=== PATIENT | female | born 1940 | race Caucasian/White ===

== ENCOUNTER 2021-03-27 | Emergency (ER) | payer MEDICARE | END 2021-03-27 23:00 | disposition home or self-care (01) ==

== ENCOUNTER 2022-04-09 07:54 | Inpatient (IN) | payer MEDICARE ==
[2022-04-09] MEDS ORDERED: SODIUM CHLORIDE 0.9% 1,000 ML IV ONE (08:01)
[2022-04-09] MEDS ORDERED: SODIUM CHLORIDE 0.9% 1,000 ML IV STA ×3 (08:01→17:45)
--- NOTE | 2022-04-09 08:07 | ED ---
Altered Mental Status HPI - General Stated Complaint: AMS Time Seen by Provider: 04/09/22 07:54 Source: EMS, RN notes reviewed Mode of arrival: EMS - History of Present Illness Initial Comments: This is a 81-year-old female with a history of COPD and diabetes who last known well time was 2:30 PM yesterday afternoon she started developing nausea and vomiting and this. He went on throughout the night EMS was called today because the patient had altered mental status with confusion. She apparently was not following commands. She did not demonstrate any evidence of focal deficits. No fevers chills or sweats no known dysuria no diarrhea. No trauma reported. No other complaints or modifying factors at this time MD Complaint: altered mental status, confusion, decreased responsiveness - Related Data Previous Rx's Medication Instructions Recorded Cephalexin [Keflex] 500 mg PO Q6HR 7 Days #28 cap 03/27/21 Allergies Allergy/AdvReac Type Severity Reaction Status Date / Time Penicillins Allergy Rash/Hives Verified 04/09/22 08:04 Sulfa (Sulfonamide Allergy Rash/Hives Verified 04/09/22 08:04 Antibiotics) Review of Systems ROS Statement: Those systems with pertinent positive or pertinent negative responses have been documented in the HPI. ROS Other: All systems not noted in ROS Statement are negative. Limitations: ROS unobtainable due to patients medical condition Past Medical History Past Medical History: COPD, Diabetes Mellitus, Hyperlipidemia, Hypertension Additional Past Medical History / Comment(s): abdominal aortic aneurysm History of Any Multi-Drug Resistant Organisms: None Reported Past Psychological History: No Psychological Hx Reported Smoking Status: Former smoker Past Alcohol Use History: None Reported Past Drug Use History: None Reported General Exam - General Exam Comments Initial Comments: This is a well-developed awake alert though somewhat confused female she does answer questions briefly. General appearance: alert, anxious Head exam: Present: atraumatic, normocephalic, normal inspection Eye exam: Present: normal appearance, PERRL, EOMI. Absent: scleral icterus, conjunctival injection, periorbital swelling ENT exam: Present: mucous membranes dry Neck exam: Present: normal inspection, full ROM, other (No surgery or bruits). Absent: tenderness, meningismus, lymphadenopathy Respiratory exam: Present: decreased breath sounds. Absent: respiratory distress, wheezes, rales, rhonchi, stridor Cardiovascular Exam: Present: normal rhythm, tachycardia, normal heart sounds. Absent: systolic murmur, diastolic murmur, rubs, gallop, clicks GI/Abdominal exam: Present: soft, normal bowel sounds, other (Well-healed surgical scars from a laparoscopic cholecystectomy. The patient confirms this). Absent: distended, tenderness, guarding, rebound, rigid Rectal exam: Present: normal inspection External exam: Present: normal external exam Extremities exam: Present: normal inspection, full ROM, normal capillary refill. Absent: tenderness, pedal edema, joint swelling, calf tenderness Back exam: Present: normal inspection, full ROM. Absent: tenderness Neurological exam: Present: alert, altered, CN II-XII intact. Absent: motor sensory deficit Psychiatric exam: Present: anxious Skin exam: Present: warm, dry, intact, normal color. Absent: rash Course Vital Signs 04/09/22 04/09/22 04/09/22 08:05 08:27 10:15 Temperature 101 F H 99.4 F Pulse Rate 91 80 93 Respiratory 18 18 18 Rate Blood Pressure 193/76 170/83 160/61 O2 Sat by Pulse 97 97 98 Oximetry - Reevaluation(s) Reevaluation #1: 04/09/22 12:38 Reevaluation of the patient multiple occasions findings no change she still is responsive as she was earlier. Family members or present Medical Decision Making - Medical Decision Making I did discuss findings with the patient's family also with Dr. Patel. Patient demonstrates dehydration fever of unknown origin at this point and altered mental status patient be admitted she does have elevation of her troponin indicative of an NSTEMI. Patient be admitted IV antibiotics cardiology consultation close monitoring - Lab Data Result diagrams: 04/09/22 08:22 04/09/22 08:22 Lab Results 04/09/22 04/09/22 04/09/22 Range/Units 08:22 08:22 08:22 WBC 9.4 (3.8-10.6) k/uL RBC 4.99 (3.80-5.40) m/uL Hgb 15.6 (11.4-16.0) gm/dL Hct 46.0 (34.0-46.0) % MCV 92.1 (80.0-100.0) fL MCH 31.3 (25.0-35.0) pg MCHC 33.9 (31.0-37.0) g/dL RDW 13.3 (11.5-15.5) % Plt Count 123 L (150-450) k/uL MPV 10.0 Neutrophils % 79 % Lymphocytes % 9 % Monocytes % 8 % Eosinophils % 0 % Basophils % 2 % Neutrophils # 7.4 (1.3-7.7) k/uL Lymphocytes # 0.9 L (1.0-4.8) k/uL Monocytes # 0.8 (0-1.0) k/uL Eosinophils # 0.0 (0-0.7) k/uL Basophils # 0.2 (0-0.2) k/uL PT 11.7 (9.0-12.0) sec INR 1.1 (<1.2) APTT 22.1 (22.0-30.0) sec Sodium (137-145) mmol/L Potassium (3.5-5.1) mmol/L Chloride (98-107) mmol/L Carbon Dioxide (22-30) mmol/L Anion Gap mmol/L BUN (7-17) mg/dL Creatinine (0.52-1.04) mg/dL Est GFR (CKD-EPI)AfAm (>60 ml/min/1.73 sqM) Est GFR (CKD-EPI)NonAf (>60 ml/min/1.73 sqM) Glucose (74-99) mg/dL Lactic Ac Sepsis Rflx Plasma Lactic Acid Bishop (0.7-2.0) mmol/L Calcium (8.4-10.2) mg/dL Total Bilirubin (0.2-1.3) mg/dL AST (14-36) U/L ALT (4-34) U/L Alkaline Phosphatase (38-126) U/L Ammonia (<30) umol/L Troponin I (0.000-0.034) ng/mL Total Protein (6.3-8.2) g/dL Albumin (3.5-5.0) g/dL Lipase (23-300) U/L Urine Color Yellow Urine Appearance Clear (Clear) Urine pH 7.0 (5.0-8.0) Ur Specific [place] 1.021 (1.001-1.035) Urine Protein 4+ H (Negative) Urine Glucose (UA) 2+ H (Negative) Urine Ketones 2+ H (Negative) Urine Blood Large H (Negative) Urine Nitrite Negative (Negative) Urine Bilirubin Negative (Negative) Urine Urobilinogen <2.0 (<2.0) mg/dL Ur Leukocyte Esterase Negative (Negative) Urine RBC 1 (0-5) /hpf Urine WBC 3 (0-5) /hpf Ur Squamous Epith Cells <1 (0-4) /hpf Hyaline Casts 1 (0-2) /lpf Urine Mucus Rare H (None) /hpf Urine Opiates Screen Not Detected (NotDetected) Ur Oxycodone Screen Not Detected (NotDetected) Urine Methadone Screen Not Detected (NotDetected) Ur Propoxyphene Screen Not Detected (NotDetected) Ur Barbiturates Screen Not Detected (NotDetected) U Tricyclic Antidepress Not Detected (NotDetected) Ur Phencyclidine Scrn Not Detected (NotDetected) Ur Amphetamines Screen Not Detected (NotDetected) U Methamphetamines Scrn Not Detected (NotDetected) U Benzodiazepines Scrn Not Detected (NotDetected) Urine Cocaine Screen Not Detected (NotDetected) U Marijuana (THC) Screen Not Detected (NotDetected) Coronavirus (PCR) (Not Detectd) Influenza Type A RNA (Not Detectd) Influenza Type B (PCR) (Not Detectd) 04/09/22 04/09/22 04/09/22 Range/Units 08:22 08:22 08:22 WBC (3.8-10.6) k/uL RBC (3.80-5.40) m/uL Hgb (11.4-16.0) gm/dL Hct (34.0-46.0) % MCV (80.0-100.0) fL MCH (25.0-35.0) pg MCHC (31.0-37.0) g/dL RDW (11.5-15.5) % Plt Count (150-450) k/uL MPV Neutrophils % % Lymphocytes % % Monocytes % % Eosinophils % % Basophils % % Neutrophils # (1.3-7.7) k/uL Lymphocytes # (1.0-4.8) k/uL Monocytes # (0-1.0) k/uL Eosinophils # (0-0.7) k/uL Basophils # (0-0.2) k/uL PT (9.0-12.0) sec INR (<1.2) APTT (22.0-30.0) sec Sodium 135 L (137-145) mmol/L Potassium 4.1 (3.5-5.1) mmol/L Chloride 99 (98-107) mmol/L Carbon Dioxide 21 L (22-30) mmol/L Anion Gap 15 mmol/L BUN 19 H (7-17) mg/dL Creatinine 0.94 (0.52-1.04) mg/dL Est GFR (CKD-EPI)AfAm 66 (>60 ml/min/1.73 sqM) Est GFR (CKD-EPI)NonAf 57 (>60 ml/min/1.73 sqM) Glucose 248 H (74-99) mg/dL Lactic Ac Sepsis Rflx Plasma Lactic Acid Bishop 2.6 H* (0.7-2.0) mmol/L Calcium 9.0 (8.4-10.2) mg/dL Total Bilirubin 1.3 (0.2-1.3) mg/dL AST 35 (14-36) U/L ALT 18 (4-34) U/L Alkaline Phosphatase 117 (38-126) U/L Ammonia <9 (<30) umol/L Troponin I 0.121 H* (0.000-0.034) ng/mL Total Protein 8.3 H (6.3-8.2) g/dL Albumin 4.7 (3.5-5.0) g/dL Lipase 131 (23-300) U/L Urine Color Urine Appearance (Clear) Urine pH (5.0-8.0) Ur Specific [place] (1.001-1.035) Urine Protein (Negative) Urine Glucose (UA) (Negative) Urine Ketones (Negative) Urine Blood (Negative) Urine Nitrite (Negative) Urine Bilirubin (Negative) Urine Urobilinogen (<2.0) mg/dL Ur Leukocyte Esterase (Negative) Urine RBC (0-5) /hpf Urine WBC (0-5) /hpf Ur Squamous Epith Cells (0-4) /hpf Hyaline Casts (0-2) /lpf Urine Mucus (None) /hpf Urine Opiates Screen (NotDetected) Ur Oxycodone Screen (NotDetected) Urine Methadone Screen (NotDetected) Ur Propoxyphene Screen (NotDetected) Ur Barbiturates Screen (NotDetected) U Tricyclic Antidepress (NotDetected) Ur Phencyclidine Scrn (NotDetected) Ur Amphetamines Screen (NotDetected) U Methamphetamines Scrn (NotDetected) U Benzodiazepines Scrn (NotDetected) Urine Cocaine Screen (NotDetected) U Marijuana (THC) Screen (NotDetected) Coronavirus (PCR) (Not Detectd) Influenza Type A RNA (Not Detectd) Influenza Type B (PCR) (Not Detectd) 04/09/22 04/09/22 04/09/22 Range/Units 08:22 08:22 09:03 WBC (3.8-10.6) k/uL RBC (3.80-5.40) m/uL Hgb (11.4-16.0) gm/dL Hct (34.0-46.0) % MCV (80.0-100.0) fL MCH (25.0-35.0) pg MCHC (31.0-37.0) g/dL RDW (11.5-15.5) % Plt Count (150-450) k/uL MPV Neutrophils % % Lymphocytes % % Monocytes % % Eosinophils % % Basophils % % Neutrophils # (1.3-7.7) k/uL Lymphocytes # (1.0-4.8) k/uL Monocytes # (0-1.0) k/uL Eosinophils # (0-0.7) k/uL Basophils # (0-0.2) k/uL PT (9.0-12.0) sec INR (<1.2) APTT (22.0-30.0) sec Sodium (137-145) mmol/L Potassium (3.5-5.1) mmol/L Chloride (98-107) mmol/L Carbon Dioxide (22-30) mmol/L Anion Gap mmol/L BUN (7-17) mg/dL Creatinine (0.52-1.04) mg/dL Est GFR (CKD-EPI)AfAm (>60 ml/min/1.73 sqM) Est GFR (CKD-EPI)NonAf (>60 ml/min/1.73 sqM) Glucose (74-99) mg/dL Lactic Ac Sepsis Rflx Y Plasma Lactic Acid Bishop (0.7-2.0) mmol/L Calcium (8.4-10.2) mg/dL Total Bilirubin (0.2-1.3) mg/dL AST (14-36) U/L ALT (4-34) U/L Alkaline Phosphatase (38-126) U/L Ammonia (<30) umol/L Troponin I (0.000-0.034) ng/mL Total Protein (6.3-8.2) g/dL Albumin (3.5-5.0) g/dL Lipase (23-300) U/L Urine Color Urine Appearance (Clear) Urine pH (5.0-8.0) Ur Specific [place] (1.001-1.035) Urine Protein (Negative) Urine Glucose (UA) (Negative) Urine Ketones (Negative) Urine Blood (Negative) Urine Nitrite (Negative) Urine Bilirubin (Negative) Urine Urobilinogen (<2.0) mg/dL Ur Leukocyte Esterase (Negative) Urine RBC (0-5) /hpf Urine WBC (0-5) /hpf Ur Squamous Epith Cells (0-4) /hpf Hyaline Casts (0-2) /lpf Urine Mucus (None) /hpf Urine Opiates Screen (NotDetected) Ur Oxycodone Screen (NotDetected) Urine Methadone Screen (NotDetected) Ur Propoxyphene Screen (NotDetected) Ur Barbiturates Screen (NotDetected) U Tricyclic Antidepress (NotDetected) Ur Phencyclidine Scrn (NotDetected) Ur Amphetamines Screen (NotDetected) U Methamphetamines Scrn (NotDetected) U Benzodiazepines Scrn (NotDetected) Urine Cocaine Screen (NotDetected) U Marijuana (THC) Screen (NotDetected) Coronavirus (PCR) Not Detected (Not Detectd) Influenza Type A RNA Not Detected (Not Detectd) Influenza Type B (PCR) Not Detected (Not Detectd) 04/09/22 Range/Units 11:06 WBC (3.8-10.6) k/uL RBC (3.80-5.40) m/uL Hgb (11.4-16.0) gm/dL Hct (34.0-46.0) % MCV (80.0-100.0) fL MCH (25.0-35.0) pg MCHC (31.0-37.0) g/dL RDW (11.5-15.5) % Plt Count (150-450) k/uL MPV Neutrophils % % Lymphocytes % % Monocytes % % Eosinophils % % Basophils % % Neutrophils # (1.3-7.7) k/uL Lymphocytes # (1.0-4.8) k/uL Monocytes # (0-1.0) k/uL Eosinophils # (0-0.7) k/uL Basophils # (0-0.2) k/uL PT (9.0-12.0) sec INR (<1.2) APTT (22.0-30.0) sec Sodium (137-145) mmol/L Potassium (3.5-5.1) mmol/L Chloride (98-107) mmol/L Carbon Dioxide (22-30) mmol/L Anion Gap mmol/L BUN (7-17) mg/dL Creatinine (0.52-1.04) mg/dL Est GFR (CKD-EPI)AfAm (>60 ml/min/1.73 sqM) Est GFR (CKD-EPI)NonAf (>60 ml/min/1.73 sqM) Glucose (74-99) mg/dL Lactic Ac Sepsis Rflx Plasma Lactic Acid Bishop 2.4 H* (0.7-2.0) mmol/L Calcium (8.4-10.2) mg/dL Total Bilirubin (0.2-1.3) mg/dL AST (14-36) U/L ALT (4-34) U/L Alkaline Phosphatase (38-126) U/L Ammonia (<30) umol/L Troponin I (0.000-0.034) ng/mL Total Protein (6.3-8.2) g/dL Albumin (3.5-5.0) g/dL Lipase (23-300) U/L Urine Color Urine Appearance (Clear) Urine pH (5.0-8.0) Ur Specific [place] (1.001-1.035) Urine Protein (Negative) Urine Glucose (UA) (Negative) Urine Ketones (Negative) Urine Blood (Negative) Urine Nitrite (Negative) Urine Bilirubin (Negative) Urine Urobilinogen (<2.0) mg/dL Ur Leukocyte Esterase (Negative) Urine RBC (0-5) /hpf Urine WBC (0-5) /hpf Ur Squamous Epith Cells (0-4) /hpf Hyaline Casts (0-2) /lpf Urine Mucus (None) /hpf Urine Opiates Screen (NotDetected) Ur Oxycodone Screen (NotDetected) Urine Methadone Screen (NotDetected) Ur Propoxyphene Screen (NotDetected) Ur Barbiturates Screen (NotDetected) U Tricyclic Antidepress (NotDetected) Ur Phencyclidine Scrn (NotDetected) Ur Amphetamines Screen (NotDetected) U Methamphetamines Scrn (NotDetected) U Benzodiazepines Scrn (NotDetected) Urine Cocaine Screen (NotDetected) U Marijuana (THC) Screen (NotDetected) Coronavirus (PCR) (Not Detectd) Influenza Type A RNA (Not Detectd) Influenza Type B (PCR) (Not Detectd) - EKG Data -: EKG Interpreted by Mt EKG shows normal: sinus rhythm EKG Comments: Sinus rhythm a 93. Interval 153 QRS duration 135 QT since QTC 389/440 possible left atrial enlargement right bundle-branch block pattern this EKG compared with one dated 03/27/21 showing no acute changes. - Radiology Data Radiology results: report reviewed (Imaging reviewed evidence of white matter changes brain no acute processes. X-ray to this point is unremarkable.), image reviewed Critical Care Time Critical Care Time: Yes Total Critical Care Time: 40 Critical Care Time: Critical care time including initial presentation with history physical labs x- rays multiple reevaluation the patient discussed with paramedics upon arrival revealed charting available discussed with family members discuss with the admitting physician admission orders and documentation the above Disposition Clinical Impression: Altered mental status, Delirium due to general medical condition, Non-STEMI (non-ST elevated myocardial infarction), Dehydration, Lactic acidosis Disposition: ADMITTED IP TO THIS HOSP Condition: Fair Referrals: Rosio Almanzar MD [Primary Care Provider] - 1-2 days Decision Date: 04/09/22 Decision Time: 12:00
[2022-04-09 08:44] LABS: Basophils # (A) 0.2 k/uL (0-0.2); Basophils % (A) 2 %; Eosinophils % (A) 0 %; HGB 15.6 gm/dL (11.4-16.0); Lymphocytes # (A) 0.9 k/uL (1.0-4.8); Lymphocytes % (A) 9 %; MCH 31.3 pg (25.0-35.0); MCHC 33.9 g/dL (31.0-37.0); MCV 92.1 fL (80.0-100.0); Monocytes # (A) 0.8 k/uL (0-1.0); Monocytes % (A) 8 %; Neutrophils # (A) 7.4 k/uL (1.3-7.7); Neutrophils % (A) 79 %; Platelet Count 123 k/uL (150-450); RBC 4.99 m/uL (3.80-5.40); RDW 13.3 % (11.5-15.5); WBC 9.4 k/uL (3.8-10.6)
--- NOTE | 2022-04-09 08:55 | XR ---
EXAMINATION TYPE: XR chest 1V DATE OF EXAM: 04/09/2022 8:37 AM COMPARISON: Chest radiographs from 04/04/2013, CTA chest 03/27/2021. TECHNIQUE: XR chest 1V Frontal view of the chest. CLINICAL INDICATION:Female, 81 years old with history of altered mental status; FINDINGS: Limited examination due to poor penetration. Lungs/Pleura: There is no evidence of pleural effusion, focal consolidation, or pneumothorax. Left ba silar atelectasis Pulmonary vascularity: Unremarkable. Heart/mediastinum: Cardiomediastinal silhouette is unremarkable. Atherosclerotic calcifications are seen in the aorta. Musculoskeletal: No acute osseous pathology. Degenerative changes of both shoulders. IMPRESSION: No acute cardiopulmonary disease/process.
[2022-04-09 09:01] LABS: Albumin 4.7 g/dL (3.5-5.0); INR 1.1 (<1.2); Partial Thromboplastin Time 22.1 sec (22.0-30.0); Potassium 4.1 mmol/L (3.5-5.1); Prothrombin Time 11.7 sec (9.0-12.0); Total Bilirubin 1.3 mg/dL (0.2-1.3); Total Protein 8.3 g/dL (6.3-8.2)
[2022-04-09 09:03] LABS: Lactic Acid, Venous 2.6 mmol/L (0.7-2.0)
[2022-04-09] MEDS ORDERED: LORazepam 2 MG/ML INJ IV STA (09:17)
--- NOTE | 2022-04-09 09:39 | CT ---
EXAMINATION TYPE: CT brain wo con CT DLP: 1099.4 mGycm, Automated exposure control for dose reduction was used. DATE OF EXAM: 04/09/2022 9:34 AM COMPARISON: Prior CT Brain from 03/14/2013 . CLINICAL INDICATION:Female, 81 years old with history of Altered mental status, TECHNIQUE: Brain: Multiple axial CT images of the brain were obtained without IV contrast. Coronal and sagittal reformats reviewed. FINDINGS: Motion degraded examination. Brain: Extra-axial spaces: No abnormal extra-axial fluid collections. Ventricular system: Within normal limits Cerebral parenchyma: No acute intraparenchymal hemorrhage or mass effect. The dietrich-white junction is well differentiated. Scattered hypoattenuating areas are seen within the white matter. Cerebral vol ume loss with prominence of the sulci. Cerebellum: Unremarkable. Mass effect: No evidence of midline shift. Intracranial vasculature: Atherosclerotic calcifications of the intracranial vessels. Soft tissues: Normal. Calvarium/osseous structures: No gross evidence of depressed skull fracture. Paranasal sinuses and mastoid air cells: Clear Visualized orbits: Bilateral aphakia IMPRESSION: Motion limited examination without gross evidence of an acute process. Nonspecific white matter changes likely related to chronic small vessel ischemia.
[2022-04-09 10:18] LABS: Appearance,Urine Clear (Clear); Bilirubin,Urine Negative (Negative); Blood,Urine Large (Negative); Color,Urine Yellow; Glucose,Urine (UA) 2+ (Negative); Hyaline Casts,Urine 1 /lpf (0-2); Leukocyte Esterase,Urine Negative (Negative); Mucus,Urine Rare /hpf; Nitrite,Urine Negative (Negative); Protein,Urine 4+ (Negative); RBC,Urine 1 /hpf (0-5); Specific Gravity,Urine 1.021 (1.001-1.035); Squamous Epithelial Cell,Urine <1 /hpf (0-4); Urobilinogen,Urine <2.0 mg/dL (<2.0); WBC,Urine 3 /hpf (0-5)
[2022-04-09 10:41] LABS: Amphetamine Screen,Urine Not Detected (NotDetected); Barbiturate Screen,Urine Not Detected (NotDetected); Benzodiazepines Screen,Urine Not Detected (NotDetected); Cocaine Screen,Urine Not Detected (NotDetected); Methadone Screen, Urine Not Detected (NotDetected); Opiate Screen,Urine Not Detected (NotDetected); Oxycodone Screen, Urine Not Detected (NotDetected); Phencyclidine Screen,Urine Not Detected (NotDetected); Tricyclic Antidepressant,Urine Not Detected (NotDetected); Urn Cannabinoid Scrn Not Detected (NotDetected)
[2022-04-09 11:04] LABS: Ketones,Urine 2+ (Negative)
[2022-04-09] MEDS ORDERED: cefTRIAXone IN SWFI 1,000 MG/10 ML SYRINGE IVP STA (12:40)
[2022-04-09] MEDS ORDERED: NITROGLYCERIN SL TABS 0.4 MG TAB SUBLINGUAL PRN (12:41)
[2022-04-09] MEDS ORDERED: ASPIRIN 81 MG PO STA (12:41)
[2022-04-09] MEDS ORDERED: HEPARIN SODIUM 1,000 UN/ML (10ML VL) IV ONE (12:41)
[2022-04-09] MEDS ORDERED: HEPARIN SOD,PORK IN 0.45% NACL 25,000 UNIT in 0.45% NACL 1 250ML.BAG IV SCH (12:45)
[2022-04-09] MEDS ORDERED: ASPIRIN 300 MG SUPP RECTAL STA (12:52)
[2022-04-09] MEDS ORDERED: ACETAMINOPHEN SUPPOSITORY 650 MG SUPP RECTAL PRN (13:02)
[2022-04-09 16:25] LABS: Glucose,Whole Blood 188 mg/dL (70-110)
[2022-04-09] MEDS ORDERED: IPRATROPIUM-ALBUTEROL 3 ML NEB INHALATION PRN (17:32)
[2022-04-09] MEDS ORDERED: ALBUTEROL NEBULIZED 2.5 MG/3 ML INHALATION PRN (17:32)
[2022-04-09] MEDS ORDERED: IOPAMIDOL CONTRAST (ORAL USE) VIAL PO PRN (17:43)
--- NOTE | 2022-04-09 19:23 | CT ---
EXAMINATION TYPE: CT abdomen pelvis w con CT DLP: 1900.3 mGycm, Automated exposure control for dose reduction was used. DATE OF EXAM: 04/09/2022 6:58 PM COMPARISON: CTA abdomen pelvis most recent from 03/27/2021. CLINICAL INDICATION:Female, 81 years old with history of sepsis. TECHNIQUE: Standard CT of the abdomen and pelvis following the administration of 100 cc of Isovue 3 00 IV contrast material. Coronal and sagittal reformats were performed. FINDINGS: Motion degraded examination. LOWER CHEST: Hypoventilatory changes. Aortic valvular and mitral calcifications. Coronary artery calc ifications. ABDOMEN LIVER: Unremarkable GALLBLADDER AND BILE DUCTS: The gallbladder is surgically absent. No biliary ductal dilatation. PANCREAS: Unremarkable. SPLEEN: Unremarkable. ADRENAL GLANDS: Unremarkable. KIDNEYS AND URETERS: No evidence of hydronephrosis. Vascular calcifications versus nonobstructing gil al calculi identified. PELVIS BLADDER: Unremarkable REPRODUCTIVE: Unremarkable. ABDOMEN & PELVIS STOMACH AND BOWEL: Stomach and duodenum are unremarkable. No focal wall thickening or surrounding inf lammatory changes. 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 No evidence of bowel obstruction. PERITONEUM: No evidence of pneumoperitoneum or free fluid. VASCULATURE: Moderate to severe atherosclerotic calcifications aorta and its branches. Postsurgical c hanges with aortobiiliac stent graft involving the infrarenal abdominal aortic aneurysm which measure s 4.3 x 4.1 cm which is stable. This mural thrombus demonstrated throughout the aorta. Evaluation of the vasculature is suboptimal due to motion artifact. MUSCULOSKELETAL: No acute osseous abnormalities. Mild disc degeneration changes are present throughou t the thoracolumbar spine. LYMPH NODES: No gross evidence for lymphadenopathy. SOFT TISSUE/ABDOMINAL WALL: Unremarkable IMPRESSION: 1. Motion limited examination without gross evidence of acute abdominal/pelvic process. 2. 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 Stable abdominal aortic aneurysm with stent graft in good position. 4. Moderate to severe atherosclerotic calcification of the aorta and its branches.
[2022-04-09 20:05] LABS: Glucose,Whole Blood 175 mg/dL (70-110)
[2022-04-10] MEDS: hydrALAZINE HCL 20 MG/ML 1 ML VIAL IVP PRN ×2 (02:07→17:26)
[2022-04-10 06:08] LABS: Glucose,Whole Blood 186 mg/dL (70-110)
[2022-04-10 07:42] LABS: Basophils # (A) 0.1 k/uL (0-0.2); Basophils % (A) 1 %; Eosinophils % (A) 0 %; HCT 41.1 % (34.0-46.0); HGB 13.2 gm/dL (11.4-16.0); Lymphocytes # (A) 1.2 k/uL (1.0-4.8); Lymphocytes % (A) 14 %; MCH 29.6 pg (25.0-35.0); MCHC 32.1 g/dL (31.0-37.0); MCV 92.3 fL (80.0-100.0); Monocytes # (A) 0.9 k/uL (0-1.0); Monocytes % (A) 11 %; Neutrophils # (A) 5.8 k/uL (1.3-7.7); Neutrophils % (A) 71 %; Platelet Count 106 k/uL (150-450); RBC 4.45 m/uL (3.80-5.40); RDW 13.1 % (11.5-15.5); WBC 8.1 k/uL (3.8-10.6)
[2022-04-10 08:53] LABS: ALT 15 U/L (4-34); AST 29 U/L (14-36); African American GFR (CKD) 72 (>60 ml/min/1.73 sqM); Albumin 3.8 g/dL (3.5-5.0); Alkaline Phosphatase 90 U/L (38-126); Anion Gap 8 mmol/L; Blood Urea Nitrogen 18 mg/dL (7-17); Calcium 7.9 mg/dL (8.4-10.2); Carbon Dioxide 23 mmol/L (22-30); Chloride 105 mmol/L (98-107); Glucose 176 mg/dL (74-99); Non-African American GFR(CKD) 62 (>60 ml/min/1.73 sqM); Potassium 3.3 mmol/L (3.5-5.1); Sodium 136 mmol/L (137-145); Total Bilirubin 0.8 mg/dL (0.2-1.3); Total Protein 6.8 g/dL (6.3-8.2)
[2022-04-10] MEDS ORDERED: ASPIRIN 325 MG TAB PO SCH (09:00)
[2022-04-10] MEDS ORDERED: Potassium Replacement Protocol 1 EACH MISC MISCELLANE PRN (09:06)
[2022-04-10] MEDS ORDERED: SODIUM CHLORIDE 0.9% 1,000 ML IV STA (09:40)
--- NOTE | 2022-04-10 09:59 | P.CNNES ---
History of Present Illness Consult date: 04/10/22 Requesting physician: Benjamin Damon Reason for Consult: Altered mental status History of Present Illness: Patient is a 81-year-old female with history of hypertension, diabetes, X tobacco use, otherwise healthy, came to the hospital by ambulance yesterday at 7:54 AM. EMS flow sheet not available in the chart. Patient not able to provide any history. Patient laying in the bed, appears to have some headache. On asking about the headache, patient states "terrible headache". She rates it as "10/10", but states is having headache for "a long time". Patient has very slow mentation, prolonged latency to answer any question. She would not answer most of the questions asked. She has limited speech, but was clear as above. She would frequently hold her head and moan, ask for help. I spoke to patient's daughter on the phone, who provided additional piece of history. She states that patient has been perfectly fine, until Sunday, 2 days ago at 3:30 to 40 p.m, when she started vomiting. She was still conversant on Sunday, discussed with her daughter about the politics and was able to move around a little. At baseline she uses walker or a cane. Her speech is otherwise fully intact. She went to sleep. Yesterday on Sunday morning, when patient's daughter went to wake her up, she was combative, not much responsive, would speak only 3 words at a time only "yes, no, help". She was not able to move, not able to do anything not able to sit up, could not rollover. There was no facial droop noticed. Her limited speech was clear with no slurring. No drooling. Patient's daughter noticed that she was grabbing side of the head. Therefore she called the ambulance and was brought to the hospital. This is a drastic change in her condition going on since Sunday but worse on Sunday. Vital signs on arrival blood pressure 193/76, which came down to 170/83, pulse rate 91 temperature 101 F rectally. Axillary was 99.4. Blood test shows normal CBC, platelets 123, PT/PTT normal, sodium 135, potassium 4.1, BUN 19, creatinine 0.94. Lactic acid was elevated 2.6. Hepatic panel normal, troponin mildly elevated 0.121 and then 0.206. UA shows 2+ ketones, UDS negative, portillo Virus negative, influenza negative. Ammonia is <9. CT head revealed motion limited examination without gross evidence of an acute process. Nonspecific white matter changes, likely related to chronic small vessel ischemia. On my review, there is evidence of significant generalized cerebral atrophy, particularly inv olving the frontal parietal region. No acute process. Chest x-ray revealed no acute process. EKG was sinus rhythm with occasional supraventricular premature complexes. Possible left atrial enlargement. Right bundle-branch block. CT of abdomen and pelvis showed no acute process. Stable abdominal aortic aneurysm with stent graft in good position. Moderate to severe atherosclerotic calcification of the aorta and its branches. Patient's daughter states that she smoked 1-3 packs per day for about 40-50 years, quit 5 years ago. She has type 2 diabetes for last 20 years. Also has hypertension. She lives with her daughter. Patient's home medications include lisinopril 20 mg, aspirin 81 mg, Coreg 6.25 mg twice a day, Lipitor 80 mg and albuterol. Review of Systems Only able to tell about headache. ROS unobtainable: due to mental status Past Medical History Past Medical History: COPD, CVA/TIA, Diabetes Mellitus, Hyperlipidemia, Hypertension, Myocardial Infarction ([place]) Additional Past Medical History / Comment(s): abdominal aortic aneurysm with stent, 2 heart attacks, 2 strokes - residual slight left eye droop per daughter Last Myocardial Infarction Date:: 2015 History of Any Multi-Drug Resistant Organisms: None Reported Past Surgical History: Appendectomy, Hysterectomy Additional Past Surgical History / Comment(s): stent to aorta at [facility], cardiac stent at [facility] for [place], R leg tendon surgery from fall, laminectomy. Past Anesthesia/Blood Transfusion Reactions: Previous Problems w/ Anesthesia Additional Past Anesthesia/Blood Transfusion Reaction / Comment(s): combative, previously restrained after sedation. Past Psychological History: No Psychological Hx Reported Smoking Status: Former smoker Past Alcohol Use History: None Reported Past Drug Use History: None Reported Medications and Allergies Home Medications Medication Instructions Recorded Confirmed Type Albuterol Inhaler [Ventolin Hfa 2 puff INHALATION RT-QID PRN 04/09/22 04/09/22 History Inhaler] Aspirin EC [Ecotrin Low Dose] 81 mg PO DAILY 04/09/22 04/09/22 History Atorvastatin [Lipitor] 80 mg PO HS 04/09/22 04/09/22 History Ipratropium-Albuterol Nebulize 3 ml INHALATION RT-QID PRN 04/09/22 04/09/22 History [Duoneb 0.5 mg-3 mg/3 ml Soln] Nitroglycerin Sl Tabs [Nitrostat] 0.4 mg SL Q5M PRN 04/09/22 04/09/22 History carvediloL [Coreg] 6.25 mg PO BID 04/09/22 04/09/22 History lisinopriL [Prinivil] 20 mg PO DAILY 04/09/22 04/09/22 History Allergies Allergy/AdvReac Type Severity Reaction Status Date / Time Penicillins Allergy Anaphylaxis Verified 04/09/22 13:16 & hives Sulfa (Sulfonamide Allergy Anaphylaxis Verified 04/09/22 13:16 Antibiotics) & hives diazepam [From Valium] AdvReac Combative Verified 04/09/22 13:16 Physical Examination - Vital Signs Vital Signs: Vital Signs Temp Pulse Pulse Resp BP BP Pulse Ox 04/10/22 04:00 99.0 F 97 20 169/72 97 04/10/22 02:00 94 18 04/10/22 00:00 98.0 F 94 18 197/79 96 04/09/22 20:00 98.1 F 88 20 193/119 04/09/22 16:00 159/65 04/09/22 14:44 98.4 F 87 18 159/72 98 04/09/22 14:00 78 20 04/09/22 13:26 98.7 F 20 200/81 93 L 04/09/22 12:00 92 18 173/80 97 04/09/22 10:15 99.4 F 93 18 160/61 98 04/09/22 08:27 80 18 170/83 97 Intake and Output 04/09/22 04/10/22 04/10/22 22:59 06:59 14:59 Other: Voiding Method Diaper Diaper # Voids 1 1 # Bowel Movements 1 1 Patient is an elderly female, laying in the bed, appears to be holding her head with her right hand due to headache. She appears encephalopathic. She continues to moan "oh my God" Patient is alert awake, limited speech, but was clear. There were no paraphasic errors with her limited speech. Patient did tell me that it is March, but did not tell me the year. Speech and language functions are normal. Attention, concentration and fund of knowledge is significantly limited. On cranial nerve examination, pupils are equal, round and reacting to light, vi sual mercedes could not be assessed although she does blink to visual threat on either side. Her extraocular muscles are intact with no nystagmus. Face is symmetric, she did not protrude her tongue. Lower cranial nerves cannot be tested. Hearing appears decreased. On muscle strength testing, patient did not cooperate with muscle strength testing. She states seems to move her arms and legs equally. No obvious weakness on either side. She frequently grabs her head with her right hand, appears to be in pain. She moves both legs equally. Deep tendon reflexes are difficult to assess because patient keeps on holding her legs stiff. Plantars are upgoing bilaterally. Sensory to touch could not be assessed, but she does move her extremities to painful stimuli bilaterally. Cerebellar function not able to be assessed. Tone appears increased and bulk of muscles normal. Gait not able to be checked. On general examination, she appears slightly dehydrated, mouth is dry, lips are chapped. there is no carotid bruit or murmur, S1-S2 audible. Abdomen is soft nontender. Chest is clear. Peripheral pulses are present. No edema. Skin is dry. Results - Laboratory Findings CBC and BMP: 04/10/22 06:57 04/10/22 06:57 Abnormal Lab Findings: Abnormal Labs 04/09/22 04/09/22 04/09/22 08:22 08:22 08:22 Plt Count 123 L Lymphocytes # 0.9 L APTT Sodium 135 L Carbon Dioxide 21 L BUN 19 H Glucose 248 H POC Glucose (mg/dL) Plasma Lactic Acid Bishop Troponin I Total Protein 8.3 H Urine Protein 4+ H Urine Glucose (UA) 2+ H Urine Ketones 2+ H Urine Blood Large H Urine Mucus Rare H 04/09/22 04/09/22 04/09/22 08:22 08:22 11:06 Plt Count Lymphocytes # APTT Sodium Carbon Dioxide BUN Glucose POC Glucose (mg/dL) Plasma Lactic Acid Bishop 2.6 H* 2.4 H* Troponin I 0.121 H* Total Protein Urine Protein Urine Glucose (UA) Urine Ketones Urine Blood Urine Mucus 04/09/22 04/09/22 04/09/22 14:46 16:23 19:09 Plt Count Lymphocytes # APTT Sodium Carbon Dioxide BUN Glucose POC Glucose (mg/dL) 188 H Plasma Lactic Acid Bishop Troponin I 0.206 H* 0.176 H* Total Protein Urine Protein Urine Glucose (UA) Urine Ketones Urine Blood Urine Mucus 04/09/22 04/09/22 04/10/22 19:09 20:03 06:07 Plt Count Lymphocytes # APTT 63.6 H Sodium Carbon Dioxide BUN Glucose POC Glucose (mg/dL) 175 H 186 H Plasma Lactic Acid Bishop Troponin I Total Protein Urine Protein Urine Glucose (UA) Urine Ketones Urine Blood Urine Mucus 04/10/22 06:57 Plt Count 106 L Lymphocytes # APTT Sodium Carbon Dioxide BUN Glucose POC Glucose (mg/dL) Plasma Lactic Acid Bishop Troponin I Total Protein Urine Protein Urine Glucose (UA) Urine Ketones Urine Blood Urine Mucus Assessment and Plan Assessment: * 81-year-old female, started having vomiting 2 days ago, but with acute altered mental status since yesterday morning on waking up. Her limited examination is nonfocal. Her limited speech appears clear. Patient has a fever, complaining of a severe headache, therefore need to rule out encephal itis/meningitis. * Cephalalgia, fever, altered mental status, rule out encephalitis meningitis. * Elevated cardiac enzymes * Diabetes * Hypertension * X tobacco use Plan: * Repeat CT head, rule out any evolving stroke. I would prefer MRI of the brain with and without contrast, but patient would not be able to lay still for MRI at this time. Therefore we will just repeat CT head. * Carotid Doppler * EEG * Lumbar puncture to rule out encephalitis meningitis. * Patient empirically started on acyclovir. Increase ceftriaxone to 2 g every 12 hours pending spinal fluid examination. ID has been consulted. No obvious source of fever noticed with CT of the abdomen pelvis, chest x-ray or urine. * DVT prophylaxis. * Patient was on heparin IV for elevated cardiac enzymes, which has been on hold for lumbar puncture. Cardiology on board. * Discussed with patient's daughter in detail. * Neurology will follow. Discussed with primary physician. Thank you for the consult. Time with Patient: Greater than 30
--- NOTE | 2022-04-10 11:05 | US ---
EXAMINATION TYPE: US carotid duplex BILAT DATE OF EXAM: 04/10/2022 COMPARISON: NONE CLINICAL HISTORY: Speech difficulty. AMS, speech difficulty EXAM MEASUREMENTS: RIGHT: Peak Systolic Velocity (PSV) cm/sec ----- Right CCA: 71.3 ----- Right ICA: 137.1 ----- Right ECA: 525.0 ICA/CCA ratio: 1.9 RIGHT: End Diastole cm/sec ----- Right CCA: 23.0 ----- Right ICA: 32.1 ----- Right ECA: 55.0 LEFT: Peak Systolic Velocity (PSV) cm/sec ----- Left CCA: 68.0 ----- Left ICA: 80.1 ----- Left ECA: 112.9 ICA/CCA ratio: 1.2 LEFT: End Diastole cm/sec ----- Left CCA: 13.1 ----- Left ICA: 24.1 ----- Left ECA: 7.9 VERTEBRALS (direction of flow): Right Vertebral: unable to visualize Left Vertebral: unable to visualize Grayscale, color Doppler, spectral Doppler imaging performed of the carotid arteries. Peak systolic v elocity within the proximal internal carotid artery is elevated, end-diastolic velocity is elevated a long the internal carotid artery on the right. Some spectral broadening in loss of the systolic windo w noted on waveform analysis. .*technical limitations, patient uncooperative and unable to rotate neck into adequate position. Imag es started with left due to patient position. Mild to moderate plaque left bifurcation. Moderate to s evere plaque noted right bifurcation. increased velocities right ICA and right ECA. unable to visuali ze bilateral vertebral arteries IMPRESSION: Exam is limited. 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 1. Normal (no stenosis)=ICA PSV < 125 cm/s: ratio < 2.0: ICA EDV<40 cm/s. 2. Less than 50% stenosis=ICA PSV < 125 cm/s: ratio < 2.0: ICA EDV<40 cm/s. 3. 50 to 69% stenosis=ICA PSV of 125 to 230 cm/s: ration 2.0 ? 4.0: ICA EDV 40-100 cm/s. 4. Greater than 70% stenosis to near occlusion= ICA PSV > 230 cm/s: ratio > 4.0: ICA EDV > 100 cm/s. 5. Near occlusion= ICA PSV velocities may be low or undetectable: variable ratio and ICA EDV. 6. Total occlusion=unable to detect flow.
--- NOTE | 2022-04-10 11:16 | P.CRDCN ---
History of Present Illness History of present illness: Patient has a known history of coronary artery disease status post angioplasty to the RCA in 2012 hypertension hyperlipidemia abdominal aortic aneurysm status post stent [facility], peripheral vascular disease and diabetes COPD CVA with residual slight left eye droop, former heavy smoker. Who follows with Dr. Calderón, however has not been seen since 2014. Patient presented to the ER with altered mental status. Per patient's daughter patient has been complaining of a headache started developing nausea and vomiting and confusion. Patient's baseline is A&O 3 and able to walk with a walker cane. We have been consult that for elevated troponins 0.121, 0.206, 0.176. Patient was started on heparin drip for elevated trop. EKG showed sinus rhythm with right bundle branch block,occasional PVCs and possible left atrial enlargement Chest x-ray was negative for acute cardiopulmonary process CT of the head showed motion limited exam without gross evidence of acute process, nonspecific white matter changes likely related to chronic small vessel ischemia CT of the abdomen and pelvis showed no acute process. Stable abdominal aortic aneurysm status post patent stent Moderate to severe atherosclerotic calcifications of the aorta. Vital signs show blood pressure 157/78 pulse 90, she has hydralazine when necessary Review of labs WBC 8.1 hemoglobin 13.2 sodium 136 potassium 3.3 BUN 18 creatinine 0.88 magnesium 1.5 AST 29 ALT 15 Will discontinue heparin drip for patient to undergo lumbar puncture. Will obtain an echocardiogram to assess LV function and wall motion Repeat CT of the head carotid Doppler, and EGG pending Review of Systems REVIEW OF SYSTEMS At the time of my exam patient is A&O 1 and unable to follow commands CONSTITUTIONAL: Denies fever or chills. Complains of headache EYES: Negative for vision changes ENT: Negative for hearing loss CARDIOVASCULAR: Denies chest pain, shortness of breath, diaphoresis, orthopnea, PND or palpitations. VASCULAR: Denies edema RESPIRATORY: Denies cough. GASTROINTESTINAL: Denies abdominal pain, diarrhea, constipation, nausea or vomiting. MUSCULOSKELETAL: Denies myalgias. NEUROLOGIC: Denies numbness, tingling, headache or weakness. ENDOCRINE: Denies fatigue, weight change, polydipsia or polyurina. GENITOURINARY: Denies burning, hematuria or urgency with micturation. HEMATOLOGIC: Denies history of anemia or bleeding. DERMATOLOGY: Denies rash or skin sores PSYCH: Negative for depression or hallucinations. Past Medical History Past Medical History: COPD, CVA/TIA, Diabetes Mellitus, Hyperlipidemia, Hypertension, Myocardial Infarction ([place]) Additional Past Medical History / Comment(s): abdominal aortic aneurysm with stent, 2 heart attacks, 2 strokes - residual slight left eye droop per daughter Last Myocardial Infarction Date:: 2015 History of Any Multi-Drug Resistant Organisms: None Reported Past Surgical History: Appendectomy, Hysterectomy Additional Past Surgical History / Comment(s): [facility] stent at [facility] for [place], R leg tendon surgery from fall, laminectomy. Past Anesthesia/Blood Transfusion Reactions: Previous Problems w/ Anesthesia Additional Past Anesthesia/Blood Transfusion Reaction / Comment(s): combative, previously restrained after sedation. Past Psychological History: No Psychological Hx Reported Smoking Status: Former smoker Past Alcohol Use History: None Reported Past Drug Use History: None Reported Medications and Allergies Home Medications Medication Instructions Recorded Confirmed Type Albuterol Inhaler [Ventolin Hfa 2 puff INHALATION RT-QID PRN 04/09/22 04/09/22 History Inhaler] Aspirin EC [Ecotrin Low Dose] 81 mg PO DAILY 04/09/22 04/09/22 History Atorvastatin [Lipitor] 80 mg PO HS 04/09/22 04/09/22 History Ipratropium-Albuterol Nebulize 3 ml INHALATION RT-QID PRN 04/09/22 04/09/22 History [Duoneb 0.5 mg-3 mg/3 ml Soln] Nitroglycerin Sl Tabs [Nitrostat] 0.4 mg SL Q5M PRN 04/09/22 04/09/22 History carvediloL [Coreg] 6.25 mg PO BID 04/09/22 04/09/22 History lisinopriL [Prinivil] 20 mg PO DAILY 04/09/22 04/09/22 History Allergies Allergy/AdvReac Type Severity Reaction Status Date / Time Penicillins Allergy Anaphylaxis Verified 04/09/22 13:16 & hives Sulfa (Sulfonamide Allergy Anaphylaxis Verified 04/09/22 13:16 Antibiotics) & hives diazepam [From Valium] AdvReac Combative Verified 04/09/22 13:16 Physical Exam Vitals: Vital Signs Temp Pulse Pulse Resp BP BP Pulse Ox 04/10/22 08:00 97.6 F 90 20 157/78 96 04/10/22 04:00 99.0 F 97 20 169/72 97 04/10/22 02:00 94 18 04/10/22 00:00 98.0 F 94 18 197/79 96 04/09/22 20:00 98.1 F 88 20 193/119 04/09/22 16:00 159/65 04/09/22 14:44 98.4 F 87 18 159/72 98 04/09/22 14:00 78 20 04/09/22 13:26 98.7 F 20 200/81 93 L 04/09/22 12:00 92 18 173/80 97 Intake and Output 04/09/22 04/10/22 04/10/22 22:59 06:59 14:59 Intake Total 198.667 Balance 198.667 Intake: Intake, IV Titration 198.667 Amount Heparin Sod,Pork in 0.45% 198.667 NaCl 25,000 unit In 0.45 % NaCl 1 250ml.bag @ 11. 853 UNITS/KG/HR 10 mls/hr IV .Q24H [facility] Rx#: [id number] Other: Voiding Method Diaper Diaper # Voids 1 1 # Bowel Movements 1 1 PHYSICAL EXAMINATION General: The patient is awake and alert, in no distress, and does not appear acutely ill. Skin: Skin is warm and dry and no rashes or lesions are noted. Eye: Pupils are equal, round and reactive to light, extra-ocular movements are intact; there is normal conjunctiva bilaterally. Ears, nose, mouth and throat: There are moist mucous membranes and no oral lesions. Neck: The neck is supple, there is no tenderness or JVD. Cardiovascular: There is regular rate and rhythm. No murmur, rub or gallop is appreciated. Respiratory: Lungs are clear to auscultation, respirations are non-labored, breath sounds are equal. Gastrointestinal: Soft, non-distended, non-tender abdomen without masses or organomegaly noted. There is no rebound or guarding present. Bowel sounds are unremarkable. Back: There is no tenderness to palpation in the midline. There is no obvious deformity. Musculoskeletal: Normal ROM, no tenderness, There is no pedal edema. There is no calf tenderness or swelling. Extremities: Mild bilateral pitting edema Vascular: Femoral pulse is normal. Posterior tibial pulses are normal .Dorsalis pedis is palpable. Neurological: CN II-XII intact. There are no obvious motor or sensory deficits. Speech is normal. Psychiatric: Cooperative, appropriate mood & affect, normal judgment Results 04/10/22 06:57 04/10/22 06:57 Cardiac Enzymes 04/09/22 04/09/22 04/10/22 Range/Units 14:46 19:09 06:57 AST 29 (14-36) U/L Troponin I 0.206 H* 0.176 H* (0.000-0.034) ng/mL Coagulation 04/09/22 04/10/22 Range/Units 19:09 06:57 APTT 63.6 H 104.2 H* (22.0-30.0) sec CBC 04/10/22 Range/Units 06:57 WBC 8.1 (3.8-10.6) k/uL RBC 4.45 (3.80-5.40) m/uL Hgb 13.2 (11.4-16.0) gm/dL Hct 41.1 (34.0-46.0) % Plt Count 106 L (150-450) k/uL Comprehensive Metabolic Panel 04/10/22 Range/Units 06:57 Sodium 136 L (137-145) mmol/L Potassium 3.3 L (3.5-5.1) mmol/L Chloride 105 (98-107) mmol/L Carbon Dioxide 23 (22-30) mmol/L BUN 18 H (7-17) mg/dL Creatinine 0.88 (0.52-1.04) mg/dL Glucose 176 H (74-99) mg/dL Calcium 7.9 L (8.4-10.2) mg/dL AST 29 (14-36) U/L ALT 15 (4-34) U/L Alkaline Phosphatase 90 (38-126) U/L Total Protein 6.8 (6.3-8.2) g/dL Albumin 3.8 (3.5-5.0) g/dL Current Medications Generic Name Dose Route Start Last Admin Trade Name Freq PRN Reason Stop Dose Admin Acetaminophen 650 mg 04/09/22 13:02 04/09/22 13:05 Acetaminophen Suppository 650 Mg Supp RECTAL 650 mg Q6HR PRN Administration Fever and/ or Pain Albuterol Sulfate 2.5 mg 04/09/22 17:32 Albuterol Nebulized 2.5 Mg/3 Ml INHALATION RT-QID PRN Shortness Of Breath Albuterol/Ipratropium 3 ml 04/09/22 17:32 Ipratropium-Albuterol 3 Ml Neb INHALATION RT-QID PRN Shortness Of Breath Hydralazine HCl 10 mg 04/09/22 17:36 04/10/22 02:07 Hydralazine Hcl 20 Mg/Ml 1 Ml Vial IVP 10 mg Q4HR PRN Administration Blood Pressure - High Potassium Chloride 10 meq/ IV 100 mls @ 100 mls/hr 04/10/22 10:00 Solution IVPB 04/10/22 13:59 Q1HR [facility] Protocol Acyclovir Sodium 650 mg/ 113 mls @ 113 mls/hr 04/10/22 10:00 Sodium Chloride IVPB Q8H [facility] Protocol Ceftriaxone Sodium 1 gm/ 50 mls @ 100 mls/hr 04/10/22 09:45 Sodium Chloride IVPB Q24HR [facility] Protocol Sodium Chloride 1,000 mls @ 75 mls/hr 04/10/22 09:40 Saline 0.9% IV 04/10/22 22:59 .[id number] STA Iopamidol 30 ml 04/09/22 17:43 Iopamidol Contrast (Oral Use) Vial PO 04/10/22 17:[address] Scan Miscellaneous Information 1 each 04/10/22 09:06 Potassium Replacement Protocol 1 Each Misc MISCELLANE DAILY PRN Per Protocol Protocol Nitroglycerin 0.4 mg 04/09/22 12:41 Nitroglycerin Sl Tabs 0.4 Mg Tab SUBLINGUAL Q5M PRN Chest Pain Intake and Output 04/09/22 04/10/22 04/10/22 22:59 06:59 14:59 Intake Total 198.667 Balance 198.667 Intake: Intake, IV Titration 198.667 Amount Heparin Sod,Pork in 0.45% 198.667 NaCl 25,000 unit In 0.45 % NaCl 1 250ml.bag @ 11. 853 UNITS/KG/HR 10 mls/hr IV .Q24H [facility] Rx#: [id number] Other: Voiding Method Diaper Diaper # Voids 1 1 # Bowel Movements 1 1 04/10/22 06:57 04/10/22 06:57 Assessment and Plan Assessment: Elevated troponins Hypertension Coronary artery disease status post angioplasty to the RCA Abdominal aortic aneurysm status post stent Peripheral vascular disease Hypertension Dyslipidemia Plan: Will obtain an echocardiogram Discontinue heparin drip for lumbar puncture Continue with hydralazine when necessary Continue with telemetry monitoring Carotid Doppler pending Further recommendations based on clinical course The above impression and plan of care have been discussed and directed by the signing physician. Teri Del Castillo, nurse practitioner, acting as scribe for signing physician.
[2022-04-10 11:32] LABS: Glucose,Whole Blood 149 mg/dL (70-110)
[2022-04-10] MEDS: ACYCLOVIR SODIUM 650 MG in SODIUM CHLORIDE 0.9% 100 ML IVPB SCH ×2 (12:25→17:26)
[2022-04-10] MEDS: POTASSIUM CHLORIDE 10 MEQ in WATER FOR INJECTION 1 100ML.BAG IVPB SCH ×4 (12:26→15:30)
--- NOTE | 2022-04-10 13:34 | CT ---
EXAMINATION TYPE: CT brain wo con DATE OF EXAM: 04/10/2022 COMPARISON: 04/09/2022 HISTORY: 81-year-old female confusion, altered mental status, rule out CVA TECHNIQUE: Examination was done in axial plane without intravenous contrast. Coronal and sagittal r econstructions performed. CT DLP: 1173.4 mGycm Automated exposure control for dose reduction was used. FINDINGS: There is no evidence of acute intracranial hemorrhage, acute ischemic changes, mass, mass-effect, or extra-axial fluid collection. There is no effacement of cerebral sulci or basal subarachnoid cister ns. There is mild ventricular prominence with evidence ratio calculated at 0.31. Confluent white urszula er hypodensities in both cerebral hemispheres. Suggestion of some cortical encephalomalacia posterior left occipital lobe. Benign basal ganglionic calcifications. Atherosclerotic calcifications within t he carotid siphons. Partially empty sella. Moderate cerebral cortical volume loss. There is no midlin e shift. Wu-white matter distinction is preserved. Mild mucosal thickening right maxillary sinus. Mastoid air cells well pneumatized. Previous resection changes extending into the right mastoid process. Orbits and globes are intact. IMPRESSION: Moderate generalized atrophy and confluent burden of chronic small vessel ischemic disease. Suspect a small area of old cortical infarct posterior left occipital lobe. No acute intracranial abnormality seen. If symptoms persist, consider MRI.
--- NOTE | 2022-04-10 15:38 | P.PAINPG ---
Objective - Vital Signs Vital signs: Vital Signs Temp 97.8 F 04/10/22 12:00 Pulse 91 04/10/22 12:00 Resp 20 04/10/22 12:00 BP 169/79 04/10/22 12:00 Pulse Ox 95 04/10/22 12:00 FiO2 Intake & Output 04/09/22 04/10/22 04/10/22 18:59 06:59 18:59 Intake Total 228.667 Balance 228.667 Weight 84.368 kg Intake: IV 30 Invasive Line 2 20 Invasive Line 3 10 Intake, IV Titration 198.667 Amount Heparin Sod,Pork in 0.45% 198.667 NaCl 25,000 unit In 0.45 % NaCl 1 250ml.bag @ 11. 853 UNITS/KG/HR 10 mls/hr IV .Q24H [facility] Rx#: [id number] Other: Voiding Method Diaper Diaper Diaper # Voids 1 1 1 # Bowel Movements 1 1 - Labs CBC & Chem 7: 04/10/22 06:57 04/10/22 06:57 Labs: Abnormal Lab Results - Last 24 Hours (Table) 04/09/22 04/09/22 04/09/22 Range/Units 14:46 16:23 19:09 Plt Count (150-450) k/uL APTT (22.0-30.0) sec Sodium (137-145) mmol/L Potassium (3.5-5.1) mmol/L BUN (7-17) mg/dL Glucose (74-99) mg/dL POC Glucose (mg/dL) 188 H (70-110) mg/dL Hemoglobin A1c (0.0-6.0) % Calcium (8.4-10.2) mg/dL Magnesium (1.6-2.3) mg/dL Troponin I 0.206 H* 0.176 H* (0.000-0.034) ng/mL 04/09/22 04/09/22 04/09/22 Range/Units 19:09 19:09 20:03 Plt Count (150-450) k/uL APTT 63.6 H (22.0-30.0) sec Sodium (137-145) mmol/L Potassium (3.5-5.1) mmol/L BUN (7-17) mg/dL Glucose (74-99) mg/dL POC Glucose (mg/dL) 175 H (70-110) mg/dL Hemoglobin A1c 8.2 H (0.0-6.0) % Calcium (8.4-10.2) mg/dL Magnesium (1.6-2.3) mg/dL Troponin I (0.000-0.034) ng/mL 04/10/22 04/10/22 04/10/22 Range/Units 06:07 06:57 06:57 Plt Count 106 L (150-450) k/uL APTT (22.0-30.0) sec Sodium 136 L (137-145) mmol/L Potassium 3.3 L (3.5-5.1) mmol/L BUN 18 H (7-17) mg/dL Glucose 176 H (74-99) mg/dL POC Glucose (mg/dL) 186 H (70-110) mg/dL Hemoglobin A1c (0.0-6.0) % Calcium 7.9 L (8.4-10.2) mg/dL Magnesium (1.6-2.3) mg/dL Troponin I (0.000-0.034) ng/mL 04/10/22 04/10/22 04/10/22 Range/Units 06:57 06:57 11:30 Plt Count (150-450) k/uL APTT 104.2 H* (22.0-30.0) sec Sodium (137-145) mmol/L Potassium (3.5-5.1) mmol/L BUN (7-17) mg/dL Glucose (74-99) mg/dL POC Glucose (mg/dL) 149 H (70-110) mg/dL Hemoglobin A1c (0.0-6.0) % Calcium (8.4-10.2) mg/dL Magnesium 1.5 L (1.6-2.3) mg/dL Troponin I (0.000-0.034) ng/mL Microbiology - Last 24 Hours (Table) 04/09/22 08:22 Blood Culture - Preliminary Blood No Growth after 24 hours 04/09/22 08:22 Blood Culture - Preliminary Blood No Growth after 24 hours PQRS Measure Charge Sheet Comment: HISTORY OF PRESENT ILLNESS: 81 yr old inpatient female as a referral from Dr Kathleen with a history of HTN, Hyperlipidemia, CAD, COPD, IN and NIDDM presents today with acute mental status changes for evaluation. Pt asleep when encountered in exam room. Pt awakens but drowsy. Admits to headache, and severe headache, but groans between responding to Yes/No questions. Does not maintain eye contact. Pt is quick to fall back asleep. Could not stay alert to answer ROS questions. PMH: Past Medical History: COPD, CVA/TIA x 2, NIDDM, Hyperlipidemia, HTN, IN x 2 (last in 2016) PSH: AAA, Appendectomy, Hysterectomy, Cardiac Stents, RLE Tendon Surgery, Lumbar Laminectomy SH: Former tobacco user, No ETOH abuse, No illicit drug use FH: Non contributory All: See list Meds: See list REVIEW OF ORGAN SYSTEMS: CONSTITUTIONAL: No fevers or chills. No recent weight loss. NEUROLOGICAL: + headaches. MUSCULOSKELETAL: + pain Physical Examinations : Constitutional : Cooperative , not in acute distress . +Overweight Neurologic : No focal neurological deficits. Psychiatric : alert & oriented x 1 (Aware of name, Unaware of date or place). Pleasant flat mood & appropriate affect. Musculoskeletal : Cervical Spine Motor strength in the deltoid and biceps: Normal right side. Normal Left side Motor strength biceps and the wrist extensors: Normal right side . Normal left side Motor strength in the triceps muscle: Normal right side. Normal left side Deep tendon reflexes: Normal at the biceps. Normal at Brachioradialis. Normal at triceps Vertebral body tenderness to deep palpation over Cervical facet loading test: positive bilaterally Spurling test: positive bilaterally Neck distraction test: positive bilaterally Scar sign: positive bilaterally Lumbar spine Motor strength lower extremities ,thigh and legs 5/5 Right side , 5/5 Left side Deep tendon reflexes : Normal Knee Jerk. Normal Ankle Jerk Vertebral body tenderness over Lumbar facet Loading Test: positive Right / positive Left Range of motion of the lumbar spine Flexion 30 degrees, extension 10 degrees Straight Leg Raise test: Left/ Right positive at degree Miriam test: positive right / positive left. Severe tenderness over the Sacroiliac joint on the Right / Left sides Gaenslen test: positive bilaterally Seated flexion test: positive bilaterally. Sacral spine : Severe tenderness over the Sacroiliac joint: right side / left side Range of motion: Flexion of the lumbar spine <60 degrees Range of motion: Extension of the lumbar spine <20 degrees Gaenslen's Test positive Moreno's Test positive Miriam test: positive right side / left side Thigh Thrust Test Sacral Thrust Test Assessment/ Plan : Mental Status changes, Rule out Encephalitis Meningitis Recommendation of LP, as soon as Sunday but likely also. To obtain consent. Discontinue Heparin & ASA prior to procedure which is documented and taking place. All questions answered. I have spent greater than 30 minutes on patient care today. Dr Mora was available by phone for the evaluation of this patient. The time was used to review the medical records including relevant urine studies and Prescription history (MAPs), review of the available imaging, evaluation and examination of the patient, coordination of care with the medical staff and if applicable referring physicians, as well as creation of the medical record Pain Comment: patient crying out after transfering to other bed, unable to answer questions, 5 minutes later after letting patient rest she is snoring. PQRS Narrative: Blood Pressure [Right Arm] 169/79 Blood Pressure 159/72 Pain Intensity [Generalized] 0 Pain Intensity 4 Scale Used Non Verbal Pain Indicator Home Medications: Ambulatory Orders Albuterol Inhaler [Ventolin Hfa Inhaler] 2 puff INHALATION RT-QID PRN 04/09/22 Aspirin EC [Ecotrin Low Dose] 81 mg PO DAILY 04/09/22 Atorvastatin [Lipitor] 80 mg PO HS 04/09/22 Ipratropium-Albuterol Nebulize [Duoneb 0.5 mg-3 mg/3 ml Soln] 3 ml INHALATION RT-QID PRN 04/09/22 Nitroglycerin Sl Tabs [Nitrostat] 0.4 mg SL Q5M PRN 04/09/22 carvediloL [Coreg] 6.25 mg PO BID 04/09/22 lisinopriL [Prinivil] 20 mg PO DAILY 04/09/22 Controlled Substance Measures - Controlled Substance Measures Is patient prescribed a controlled substance at discharge?: No
[2022-04-10 15:57] LABS: LDL Cholesterol,Calculated 85.3 mg/dL (0.0-131.0)
[2022-04-10 16:29] LABS: Glucose,Whole Blood 134 mg/dL (70-110)
--- NOTE | 2022-04-10 19:15 | P.HPIM ---
History of Present Illness H&P Date: 04/09/22 Glenis Nunn, is an 81-year-old female who presented to [facility] with a chief complaint of fever and mental status changes She was evaluated in the emergency room vital examination on presentation revealed a temperature of 101 pulse 91 respiration 18 blood pressure 193/76 pul se ox 97% on room air Laboratory data revealed a white blood count of 9.4 hemoglobin 15.6 platelet c ount 123 sodium 135 potassium 4.1 chloride 99 CO2 21 BUN 19 creatinine 0.94 glucose on presentation was 248 troponin on presentation was elevated at 0.121 urine analysis on presentation was positive for protein, glucose, ketone, and blood but was negative for nitrate and leukocyte esterase. Toxicology screen was negative COVID-19 and influenza A and B serology were negative. Testing in the emergency room revealed chest x-ray was done in the emergency room and revealed no acute cardiopulmonary disease, EKG done in the emergency room revealed sinus rhythm with right bundle branch block, computed tomography scan of the brain revealed no gross evidence of an acute process. Due to elevated troponin patient was started on IV heparin in the emergency room, she was also started on IV Rocephin due to fever. Patient was admitted to medical floor for further evaluation and treatment Past Medical History Past Medical History: COPD, CVA/TIA, Diabetes Mellitus, Hyperlipidemia, Hypertension, Myocardial Infarction (IN) Additional Past Medical History / Comment(s): abdominal aortic aneurysm with stent, 2 heart attacks, 2 strokes - residual slight left eye droop per daughter Last Myocardial Infarction Date:: 2015 History of Any Multi-Drug Resistant Organisms: None Reported Past Surgical History: Appendectomy, Hysterectomy Additional Past Surgical History / Comment(s): [facility] , cardiac stent at [facility] for IN, R leg tendon surgery from fall, laminectomy. Past Anesthesia/Blood Transfusion Reactions: Previous Problems w/ Anesthesia Additional Past Anesthesia/Blood Transfusion Reaction / Comment(s): combative, previously restrained after sedation. Past Psychological History: No Psychological Hx Reported Smoking Status: Former smoker Past Alcohol Use History: None Reported Past Drug Use History: None Reported Medications and Allergies Home Medications Medication Instructions Recorded Confirmed Type Albuterol Inhaler [Ventolin Hfa 2 puff INHALATION RT-QID PRN 04/09/22 04/09/22 History Inhaler] Aspirin EC [Ecotrin Low Dose] 81 mg PO DAILY 04/09/22 04/09/22 History Atorvastatin [Lipitor] 80 mg PO HS 04/09/22 04/09/22 History Ipratropium-Albuterol Nebulize 3 ml INHALATION RT-QID PRN 04/09/22 04/09/22 History [Duoneb 0.5 mg-3 mg/3 ml Soln] Nitroglycerin Sl Tabs [Nitrostat] 0.4 mg SL Q5M PRN 04/09/22 04/09/22 History carvediloL [Coreg] 6.25 mg PO BID 04/09/22 04/09/22 History lisinopriL [Prinivil] 20 mg PO DAILY 04/09/22 04/09/22 History Allergies Allergy/AdvReac Type Severity Reaction Status Date / Time Penicillins Allergy Anaphylaxis Verified 04/09/22 13:16 & hives Sulfa (Sulfonamide Allergy Anaphylaxis Verified 04/09/22 13:16 Antibiotics) & hives diazepam [From Valium] AdvReac Combative Verified 04/09/22 13:16 Physical Exam Vitals: Vital Signs Temp Pulse Resp BP BP Pulse Ox 04/09/22 14:44 98.4 F 87 18 159/72 98 04/09/22 13:26 98.7 F 20 200/81 93 L 04/09/22 12:00 92 18 173/80 97 04/09/22 10:15 99.4 F 93 18 160/61 98 04/09/22 08:27 80 18 170/83 97 04/09/22 08:05 101 F H 91 18 193/76 97 Intake and Output 04/09/22 04/09/22 04/09/22 06:59 14:59 22:59 Other: Weight 84.368 kg Patient is drowsy arousable with stimuli slightly agitated when she is awake HEENT head normocephalic and atraumatic Neck is supple no JVD no goiter no lymphadenopathy Chest exam reveals a few scattered rhonchi no wheezing Cardiac exam reveals regular heart sounds S1 and S2 no gallops no murmurs Abdomen is soft nontender no organomegaly was normal bowel sounds Extremity exam reveals no edema no cyanosis or clubbing Neurological examination patient is drowsy arousable moving all 4 extremities spontaneously no focal weakness, pupils are equal and reactive to light, exam limited due to patient noncooperation Results CBC & Chem 7: 04/10/22 06:57 04/10/22 06:57 Labs: Abnormal Lab Results - Last 24 Hours (Table) 04/09/22 04/09/22 04/09/22 Range/Units 08:22 08:22 08:22 Plt Count 123 L (150-450) k/uL Lymphocytes # 0.9 L (1.0-4.8) k/uL Sodium 135 L (137-145) mmol/L Carbon Dioxide 21 L (22-30) mmol/L BUN 19 H (7-17) mg/dL Glucose 248 H (74-99) mg/dL POC Glucose (mg/dL) (70-110) mg/dL Plasma Lactic Acid Bishop (0.7-2.0) mmol/L Troponin I (0.000-0.034) ng/mL Total Protein 8.3 H (6.3-8.2) g/dL Urine Protein 4+ H (Negative) Urine Glucose (UA) 2+ H (Negative) Urine Ketones 2+ H (Negative) Urine Blood Large H (Negative) Urine Mucus Rare H (None) /hpf 04/09/22 04/09/22 04/09/22 Range/Units 08:22 08:22 11:06 Plt Count (150-450) k/uL Lymphocytes # (1.0-4.8) k/uL Sodium (137-145) mmol/L Carbon Dioxide (22-30) mmol/L BUN (7-17) mg/dL Glucose (74-99) mg/dL POC Glucose (mg/dL) (70-110) mg/dL Plasma Lactic Acid Bishop 2.6 H* 2.4 H* (0.7-2.0) mmol/L Troponin I 0.121 H* (0.000-0.034) ng/mL Total Protein (6.3-8.2) g/dL Urine Protein (Negative) Urine Glucose (UA) (Negative) Urine Ketones (Negative) Urine Blood (Negative) Urine Mucus (None) /hpf 04/09/22 04/09/22 Range/Units 14:46 16:23 Plt Count (150-450) k/uL Lymphocytes # (1.0-4.8) k/uL Sodium (137-145) mmol/L Carbon Dioxide (22-30) mmol/L BUN (7-17) mg/dL Glucose (74-99) mg/dL POC Glucose (mg/dL) 188 H (70-110) mg/dL Plasma Lactic Acid Bishop (0.7-2.0) mmol/L Troponin I 0.206 H* (0.000-0.034) ng/mL Total Protein (6.3-8.2) g/dL Urine Protein (Negative) Urine Glucose (UA) (Negative) Urine Ketones (Negative) Urine Blood (Negative) Urine Mucus (None) /hpf Thrombosis Risk Factor Assmnt - Choose All That Apply Any of the Below Risk Factors Present?: Yes Each Factor Represents 1 point: Medical pt on bed rest, Obesity (BMI >25), Seps is (< 1month) Other Risk Factors: Yes Each Risk Factor Represents 3 Points: Age 75 years or older Other congenital or acquired thrombophilia - If yes, enter type in comment: No Thrombosis Risk Factor Assessment Total Risk Factor Score: 6 Thrombosis Risk Factor Assessment Level: High Risk Assessment and Plan Plan: Febrile illness no clear source of infection, no abnormality seen on chest x-ray and on urine analysis, will obtain computed tomography scan of the abdomen and pelvis, patient started on IV Rocephin empirically Acute mental status changes computed tomography scan of the brain was done in the emergency room no significant abnormality neurology consultation requested. Elevated troponin on presentation patient was started on IV heparin in the emergency room cardiology consultation requested Underlying history of hypertension, patient is not able to take oral medications, will cover with hydralazine IV when necessary Underlying history of diabetes mellitus Underlying history of hyperlipidemia At this time patient is admitted to telemetry floor Cardiology and neurology consultation requested Infectious disease consult added Continue with IV heparin until cleared by cardiology Continue with IV Rocephin Prognosis is guarded will follow closely
--- NOTE | 2022-04-10 19:21 | P.PN ---
Subjective Progress Note Date: 04/10/22 Glenis Nunn, is an 81-year-old female who presented to [facility] with a chief complaint of fever and mental status changes She was evaluated in the emergency room vital examination on presentation revealed a temperature of 101 pulse 91 respiration 18 blood pressure 193/76 pulse ox 97% on room air Laboratory data revealed a white blood count of 9.4 hemoglobin 15.6 platelet count 123 sodium 135 potassium 4.1 chloride 99 CO2 21 BUN 19 creatinine 0.94 glucose on presentation was 248 troponin on presentation was elevated at 0.121 urine analysis on presentation was positive for protein, glucose, ketone, and blood but was negative for nitrate and leukocyte esterase. Toxicology screen was negative COVID-19 and influenza A and B serology were negative. Testing in the emergency room revealed chest x-ray was done in the emergency room and revealed no acute cardiopulmonary disease, EKG done in the emergency room revealed sinus rhythm with right bundle branch block, computed tomography scan of the brain revealed no gross evidence of an acute process. Due to elevated troponin patient was started on IV heparin in the emergency room, she was also started on IV Rocephin due to fever. Patient was admitted to medical floor for further evaluation and treatment On 04/10/2022 patient was seen and examined on the telemetry floor she is slightly more alert today she is complaining of headache, otherwise she is mostly drowsy she was evaluated by neurology, possibility of encepha litis/meningitis was entertained anesthesia consult requested for possible lumbar puncture. At this time plan is to discontinue IV heparin and oral aspirin and continue to monitor closely in anticipation of lumbar puncture in the next 1-2 days. In the meantime patient will be continued on IV ceftriaxone, also acyclovir IV was added by neurology, will continue to follow closely Objective - Vital Signs Vital signs: Vital Signs Temp 97.2 F L 04/10/22 16:00 Pulse 84 04/10/22 16:00 Resp 20 04/10/22 16:00 BP 187/77 04/10/22 16:00 Pulse Ox 95 04/10/22 16:00 FiO2 Intake & Output 04/10/22 04/10/22 04/11/22 06:59 18:59 06:59 Intake Total 228.667 Balance 228.667 Intake: IV 30 Invasive Line 2 20 Invasive Line 3 10 Intake, IV Titration 198.667 Amount Heparin Sod,Pork in 0.45% 198.667 NaCl 25,000 unit In 0.45 % NaCl 1 250ml.bag @ 11. 853 UNITS/KG/HR 10 mls/hr IV [facility]H [facility] Rx#: [id number] Other: Voiding Method Diaper Diaper # Voids 1 1 # Bowel Movements 1 - Labs CBC & Chem 7: 04/10/22 06:57 04/10/22 06:57 Labs: Abnormal Lab Results - Last 24 Hours (Table) 04/09/22 04/09/22 04/09/22 Range/Units 19:09 19:09 19:09 Plt Count (150-450) k/uL APTT 63.6 H (22.0-30.0) sec Sodium (137-145) mmol/L Potassium (3.5-5.1) mmol/L BUN (7-17) mg/dL Glucose (74-99) mg/dL POC Glucose (mg/dL) (70-110) mg/dL Hemoglobin A1c 8.2 H (0.0-6.0) % Calcium (8.4-10.2) mg/dL Magnesium (1.6-2.3) mg/dL Troponin I 0.176 H* (0.000-0.034) ng/mL 04/09/22 04/10/22 04/10/22 Range/Units 20:03 06:07 06:57 Plt Count (150-450) k/uL APTT (22.0-30.0) sec Sodium 136 L (137-145) mmol/L Potassium 3.3 L (3.5-5.1) mmol/L BUN 18 H (7-17) mg/dL Glucose 176 H (74-99) mg/dL POC Glucose (mg/dL) 175 H 186 H (70-110) mg/dL Hemoglobin A1c (0.0-6.0) % Calcium 7.9 L (8.4-10.2) mg/dL Magnesium (1.6-2.3) mg/dL Troponin I (0.000-0.034) ng/mL 04/10/22 04/10/22 04/10/22 Range/Units 06:57 06:57 06:57 Plt Count 106 L (150-450) k/uL APTT 104.2 H* (22.0-30.0) sec Sodium (137-145) mmol/L Potassium (3.5-5.1) mmol/L BUN (7-17) mg/dL Glucose (74-99) mg/dL POC Glucose (mg/dL) (70-110) mg/dL Hemoglobin A1c (0.0-6.0) % Calcium (8.4-10.2) mg/dL Magnesium 1.5 L (1.6-2.3) mg/dL Troponin I (0.000-0.034) ng/mL 04/10/22 04/10/22 Range/Units 11:30 16:26 Plt Count (150-450) k/uL APTT (22.0-30.0) sec Sodium (137-145) mmol/L Potassium (3.5-5.1) mmol/L BUN (7-17) mg/dL Glucose (74-99) mg/dL POC Glucose (mg/dL) 149 H 134 H (70-110) mg/dL Hemoglobin A1c (0.0-6.0) % Calcium (8.4-10.2) mg/dL Magnesium (1.6-2.3) mg/dL Troponin I (0.000-0.034) ng/mL Microbiology - Last 24 Hours (Table) 04/09/22 08:22 Blood Culture - Preliminary Blood No Growth after 24 hours 04/09/22 08:22 Blood Culture - Preliminary Blood No Growth after 24 hours
[2022-04-10 19:57] LABS: Glucose,Whole Blood 160 mg/dL (70-110)
--- NOTE | 2022-04-10 22:19 | P.CONS ---
History of Present Illness - Reason for Consult Consult date: 04/10/22 Fever Requesting physician: Alexandra Patel - Chief Complaint Mental status changes confusion x one day - History of Present Illness Patient is 81-year-old female with a past medical he significant for COPD diabetes mellitus was brought into the hospital yesterday morning for evaluation of mental status changes and confusion patient symptoms started the day before presentation to the hospital patient was not following any commands on presentation to the hospital and no clear history of any fever chills nausea or vomiting on presentation to the hospital the patient did have a fever of 101 F patient fever has resolved since then the patient was not hypoxic or need for supplemental oxygen blood pressure was on the high side patient did have a normal white count kidney function has been normal liver enzymes are normal urine was negative urine drug screen was negative influenza and COVID testing was negative patient did have a chest x-ray no acute cardiopulmonary process CT of the brain was negative for any bleed the patient also have a CT of abdominal pelvis rectal fecaloma without gross evidence of acute abdominal pelvic process patient has been started on Rocephin and acyclovir concern for possible encephalitis anesthesia has been consulted for LP which is currently pending infectious disease was consulted this morning concerning for fever most i nformation has been obtained from review the chart and talking to nursing staff as the patient was not able to provide any history Review of Systems Positive points has been mentioned in HPI complete review could not be obtained because of his underlying mental status Past Medical History Past Medical History: COPD, CVA/TIA, Diabetes Mellitus, Hyperlipidemia, Hypertension, Myocardial Infarction (NM) Additional Past Medical History / Comment(s): abdominal aortic aneurysm with stent, 2 heart attacks, 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 Past Anesthesia/Blood Transfusion Reactions: Previous Problems w/ Anesthesia Additional Past Anesthesia/Blood Transfusion Reaction / Comm: combative, previously restrained after sedation. Past Psychological History: No Psychological Hx Reported Smoking Status: Former smoker Past Alcohol Use History: None Reported Past Drug Use History: None Reported Medications and Allergies Home Medications Medication Instructions Recorded Confirmed Type Albuterol Inhaler [Ventolin Hfa 2 puff INHALATION RT-QID PRN 04/09/22 04/09/22 History Inhaler] Aspirin EC [Ecotrin Low Dose] 81 mg PO DAILY 04/09/22 04/09/22 History Atorvastatin [Lipitor] 80 mg PO HS 04/09/22 04/09/22 History Ipratropium-Albuterol Nebulize 3 ml INHALATION RT-QID PRN 04/09/22 04/09/22 History [Duoneb 0.5 mg-3 mg/3 ml Soln] Nitroglycerin Sl Tabs [Nitrostat] 0.4 mg SL Q5M PRN 04/09/22 04/09/22 History carvediloL [Coreg] 6.25 mg PO BID 04/09/22 04/09/22 History lisinopriL [Prinivil] 20 mg PO DAILY 04/09/22 04/09/22 History Allergies Allergy/AdvReac Type Severity Reaction Status Date / Time Penicillins Allergy Anaphylaxis Verified 04/09/22 13:16 & hives Sulfa (Sulfonamide Allergy Anaphylaxis Verified 04/09/22 13:16 Antibiotics) & hives diazepam [From Valium] AdvReac Combative Verified 04/09/22 13:16 Physical Exam Vitals: Vital Signs Temp Pulse Pulse Resp BP BP Pulse Ox 04/10/22 08:00 97.6 F 90 20 157/78 96 04/10/22 04:00 99.0 F 97 20 169/72 97 04/10/22 02:00 94 18 04/10/22 00:00 98.0 F 94 18 197/79 96 04/09/22 20:00 98.1 F 88 20 193/119 04/09/22 16:00 159/65 04/09/22 14:44 98.4 F 87 18 159/72 98 04/09/22 14:00 78 20 04/09/22 13:26 98.7 F 20 200/81 93 L 04/09/22 12:00 92 18 173/80 97 Intake and Output 04/09/22 04/10/22 04/10/22 22:59 06:59 14:59 Intake Total 198.667 Balance 198.667 Intake: Intake, IV Titration 198.667 Amount Heparin Sod,Pork in 0.45% 198.667 NaCl 25,000 unit In 0.45 % NaCl 1 250ml.bag @ 11. 853 UNITS/KG/HR 10 mls/hr IV .Q24H [facility] Rx#: [id number] Other: Voiding Method Diaper Diaper # Voids 1 1 # Bowel Movements 1 1 GENERAL DESCRIPTION: Elderly female lying in bed, no distress. No tachypnea or accessory muscle of respiration use. HEENT: Shows Pallor , no scleral icterus. Oral mucous membrane is dry. No pharyngeal erythema or thrush NECK: Trachea central, no thyromegaly. LUNGS: Unlabored breathing. Clear to auscultation anteriorly. No wheeze or crackle. HEART: S1, S2, regular rate and rhythm. No loud murmur ABDOMEN: Soft, no tenderness , guarding or rigidity, no organomegaly EXTREMITIES: No edema of feet. SKIN: No rash, no masses palpable. NEUROLOGICAL: The patient is lethargic and orientation could not be determined no neck rigidity Results CBC & Chem 7: 04/14/22 04:31 04/14/22 04:31 Labs: Abnormal Lab Results - Last 24 Hours (Table) 04/09/22 04/09/22 04/09/22 Range/Units 11:06 14:46 16:23 Plt Count (150-450) k/uL APTT (22.0-30.0) sec Sodium (137-145) mmol/L Potassium (3.5-5.1) mmol/L BUN (7-17) mg/dL Glucose (74-99) mg/dL POC Glucose (mg/dL) 188 H (70-110) mg/dL Hemoglobin A1c (0.0-6.0) % Plasma Lactic Acid Bishop 2.4 H* (0.7-2.0) mmol/L Calcium (8.4-10.2) mg/dL Magnesium (1.6-2.3) mg/dL Troponin I 0.206 H* (0.000-0.034) ng/mL 04/09/22 04/09/22 04/09/22 Range/Units 19:09 19:09 19:09 Plt Count (150-450) k/uL APTT 63.6 H (22.0-30.0) sec Sodium (137-145) mmol/L Potassium (3.5-5.1) mmol/L BUN (7-17) mg/dL Glucose (74-99) mg/dL POC Glucose (mg/dL) (70-110) mg/dL Hemoglobin A1c 8.2 H (0.0-6.0) % Plasma Lactic Acid Bishop (0.7-2.0) mmol/L Calcium (8.4-10.2) mg/dL Magnesium (1.6-2.3) mg/dL Troponin I 0.176 H* (0.000-0.034) ng/mL 04/09/22 04/10/22 04/10/22 Range/Units 20:03 06:07 06:57 Plt Count (150-450) k/uL APTT (22.0-30.0) sec Sodium 136 L (137-145) mmol/L Potassium 3.3 L (3.5-5.1) mmol/L BUN 18 H (7-17) mg/dL Glucose 176 H (74-99) mg/dL POC Glucose (mg/dL) 175 H 186 H (70-110) mg/dL Hemoglobin A1c (0.0-6.0) % Plasma Lactic Acid Bishop (0.7-2.0) mmol/L Calcium 7.9 L (8.4-10.2) mg/dL Magnesium (1.6-2.3) mg/dL Troponin I (0.000-0.034) ng/mL 04/10/22 04/10/22 04/10/22 Range/Units 06:57 06:57 06:57 Plt Count 106 L (150-450) k/uL APTT 104.2 H* (22.0-30.0) sec Sodium (137-145) mmol/L Potassium (3.5-5.1) mmol/L BUN (7-17) mg/dL Glucose (74-99) mg/dL POC Glucose (mg/dL) (70-110) mg/dL Hemoglobin A1c (0.0-6.0) % Plasma Lactic Acid Bishop (0.7-2.0) mmol/L Calcium (8.4-10.2) mg/dL Magnesium 1.5 L (1.6-2.3) mg/dL Troponin I (0.000-0.034) ng/mL Microbiology - Last 24 Hours (Table) 04/09/22 08:22 Blood Culture - Preliminary Blood No Growth after 24 hours 04/09/22 08:22 Blood Culture - Preliminary Blood No Growth after 24 hours Assessment and Plan (1) Fever Current Visit: Yes Status: Acute Code(s): R50.9 - FEVER, UNSPECIFIED SNOMED Code(s): 341054403 Plan: 1patient presented to hospital mental status changes in this patient did have a fever patient did have a normal white count chest x-ray has been negative CT abdominal pelvis did show rectal fecaloma but no colitis chest x-ray was reported negative with concern for possible FRONT [employer] infection and high clinic suspicious of possible encephalitis or viral etiology. 2we will wait for LP to be completed and the fluid should be sent for cell count differential glucose protein and HSV DNA by PCR. 3continue with the empiric acyclovir and Rocephin at this point. We will follow on clinical condition and cultures to further adjust medication if needed Thank you for this consultation will follow this patient along with you Time with Patient: Greater than 30
[2022-04-11] MEDS: ACYCLOVIR SODIUM 650 MG in SODIUM CHLORIDE 0.9% 100 ML IVPB SCH ×3 (04:42→20:38)
[2022-04-11 06:06] LABS: Glucose,Whole Blood 124 mg/dL (70-110)
--- NOTE | 2022-04-11 08:05 | CA ---
Transthoracic Echo Report Name: Glenis Nunn Age: 81 Gender: F : 1940 Exam Date: 04/10/2022 08:18 Exam Location: [place] [facility] Ht (in): 62 Wt (lb): 186 Ordering Physician: Alexandra Patel MD Attending/Referring Phys: Hemodialysis Patient Care Specialist Maryam Bangura RDCS Procedure CPT: Indications: elevated troponin Cardiac Hx: Technical Quality: Fair Contrast 1: Total Dose (mL): Contrast 2: Total Dose (mL): MEASUREMENTS (Male / Female) Normal Values 2D ECHO LV Diastolic Diameter PLAX 3.8 cm 4.2 - 5.9 / 3.9 - 5.3 cm LV Systolic Diameter PLAX 3.0 cm IVS Diastolic Thickness 1.3 cm 0.6 - 1.0 / 0.6 - 0.9 cm LVPW Diastolic Thickness 1.2 cm 0.6 - 1.0 / 0.6 - 0.9 cm LV Relative Wall Thickness 0.7 LA Volume 57.2 cm??? 18 - 58 / 22 - 52 cm??? M-MODE Aortic Root Diameter MM 3.2 cm LA Systolic Diameter MM 4.1 cm LA Ao Ratio MM 1.3 DOPPLER AV Peak Velocity 272.1 cm/s AV Peak Gradient 29.6 mmHg AV Mean Velocity 197.0 cm/s AV Mean Gradient 17.3 mmHg AV Velocity Time Integral 52.2 cm LVOT Peak Velocity 173.8 cm/s LVOT Peak Gradient 12.1 mmHg MV Peak Velocity 184.0 cm/s MV Peak Gradient 13.5 mmHg MV Mean Velocity 108.5 cm/s MV Mean Gradient 5.2 mmHg MV Velocity Time Integral 44.6 cm MV Area PHT 2.2 cm??? Mitral E Point Velocity 105.0 cm/s Mitral A Point Velocity 165.0 cm/s Mitral E to A Ratio 0.6 MV Deceleration Time 348.4 ms MV E' Velocity 3.8 cm/s Mitral E to MV E' Ratio 27.9 FINDINGS Left Ventricle Moderately increased left ventricular wall thickness. Normal left ventricular systolic function with no obvious regional wall motion abnormalities. Left ventricular ejection fraction is estimated at 55-60 %. Right Ventricle Normal right ventricular size and function. Right ventricular systolic pressure within normal limits. Right Atrium Normal right atrial size. Left Atrium Mildly increased left atrial volume. Mildly increased left atrial area. Mitral Valve Mild mitral annular calcification. Mild mitral regurgitation. Aortic Valve No aortic valve stenosis or regurgitation. Tricuspid Valve Mild tricuspid regurgitation. Pulmonic Valve Trace pulmonic regurgitation. Pericardium No pericardial effusion. Aorta Normal size aortic root and proximal ascending aorta. CONCLUSIONS Technically suboptimal study Elsie normal systolic function normal left ventricular size mild to moderate concentric LVH mildly increased left atrial size, mild mitral insufficiency, no pericardial effusion no other significant Doppler abnormality Previewed by: Dr. Salvador Collins MD (Electronically Signed) Final Date: 11 April 2022 08:03
[2022-04-11] MEDS: ONDANSETRON 4 MG/2 ML VIAL IVP PRN ×2 (08:56→17:58)
[2022-04-11] MEDS: hydrALAZINE HCL 20 MG/ML 1 ML VIAL IVP PRN (08:57)
[2022-04-11 11:49] LABS: Glucose,Whole Blood 129 mg/dL (70-110)
--- NOTE | 2022-04-11 11:57 | P.PN ---
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 Who follows with Dr. Calderón, however has not been seen since 2014. Patient presented to the ER with altered mental status. Per patient's daughter patient has been complaining of a headache started developing nausea and vomiting and confusion. Patient's basel ine is A&O 3 and able to walk with a walker cane. We have been consult that for elevated troponins 0.121, 0.206, 0.176. 04/11/2022 Patient seen and examined at bedside, no acute distress. She is more alert this morning. Oriented to person and place. Denies any pain. Denies any chest pain or shortness of breath. Possible plan for LP puncture today vs . Tel emetry reviewed patient sinus rhythm with occasional PVCs Echocardiogram revealed EF 5560%, mild to moderate concentric LVH, mild mitral regurgitation. Meds: Currently not taking PO meds. On PRN IV hydralazine for BP. Blood pressure 173/76, heart rate 76, afebrile, saturations 95% room air GENERAL: In no acute distress. NECK: Supple without JVD or thyromegaly. LUNGS: Breath sounds diminished to auscultation bilaterally. Respiration equal and unlabored. No wheezes, rales or rhonchi. HEART: Regular rate and rhythm without murmurs, rubs or gallops. S1 and S2 heard. EXTREMITIES: Normal range of motion, no edema. No clubbing or cyanosis. Peripheral pulses intact. ASSESSMENT Elevated troponins with unclear significance at this time, no evidence of acute coronary syndrome Hypertension Coronary artery disease status post angioplasty to the RCA in 2011 Abdominal aortic aneurysm status post stent Peripheral vascular disease Hypertension Dyslipidemia PLAN Patient unable to take PO, start clonidine patch Start home cardiac medications if patient can take PO and passes swallow evaluation Continue with hydralazine when necessary Continue with telemetry monitoring Further recommendations based on clinical course Nurse Practitioner note has been reviewed, I agree with a documented findings and plan of care. Patient was seen and examined. Objective - Vital Signs Vital signs: Vital Signs Temp 97.6 F 04/10/22 08:00 Pulse 90 04/10/22 08:00 Resp 20 04/10/22 08:00 BP 157/78 04/10/22 08:00 Pulse Ox 96 04/10/22 08:00 FiO2 Intake & Output 04/09/22 04/10/22 04/10/22 18:59 06:59 18:59 Intake Total 198.667 Balance 198.667 Weight 84.368 kg Intake: Intake, IV Titration 198.667 Amount Heparin Sod,Pork in 0.45% 198.667 NaCl 25,000 unit In 0.45 % NaCl 1 250ml.bag @ 11. 853 UNITS/KG/HR 10 mls/hr IV .Q24H [facility] Rx#: [id number] Other: Voiding Method Diaper Diaper # Voids 1 1 # Bowel Movements 1 1 - Labs CBC & Chem 7: 04/10/22 06:57 04/10/22 06:57 Labs: Abnormal Lab Results - Last 24 Hours (Table) 04/09/22 04/09/22 04/09/22 Range/Units 14:46 16:23 19:09 Plt Count (150-450) k/uL APTT (22.0-30.0) sec Sodium (137-145) mmol/L Potassium (3.5-5.1) mmol/L BUN (7-17) mg/dL Glucose (74-99) mg/dL POC Glucose (mg/dL) 188 H (70-110) mg/dL Hemoglobin A1c (0.0-6.0) % Calcium (8.4-10.2) mg/dL Magnesium (1.6-2.3) mg/dL Troponin I 0.206 H* 0.176 H* (0.000-0.034) ng/mL 04/09/22 04/09/22 04/09/22 Range/Units 19:09 19:09 20:03 Plt Count (150-450) k/uL APTT 63.6 H (22.0-30.0) sec Sodium (137-145) mmol/L Potassium (3.5-5.1) mmol/L BUN (7-17) mg/dL Glucose (74-99) mg/dL POC Glucose (mg/dL) 175 H (70-110) mg/dL Hemoglobin A1c 8.2 H (0.0-6.0) % Calcium (8.4-10.2) mg/dL Magnesium (1.6-2.3) mg/dL Troponin I (0.000-0.034) ng/mL 04/10/22 04/10/22 04/10/22 Range/Units 06:07 06:57 06:57 Plt Count 106 L (150-450) k/uL APTT (22.0-30.0) sec Sodium 136 L (137-145) mmol/L Potassium 3.3 L (3.5-5.1) mmol/L BUN 18 H (7-17) mg/dL Glucose 176 H (74-99) mg/dL POC Glucose (mg/dL) 186 H (70-110) mg/dL Hemoglobin A1c (0.0-6.0) % Calcium 7.9 L (8.4-10.2) mg/dL Magnesium (1.6-2.3) mg/dL Troponin I (0.000-0.034) ng/mL 04/10/22 04/10/22 04/10/22 Range/Units 06:57 06:57 11:30 Plt Count (150-450) k/uL APTT 104.2 H* (22.0-30.0) sec Sodium (137-145) mmol/L Potassium (3.5-5.1) mmol/L BUN (7-17) mg/dL Glucose (74-99) mg/dL POC Glucose (mg/dL) 149 H (70-110) mg/dL Hemoglobin A1c (0.0-6.0) % Calcium (8.4-10.2) mg/dL Magnesium 1.5 L (1.6-2.3) mg/dL Troponin I (0.000-0.034) ng/mL Microbiology - Last 24 Hours (Table) 04/09/22 08:22 Blood Culture - Preliminary Blood No Growth after 24 hours 04/09/22 08:22 Blood Culture - Preliminary Blood No Growth after 24 hours
[2022-04-11] MEDS ORDERED: cloNIDine 0.1 MG/24HR PATCH TRANSDERM SCH (12:00)
[2022-04-11 12:18] LABS: Appearance,Urine Clear (Clear); Bilirubin,Urine Negative (Negative); Blood,Urine Negative (Negative); Color,Urine Yellow; Glucose,Urine (UA) Negative (Negative); Hyaline Casts,Urine 1 /lpf (0-2); Ketones,Urine 1+ (Negative); Leukocyte Esterase,Urine Negative (Negative); Mucus,Urine Occasional /hpf; Nitrite,Urine Negative (Negative); Protein,Urine 1+ (Negative); RBC,Urine <1 /hpf (0-5); Specific Gravity,Urine 1.019 (1.001-1.035); Squamous Epithelial Cell,Urine 1 /hpf (0-4); Urobilinogen,Urine <2.0 mg/dL (<2.0); WBC,Urine 2 /hpf (0-5)
[2022-04-11] MEDS ORDERED: LORazepam 2 MG/ML INJ IV ONE (13:48)
--- NOTE | 2022-04-11 13:52 | EEG ---
ELECTROENCEPHALOGRAM REPORT DATE OF SERVICE: 04/10/2022 PREAMBLE: This is an 81-year-old female with altered mental status. This study is performed to evaluate for any epileptiform activity. EEG FINDINGS: This is a 21 channel digital EEG recorded with video component, utilizing 10/20 international system with referential and bipolar montages. The recording starts with presence of significant myogenic artifact involving almost the entire bihemispheric region. The artifact improved somewhat in the middle and further during later part of the study. The background consists of not very well developed and regulated, mixed frequencies of low amplitude theta, mixed with some delta activity seen in bihemispheric region. Background does not seem to be reactive to eye opening or closing. Photic stimulation was not performed. Different stages of sleep were not clearly seen. No definitive focal or generalized epileptiform activity was seen. IMPRESSION: This is an abnormal EEG due to background slowing of at least moderate degree. This is suggestive of generalized cerebral dysfunction as can be seen with toxic metabolic encephalopathy or related to diffuse structural brain abnormality. Clinical correlation is recommended. No epileptiform activity was seen. EEG was technically significantly limited. Suggest repeat study, if clinically indicated. MMODL / IJN: [id number] /
[2022-04-11] MEDS ORDERED: IV FLUID CONTINUATION 1,000 ML IV ONE (14:37)
[2022-04-11 14:46] LABS: Calcium 7.8 mg/dL (8.4-10.2); Magnesium 1.6 mg/dL (1.6-2.3); Potassium 3.2 mmol/L (3.5-5.1)
[2022-04-11] MEDS ORDERED: fentaNYL (PF) 50 MCG/ML 2 ML AMP ONE (14:46)
--- NOTE | 2022-04-11 15:01 | P.PCN ---
Date of Procedure: 04/11/22 Procedure(s) Performed: Preoperative diagnosis: altered mental status. Post operative diagnoses:altered mental status Procedure= lumbar puncture Anesthesia=moderate sedation with fentanyl 100 g, local infiltration with lidocaine 1% 2 mL. Condition: stable Complication: none. Description of the procedure procedure risk and benefits discussed with the patient and family, consent signed. Patient and the procedure area placed in sitting position , back prepped with chlorhexidine 3 times been local infiltra tion of the skin and subcutaneous tissue with lidocaine 1% 2 mL for skin and subcu interstitial frustrations at L4 5 levels then 22-gauge Quincke-type needle advanced slowly at L4- 5 interlaminar space there was positive cerebrospinal fluid which was clear, no heme, no paresthesia ,total of 8 ML of clear cerebrospinal fluid collected in 4 different tubes 2 mL in each, then the needle removed and a Band-Aid applied and patient tolerated the procedure well without any complications.
[2022-04-11 16:36] LABS: Glucose,Whole Blood 143 mg/dL (70-110)
[2022-04-11] MEDS: POTASSIUM BICARBONATE/CIT AC 20 MEQ TABLET.EFF NG-TUBE SCH (16:50)
--- NOTE | 2022-04-11 17:20 | P.PN ---
Subjective Progress Note Date: 04/11/22 Glenis Nunn, is an 81-year-old female who presented to [facility] with a chief complaint of fever and mental status changes She was evaluated in the emergency room vital examination on presentation revealed a temperature of 101 pulse 91 respiration 18 blood pressure 193/76 pulse ox 97% on room air Laboratory data revealed a white blood count of 9.4 hemoglobin 15.6 platelet count 123 sodium 135 potassium 4.1 chloride 99 CO2 21 BUN 19 creatinine 0.94 glucose on presentation was 248 troponin on presentation was elevated at 0.121 urine analysis on presentation was positive for protein, glucose, ketone, and blood but was negative for nitrate and leukocyte esterase. Toxicology screen was negative COVID-19 and influenza A and B serology were negative. Testing in the emergency room revealed chest x-ray was done in the emergency room and revealed no acute cardiopulmonary disease, EKG done in the emergency room revealed sinus rhythm with right bundle branch block, computed tomography scan of the brain revealed no gross evidence of an acute process. Due to elevated troponin patient was started on IV heparin in the emergency room, she was also started on IV Rocephin due to fever. Patient was admitted to medical floor for further evaluation and treatment On 04/10/2022 patient was seen and examined on the telemetry floor she is slightly more alert today she is complaining of headache, otherwise she is mostly drowsy she was evaluated by neurology, possibility of encepha litis/meningitis was entertained anesthesia consult requested for possible lumbar puncture. At this time plan is to discontinue IV heparin and oral aspirin and continue to monitor closely in anticipation of lumbar puncture in the next 1-2 days. In the meantime patient will be continued on IV ceftriaxone, also acyclovir IV was added by neurology, will continue to follow closely. On 04/11/2022 patient was seen and examined of the telemetry floor she is alert and oriented 3 today she is able to answer questions appropriately she is sitting up and eating her meal she is complaining of pain all over her body but does not specifically complain of headache today there is no fever or chills no headache or dizziness no chest pain no shortness of breath no cough no nausea or vomiting no abdominal pain no diarrhea and no urinary symptoms. At this time patient remains on Rocephin 2 g IV every 12 hours. And IV acyclovir. Plan is to proceed was lumbar puncture. Awaiting testing results Objective - Vital Signs Vital signs: Vital Signs Temp 98.2 F 04/11/22 11:24 Pulse 95 04/11/22 11:24 Resp 18 04/11/22 11:24 BP 133/61 04/11/22 11:24 Pulse Ox 97 04/11/22 11:24 FiO2 Intake & Output 04/10/22 04/11/22 04/11/22 18:59 06:59 18:59 Intake Total 228.667 10 Output Total 700 1025 Balance 228.667 -700 -1015 Intake: IV 30 10 Invasive Line 2 20 Invasive Line 3 10 Invasive Line 4 10 Intake, IV Titration 198.667 Amount Heparin Sod,Pork in 0.45% 198.667 NaCl 25,000 unit In 0.45 % NaCl 1 250ml.bag @ 11. 853 UNITS/KG/HR 10 mls/hr IV .Q24H [facility] Rx#: [id number] Output: Urine 700 1025 Straight 700 1025 Other: Voiding Method Diaper Diaper Diaper # Voids 1 - Labs CBC & Chem 7: 04/10/22 06:57 04/11/22 14:18 Labs: Abnormal Lab Results - Last 24 Hours (Table) 04/10/22 04/10/22 04/11/22 Range/Units 16:26 19:55 06:05 POC Glucose (mg/dL) 134 H 160 H 124 H (70-110) mg/dL 04/11/22 Range/Units 11:48 POC Glucose (mg/dL) 129 H (70-110) mg/dL Microbiology - Last 24 Hours (Table) 04/09/22 08:22 Blood Culture - Preliminary Blood No Growth after 48 hours 04/09/22 08:22 Blood Culture - Preliminary Blood No Growth after 48 hours Assessment and Plan Plan: Febrile illness no clear source of infection, no abnormality seen on chest x-ray and on urine analysis, will obtain computed tomography scan of the abdomen and pelvis, patient started on IV Rocephin empirically Acute mental status changes computed tomography scan of the brain was done in the emergency room no significant abnormality neurology consultation requested. Elevated troponin on presentation patient was started on IV heparin in the emergency room cardiology consultation requested Underlying history of hypertension, patient is not able to take oral medications, will cover with hydralazine IV when necessary Underlying history of diabetes mellitus Underlying history of hyperlipidemia At this time patient is admitted to telemetry floor Cardiology and neurology consultation requested Infectious disease consult added Continue with IV heparin until cleared by cardiology Continue with IV Rocephin Prognosis is guarded will follow closely
[2022-04-11 17:28] LABS: Glucose,CSF 75 mg/dL (40-70); Total Protein,CSF 47 mg/dL (12-60)
[2022-04-11 18:02] LABS: Appearance,CSF Clear; CSF Tube Number 4; Nucleated Cells, CSF 0 u/L (0-5); Red Blood Cell,CSF 0 u/L (0-10)
[2022-04-11] MEDS: POTASSIUM CHLORIDE 10 MEQ in WATER FOR INJECTION 1 100ML.BAG IVPB SCH ×2 (18:21→21:20)
[2022-04-11 20:19] LABS: Glucose,Whole Blood 168 mg/dL (70-110)
--- NOTE | 2022-04-11 22:54 | P.PN ---
Subjective Progress Note Date: 04/11/22 Principal diagnosis: Fever and possible encephalitis Patient is 81 year female with a past medical history significant for COPD diabetes mellitus brought into the hospital for evaluation of mental status changes confusion and fever patient was totally obtunded concern for encephalitis. On today's evaluation that is 04/11/2022, the patient is afebrile the patient is more awake and alert she IS she is at [facility] denies any headaches no chest pain shortness of breath or cough no abdominal pain no diarrhea Objective - Vital Signs Vital signs: Vital Signs Temp 98.2 F 04/11/22 11:24 Pulse 95 04/11/22 11:24 Resp 18 04/11/22 11:24 BP 133/61 04/11/22 11:24 Pulse Ox 97 04/11/22 11:24 FiO2 Intake & Output 04/10/22 04/11/22 04/11/22 18:59 06:59 18:59 Intake Total 228.667 10 Output Total 700 1025 Balance 228.667 -700 -1015 Intake: IV 30 10 Invasive Line 2 20 Invasive Line 3 10 Invasive Line 4 10 Intake, IV Titration 198.667 Amount Heparin Sod,Pork in 0.45% 198.667 NaCl 25,000 unit In 0.45 % NaCl 1 250ml.bag @ 11. 853 UNITS/KG/HR 10 mls/hr IV .Q24H [facility] Rx#: [id number] Output: Urine 700 1025 Straight 700 1025 Other: Voiding Method Diaper Diaper # Voids 1 - Exam GENERAL DESCRIPTION: An elderly female lying in bed in no distress RESPIRATORY SYSTEM: Unlabored breathing , decreased breath sounds at bases HEART: S1 S2 regular rate and rhythm , ABDOMEN: Soft , no tenderness EXTREMITIES: No edema feet - Labs CBC & Chem 7: 04/10/22 06:57 04/11/22 14:18 Labs: Abnormal Lab Results - Last 24 Hours (Table) 04/10/22 04/10/22 04/11/22 Range/Units 16:26 19:55 06:05 POC Glucose (mg/dL) 134 H 160 H 124 H (70-110) mg/dL Urine Protein (Negative) Urine Ketones (Negative) Urine Mucus (None) /hpf 04/11/22 04/11/22 Range/Units 11:15 11:48 POC Glucose (mg/dL) 129 H (70-110) mg/dL Urine Protein 1+ H (Negative) Urine Ketones 1+ H (Negative) Urine Mucus Occasional H (None) /hpf Microbiology - Last 24 Hours (Table) 04/09/22 08:22 Blood Culture - Preliminary Blood No Growth after 48 hours 04/09/22 08:22 Blood Culture - Preliminary Blood No Growth after 48 hours Assessment and Plan (1) Fever Current Visit: Yes Status: Acute Code(s): R50.9 - FEVER, UNSPECIFIED SNOMED Code(s): 892110574 (2) Altered mental status Current Visit: Yes Status: Acute Code(s): R41.82 - ALTERED MENTAL STATUS, UNSPECIFIED SNOMED Code(s): 213547723 Plan: 1patient presented to hospital mental status changes in this patient did have a fever patient did have a normal white count chest x-ray has been negative CT abdominal 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 2we will wait for LP to be completed and the fluid should be sent for cell count differential glucose protein and HSV DNA by PCR. 3patient seemed to have a clinical improvement and will continue with the empiric acyclovir and Rocephin while awaiting further workup to be completed Time with Patient: Less than 30
[2022-04-12] MEDS: POTASSIUM CHLORIDE 10 MEQ in WATER FOR INJECTION 1 100ML.BAG IVPB SCH ×2 (00:04→01:00)
[2022-04-12] MEDS: hydrALAZINE HCL 20 MG/ML 1 ML VIAL IVP PRN ×3 (03:48→20:42)
[2022-04-12 06:02] LABS: Glucose,Whole Blood 136 mg/dL (70-110)
[2022-04-12 08:10] LABS: Basophils % (A) 0 %; Eosinophils % (A) 0 %; HCT 33.9 % (34.0-46.0); HGB 11.5 gm/dL (11.4-16.0); Lymphocytes # (A) 1.7 k/uL (1.0-4.8); Lymphocytes % (A) 26 %; MCHC 33.8 g/dL (31.0-37.0); MCV 91.6 fL (80.0-100.0); Mean Platelet Volume 9.6; Monocytes # (A) 0.8 k/uL (0-1.0); Monocytes % (A) 12 %; Neutrophils # (A) 3.7 k/uL (1.3-7.7); Neutrophils % (A) 58 %; RDW 13.2 % (11.5-15.5); WBC 6.4 k/uL (3.8-10.6)
[2022-04-12 08:18] LABS: Calcium 7.6 mg/dL (8.4-10.2); Magnesium 1.6 mg/dL (1.6-2.3); Potassium 3.8 mmol/L (3.5-5.1)
--- NOTE | 2022-04-12 08:36 | P.PN ---
Subjective Progress Note Date: 04/11/22 Patient was seen for follow-up. Patient's daughter Jenniffer was also present today. She states that patient has improved, but she still sometimes hallucinates, as she was asking her daughter, as to how she got up to the cabinets, pointing to the ceiling. She is talking much better. She is speaking full sentences. Patient admits to having headache, and rates 5/10. Patient states that everything hurts. I spoke to patient's nurse Dasha, who states that patient is obsessed about counting her fingers. Patient was taken to IR at 11:45 AM today for lumbar puncture. Patient strongly refused procedure. She stated "I am an adult and I don't want to have the procedure done, I am too old for all this".etc.. No lumbar puncture was done therefore. Patient's daughter was also upset for patient's refusal of the procedure. Patient is definitely better. At this time be do not know what we are treating. Telemetry monitoring showing sinus rhythm, with sinus tachycardia, with some ectopic beats, bigeminy and couplets. Objective - Vital Signs Vital signs: Vital Signs Temp 98.2 F 04/11/22 11:24 Pulse 95 04/11/22 11:24 Resp 18 04/11/22 11:24 BP 133/61 04/11/22 11:24 Pulse Ox 97 04/11/22 11:24 FiO2 Intake & Output 04/10/22 04/11/22 04/11/22 18:59 06:59 18:59 Intake Total 228.667 10 Output Total 700 1025 Balance 228.667 -700 -1015 Intake: IV 30 10 Invasive Line 2 20 Invasive Line 3 10 Invasive Line 4 10 Intake, IV Titration 198.667 Amount Heparin Sod,Pork in 0.45% 198.667 NaCl 25,000 unit In 0.45 % NaCl 1 250ml.bag @ 11. 853 UNITS/KG/HR 10 mls/hr IV .Q24H [facility] Rx#: [id number] Output: Urine 700 1025 Straight 700 1025 Other: Voiding Method Diaper Diaper # Voids 1 - Exam Patient is alert and awake in no distress. Patient's speech and language functions are normal. No aphasia or dysarthria. Patient can name and repeat very well. Cranial nerves II through XII are intact. Patient's visual mercedes are full with no neglect. Face is symmetric and tongue protrudes to the midline. On muscle strength testing, patient has mild left sided drift. The strength is normal in the arms and legs except left deltoid which is weak and painful, probably due to some arthritis. Sensations are equal. No ataxia for [id number] testing. Chest is clear, abdomen soft nontender, no organomegaly, bowel sounds present. - Labs CBC & Chem 7: 04/12/22 07:28 04/12/22 07:28 Labs: Abnormal Lab Results - Last 24 Hours (Table) 04/10/22 04/10/22 04/11/22 Range/Units 16:26 19:55 06:05 POC Glucose (mg/dL) 134 H 160 H 124 H (70-110) mg/dL Urine Protein (Negative) Urine Ketones (Negative) Urine Mucus (None) /hpf 04/11/22 04/11/22 Range/Units 11:15 11:48 POC Glucose (mg/dL) 129 H (70-110) mg/dL Urine Protein 1+ H (Negative) Urine Ketones 1+ H (Negative) Urine Mucus Occasional H (None) /hpf Microbiology - Last 24 Hours (Table) 04/09/22 08:22 Blood Culture - Preliminary Blood No Growth after 48 hours 04/09/22 08:22 Blood Culture - Preliminary Blood No Growth after 48 hours Assessment and Plan Assessment: * 81-year-old female, presented with acute onset of altered mental status, some difficulty expressing, fever, headache. Rule out meningitis/encephalitis. Patient currently on acyclovir, and ceftriaxone, and mentation has much improved. Headache has also improved. Patient declined lumbar puncture. * Cephalalgia, fever, altered mental status, rule out encephalitis meningitis. Improved. * Elevated cardiac enzymes, with history of CAD * Peripheral vascular disease * Diabetes * Hypertension * X tobacco use Plan: * Repeat CT head revealed moderate generalized atrophy and confluent burden of chronic small vessel ischemic disease. Suspect a small area of old cortical infarct posterior left occipital lobe. No acute intracranial abnormality seen. I personally reviewed computed tomography scan, agree with the findings. * Carotid Doppler revealed limited examination. 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 * EEG was abnormal due to background slowing of at least moderate degree. This is suggestive of generalized cerebral dysfunction as can be seen with toxic metabolic encephalopathy or related to diffuse structural brain abnormality. Clinical correlation is recommended. No epileptiform activity was seen. EEG was technically limited because of significant myogenic and movement artifacts. * Lumbar puncture: Patient declined. At present being empirically treated for possible encephalitis/meningitis. I discussed with patient's daughter, and both of us reinforced about importance of lumbar puncture. Patient consented to have it done tomorrow. * Patient currently on acyclovir and ceftriaxone 2 g every 12 hours pending spinal fluid examination. ID input appreciated. No obvious source of fever noticed with CT of the abdomen pelvis, chest x-ray or urine. * DVT prophylaxis. We will start heparin 5000 units subcu every 12 hours. * Discussed with patient's daughter in detail.
[2022-04-12] MEDS ORDERED: lisinopriL 20 MG TAB PO SCH (09:00)
[2022-04-12] MEDS: ACYCLOVIR SODIUM 650 MG in SODIUM CHLORIDE 0.9% 100 ML IVPB SCH ×2 (09:05→20:25)
[2022-04-12] MEDS: HEPARIN SODIUM,PORCINE/PF 5,000 UNIT/0.5 ML SYRINGE SQ SCH ×2 (09:05→20:26)
[2022-04-12] MEDS: ASPIRIN 81 MG PO SCH (09:05)
[2022-04-12 11:49] LABS: Glucose,Whole Blood 178 mg/dL (70-110)
[2022-04-12 11:58] LABS: Platelet Count 90 k/uL (150-450)
--- NOTE | 2022-04-12 12:23 | P.PN ---
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 Who follows with Dr. Calderón, however has not been seen since 2014. Patient presented to the ER with altered mental status. Per patient's daughter patient has been complaining of a headache started developing nausea and vomiting and confusion. Patient's basel ine is A&O 3 and able to walk with a walker cane. We have been consult that for elevated troponins 0.121, 0.206, 0.176. 04/12/2022 Patient seen and examined at bedside, no acute distress. She is more alert this morning. Oriented to person and place. She is not aware of her medical history or situation. Denies any pain. Denies any chest pain or shortness of breath. She is status post lumbar puncture yesterday. Telemetry reviewed patient sinus rhythm with occasional PVCs Echocardiogram revealed EF 5560%, mild to moderate concentric LVH, mild mitral regurgitation. Meds: Clonidine 0.1 mg patch. On PRN IV hydralazine for BP. Blood pressure 173/76, heart rate 76, afebrile, saturations 95% room air GENERAL: In no acute distress. NECK: Supple without JVD or thyromegaly. LUNGS: Breath sounds diminished to auscultation bilaterally. Respiration equal and unlabored. No wheezes, rales or rhonchi. HEART: Regular rate and rhythm without murmurs, rubs or gallops. S1 and S2 heard. EXTREMITIES: Normal range of motion, no edema. No clubbing or cyanosis. Periphe ral pulses intact. ASSESSMENT Elevated troponins with unclear significance at this time, no evidence of acute coronary syndrome Hypertension Coronary artery disease status post angioplasty to the RCA in 2011 Abdominal aortic aneurysm status post stent Peripheral vascular disease Hypertension Dyslipidemia Status post lumbar puncture on 04/11/2022 PLAN Clonidine patch started secondary to patient not able to take PO. Patient able to start taking PO this morning, restart PO cardiac medications as able. Continue with telemetry monitoring Further recommendations based on clinical course Nurse Practitioner note has been reviewed, I agree with a documented findings and plan of care. Patient was seen and examined. Objective - Vital Signs Vital signs: Vital Signs Temp 98.2 F 04/12/22 04:00 Pulse 84 07/27/22 04:00 Resp 18 04/12/22 04:00 BP 171/72 04/12/22 04:00 Pulse Ox 93 L 04/12/22 04:00 FiO2 Intake & Output 04/11/22 04/12/22 04/12/22 18:59 06:59 18:59 Intake Total 970 20 Output Total 1025 1300 Balance -55 -1280 Intake: IV 370 20 Acyclovir Sodium 650 mg 200 In Sodium Chloride 0.9% 100 ml @ 113 mls/hr IVPB Q8H [facility] Rx#:[id number] Invasive Line 4 10 Invasive Line 5 10 20 cefTRIAXone 2 gm In 50 Sodium Chloride 0.9% 50 ml @ 100 mls/hr IVPB Q12HR [facility] Rx#:[id number] Oral 600 Output: Urine 1025 1300 Straight 1025 Other: Voiding Method Indwelling Catheter Indwelling Catheter - Labs CBC & Chem 7: 04/12/22 07:28 04/12/22 07:28 Labs: Abnormal Lab Results - Last 24 Hours (Table) 04/11/22 04/11/22 04/11/22 Range/Units 11:15 11:48 14:18 Potassium 3.2 L (3.5-5.1) mmol/L Chloride 109 H (98-107) mmol/L BUN 19 H (7-17) mg/dL Glucose 150 H (74-99) mg/dL POC Glucose (mg/dL) 129 H (70-110) mg/dL Calcium 7.8 L (8.4-10.2) mg/dL Urine Protein 1+ H (Negative) Urine Ketones 1+ H (Negative) Urine Mucus Occasional H (None) /hpf CSF Glucose (40-70) mg/dL 04/11/22 04/11/22 04/11/22 Range/Units 14:30 16:25 20:17 Potassium (3.5-5.1) mmol/L Chloride (98-107) mmol/L BUN (7-17) mg/dL Glucose (74-99) mg/dL POC Glucose (mg/dL) 143 H 168 H (70-110) mg/dL Calcium (8.4-10.2) mg/dL Urine Protein (Negative) Urine Ketones (Negative) Urine Mucus (None) /hpf CSF Glucose 75 H (40-70) mg/dL 04/12/22 Range/Units 06:00 Potassium (3.5-5.1) mmol/L Chloride (98-107) mmol/L BUN (7-17) mg/dL Glucose (74-99) mg/dL POC Glucose (mg/dL) 136 H (70-110) mg/dL Calcium (8.4-10.2) mg/dL Urine Protein (Negative) Urine Ketones (Negative) Urine Mucus (None) /hpf CSF Glucose (40-70) mg/dL Microbiology - Last 24 Hours (Table) 04/11/22 14:30 CSF Gram Stain - Preliminary Cerebral Spinal Fluid CSF Culture - Preliminary 04/09/22 08:22 Blood Culture - Preliminary Blood No Growth after 48 hours 04/09/22 08:22 Blood Culture - Preliminary Blood No Growth after 48 hours
[2022-04-12 14:53] LABS: HSV II IgG Interp NEGATIVE (NEGATIVE)
[2022-04-12 16:41] LABS: Glucose,Whole Blood 164 mg/dL (70-110)
[2022-04-12 20:08] LABS: Glucose,Whole Blood 180 mg/dL (70-110)
--- NOTE | 2022-04-12 20:22 | P.PN ---
Subjective Progress Note Date: 04/12/22 Glenis Nunn, is an 81-year-old female who presented to [facility] with a chief complaint of fever and mental status changes She was evaluated in the emergency room vital examination on presentation revealed a temperature of 101 pulse 91 respiration 18 blood pressure 193/76 pulse ox 97% on room air Laboratory data revealed a white blood count of 9.4 hemoglobin 15.6 platelet count 123 sodium 135 potassium 4.1 chloride 99 CO2 21 BUN 19 creatinine 0.94 glucose on presentation was 248 troponin on presentation was elevated at 0.121 urine analysis on presentation was positive for protein, glucose, ketone, and blood but was negative for nitrate and leukocyte esterase. Toxicology screen was negative COVID-19 and influenza A and B serology were negative. Testing in the emergency room revealed chest x-ray was done in the emergency room and revealed no acute cardiopulmonary disease, EKG done in the emergency room revealed sinus rhythm with right bundle branch block, computed tomography scan of the brain revealed no gross evidence of an acute process. Due to elevated troponin patient was started on IV heparin in the emergency room, she was also started on IV Rocephin due to fever. Patient was admitted to medical floor for further evaluation and treatment On 04/10/2022 patient was seen and examined on the telemetry floor she is slightly more alert today she is complaining of headache, otherwise she is mostly drowsy she was evaluated by neurology, possibility of encepha litis/meningitis was entertained anesthesia consult requested for possible lumbar puncture. At this time plan is to discontinue IV heparin and oral aspirin and continue to monitor closely in anticipation of lumbar puncture in the next 1-2 days. In the meantime patient will be continued on IV ceftriaxone, also acyclovir IV was added by neurology, will continue to follow closely. On 04/11/2022 patient was seen and examined of the telemetry floor she is alert and oriented 3 today she is able to answer questions appropriately she is sitting up and eating her meal she is complaining of pain all over her body but does not specifically complain of headache today there is no fever or chills no headache or dizziness no chest pain no shortness of breath no cough no nausea or vomiting no abdominal pain no diarrhea and no urinary symptoms. At this time patient remains on Rocephin 2 g IV every 12 hours. And IV acyclovir. Plan is to proceed was lumbar puncture. Awaiting testing results On 04/12/2022 patient was seen and examined of the telemetry floor she is alert and oriented, today, she is sitting, she is complaining of pain all over her body but does not specifically complain of headache today there is no fever or chills no headache or dizziness no chest pain no shortness of breath no cough no nausea or vomiting no abdominal pain no diarrhea and no urinary symptoms. At this time patient remains on Rocephin 2 g IV every 12 hours. And IV acyclovir. Plan is to proceed was lumbar puncture. Awaiting testing results Objective - Vital Signs Vital signs: Vital Signs Temp 98.2 F 04/12/22 04:00 Pulse 84 04/12/22 04:00 Resp 18 04/12/22 04:00 BP 171/72 04/12/22 04:00 Pulse Ox 93 L 04/12/22 04:00 FiO2 Intake & Output 04/11/22 04/12/22 04/12/22 18:59 06:59 18:59 Intake Total 970 20 Output Total 1025 1300 Balance -55 -1280 Intake: IV 370 20 Acyclovir Sodium 650 mg 200 In Sodium Chloride 0.9% 100 ml @ 113 mls/hr IVPB Q8H [facility] Rx#:[id number] Invasive Line 4 10 Invasive Line 5 10 20 cefTRIAXone 2 gm In 50 Sodium Chloride 0.9% 50 ml @ 100 mls/hr IVPB Q12HR [facility] Rx#:[id number] Oral 600 Output: Urine 1025 1300 Straight 1025 Other: Voiding Method Indwelling Catheter Indwelling Catheter - Exam Patient is alert and oriented in no distress HEENT head normocephalic and atraumatic Neck is supple no JVD no goiter no lymphadenopathy Chest exam reveals a few scattered rhonchi no wheezing Cardiac exam reveals regular heart sounds S1 and S2 no gallops no murmurs Abdomen is soft nontender no organomegaly was normal bowel sounds Extremity exam reveals no edema no cyanosis or clubbing Neurological examination patient is drowsy arousable moving all 4 extremities spontaneously no focal weakness, pupils are equal and reactive to light, exam limited due to patient noncooperation - Labs CBC & Chem 7: 04/12/22 07:28 04/12/22 07:28 Labs: Abnormal Lab Results - Last 24 Hours (Table) 04/11/22 04/11/22 04/11/22 Range/Units 11:15 11:48 14:18 Potassium 3.2 L (3.5-5.1) mmol/L Chloride 109 H (98-107) mmol/L BUN 19 H (7-17) mg/dL Glucose 150 H (74-99) mg/dL POC Glucose (mg/dL) 129 H (70-110) mg/dL Calcium 7.8 L (8.4-10.2) mg/dL Urine Protein 1+ H (Negative) Urine Ketones 1+ H (Negative) Urine Mucus Occasional H (None) /hpf CSF Glucose (40-70) mg/dL 04/11/22 04/11/22 04/11/22 Range/Units 14:30 16:25 20:17 Potassium (3.5-5.1) mmol/L Chloride (98-107) mmol/L BUN (7-17) mg/dL Glucose (74-99) mg/dL POC Glucose (mg/dL) 143 H 168 H (70-110) mg/dL Calcium (8.4-10.2) mg/dL Urine Protein (Negative) Urine Ketones (Negative) Urine Mucus (None) /hpf CSF Glucose 75 H (40-70) mg/dL 04/12/22 Range/Units 06:00 Potassium (3.5-5.1) mmol/L Chloride (98-107) mmol/L BUN (7-17) mg/dL Glucose (74-99) mg/dL POC Glucose (mg/dL) 136 H (70-110) mg/dL Calcium (8.4-10.2) mg/dL Urine Protein (Negative) Urine Ketones (Negative) Urine Mucus (None) /hpf CSF Glucose (40-70) mg/dL Microbiology - Last 24 Hours (Table) 04/11/22 14:30 CSF Gram Stain - Preliminary Cerebral Spinal Fluid CSF Culture - Preliminary 04/09/22 08:22 Blood Culture - Preliminary Blood No Growth after 48 hours 04/09/22 08:22 Blood Culture - Preliminary Blood No Growth after 48 hours Assessment and Plan Plan: Febrile illness no clear source of infection, no abnormality seen on chest x-ray and on urine analysis, will obtain computed tomography scan of the abdomen and pelvis, patient started on IV Rocephin empirically Acute mental status changes computed tomography scan of the brain was done in the emergency room no significant abnormality neurology consultation requested. Elevated troponin on presentation patient was started on IV heparin in the emergency room cardiology consultation requested Underlying history of hypertension, patient is not able to take oral m edications, will cover with hydralazine IV when necessary Underlying history of diabetes mellitus Underlying history of hyperlipidemia At this time patient is admitted to telemetry floor Cardiology and neurology consultation requested Infectious disease consult added Continue with IV heparin until cleared by cardiology Continue with IV Rocephin Prognosis is guarded will follow closely
[2022-04-12] MEDS: ATORVASTATIN 80 MG TAB PO SCH (20:26)
--- NOTE | 2022-04-12 22:09 | P.PN ---
Subjective Progress Note Date: 04/12/22 Principal diagnosis: Fever and possible encephalitis Patient is 81 year old female with a past medical history significant for COPD diabetes mellitus brought into the hospital for evaluation of mental status changes confusion and fever patient was totally obtunded concern for encephalitis. On today's evaluation that is 04/12/2022, the patient remains to be afebrile the patient is awake and alert , the patient is breathing comfortably, denies any chest pain shortness of breath or cough no nausea no vomiting no abdominal pain or any diarrhea Objective - Vital Signs Vital signs: Vital Signs Temp 97.8 F 04/12/22 12:28 Pulse 78 04/12/22 12:28 Resp 16 04/12/22 12:28 BP 167/69 04/12/22 12:28 Pulse Ox 96 04/12/22 12:28 FiO2 Intake & Output 04/11/22 04/12/22 04/12/22 18:59 06:59 18:59 Intake Total 970 20 120 Output Total 1025 1300 250 Balance -55 -1280 -130 Intake: IV 370 20 Acyclovir Sodium 650 mg 200 In Sodium Chloride 0.9% 100 ml @ 113 mls/hr IVPB Q8H [facility] Rx#:[id number] Invasive Line 4 10 Invasive Line 5 10 20 cefTRIAXone 2 gm In 50 Sodium Chloride 0.9% 50 ml @ 100 mls/hr IVPB Q12HR [facility] Rx#:[id number] Oral 600 120 Output: Urine 1025 1300 250 Straight 1025 Other: Voiding Method Indwelling Catheter Indwelling Catheter Indwelling Catheter # Bowel Movements 1 - Exam GENERAL DESCRIPTION: An elderly female lying in bed in no distress RESPIRATORY SYSTEM: Unlabored breathing , decreased breath sounds at bases HEART: S1 S2 regular rate and rhythm , ABDOMEN: Soft , no tenderness EXTREMITIES: No edema feet - Labs CBC & Chem 7: 04/12/22 07:28 04/12/22 07:28 Labs: Abnormal Lab Results - Last 24 Hours (Table) 04/11/22 04/11/22 04/11/22 Range/Units 14:18 14:30 16:25 RBC (3.80-5.40) m/uL Hct (34.0-46.0) % Plt Count (150-450) k/uL Potassium 3.2 L (3.5-5.1) mmol/L Chloride 109 H (98-107) mmol/L BUN 19 H (7-17) mg/dL Glucose 150 H (74-99) mg/dL POC Glucose (mg/dL) 143 H (70-110) mg/dL Calcium 7.8 L (8.4-10.2) mg/dL CSF Glucose 75 H (40-70) mg/dL 04/11/22 04/12/22 04/12/22 Range/Units 20:17 06:00 07:28 RBC (3.80-5.40) m/uL Hct (34.0-46.0) % Plt Count (150-450) k/uL Potassium (3.5-5.1) mmol/L Chloride 113 H (98-107) mmol/L BUN (7-17) mg/dL Glucose 122 H (74-99) mg/dL POC Glucose (mg/dL) 168 H 136 H (70-110) mg/dL Calcium 7.6 L (8.4-10.2) mg/dL CSF Glucose (40-70) mg/dL 04/12/22 04/12/22 Range/Units 07:28 11:44 RBC 3.70 L (3.80-5.40) m/uL Hct 33.9 L (34.0-46.0) % Plt Count 90 L (150-450) k/uL Potassium (3.5-5.1) mmol/L Chloride (98-107) mmol/L BUN (7-17) mg/dL Glucose (74-99) mg/dL POC Glucose (mg/dL) 178 H (70-110) mg/dL Calcium (8.4-10.2) mg/dL CSF Glucose (40-70) mg/dL Microbiology - Last 24 Hours (Table) 04/09/22 08:22 Blood Culture - Preliminary Blood No Growth after 72 hours 04/09/22 08:22 Blood Culture - Preliminary Blood No Growth after 72 hours 04/11/22 14:30 CSF Gram Stain - Preliminary Cerebral Spinal Fluid CSF Culture - Preliminary Assessment and Plan (1) Fever Current Visit: Yes Status: Acute Code(s): R50.9 - FEVER, UNSPECIFIED SNOMED Code(s): 598129984 (2) Altered mental status Current Visit: Yes Status: Acute Code(s): R41.82 - ALTERED MENTAL STATUS, UNSPECIFIED SNOMED Code(s): 615917826 Plan: 1patient presented to hospital mental status changes in this patient did have a fever patient did have a normal white count chest x-ray has been negative CT abdominal pelvis 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 2the patient did have LP completed 04/11/2022 did have a negative WBC glucose normal proteinuria mildly elevated 3source of the fever could be abdominal as there was evidence of fecaloma and possible colitis as no other obvious focus of infection we will continue the patient on Rocephin and Flagyl acyclovir can be discontinued Time with Patient: Less than 30
[2022-04-13] MEDS: ONDANSETRON 4 MG/2 ML VIAL IVP PRN (04:08)
[2022-04-13 05:53] LABS: Glucose,Whole Blood 153 mg/dL (70-110)
--- NOTE | 2022-04-13 08:03 | P.PN ---
Subjective Progress Note Date: 04/12/22 Patient was seen for a follow-up. Patient's family members were not present today. Patient states her headache has resolved. Rates it 0/10. Patient still complaining of "pain everywhere". However not involving the head. She is fully oriented as examination below. Denies any numbness tingling focal weakness. Objective - Vital Signs Vital signs: Vital Signs Temp 98.0 F 04/13/22 07:24 Pulse 82 04/13/22 07:25 Resp 18 04/13/22 07:25 BP 182/75 04/13/22 07:24 Pulse Ox 96 04/13/22 07:24 FiO2 Intake & Output 04/12/22 04/13/22 04/13/22 18:59 06:59 18:59 Intake Total 360 Output Total 550 1550 Balance -190 -1550 Intake: Oral 360 Output: Urine 550 1550 Other: Voiding Method Indwelling Catheter Indwelling Catheter Indwelling Catheter # Bowel Movements 2 - Exam Patient is alert and awake in no distress. Patient is fairly well oriented. She knows it is March 2022 and that she is in [facility] in [place]. She however could not tell name of the current president. She thinks the last one was Obama. Patient's speech and language functions are normal. No aphasia or dysarthria. Patient can name and repeat very well. No paraphasic errors. Cranial nerves II through XII are intact. Patient's visual mercedes are full with no neglect. Face is symmetric and tongue protrudes to the midline. On muscle strength testing, patient has mild left sided drift. The strength is normal in the arms and legs except left deltoid which is weak and painful, probably due to some arthritis. Sensations are equal. No ataxia for [id number] testing. Chest is clear, abdomen soft nontender, no organomegaly, bowel sounds present. - Labs CBC & Chem 7: 04/12/22 07:04/12/22 07: Labs: Abnormal Lab Results - Last 24 Hours (Table) 04/12/22 04/12/22 04/12/22 Range/Units : 07: 07: RBC 3.70 L (3.80-5.40) m/uL Hct 33.9 L (34.0-46.0) % Plt Count 90 L (150-450) k/uL Chloride 113 H (98-107) mmol/L Glucose 122 H (74-99) mg/dL POC Glucose (mg/dL) (70-110) mg/dL Calcium 7.6 L (8.4-10.2) mg/dL VZV IgG Interpret POSITIVE A (NEGATIVE) 04/12/22 04/12/22 04/12/22 Range/Units 11:44 16:39 20:07 RBC (3.80-5.40) m/uL Hct (34.0-46.0) % Plt Count (150-450) k/uL Chloride (98-107) mmol/L Glucose (74-99) mg/dL POC Glucose (mg/dL) 178 H 164 H 180 H (70-110) mg/dL Calcium (8.4-10.2) mg/dL VZV IgG Interpret (NEGATIVE) 04/13/22 Range/Units 05:51 RBC (3.80-5.40) m/uL Hct (34.0-46.0) % Plt Count (150-450) k/uL Chloride (98-107) mmol/L Glucose (74-99) mg/dL POC Glucose (mg/dL) 153 H (70-110) mg/dL Calcium (8.4-10.2) mg/dL VZV IgG Interpret (NEGATIVE) Microbiology - Last 24 Hours (Table) 04/11/22 14:30 CSF Gram Stain - Preliminary Cerebral Spinal Fluid CSF Culture - Preliminary 04/09/22 08:22 Blood Culture - Preliminary Blood No Growth after 72 hours 04/09/22 08:22 Blood Culture - Preliminary Blood No Growth after 72 hours Assessment and Plan Assessment: * 81-year-old female, presented with acute onset of altered mental status, some difficulty expressing, fever, headache. No evidence of meningitis/encephalitis based upon CSF results. Patient currently on acyclovir, and ceftriaxone, and mentation is back to normal. Headache has resolved. * Cephalalgia, fever, altered mental status, probably encephalopathy due to cryptogenic infection. Now resolved. * Elevated cardiac enzymes, with history of CAD * Peripheral vascular disease * Diabetes * Hypertension * X tobacco use Plan: * Cerebrospinal fluid revealed 0 WBC, 0 RBC, total protein normal 47 (12-60), glucose 75/70. Viral cultures negative. Will discontinue acyclovir. Patient's infectious source likely from abdomen, as patient had fecaloma with possible colitis. Patient on ceftriaxone and Flagyl. * Repeat CT head revealed moderate generalized atrophy and confluent burden of chronic small vessel ischemic disease. Suspect a small area of old cortical infarct posterior left occipital lobe. No acute intracranial abnormality seen. I personally reviewed computed tomography scan, agree with the findings. * Carotid Doppler revealed limited examination. 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 * Continue aspirin 81 mg daily, Lipitor 80 mg daily. Cardiology also on board for elevated cardiac enzymes. * EEG was abnormal due to background slowing of at least moderate degree. This is suggestive of generalized cerebral dysfunction as can be seen with toxic metabolic encephalopathy or related to diffuse structural brain abnormality. Clinical correlation is recommended. No epileptiform activity was seen. EEG was technically limited because of significant myogenic and movement artifacts. * Patient currently on acyclovir and ceftriaxone 2 g daily and Flagyl 500 mg 3 times a day. ID input appreciated. * DVT prophylaxis. We will start heparin 5000 units subcu every 12 hours. * Neurologically clear.
[2022-04-13] MEDS: HEPARIN SODIUM,PORCINE/PF 5,000 UNIT/0.5 ML SYRINGE SQ SCH ×2 (08:45→20:11)
[2022-04-13] MEDS: lisinopriL 10 MG TAB PO SCH (08:45)
[2022-04-13] MEDS: metroNIDAZOLE 500 MG TAB PO SCH ×3 (08:45→20:14)
[2022-04-13] MEDS: ASPIRIN 81 MG PO SCH (08:45)
[2022-04-13] MEDS: ACYCLOVIR SODIUM 650 MG in SODIUM CHLORIDE 0.9% 100 ML IVPB SCH (08:46)
[2022-04-13] MEDS: carvediloL 6.25 MG TAB PO SCH ×2 (08:48→16:29)
--- NOTE | 2022-04-13 10:46 | P.PN ---
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 Who follows with Dr. Calderón, however has not been seen since 2014. Patient presented to the ER with altered mental status. Per patient's daughter patient has been complaining of a headache started developing nausea and vomiting and confusion. Patient's basel ine is A&O 3 and able to walk with a walker cane. We have been consult that for elevated troponins 0.121, 0.206, 0.176. 04/13/2022 Patient seen and examined at bedside, no acute distress. She is more alert this morning. Oriented to person and place. She is not aware of her medical history or situation. Denies any pain. Denies any chest pain or shortness of breath. Telemetry reviewed patient sinus rhythm with occasional PVCs Echocardiogram revealed EF 5560%, mild to moderate concentric LVH, mild mitral regurgitation. Meds: Clonidine 0.1 mg patch. Lisinopril 20mg daily, On PRN IV hydralazine for BP. Blood pressure 182/75 HR 82, afebrile SpO2 96% on room air GENERAL: In no acute distress. NECK: Supple without JVD or thyromegaly. LUNGS: Breath sounds diminished to auscultation bilaterally. Respiration equal and unlabored. No wheezes, rales or rhonchi. HEART: Regular rate and rhythm without murmurs, rubs or gallops. S1 and S2 heard. EXTREMITIES: Normal range of motion, no edema. No clubbing or cyanosis. Peripheral pulses intact. ASSESSMENT Elevated troponins with unclear significance at this time, no evidence of acute coronary syndrome Hypertension Coronary artery disease status post angioplasty to the RCA in 2011 Abdominal aortic aneurysm status post stent Peripheral vascular disease Hypertension Dyslipidemia Status post lumbar puncture on 04/11/2022 PLAN Start Clonidine 0.3mg TID, stop Clonidine patch Lisinopril 30mg daily Continue home cardiac medications carvedilol 6.25mg BID, aspirin, statin Further recommendations based on clinical course Nurse Practitioner note has been reviewed, I agree with a documented findings and plan of care. Patient was seen and examined. Objective - Vital Signs Vital signs: Vital Signs Temp 98.0 F 04/13/22 07:24 Pulse 82 04/13/22 07:25 Resp 18 04/13/22 07:25 BP 182/75 04/13/22 07:24 Pulse Ox 96 04/13/22 07:24 FiO2 Intake & Output 04/12/22 04/13/22 04/13/22 18:59 06:59 18:59 Intake Total 360 Output Total 550 1550 Balance -190 -1550 Intake: Oral 360 Output: Urine 550 1550 Other: Voiding Method Indwelling Catheter Indwelling Catheter Indwelling Catheter # Bowel Movements 2 - Labs CBC & Chem 7: 04/12/22 07:28 04/12/22 07:28 Labs: Abnormal Lab Results - Last 24 Hours (Table) 04/12/22 04/12/22 04/12/22 Range/Units 07: 07: 11:44 Plt Count 90 L (150-450) k/uL POC Glucose (mg/dL) 178 H (70-110) mg/dL VZV IgG Interpret POSITIVE A (NEGATIVE) 04/12/22 04/12/22 04/13/22 Range/Units 16:39 20:07 05:51 Plt Count (150-450) k/uL POC Glucose (mg/dL) 164 H 180 H 153 H (70-110) mg/dL VZV IgG Interpret (NEGATIVE) Microbiology - Last 24 Hours (Table) 04/09/22 08:22 Blood Culture - Preliminary Blood No Growth after 96 hours 04/09/22 08:22 Blood Culture - Preliminary Blood No Growth after 96 hours 04/11/22 14:30 CSF Gram Stain - Preliminary Cerebral Spinal Fluid CSF Culture - Preliminary
[2022-04-13 11:46] LABS: Glucose,Whole Blood 164 mg/dL (70-110)
--- NOTE | 2022-04-13 13:51 | P.PN ---
Subjective Progress Note Date: 04/13/22 Patient was seen for a follow-up. Patient's family members were not present today. Patient states her headache has resolved. Rates it 0/10. Patient states she does have some abdominal pain, but is better. Denies any numbness tingling focal weakness. Telemetry monitoring showing sinus rhythm. No other arrhythmia. Objective - Vital Signs Vital signs: Vital Signs Temp 98.0 F 04/13/22 07:24 Pulse 82 04/13/22 07:25 Resp 18 04/13/22 07:25 BP 182/75 04/13/22 07:24 Pulse Ox 96 04/13/22 07:24 FiO2 Intake & Output 04/12/22 04/13/22 04/13/22 18:59 06:59 18:59 Intake Total 360 Output Total 550 1550 Balance -190 -1550 Intake: Oral 360 Output: Urine 550 1550 Other: Voiding Method Indwelling Catheter Indwelling Catheter Indwelling Catheter # Bowel Movements 2 - Exam Patient is alert and awake in no distress. Patient is fairly well oriented. She knows it is March 2022 and that she is in [facility] in [place]. Patient's speech and language functions are normal. No aphasia or dysarthria. Patient can name and repeat very well. No paraphasic errors. Cranial nerves II through XII are intact. Patient's visual mercedes are full with no neglect. Face is symmetric and tongue protrudes to the midline. On muscle strength testing, patient has mild left sided drift. The strength is normal in the arms and legs except left deltoid which is weak and painful, probably due to some arthritis. Sensations are equal. No ataxia for [id number] testing. Chest is clear, abdomen soft nontender, no organomegaly, bowel sounds present. - Labs CBC & Chem 7: 04/12/22 07:04/12/22 07:28 Labs: Abnormal Lab Results - Last 24 Hours (Table) 04/12/22 04/12/22 04/12/22 Range/Units 07: 07:28 11:44 Plt Count 90 L (150-450) k/uL POC Glucose (mg/dL) 178 H (70-110) mg/dL VZV IgG Interpret POSITIVE A (NEGATIVE) 04/12/22 04/12/22 04/13/22 Range/Units 16:39 20:07 05:51 Plt Count (150-450) k/uL POC Glucose (mg/dL) 164 H 180 H 153 H (70-110) mg/dL VZV IgG Interpret (NEGATIVE) Microbiology - Last 24 Hours (Table) 04/09/22 08:22 Blood Culture - Preliminary Blood No Growth after 96 hours 04/09/22 08:22 Blood Culture - Preliminary Blood No Growth after 96 hours 04/11/22 14:30 CSF Gram Stain - Preliminary Cerebral Spinal Fluid CSF Culture - Preliminary Assessment and Plan Assessment: * 81-year-old female, presented with acute onset of altered mental status, some difficulty expressing, fever, headache. No evidence of meningitis/encephalitis based upon CSF results. Patient currently on acyclovir, and ceftriaxone, and mentation is back to normal. Headache has resolved. * Cephalalgia, fever, altered mental status, probably encephalopathy due to cryptogenic infection. Now resolved. * Elevated cardiac enzymes, with history of CAD * Peripheral vascular disease * Diabetes * Hypertension * X tobacco use Plan: * Cerebrospinal fluid revealed 0 WBC, 0 RBC, total protein normal 47 (12-60), glucose 75/70. Viral cultures negative. Patient is off acyclovir. Patient's infectious source likely from abdomen, as patient had fecaloma with possible colitis. Patient on ceftriaxone and Flagyl. * Repeat CT head revealed moderate generalized atrophy and confluent burden of chronic small vessel ischemic disease. Suspect a small area of old cortical infarct posterior left occipital lobe. No acute intracranial abnormality seen. I personally reviewed computed tomography scan, agree with the findings. * Carotid Doppler revealed limited examination. 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 * Continue aspirin 81 mg daily, Lipitor 80 mg daily. Cardiology also on board for elevated cardiac enzymes. * EEG was abnormal due to background slowing of at least moderate degree. This is suggestive of generalized cerebral dysfunction as can be seen with toxic metabolic encephalopathy or related to diffuse structural brain abnormality. Clinical correlation is recommended. No epileptiform activity was seen. EEG was technically limited because of significant myogenic and movement artifacts. * DVT prophylaxis. We will start heparin 5000 units subcu every 12 hours. * Neurologically clear. No other neurological workup indicated. We will follow sporadically.
--- NOTE | 2022-04-13 15:26 | P.PN ---
Subjective Progress Note Date: 04/13/22 Glenis Nunn, is an 81-year-old female who presented to [facility] with a chief complaint of fever and mental status changes She was evaluated in the emergency room vital examination on presentation revealed a temperature of 101 pulse 91 respiration 18 blood pressure 193/76 pulse ox 97% on room air Laboratory data revealed a white blood count of 9.4 hemoglobin 15.6 platelet count 123 sodium 135 potassium 4.1 chloride 99 CO2 21 BUN 19 creatinine 0.94 glucose on presentation was 248 troponin on presentation was elevated at 0.121 urine analysis on presentation was positive for protein, glucose, ketone, and blood but was negative for nitrate and leukocyte esterase. Toxicology screen was negative COVID-19 and influenza A and B serology were negative. Testing in the emergency room revealed chest x-ray was done in the emergency room and revealed no acute cardiopulmonary disease, EKG done in the emergency room revealed sinus rhythm with right bundle branch block, computed tomography scan of the brain revealed no gross evidence of an acute process. Due to elevated troponin patient was started on IV heparin in the emergency room, she was also started on IV Rocephin due to fever. Patient was admitted to medical floor for further evaluation and treatment On 04/10/2022 patient was seen and examined on the telemetry floor she is slightly more alert today she is complaining of headache, otherwise she is mostly drowsy she was evaluated by neurology, possibility of encepha litis/meningitis was entertained anesthesia consult requested for possible lumbar puncture. At this time plan is to discontinue IV heparin and oral aspirin and continue to monitor closely in anticipation of lumbar puncture in the next 1-2 days. In the meantime patient will be continued on IV ceftriaxone, also acyclovir IV was added by neurology, will continue to follow closely. On 04/11/2022 patient was seen and examined of the telemetry floor she is alert and oriented 3 today she is able to answer questions appropriately she is sitting up and eating her meal she is complaining of pain all over her body but does not specifically complain of headache today there is no fever or chills no headache or dizziness no chest pain no shortness of breath no cough no nausea or vomiting no abdominal pain no diarrhea and no urinary symptoms. At this time patient remains on Rocephin 2 g IV every 12 hours. And IV acyclovir. Plan is to proceed was lumbar puncture. Awaiting testing results On 04/12/2022 patient was seen and examined of the telemetry floor she is alert and oriented, today, she is sitting, she is complaining of pain all over her body but does not specifically complain of headache today there is no fever or chills no headache or dizziness no chest pain no shortness of breath no cough no nausea or vomiting no abdominal pain no diarrhea and no urinary symptoms. At this time patient remains on Rocephin 2 g IV every 12 hours. And IV acyclovir. Plan is to proceed was lumbar puncture. Awaiting testing results On 04/13/2022 patient was seen and examined on the medical floor she is alert and oriented in no apparent distress there is no fever or chills no headache or dizziness no chest pain no shortness of breath no cough no nausea or vomiting no abdominal pain no diarrhea and no urinary discomfort, or [employer] fluid analysis no evidence of infection, acyclovir was discontinued, and dose of IV Rocephin was decreased to 2 g once daily, infectious disease following, continue with current management at this time will follow closely Objective - Vital Signs Vital signs: Vital Signs Temp 98.0 F 04/13/22 07:24 Pulse 82 04/13/22 07:25 Resp 18 04/13/22 07:25 BP 182/75 04/13/22 07:24 Pulse Ox 96 04/13/22 07:24 FiO2 Intake & Output 04/12/22 04/13/22 04/13/22 18:59 06:59 18:59 Intake Total 360 Output Total 550 1550 Balance -190 -1550 Intake: Oral 360 Output: Urine 550 1550 Other: Voiding Method Indwelling Catheter Indwelling Catheter Indwelling Catheter # Bowel Movements 2 - Exam Patient is alert and oriented in no distress HEENT head normocephalic and atraumatic Neck is supple no JVD no goiter no lymphadenopathy Chest exam reveals a few scattered rhonchi no wheezing Cardiac exam reveals regular heart sounds S1 and S2 no gallops no murmurs Abdomen is soft nontender no organomegaly was normal bowel sounds Extremity exam reveals no edema no cyanosis or clubbing Neurological examination patient is drowsy arousable moving all 4 extremities spontaneously no focal weakness, pupils are equal and reactive to light, exam limited due to patient noncooperation - Labs CBC & Chem 7: 04/12/22 07:28 04/12/22 07:28 Labs: Abnormal Lab Results - Last 24 Hours (Table) 04/12/22 04/12/22 04/12/22 Range/Units 07:28 07:28 11:44 Plt Count 90 L (150-450) k/uL POC Glucose (mg/dL) 178 H (70-110) mg/dL VZV IgG Interpret POSITIVE A (NEGATIVE) 04/12/22 04/12/22 04/13/22 Range/Units 16:39 20:07 05:51 Plt Count (150-450) k/uL POC Glucose (mg/dL) 164 H 180 H 153 H (70-110) mg/dL VZV IgG Interpret (NEGATIVE) Microbiology - Last 24 Hours (Table) 04/09/22 08:22 Blood Culture - Preliminary Blood No Growth after 96 hours 04/09/22 08:22 Blood Culture - Preliminary Blood No Growth after 96 hours 04/11/22 14:30 CSF Gram Stain - Preliminary Cerebral Spinal Fluid CSF Culture - Preliminary Assessment and Plan Plan: Febrile illness no clear source of infection, no abnormality seen on chest x-ray and on urine analysis, will obtain computed tomography scan of the abdomen and pelvis, patient started on IV Rocephin empirically Acute mental status changes computed tomography scan of the brain was done in the emergency room no significant abnormality neurology consultation requested. Elevated troponin on presentation patient was started on IV heparin in the emergency room cardiology consultation requested Underlying history of hypertension, patient is not able to take oral medications, will cover with hydralazine IV when necessary Underlying history of diabetes mellitus Underlying history of hyperlipidemia At this time patient is admitted to telemetry floor Cardiology and neurology consultation requested Infectious disease consult added Continue with IV heparin until cleared by cardiology Continue with IV Rocephin Prognosis is guarded will follow closely
[2022-04-13] MEDS: cloNIDine HCL 0.1 MG TAB PO SCH ×2 (16:29→20:14)
[2022-04-13 16:32] LABS: Glucose,Whole Blood 177 mg/dL (70-110)
[2022-04-13] MEDS: ATORVASTATIN 80 MG TAB PO SCH (20:14)
[2022-04-13 20:17] LABS: Glucose,Whole Blood 241 mg/dL (70-110)
--- NOTE | 2022-04-13 22:34 | P.PN ---
Subjective Progress Note Date: 04/13/22 Principal diagnosis: Fever and possible encephalitis Patient is 81 year old female with a past medical history significant for COPD diabetes mellitus brought into the hospital for evaluation of mental status changes confusion and fever patient was totally obtunded concern for encephalitis. On today's evaluation that is 04/13/2022, the patient denies any fever or any c hills, the patient is breathing comfortably, denies any chest pain shortness of breath or cough no nausea no vomiting no abdominal pain or any diarrhea Objective - Vital Signs Vital signs: Vital Signs Temp 97.5 F L 04/13/22 11:57 Pulse 64 04/13/22 11:57 Resp 18 04/13/22 11:57 BP 142/62 04/13/22 11:57 Pulse Ox 98 04/13/22 11:57 FiO2 Intake & Output 04/12/22 04/13/22 04/13/22 18:59 06:59 18:59 Intake Total 360 Output Total 550 1550 Balance -190 -1550 Intake: Oral 360 Output: Urine 550 1550 Other: Voiding Method Indwelling Catheter Indwelling Catheter Indwelling Catheter # Bowel Movements 2 - Exam GENERAL DESCRIPTION: An elderly female lying in bed in no distress RESPIRATORY SYSTEM: Unlabored breathing , decreased breath sounds at bases HEART: S1 S2 regular rate and rhythm , ABDOMEN: Soft , no tenderness EXTREMITIES: No edema feet - Labs CBC & Chem 7: 04/12/22 07:28 04/12/22 07:28 Labs: Abnormal Lab Results - Last 24 Hours (Table) 04/12/22 04/12/22 04/12/22 Range/Units 07:28 16:39 20:07 POC Glucose (mg/dL) 164 H 180 H (70-110) mg/dL VZV IgG Interpret POSITIVE A (NEGATIVE) 04/13/22 04/13/22 Range/Units 05:51 11:44 POC Glucose (mg/dL) 153 H 164 H (70-110) mg/dL VZV IgG Interpret (NEGATIVE) Microbiology - Last 24 Hours (Table) 04/09/22 08:22 Blood Culture - Preliminary Blood No Growth after 96 hours 04/09/22 08:22 Blood Culture - Preliminary Blood No Growth after 96 hours 04/11/22 14:30 CSF Gram Stain - Preliminary Cerebral Spinal Fluid CSF Culture - Preliminary Assessment and Plan (1) Fever Current Visit: Yes Status: Acute Code(s): R50.9 - FEVER, UNSPECIFIED SNOMED Code(s): 022364185 (2) Altered mental status Current Visit: Yes Status: Acute Code(s): R41.82 - ALTERED MENTAL STATUS, UN SPECIFIED SNOMED Code(s): 539012784 Plan: 1patient presented to hospital mental status changes in this patient did have a fever patient did have a normal white count chest x-ray has been negative CT abdominal pelvis did show rectal fecaloma but no colitis chest x-ray was reported negative with concern for possible CLINICAL ABSTRACTOR infection and high clinic suspicious of possible encephalitis of viral etiology. 2the patient did have LP completed 04/11/2022 did have a negative WBC glucose normal proteinuria mildly elevated 3source of the fever could be abdominal as there was evidence of fecaloma and possible colitis and no other obvious focus of infection 4patient slowly clinically improving and will Continue with Rocephin and Flagyl finishing therapy with Ceftin and Flagyl on discharge Time with Patient: Less than 30
[2022-04-14 05:49] LABS: Albumin 3.2 g/dL (3.5-5.0); Calcium 8.6 mg/dL (8.4-10.2); Potassium 4.1 mmol/L (3.5-5.1); Total Bilirubin 0.3 mg/dL (0.2-1.3); Total Protein 5.7 g/dL (6.3-8.2)
[2022-04-14 05:58] LABS: Basophils % (A) 0 %; Eosinophils % (A) 1 %; HCT 31.7 % (34.0-46.0); HGB 10.7 gm/dL (11.4-16.0); Lymphocytes # (A) 1.6 k/uL (1.0-4.8); Lymphocytes % (A) 32 %; MCH 31.2 pg (25.0-35.0); MCHC 33.6 g/dL (31.0-37.0); MCV 92.6 fL (80.0-100.0); Mean Platelet Volume 10.2; Monocytes # (A) 0.5 k/uL (0-1.0); Monocytes % (A) 10 %; Neutrophils # (A) 2.5 k/uL (1.3-7.7); Neutrophils % (A) 52 %; RBC 3.42 m/uL (3.80-5.40); RDW 13.2 % (11.5-15.5); WBC 4.8 k/uL (3.8-10.6)
[2022-04-14 05:59] LABS: Platelet Count 86 k/uL (150-450)
[2022-04-14] MEDS: carvediloL 6.25 MG TAB PO SCH ×2 (06:03→16:55)
[2022-04-14 06:04] LABS: Glucose,Whole Blood 175 mg/dL (70-110)
[2022-04-14 06:43] LABS: Herpes simplex I and/or II IgM 0.26 INDEX (<=0.90); Herpes simplex IgG I Ab 0.2 (< or = 0.90); Herpes simplex IgG II Ab 0.11 (< or = 0.90)
[2022-04-14] MEDS: ASPIRIN 81 MG PO SCH (08:57)
[2022-04-14] MEDS ORDERED: FAMOTIDINE 20 MG/2 ML VIAL IV SCH (09:00)
[2022-04-14] MEDS: lisinopriL 10 MG TAB PO SCH (09:04)
[2022-04-14] MEDS: metroNIDAZOLE 500 MG TAB PO SCH ×3 (09:05→20:22)
[2022-04-14] MEDS: cloNIDine HCL 0.1 MG TAB PO SCH ×3 (09:05→20:22)
[2022-04-14] MEDS: HEPARIN SODIUM,PORCINE/PF 5,000 UNIT/0.5 ML SYRINGE SQ SCH (09:44)
[2022-04-14 10:43] VITALS: BMI 34.0
--- NOTE | 2022-04-14 10:45 | P.PN ---
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 Who follows with Dr. Calderón, however has not been seen since 2014. Patient presented to the ER with altered mental status. Per patient's daughter patient has been complaining of a headache started developing nausea and vomiting and confusion. Patient's basel ine is A&O 3 and able to walk with a walker cane. We have been consult that for elevated troponins 0.121, 0.206, 0.176. 04/14/2022 Patient seen and examined at bedside, no acute distress. Her blood pressure is improving. She is more alert this morning. Oriented to person and place. She is not aware of her medical history or situation. Denies any pain. Denies any chest pain or shortness of breath. Telemetry reviewed patient sinus rhythm with occasional PVCs Echocardiogram revealed EF 5560%, mild to moderate concentric LVH, mild mitral regurgitation. Meds: Clonidine0.3mg TID, Lisinopril 30mg daily, aspirin, statin Blood pressure 153/78 HR 50-70s, afebrile SpO2 96% on room air GENERAL: In no acute distress. NECK: Supple without JVD or thyromegaly. LUNGS: Breath sounds diminished to auscultation bilaterally. Respiration equal and unlabored. No wheezes, rales or rhonchi. HEART: Regular rate and rhythm without murmurs, rubs or gallops. S1 and S2 heard. EXTREMITIES: Normal range of motion, no edema. No clubbing or cyanosis. Peripheral pulses intact. ASSESSMENT Elevated troponins with unclear significance at this time, no evidence of acute coronary syndrome Hypertension Coronary artery disease status post angioplasty to the RCA in 2011 Abdominal aortic aneurysm status post stent Peripheral vascular disease Hypertension Dyslipidemia Status post lumbar puncture on 04/11/2022 PLAN Amlodipine 5mg daily Continue clonidine, lisinopril Continue home cardiac medications carvedilol 6.25mg BID, aspirin, statin From a cardiology perspective, patient is stable. Discharge per primary Follow up outpatient in 2-3 weeks after discharge Nurse Practitioner note has been reviewed, I agree with a documented findings and plan of care. Patient was seen and examined. Objective - Vital Signs Vital signs: Vital Signs Temp 98.4 F 04/14/22 07:07 Pulse 59 L 04/14/22 07:10 Resp 16 04/14/22 07:10 BP 153/78 04/14/22 07:07 Pulse Ox 96 04/14/22 07:07 FiO2 Intake & Output 04/13/22 04/14/22 04/14/22 18:59 06:59 18:59 Output Total 120 400 Balance -120 -400 Output: Urine 120 400 Other: Voiding Method Indwelling Catheter Indwelling Catheter Indwelling Catheter # Bowel Movements 1 - Labs CBC & Chem 7: 04/14/22 04:31 04/14/22 04:31 Labs: Abnormal Lab Results - Last 24 Hours (Table) 04/13/22 04/13/22 04/13/22 Range/Units 11:44 16:29 20:06 RBC (3.80-5.40) m/uL Hgb (11.4-16.0) gm/dL Hct (34.0-46.0) % Plt Count (150-450) k/uL Glucose (74-99) mg/dL POC Glucose (mg/dL) 164 H 177 H 241 H (70-110) mg/dL Total Protein (6.3-8.2) g/dL Albumin (3.5-5.0) g/dL 04/14/22 04/14/22 04/14/22 Range/Units 04:31 04:31 05:56 RBC 3.42 L (3.80-5.40) m/uL Hgb 10.7 L (11.4-16.0) gm/dL Hct 31.7 L (34.0-46.0) % Plt Count 86 L (150-450) k/uL Glucose 161 H (74-99) mg/dL POC Glucose (mg/dL) 175 H (70-110) mg/dL Total Protein 5.7 L (6.3-8.2) g/dL Albumin 3.2 L (3.5-5.0) g/dL Microbiology - Last 24 Hours (Table) 04/11/22 14:30 CSF Gram Stain - Preliminary Cerebral Spinal Fluid CSF Culture - Preliminary 04/09/22 08:22 Blood Culture - Preliminary Blood No Growth after 96 hours 04/09/22 08:22 Blood Culture - Preliminary Blood No Growth after 96 hours
[2022-04-14 11:48] LABS: Glucose,Whole Blood 170 mg/dL (70-110)
--- NOTE | 2022-04-14 11:49 | P.PN ---
Subjective Covering Dr. Patel This is a pleasant 81 years old female with multiple medical problems. He was admitted initially because of fever symptoms. Meningitis/encephalitis suspected and infectious disease and neurologist were consulted. Patient underwent lumbar puncture which was unremarkable for a cause of infection in the nervous system. CT of the abdomen and pelvis on admission also showed no acute process but fecaloma which is suspected source of infection. Patient worked with antibiotic ceftriaxone intravenously and oral Flagyl and his been followed closely. Current Doppler showing 50-69% stenosis of the right internal carotid artery how ever patient with no evidence of stroke signs and symptoms and patient was cleared by neurologist. 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 She remains also on home dose of aspirin and clonidine and Norvasc added today. Objective - Vital Signs Vital signs: Vital Signs Temp 98.4 F 04/14/22 07:07 Pulse 59 L 04/14/22 07:10 Resp 16 04/14/22 07:10 BP 153/78 04/14/22 07:07 Pulse Ox 96 04/14/22 07:07 FiO2 Intake & Output 04/13/22 04/14/22 04/14/22 18:59 06:59 18:59 Intake Total 120 Output Total 120 400 275 Balance -120 -400 -155 Weight 84.368 kg Intake: Oral 120 Output: Urine 120 400 275 Other: Voiding Method Indwelling Catheter Indwelling Catheter Indwelling Catheter # Bowel Movements 1 - Exam GENERAL: The patient is alert and oriented x3, not in any acute distress. Well developed, well nourished. HEENT: Pupils are round and equally reacting to light. EOMI. No scleral icterus. No conjunctival pallor. Normocephalic, atraumatic. No pharyngeal erythema. No thyromegaly. CARDIOVASCULAR: S1 and S2 present. No murmurs, rubs, or gallops. PULMONARY: Chest is clear to auscultation, no wheezing or crackles. ABDOMEN: Soft, nontender, nondistended, normoactive bowel sounds. No palpable organomegaly. MUSCULOSKELETAL: No joint swelling or deformity. EXTREMITIES: No cyanosis, clubbing, or pedal edema. NEUROLOGICAL: Gross neurological examination did not reveal any focal deficits. SKIN: No rashes. no petechiae. - Labs CBC & Chem 7: 04/14/22 04:31 04/14/22 04:31 Labs: Abnormal Lab Results - Last 24 Hours (Table) 04/13/22 04/13/22 04/13/22 Range/Units 11:44 16:29 20:06 RBC (3.80-5.40) m/uL Hgb (11.4-16.0) gm/dL Hct (34.0-46.0) % Plt Count (150-450) k/uL Glucose (74-99) mg/dL POC Glucose (mg/dL) 164 H 177 H 241 H (70-110) mg/dL Total Protein (6.3-8.2) g/dL Albumin (3.5-5.0) g/dL 04/14/22 04/14/22 04/14/22 Range/Units 04:31 04:31 05:56 RBC 3.42 L (3.80-5.40) m/uL Hgb 10.7 L (11.4-16.0) gm/dL Hct 31.7 L (34.0-46.0) % Plt Count 86 L (150-450) k/uL Glucose 161 H (74-99) mg/dL POC Glucose (mg/dL) 175 H (70-110) mg/dL Total Protein 5.7 L (6.3-8.2) g/dL Albumin 3.2 L (3.5-5.0) g/dL Microbiology - Last 24 Hours (Table) 04/09/22 08:22 Blood Culture - Preliminary Blood No Growth after 120 hours 04/09/22 08:22 Blood Culture - Preliminary Blood No Growth after 120 hours 04/11/22 14:30 CSF Gram Stain - Preliminary Cerebral Spinal Fluid CSF Culture - Preliminary Assessment and Plan Assessment: Infection with fever suspected on admission secondary to fecaloma and colitis Metabolic encephalopathy, resolved and patient is back to baseline. Elevated troponin, no evidence of acute coronary arteries and from speech/language therapist. 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 Du as an outpatient for her right ICA, patient informed and she verbalized understanding and acceptance Labs and medication were reviewed.. Continue same treatment. Continue with symptomatic treatment. Resume home medication. Monitor lytes and vitals. DVT and GI prophylaxis. Further recommendations as per clinical course of the patient DVT prophylaxis: Subcutaneous heparin GI Prophylaxis: Pepcid PT/OT: Subacute rehab
[2022-04-14] MEDS: FAMOTIDINE 20 MG/2 ML VIAL IV SCH (12:13)
[2022-04-14] MEDS: amLODIPine 5 MG TAB PO SCH (12:14)
[2022-04-14] MEDS: metFORMIN 500 MG TAB PO SCH ×2 (12:14→16:55)
[2022-04-14 16:37] LABS: Glucose,Whole Blood 204 mg/dL (70-110)
[2022-04-14 20:04] LABS: Glucose,Whole Blood 217 mg/dL (70-110)
[2022-04-14] MEDS: ATORVASTATIN 80 MG TAB PO SCH (20:22)
--- NOTE | 2022-04-14 21:48 | P.PN ---
Subjective Progress Note Date: 04/14/22 Principal diagnosis: Fever and possible encephalitis Patient is 81 year old female with a past medical history significant for COPD diabetes mellitus brought into the hospital for evaluation of mental status changes confusion and fever patient was totally obtunded concern for encephalitis. On today's evaluation that is 04/14/2022, the patient continues to be afebrile, the patient is breathing comfortably on room air, the patient denies any chest pain shortness of breath or cough no nausea no vomiting no abdominal pain or any diarrhea Objective - Vital Signs Vital signs: Vital Signs Temp 98.2 F 04/14/22 11:24 Pulse 55 L 04/14/22 11:24 Resp 16 04/14/22 11:24 BP 154/72 04/14/22 11:24 Pulse Ox 98 04/14/22 11:24 FiO2 Intake & Output 04/13/22 04/14/22 04/14/22 18:59 06:59 18:59 Intake Total 120 Output Total 120 400 275 Balance -120 -400 -155 Weight 84.368 kg Intake: Oral 120 Output: Urine 120 400 275 Other: Voiding Method Indwelling Catheter Indwelling Catheter Indwelling Catheter # Bowel Movements 1 - Exam GENERAL DESCRIPTION: An elderly female lying in bed in no distress RESPIRATORY SYSTEM: Unlabored breathing , decreased breath sounds at bases HEART: S1 S2 regular rate and rhythm , ABDOMEN: Soft , no tenderness EXTREMITIES: No edema feet - Labs CBC & Chem 7: 04/14/22 04:31 04/14/22 04:31 Labs: Abnormal Lab Results - Last 24 Hours (Table) 04/13/22 04/13/22 04/14/22 Range/Units 16:29 20:06 04:31 RBC 3.42 L (3.80-5.40) m/uL Hgb 10.7 L (11.4-16.0) gm/dL Hct 31.7 L (34.0-46.0) % Plt Count 86 L (150-450) k/uL Glucose (74-99) mg/dL POC Glucose (mg/dL) 177 H 241 H (70-110) mg/dL Total Protein (6.3-8.2) g/dL Albumin (3.5-5.0) g/dL 04/14/22 04/14/22 04/14/22 Range/Units 04:31 05:56 11:40 RBC (3.80-5.40) m/uL Hgb (11.4-16.0) gm/dL Hct (34.0-46.0) % Plt Count (150-450) k/uL Glucose 161 H (74-99) mg/dL POC Glucose (mg/dL) 175 H 170 H (70-110) mg/dL Total Protein 5.7 L (6.3-8.2) g/dL Albumin 3.2 L (3.5-5.0) g/dL Microbiology - Last 24 Hours (Table) 04/09/22 08:22 Blood Culture - Preliminary Blood No Growth after 120 hours 04/09/22 08:22 Blood Culture - Preliminary Blood No Growth after 120 hours 04/11/22 14:30 CSF Gram Stain - Preliminary Cerebral Spinal Fluid CSF Culture - Preliminary Assessment and Plan (1) Fever Current Visit: Yes Status: Acute Code(s): R50.9 - FEVER, UNSPECIFIED SNOMED Code(s): 167635890 (2) Altered mental status Current Visit: Yes Status: Acute Code(s): R41.82 - ALTERED MENTAL STATUS, UNSPECIFIED SNOMED Code(s): 210234413 Plan: 1patient presented to hospital mental status changes in this patient did have a fever patient did have a normal white count chest x-ray has been negative CT a bdominal pelvis did show rectal fecaloma but no colitis chest x-ray was reported negative with concern for possible [employer]QU[employer]MENT [employer] infection and high clinic suspicious of possible encephalitis of viral etiology. 2the patient did have LP completed 04/11/2022 did have a negative WBC glucose normal proteinuria mildly elevated 3the patient source of the fever likely abdominal as there was evidence of fecaloma and possible colitis and no other obvious focus of infection has been seen 4patient has shown clinical improvement and will Continue with Rocephin and Flagyl finishing therapy with Ceftin and Flagyl on discharge Time with Patient: Less than 30
[2022-04-15] MEDS: carvediloL 6.25 MG TAB PO SCH ×2 (06:25→17:00)
[2022-04-15] MEDS: metFORMIN 500 MG TAB PO SCH ×2 (06:25→17:00)
[2022-04-15 06:28] LABS: Glucose,Whole Blood 164 mg/dL (70-110)
[2022-04-15] MEDS: cloNIDine HCL 0.1 MG TAB PO SCH ×3 (08:40→20:29)
[2022-04-15] MEDS: FAMOTIDINE 20 MG/2 ML VIAL IV SCH (08:41)
[2022-04-15] MEDS: amLODIPine 5 MG TAB PO SCH (08:41)
[2022-04-15] MEDS: ASPIRIN 81 MG PO SCH (08:41)
[2022-04-15] MEDS: lisinopriL 10 MG TAB PO SCH (08:41)
[2022-04-15] MEDS: metroNIDAZOLE 500 MG TAB PO SCH ×3 (08:41→20:29)
--- NOTE | 2022-04-15 10:48 | P.PN ---
Subjective Covering Dr. Patel This is a pleasant 81 years old female with multiple medical problems. He was admitted initially because of fever symptoms. Meningitis/encephalitis suspected and infectious disease and neurologist were consulted. Patient underwent lumbar puncture which was unremarkable for a cause of infection in the nervous system. CT of the abdomen and pelvis on admission also showed no acute process but fecaloma which is suspected source of infection. Patient worked with antibiotic ceftriaxone intravenously and oral Flagyl and his been followed closely. Current Doppler showing 50-69% stenosis of the right internal carotid artery how ever patient with no evidence of stroke signs and symptoms and patient was cleared by neurologist. 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 She remains also on home dose of aspirin and clonidine and Norvasc added today. 04/15/2012 Patient is improving slowly and gradually, we are advancing the diet slowly and patient with no nausea vomiting but she is not back to baseline yet. She denies any diarrhea or vomiting. Abdominal pain is minimal. Her hemoglobin A1c is 8.2%. She was started on metformin. Patient states that she has history of diabetes and she was taken at the [facility] but she could not remember the name. Patient currently Ceftriaxone and Flagyl. Patient Was Instructed with the Need to Follow-Up with Vascular Surgery As an Outpatient for Her Right Internal Carotid Artery Stenosis Objective - Vital Signs Vital signs: Vital Signs Temp 98.2 F 04/14/22 20:00 Pulse 55 L 04/15/22 04:00 Resp 18 04/15/22 04:00 BP 168/68 04/15/22 04:00 Pulse Ox 98 04/15/22 04:00 FiO2 Intake & Output 04/14/22 04/15/22 04/15/22 18:59 06:59 18:59 Intake Total 360 585 Output Total 1200 1400 Balance -840 -815 Weight 84.368 kg Intake: Intake, IV Titration 100 Amount cefTRIAXone 2 gm In 100 Sodium Chloride 0.9% 50 ml @ 100 mls/hr IVPB Q24H [facility] Rx#:[id number] Oral 360 485 Output: Urine 1200 1400 Other: Voiding Method Indwelling Catheter Indwelling Catheter Indwelling Catheter # Bowel Movements 1 2 - Exam GENERAL: The patient is alert and oriented x3, not in any acute distress. Well developed, well nourished. HEENT: Pupils are round and equally reacting to light. EOMI. No scleral icterus. No conjunctival pallor. Normocephalic, atraumatic. No pharyngeal erythema. No thyromegaly. CARDIOVASCULAR: S1 and S2 present. No murmurs, rubs, or gallops. PULMONARY: Chest is clear to auscultation, no wheezing or crackles. ABDOMEN: Soft, nontender, nondistended, normoactive bowel sounds. No palpable organomegaly. MUSCULOSKELETAL: No joint swelling or deformity. EXTREMITIES: No cyanosis, clubbing, or pedal edema. NEUROLOGICAL: Gross neurological examination did not reveal any focal deficits. SKIN: No rashes. no petechiae. - Labs CBC & Chem 7: 04/14/22 04:31 04/14/22 04:31 Labs: Abnormal Lab Results - Last 24 Hours (Table) 04/14/22 04/14/22 04/14/22 Range/Units 11:40 16:35 20:02 POC Glucose (mg/dL) 170 H 204 H 217 H (70-110) mg/dL 04/15/22 Range/Units 06:26 POC Glucose (mg/dL) 164 H (70-110) mg/dL Microbiology - Last 24 Hours (Table) 04/11/22 14:30 CSF Gram Stain - Preliminary Cerebral Spinal Fluid CSF Culture - Preliminary 04/09/22 08:22 Blood Culture - Preliminary Blood No Growth after 120 hours 04/09/22 08:22 Blood Culture - Preliminary Blood No Growth after 120 hours Assessment and Plan Assessment: Infection with fever suspected on admission secondary to fecaloma and colitis Metabolic encephalopathy, resolved and patient is back to baseline. 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 Du as an outpatient for her right ICA, patient informed and she verbalized understanding and acceptance Labs and medication were reviewed.. Continue same treatment. Continue with symptomatic treatment. Resume home medication. Monitor lytes and vitals. DVT and GI prophylaxis. Further recommendations as per clinical course of the patient DVT prophylaxis: Subcutaneous heparin GI Prophylaxis: Pepcid PT/OT: Subacute rehab
[2022-04-15 11:32] LABS: Glucose,Whole Blood 229 mg/dL (70-110)
--- NOTE | 2022-04-15 14:11 | P.PN ---
Subjective Progress Note Date: 04/15/22 Principal diagnosis: Fever and possible encephalitis Patient is 81 year old female with a past medical history significant for COPD diabetes mellitus brought into the hospital for evaluation of mental status changes confusion and fever patient was totally obtunded concern for encephalitis. On today's evaluation that is 04/15/2022, the patient remains to be afebrile, the patient is breathing comfortably on room air, the patient denies any chest pain shortness of breath or cough , the patient denies nausea no vomiting no abdominal pain or any diarrhea Objective - Vital Signs Vital signs: Vital Signs Temp 98 F 04/15/22 12:00 Pulse 57 L 04/15/22 12:00 Resp 17 04/15/22 12:00 BP 115/67 04/15/22 12:00 Pulse Ox 97 04/15/22 12:00 FiO2 Intake & Output 04/14/22 04/15/22 04/15/22 18:59 06:59 18:59 Intake Total 360 585 420 Output Total 1200 1400 Balance -840 -815 420 Weight 84.368 kg Intake: Intake, IV Titration 100 Amount cefTRIAXone 2 gm In 100 Sodium Chloride 0.9% 50 ml @ 100 mls/hr IVPB Q24H [facility] Rx#:[id number] Oral 360 485 420 Output: Urine 1200 1400 Other: Voiding Method Indwelling Catheter Indwelling Catheter Indwelling Catheter # Bowel Movements 1 2 - Exam GENERAL DESCRIPTION: An elderly female lying in bed in no distress RESPIRATORY SYSTEM: Unlabored breathing , decreased breath sounds at bases HEART: S1 S2 regular rate and rhythm , ABDOMEN: Soft , no tenderness EXTREMITIES: No edema feet - Labs CBC & Chem 7: 04/14/22 04:31 04/14/22 04:31 Labs: Abnormal Lab Results - Last 24 Hours (Table) 04/14/22 04/14/22 04/15/22 Range/Units 16:35 20:02 06:26 POC Glucose (mg/dL) 204 H 217 H 164 H (70-110) mg/dL 04/15/22 Range/Units 11:31 POC Glucose (mg/dL) 229 H (70-110) mg/dL Microbiology - Last 24 Hours (Table) 04/09/22 08:22 Blood Culture - Final Blood No Growth after 144 hours 04/09/22 08:22 Blood Culture - Final Blood No Growth after 144 hours 04/11/22 14:30 CSF Gram Stain - Preliminary Cerebral Spinal Fluid CSF Culture - Preliminary Assessment and Plan (1) Fever Current Visit: Yes Status: Acute Code(s): R50.9 - FEVER, UNSPECIFIED SNOMED Code(s): 026094164 (2) Altered mental status Current Visit: Yes Status: Acute Code(s): R41.82 - ALTERED MENTAL STATUS, UNSPECIFIED SNOMED Code(s): 815764863 Plan: 1patient presented to hospital mental status changes in this patient did have a fever patient did have a normal white count chest x-ray has been negative CT abdominal pelvis did show rectal fecaloma but no colitis chest x-ray was reported negative with concern for possible [employer] infection and high clinic suspicious of possible encephalitis of viral etiology. 2the patient did have LP completed 04/11/2022 did have a negative WBC glucose normal proteinuria mildly elevated 3the patient source of the fever likely abdominal as there was evidence of fecaloma and possible colitis and no other obvious focus of infection has been seen 4patient clinically improving and is currently being treated with Rocephin and Flagyl with a plan to therapy with Ceftin and Flagyl on discharge Time with Patient: Less than 30
[2022-04-15 16:29] LABS: Glucose,Whole Blood 221 mg/dL (70-110)
[2022-04-15 20:22] LABS: Glucose,Whole Blood 233 mg/dL (70-110)
[2022-04-15] MEDS: ATORVASTATIN 80 MG TAB PO SCH (20:29)
[2022-04-16 06:20] LABS: Glucose,Whole Blood 161 mg/dL (70-110)
[2022-04-16] MEDS: metFORMIN 500 MG TAB PO SCH ×2 (06:24→16:56)
[2022-04-16] MEDS: carvediloL 6.25 MG TAB PO SCH ×2 (06:24→16:56)
[2022-04-16] MEDS: cloNIDine HCL 0.1 MG TAB PO SCH ×3 (08:31→20:11)
[2022-04-16] MEDS: amLODIPine 5 MG TAB PO SCH (08:31)
[2022-04-16] MEDS: lisinopriL 10 MG TAB PO SCH (08:31)
[2022-04-16] MEDS: ASPIRIN 81 MG PO SCH (08:31)
[2022-04-16] MEDS: FAMOTIDINE 20 MG/2 ML VIAL IV SCH (08:31)
[2022-04-16] MEDS: metroNIDAZOLE 500 MG TAB PO SCH ×3 (08:31→20:11)
[2022-04-16 11:55] LABS: Glucose,Whole Blood 176 mg/dL (70-110)
[2022-04-16 16:46] LABS: Glucose,Whole Blood 176 mg/dL (70-110)
--- NOTE | 2022-04-16 17:21 | P.PN ---
Subjective Covering Dr. Patel This is a pleasant 81 years old female with multiple medical problems. He was admitted initially because of fever symptoms. Meningitis/encephalitis suspected and infectious disease and neurologist were consulted. Patient underwent lumbar puncture which was unremarkable for a cause of infection in the nervous system. CT of the abdomen and pelvis on admission also showed no acute process but fecaloma which is suspected source of infection. Patient worked with antibiotic ceftriaxone intravenously and oral Flagyl and his been followed closely. Current Doppler showing 50-69% stenosis of the right internal carotid artery how ever patient with no evidence of stroke signs and symptoms and patient was cleared by neurologist. 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 She remains also on home dose of aspirin and clonidine and Norvasc added today. 04/15/2012 Patient is improving slowly and gradually, we are advancing the diet slowly and patient with no nausea vomiting but she is not back to baseline yet. She denies any diarrhea or vomiting. Abdominal pain is minimal. Her hemoglobin A1c is 8.2%. She was started on metformin. Patient states that she has history of diabetes and she was taken at the [facility] but she could not remember the name. Patient currently Ceftriaxone and Flagyl. Patient Was Instructed with the Need to Follow-Up with Vascular Surgery As an Outpatient for Her Right Internal Carotid Artery Stenosis 04/16/2021 Patient is clinically improving slowly and gradually and she is tolerating diet well. She feels very weak and therefore we going to order physical therapy evaluation Patient also was informed about the need to follow-up with vascular surgeon Dr. eHdrick regarding her right internal carotid artery stenosis and she verbalized understanding and acceptance, follow-up recommendation is placed and discharge instructions. She eats well. As much as she can as she describes. She remains on IV ceftriaxone and Flagyl Hemoglobin A1c is 8.2 and sugars better controlled on metformin. She will be discharge on oral antibiotics as per ID team Objective - Vital Signs Vital signs: Vital Signs Temp 98.2 F 04/16/22 08:00 Pulse 58 L 04/16/22 08:00 Resp 17 04/16/22 08:00 BP 109/61 04/16/22 08:00 Pulse Ox 98 04/16/22 08:00 FiO2 Intake & Output 04/15/22 04/16/22 04/16/22 18:59 06:59 18:59 Intake Total 657 535 118 Output Total 75 740 Balance 582 -205 118 Intake: Intake, IV Titration 50 Amount cefTRIAXone 2 gm In 50 Sodium Chloride 0.9% 50 ml @ 100 mls/hr IVPB Q24H [facility] Rx#:[id number] Oral 657 485 118 Output: Urine 75 740 Other: Voiding Method Indwelling Catheter Indwelling Catheter Indwelling Catheter - Exam GENERAL: The patient is alert and oriented x3, not in any acute distress. Well developed, well nourished. HEENT: Pupils are round and equally reacting to light. EOMI. No scleral icterus. No conjunctival pallor. Normocephalic, atraumatic. No pharyngeal erythema. No thyromegaly. CARDIOVASCULAR: S1 and S2 present. No murmurs, rubs, or gallops. PULMONARY: Chest is clear to auscultation, no wheezing or crackles. ABDOMEN: Soft, nontender, nondistended, normoactive bowel sounds. No palpable organomegaly. MUSCULOSKELETAL: No joint swelling or deformity. EXTREMITIES: No cyanosis, clubbing, or pedal edema. NEUROLOGICAL: Gross neurological examination did not reveal any focal deficits. SKIN: No rashes. no petechiae. - Labs CBC & Chem 7: 04/14/22 04:31 04/14/22 04:31 Labs: Abnormal Lab Results - Last 24 Hours (Table) 04/15/22 04/15/22 04/16/22 Range/Units 16:27 20:21 06:18 POC Glucose (mg/dL) 221 H 233 H 161 H (70-110) mg/dL 04/16/22 Range/Units 11:40 POC Glucose (mg/dL) 176 H (70-110) mg/dL Microbiology - Last 24 Hours (Table) 04/11/22 14:30 CSF Gram Stain - Final Cerebral Spinal Fluid CSF Culture - Final 04/09/22 08:22 Blood Culture - Final Blood No Growth after 144 hours 04/09/22 08:22 Blood Culture - Final Blood No Growth after 144 hours Assessment and Plan Assessment: Infection with fever suspected on admission secondary to fecaloma and colitis Metabolic encephalopathy, resolved and patient is back to baseline. 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 Du as an outpatient for her right ICA, patient informed and she verbalized understanding and acceptance Labs and medication were reviewed.. Continue same treatment. Continue with symptomatic treatment. Resume home medication. Monitor lytes and vitals. DVT and GI prophylaxis. Further recommendations as per clinical course of the patient DVT prophylaxis: Subcutaneous heparin GI Prophylaxis: Pepcid PT/OT: Subacute rehab, social service director consulted
[2022-04-16] MEDS: ATORVASTATIN 80 MG TAB PO SCH (20:11)
[2022-04-16 20:55] LABS: Glucose,Whole Blood 210 mg/dL (70-110)
--- NOTE | 2022-04-17 02:47 | P.PN ---
Subjective Progress Note Date: 04/16/22 Patient was seen for a follow-up. Patient is laying comfortably in the bed. Patient denies headache. Rates it 0/10. Denies any numbness tingling focal weakness. Denies any new neurological symptoms. Telemetry monitoring showing sinus rhythm. No other arrhythmia. Objective - Vital Signs Vital signs: Vital Signs Temp 98 F 04/16/22 12:00 Pulse 51 L 04/16/22 12:00 Resp 16 04/16/22 12:00 BP 153/69 04/16/22 12:00 Pulse Ox 98 04/16/22 12:00 FiO2 Intake & Output 04/15/22 04/16/22 04/16/22 18:59 06:59 18:59 Intake Total 657 535 354 Output Total 75 740 Balance 582 -205 354 Intake: Intake, IV Titration 50 Amount cefTRIAXone 2 gm In 50 Sodium Chloride 0.9% 50 ml @ 100 mls/hr IVPB Q24H [facility] Rx#:[id number] Oral 657 485 354 Output: Urine 75 740 Other: Voiding Method Indwelling Catheter Indwelling Catheter Indwelling Catheter - Exam Patient is alert and awake in no distress. Patient is fairly well oriented. She knows it is March 2022 and that she is in [facility] in [place]. Patient's speech and language functions are normal. No aphasia or dysarthria. Patient can name and repeat very well. No paraphasic errors. Cranial nerves II through XII are intact. Patient's visual mercedes are full with no neglect. Face is symmetric and tongue protrudes to the midline. On muscle strength testing, patient has mild left sided drift. The strength is normal in the arms and legs except left deltoid which is weak and painful, probably due to some arthritis. Sensations are equal. No ataxia for [id number] testing. Chest is clear, abdomen soft nontender, no organomegaly, bowel sounds present. - Labs CBC & Chem 7: 04/14/22 04:31 04/14/22 04:31 Labs: Abnormal Lab Results - Last 24 Hours (Table) 04/15/22 04/16/22 04/16/22 Range/Units 20:21 06:18 11:40 POC Glucose (mg/dL) 233 H 161 H 176 H (70-110) mg/dL 04/16/22 Range/Units 16:44 POC Glucose (mg/dL) 176 H (70-110) mg/dL Microbiology - Last 24 Hours (Table) 04/11/22 14:30 CSF Gram Stain - Final Cerebral Spinal Fluid CSF Culture - Final Assessment and Plan Assessment: * 81-year-old female, presented with acute onset of altered mental status, some difficulty expressing, fever, headache. No evidence of meningitis/encephali tis based upon CSF results. Patient's mentation is back to normal. Headache has resolved. * Cephalalgia, fever, altered mental status, probably encephalopathy due to cryptogenic infection. Now resolved. * Possible abdominal source of infection. * Elevated cardiac enzymes, with history of CAD * Peripheral vascular disease * Diabetes * Hypertension * X tobacco use Plan: * Cerebrospinal fluid revealed 0 WBC, 0 RBC, total protein normal 47 (12-60), glucose 75/70. Viral cultures negative. Patient is off acyclovir. Patient's infectious source likely from abdomen, as patient had fecaloma with possible colitis. Patient on ceftriaxone and Flagyl. * Repeat CT head revealed moderate generalized atrophy and confluent burden of chronic small vessel ischemic disease. Suspect a small area of old cortical infarct posterior left occipital lobe. No acute intracranial abnormality seen. I personally reviewed computed tomography scan, agree with the findings. * Carotid Doppler revealed limited examination. 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 * Continue aspirin 81 mg daily, Lipitor 80 mg daily. Cardiology also on board for elevated cardiac enzymes. * EEG was abnormal due to background slowing of at least moderate degree. This is suggestive of generalized cerebral dysfunction as can be seen with toxic metabolic encephalopathy or related to diffuse structural brain abnormality. Clinical correlation is recommended. No epileptiform activity was seen. EEG was technically limited because of significant myogenic and movement artifacts. * DVT prophylaxis. We will start heparin 5000 units subcu every 12 hours. * Neurologically clear. Neurology will sign off. Please reconsult neurology if any concerns.
[2022-04-17 06:24] LABS: Glucose,Whole Blood 144 mg/dL (70-110)
[2022-04-17] MEDS: metFORMIN 500 MG TAB PO SCH ×2 (06:28→17:40)
[2022-04-17] MEDS: carvediloL 6.25 MG TAB PO SCH ×2 (06:28→17:40)
[2022-04-17] MEDS: metroNIDAZOLE 500 MG TAB PO SCH ×3 (09:18→20:06)
[2022-04-17] MEDS: amLODIPine 5 MG TAB PO SCH (09:18)
[2022-04-17] MEDS: FAMOTIDINE 20 MG/2 ML VIAL IV SCH (09:18)
[2022-04-17] MEDS: cloNIDine HCL 0.1 MG TAB PO SCH ×3 (09:18→20:06)
[2022-04-17] MEDS: ASPIRIN 81 MG PO SCH (09:18)
[2022-04-17] MEDS: lisinopriL 10 MG TAB PO SCH (09:18)
[2022-04-17 11:33] LABS: Glucose,Whole Blood 175 mg/dL (70-110)
[2022-04-17] MEDS: ACETAMINOPHEN TAB 500 MG TAB PO PRN ×2 (12:32→17:39)
[2022-04-17 16:19] LABS: Glucose,Whole Blood 238 mg/dL (70-110)
--- NOTE | 2022-04-17 16:52 | P.PN ---
Subjective Progress Note Date: 04/17/22 Glenis Nunn, is an 81-year-old female who presented to [facility] with a chief complaint of fever and mental status changes She was evaluated in the emergency room vital examination on presentation revealed a temperature of 101 pulse 91 respiration 18 blood pressure 193/76 pulse ox 97% on room air Laboratory data revealed a white blood count of 9.4 hemoglobin 15.6 platelet count 123 sodium 135 potassium 4.1 chloride 99 CO2 21 BUN 19 creatinine 0.94 glucose on presentation was 248 troponin on presentation was elevated at 0.121 urine analysis on presentation was positive for protein, glucose, ketone, and blood but was negative for nitrate and leukocyte esterase. Toxicology screen was negative COVID-19 and influenza A and B serology were negative. Testing in the emergency room revealed chest x-ray was done in the emergency room and revealed no acute cardiopulmonary disease, EKG done in the emergency room revealed sinus rhythm with right bundle branch block, computed tomography scan of the brain revealed no gross evidence of an acute process. Due to elevated troponin patient was started on IV heparin in the emergency room, she was also started on IV Rocephin due to fever. Patient was admitted to medical floor for further evaluation and treatment On 04/10/2022 patient was seen and examined on the telemetry floor she is slightly more alert today she is complaining of headache, otherwise she is mostly drowsy she was evaluated by neurology, possibility of encepha litis/meningitis was entertained anesthesia consult requested for possible lumbar puncture. At this time plan is to discontinue IV heparin and oral aspirin and continue to monitor closely in anticipation of lumbar puncture in the next 1-2 days. In the meantime patient will be continued on IV ceftriaxone, also acyclovir IV was added by neurology, will continue to follow closely. On 04/11/2022 patient was seen and examined of the telemetry floor she is alert and oriented 3 today she is able to answer questions appropriately she is sitting up and eating her meal she is complaining of pain all over her body but does not specifically complain of headache today there is no fever or chills no headache or dizziness no chest pain no shortness of breath no cough no nausea or vomiting no abdominal pain no diarrhea and no urinary symptoms. At this time patient remains on Rocephin 2 g IV every 12 hours. And IV acyclovir. Plan is to proceed was lumbar puncture. Awaiting testing results On 04/12/2022 patient was seen and examined of the telemetry floor she is alert and oriented, today, she is sitting, she is complaining of pain all over her body but does not specifically complain of headache today there is no fever or chills no headache or dizziness no chest pain no shortness of breath no cough no nausea or vomiting no abdominal pain no diarrhea and no urinary symptoms. At this time patient remains on Rocephin 2 g IV every 12 hours. And IV acyclovir. Plan is to proceed was lumbar puncture. Awaiting testing results On 04/13/2022 patient was seen and examined on the medical floor she is alert and oriented in no apparent distress there is no fever or chills no headache or dizziness no chest pain no shortness of breath no cough no nausea or vomiting no abdominal pain no diarrhea and no urinary discomfort, or COMPUTER SYSTEMS ENGINEER fluid analysis no evidence of infection, acyclovir was discontinued, and dose of IV Rocephin was decreased to 2 g once daily, infectious disease following, continue with current management at this time will follow closely Patient was seen by Dr. Rui powell on 04/14/2022, 04/15/2022, and 04/16/2022 On 04/17/2022 patient was seen and examined on the medical floor she is alert and oriented 3 in no apparent distress input from neurology and infectious disease was reviewed event of the last 3 days were reviewed patient is improving she is alert and oriented 3 in no apparent distress mentally she is back to her baseline however physically she is quite weak and not able to return to live on her own at this point she is followed by physical therapy and is able to ambulate with help with a walker. At this time patient has lost her IV access she will be switched to oral antibiotic she will also have her Hedrick catheter removed will continue to monitor till tomorrow if stable will proceed was transferring to a snf for rehab Objective - Vital Signs Vital signs: Vital Signs Temp 98.0 F 04/17/22 12:00 Pulse 63 04/17/22 12:00 Resp 16 04/17/22 12:00 BP 158/66 04/17/22 12:00 Pulse Ox 98 04/17/22 12:00 FiO2 Intake & Output 04/16/22 04/17/22 04/17/22 18:59 06:59 18:59 Intake Total 354 1020 480 Output Total 400 1440 400 Balance -46 -420 80 Intake: Intake, IV Titration 50 Amount cefTRIAXone 2 gm In 50 Sodium Chloride 0.9% 50 ml @ 100 mls/hr IVPB Q24H [facility] Rx#:[id number] Oral 354 970 480 Output: Urine 400 1440 400 Other: Voiding Method Indwelling Catheter Indwelling Catheter Indwelling Catheter # Bowel Movements 1 - Exam Patient is alert and oriented in no distress HEENT head normocephalic and atraumatic Neck is supple no JVD no goiter no lymphadenopathy Chest exam reveals a few scattered rhonchi no wheezing Cardiac exam reveals regular heart sounds S1 and S2 no gallops no murmurs Abdomen is soft nontender no organomegaly was normal bowel sounds Extremity exam reveals no edema no cyanosis or clubbing Neurological examination patient is drowsy arousable moving all 4 extremities spontaneously no focal weakness, pupils are equal and reactive to light, exam limited due to patient noncooperation - Labs CBC & Chem 7: 04/14/22 04:31 04/14/22 04:31 Labs: Abnormal Lab Results - Last 24 Hours (Table) 04/16/22 04/16/22 04/17/22 Range/Units 16:44 20:54 06:22 POC Glucose (mg/dL) 176 H 210 H 144 H (70-110) mg/dL 04/17/22 Range/Units 11:32 POC Glucose (mg/dL) 175 H (70-110) mg/dL Assessment and Plan Plan: Febrile illness no clear source of infection, no abnormality seen on chest x-ray and on urine analysis, will obtain computed tomography scan of the abdomen and pelvis, patient started on IV Rocephin empirically Acute mental status changes computed tomography scan of the brain was done in the emergency room no significant abnormality neurology consultation requested. Elevated troponin on presentation patient was started on IV heparin in the emergency room cardiology consultation requested Underlying history of hypertension, patient is not able to take oral medications, will cover with hydralazine IV when necessary Underlying history of diabetes mellitus Underlying history of hyperlipidemia At this time patient is admitted to telemetry floor Cardiology and neurology consultation requested Infectious disease consult added Continue with IV heparin until cleared by cardiology Continue with IV Rocephin Prognosis is guarded will follow closely
[2022-04-17] MEDS: CEFDINIR 300 MG CAP PO SCH ×2 (17:39→20:07)
[2022-04-17] MEDS: ATORVASTATIN 80 MG TAB PO SCH (20:07)
[2022-04-17 20:42] LABS: Glucose,Whole Blood 169 mg/dL (70-110)
--- NOTE | 2022-04-17 22:22 | P.PN ---
Subjective Progress Note Date: 04/16/22 Principal diagnosis: Fever and possible encephalitis Patient is 81 year old female with a past medical history significant for COPD diabetes mellitus brought into the hospital for evaluation of mental status changes confusion and fever patient was totally obtunded with initial concern for possible encephalitis. On today's evaluation that is 04/16/2022, the patient continues to be afebrile, the patient is breathing comfortably on room air, the patient denies any chest pain shortness of breath or cough , the patient denies nausea no vomiting no abdominal pain or any diarrhea, feeling better Objective - Vital Signs Vital signs: Vital Signs Temp 98 F 04/16/22 12:00 Pulse 51 L 04/16/22 12:00 Resp 16 04/16/22 12:00 BP 153/69 04/16/22 12:00 Pulse Ox 98 04/16/22 12:00 FiO2 Intake & Output 04/15/22 04/16/22 04/16/22 18:59 06:59 18:59 Intake Total 657 535 354 Output Total 75 740 Balance 582 -205 354 Intake: Intake, IV Titration 50 Amount cefTRIAXone 2 gm In 50 Sodium Chloride 0.9% 50 ml @ 100 mls/hr IVPB Q24H [facility] Rx#:[id number] Oral 657 485 354 Output: Urine 75 740 Other: Voiding Method Indwelling Catheter Indwelling Catheter Indwelling Catheter - Exam GENERAL DESCRIPTION: An elderly female lying in bed in no distress RESPIRATORY SYSTEM: Unlabored breathing , decreased breath sounds at bases HEART: S1 S2 regular rate and rhythm , ABDOMEN: Soft , no tenderness EXTREMITIES: No edema feet - Labs CBC & Chem 7: 04/14/22 04:31 04/14/22 04:31 Labs: Abnormal Lab Results - Last 24 Hours (Table) 04/15/22 04/16/22 04/16/22 Range/Units 20:21 06:18 11:40 POC Glucose (mg/dL) 233 H 161 H 176 H (70-110) mg/dL 04/16/22 Range/Units 16:44 POC Glucose (mg/dL) 176 H (70-110) mg/dL Microbiology - Last 24 Hours (Table) 04/11/22 14:30 CSF Gram Stain - Final Cerebral Spinal Fluid CSF Culture - Final Assessment and Plan (1) Fever Current Visit: Yes Status: Acute Code(s): R50.9 - FEVER, UNSPECIFIED SNOMED Code(s): 235298377 (2) Altered mental status Current Visit: Yes Status: Acute Code(s): R41.82 - ALTERED MENTAL STATUS, UNSPECIFIED SNOMED Code(s): 582094169 Plan: 1patient presented to hospital mental status changes in this patient did have a fever patient did have a normal white count chest x-ray has been negative CT abdominal pelvis did show rectal fecaloma but no colitis chest x-ray was reported negative with 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 2the patient did have LP completed 04/11/2022 did have a negative WBC glucose normal proteinuria mildly elevated 3the patient source of the fever likely abdominal as there was evidence of fecaloma and possible colitis and no other obvious focus of infection has been seen 4patient has shown clinical improvement on Rocephin and Flagyl with a plan to therapy with Ceftin and Flagyl on discharge Time with Patient: Less than 30
--- NOTE | 2022-04-17 22:23 | P.PN ---
Subjective Progress Note Date: 04/17/22 Principal diagnosis: Fever and possible encephalitis Patient is 81 year old female with a past medical history significant for COPD diabetes mellitus brought into the hospital for evaluation of mental status changes confusion and fever patient was totally obtunded with initial concern for possible encephalitis. On today's evaluation that is 04/17/2022, the patient denies any fever or any chills, the patient is breathing comfortably on room air, the patient denies a ny chest pain shortness of breath or cough , the patient denies nausea no vomiting no abdominal pain and no diarrhea, patient mentioned feeling better and wants to go Objective - Vital Signs Vital signs: Vital Signs Temp 98.0 F 04/17/22 12:00 Pulse 63 04/17/22 12:00 Resp 16 04/17/22 12:00 BP 158/66 04/17/22 12:00 Pulse Ox 98 04/17/22 12:00 FiO2 Intake & Output 04/16/22 04/17/22 04/17/22 18:59 06:59 18:59 Intake Total 354 1020 480 Output Total 400 1440 400 Balance -46 -420 80 Intake: Intake, IV Titration 50 Amount cefTRIAXone 2 gm In 50 Sodium Chloride 0.9% 50 ml @ 100 mls/hr IVPB Q24H [facility] Rx#:[id number] Oral 354 970 480 Output: Urine 400 1440 400 Other: Voiding Method Indwelling Catheter Indwelling Catheter Indwelling Catheter # Bowel Movements 1 - Exam GENERAL DESCRIPTION: An elderly female lying in bed in no distress RESPIRATORY SYSTEM: Unlabored breathing , decreased breath sounds at bases HEART: S1 S2 regular rate and rhythm , ABDOMEN: Soft , no tenderness EXTREMITIES: No edema feet - Labs CBC & Chem 7: 04/14/22 04:31 04/14/22 04:31 Labs: Abnormal Lab Results - Last 24 Hours (Table) 04/16/22 04/16/22 04/17/22 Range/Units 16:44 20:54 06:22 POC Glucose (mg/dL) 176 H 210 H 144 H (70-110) mg/dL 04/17/22 Range/Units 11:32 POC Glucose (mg/dL) 175 H (70-110) mg/dL Assessment and Plan (1) Fever Current Visit: Yes Status: Acute Code(s): R50.9 - FEVER, UNSPECIFIED SNOMED Code(s): 949684919 (2) Altered mental status Current Visit: Yes Status: Acute Code(s): R41.82 - ALTERED MENTAL STATUS, UNSPECIFIED SNOMED Code(s): 397894532 Plan: 1patient presented to hospital mental status changes in this patient did have a fever patient did have a normal white count chest x-ray has been negative CT abdominal pelvis did show rectal fecaloma but no colitis chest x-ray was reported negative with 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 2the patient did have LP completed 04/11/2022 did have a negative WBC glucose normal proteinuria mildly elevated 3the patient source of the fever likely abdominal as there was evidence of fecaloma and possible colitis and no other obvious focus of infection has been seen 4patient has shown clinical improvement on Rocephin and Flagyl , Rocephin has been switched over to Omnicef, patient to finish therapy with Ceftin and Flagyl 7 days on discharge Time with Patient: Less than 30
[2022-04-18 06:09] LABS: Glucose,Whole Blood 155 mg/dL (70-110)
[2022-04-18] MEDS: metFORMIN 500 MG TAB PO SCH (06:41)
[2022-04-18] MEDS: carvediloL 6.25 MG TAB PO SCH (06:41)
[2022-04-18 08:17] LABS: Basophils # (A) 0.1 k/uL (0-0.2); Basophils % (A) 2 %; Eosinophils % (A) 1 %; HCT 36.7 % (34.0-46.0); Lymphocytes # (A) 1.2 k/uL (1.0-4.8); Lymphocytes % (A) 19 %; MCH 30.6 pg (25.0-35.0); MCHC 32.6 g/dL (31.0-37.0); Mean Platelet Volume 10.3; Monocytes # (A) 0.7 k/uL (0-1.0); Monocytes % (A) 11 %; Neutrophils # (A) 4.2 k/uL (1.3-7.7); Neutrophils % (A) 65 %; Platelet Count 108 k/uL (150-450); RDW 13.9 % (11.5-15.5); WBC 6.4 k/uL (3.8-10.6)
[2022-04-18 09:03] LABS: Albumin 3.6 g/dL (3.5-5.0); Calcium 8.7 mg/dL (8.4-10.2); Potassium 4.2 mmol/L (3.5-5.1); Total Bilirubin 0.4 mg/dL (0.2-1.3); Total Protein 6.3 g/dL (6.3-8.2)
[2022-04-18] MEDS: metroNIDAZOLE 500 MG TAB PO SCH ×2 (10:03→15:40)
[2022-04-18] MEDS: cloNIDine HCL 0.1 MG TAB PO SCH ×2 (10:03→15:40)
[2022-04-18] MEDS: lisinopriL 10 MG TAB PO SCH (10:04)
[2022-04-18] MEDS: CEFDINIR 300 MG CAP PO SCH (10:04)
[2022-04-18] MEDS: amLODIPine 5 MG TAB PO SCH (10:04)
[2022-04-18] MEDS: ASPIRIN 81 MG PO SCH (10:04)
[2022-04-18] MEDS: FAMOTIDINE 20 MG/2 ML VIAL IV SCH (10:07)
[2022-04-18 11:29] LABS: Glucose,Whole Blood 168 mg/dL (70-110)
[2022-04-18 13:53] VITALS: RESP 16
--- NOTE | 2022-04-18 14:05 | P.DS ---
Providers Date of admission: 04/09/22 12:41 Expected date of discharge: 04/18/22 Attending physician: Alexandra Patel Consults: 04/09/22 12:41 Consult Physician Urgent Consulting Provider: Adrian Stevens Consult Reason/Comments: NSTEMI Do you want consulting provider notified?: Yes 04/09/22 15:36 Consult Physician Routine Consulting Provider: Kraig Sharp Consult Reason/Comments: Altered mental status Do you want consulting provider notified?: Yes 04/10/22 09:03 Consult Physician Routine Consulting Provider: Romina Michelle Consult Reason/Comments: fever Do you want consulting provider notified?: Yes [facility] Course: Diagnosis on discharge: Febrile illness no clear source of infection, no abnormality seen on chest x-ray and on urine analysis, will obtain computed tomography scan of the abdomen and pelvis, patient started on IV Rocephin empirically Acute mental status changes computed tomography scan of the brain was done in the emergency room no significant abnormality neurology consultation requested. Elevated troponin on presentation patient was started on IV heparin in the emergency room cardiology consultation requested Underlying history of hypertension, patient is not able to take oral medications, will cover with hydralazine IV when necessary Underlying history of diabetes mellitus Underlying history of hyperlipidemia Hospital course: Glenis Nunn, is an 81-year-old female who presented to [facility] with a chief complaint of fever and mental status changes She was evaluated in the emergency room vital examination on presentation revealed a temperature of 101 pulse 91 respiration 18 blood pressure 193/76 pulse ox 97% on room air Laboratory data revealed a white blood count of 9.4 hemoglobin 15.6 platelet count 123 sodium 135 potassium 4.1 chloride 99 CO2 21 BUN 19 creatinine 0.94 glucose on presentation was 248 troponin on presentation was elevated at 0.121 urine analysis on presentation was positive for protein, glucose, ketone, and blood but was negative for nitrate and leukocyte esterase. Toxicology screen was negative COVID-19 and influenza A and B serology were negative. Testing in the emergency room revealed chest x-ray was done in the emergency room and revealed no acute cardiopulmonary disease, EKG done in the emergency room revealed sinus rhythm with right bundle branch block, computed tomography scan of the brain revealed no gross evidence of an acute process. Due to elevated troponin patient was started on IV heparin in the emergency room, she was also started on IV Rocephin due to fever. Patient was admitted to medical floor for further evaluation and treatment On 04/10/2022 patient was seen and examined on the telemetry floor she is slightly more alert today she is complaining of headache, otherwise she is mostly drowsy she was evaluated by neurology, possibility of enceph alitis/meningitis was entertained anesthesia consult requested for possible lumbar puncture. At this time plan is to discontinue IV heparin and oral aspirin and continue to monitor closely in anticipation of lumbar puncture in the next 1-2 days. In the meantime patient will be continued on IV ceftriaxone, also acyclovir IV was added by neurology, will continue to follow closely. On 04/11/2022 patient was seen and examined of the telemetry floor she is alert and oriented 3 today she is able to answer questions appropriately she is sitting up and eating her meal she is complaining of pain all over her body but does not specifically complain of headache today there is no fever or chills no headache or dizziness no chest pain no shortness of breath no cough no nausea or vomiting no abdominal pain no diarrhea and no urinary symptoms. At this time patient remains on Rocephin 2 g IV every 12 hours. And IV acyclovir. Plan is to proceed was lumbar puncture. Awaiting testing results On 04/12/2022 patient was seen and examined of the telemetry floor she is alert and oriented, today, she is sitting, she is complaining of pain all over her body but does not specifically complain of headache today there is no fever or chills no headache or dizziness no chest pain no shortness of breath no cough no nausea or vomiting no abdominal pain no diarrhea and no urinary symptoms. At this time patient remains on Rocephin 2 g IV every 12 hours. And IV acyclovir. Plan is to proceed was lumbar puncture. Awaiting testing results On 04/13/2022 patient was seen and examined on the medical floor she is alert and oriented in no apparent distress there is no fever or chills no headache or dizziness no chest pain no shortness of breath no cough no nausea or vomiting no abdominal pain no diarrhea and no urinary discomfort, or [employer] fluid analysis no evidence of infection, acyclovir was discontinued, and dose of IV Rocephin was decreased to 2 g once daily, infectious disease following, continue with current management at this time will follow closely Patient was seen by Dr. Rui powell on 04/14/2022, 04/15/2022, and 04/16/2022 On 04/17/2022 patient was seen and examined on the medical floor she is alert and oriented 3 in no apparent distress input from neurology and infectious disease was reviewed event of the last 3 days were reviewed patient is improving she is alert and oriented 3 in no apparent distress mentally she is back to her baseline however physically she is quite weak and not able to return to live on her own at this point she is followed by physical therapy and is able to ambulate with help with a walker. At this time patient has lost her IV access she will be switched to oral antibiotic she will also have her Hedrick catheter removed will continue to monitor till tomorrow if stable will proceed was transferring to a long term for rehab On 04/18/2022 patient was seen and examined on the medical floor she is alert and oriented 3 in no apparent distress she is sitting up in a chair Hedrick catheter has been removed and patient is able to urinate there is no fever or chills no headache or dizziness no chest pain no shortness of breath no cough no nausea or vomiting no abdominal pain no diarrhea and no urinary symptoms. Today there is a slight elevation in AST and ALT at this time will decrease Lipitor dose from 80 mg daily to 40 mg daily patient can be discharged to a long term for rehab she will continue taking antibiotic cefdinir and metronidazole for 7 more days will follow labs closely at the long term. Patient Condition at Discharge: Fair Plan - Discharge Summary Discharge Rx Participant: No New Discharge Prescriptions: New cloNIDine HCL [Catapres] 0.3 mg PO TID tab metFORMIN HCL [Glucophage] 500 mg PO BID-W/MEALS tab amLODIPine [Norvasc] 5 mg PO DAILY tab metroNIDAZOLE [Flagyl] 500 mg PO TID tab Atorvastatin Calcium [Lipitor] 40 mg PO DAILY 30 Days #30 tablet Cefdinir [Omnicef] 300 mg PO BID cap Continue Ipratropium-Albuterol Nebulize [Duoneb 0.5 mg-3 mg/3 ml Soln] 3 ml INHALATION RT-QID PRN PRN Reason: Shortness Of Breath lisinopriL [Prinivil] 20 mg PO DAILY Nitroglycerin Sl Tabs [Nitrostat] 0.4 mg SL Q5M PRN PRN Reason: Chest Pain Aspirin EC [Ecotrin Low Dose] 81 mg PO DAILY carvediloL [Coreg] 6.25 mg PO BID Albuterol Inhaler [Ventolin Hfa Inhaler] 2 puff INHALATION RT-QID PRN PRN Reason: Shortness Of Breath Discontinued Atorvastatin [Lipitor] 80 mg PO HS Discharge Medication List Albuterol Inhaler [Ventolin Hfa Inhaler] 2 puff INHALATION RT-QID PRN 04/09/22 [History] Aspirin EC [Ecotrin Low Dose] 81 mg PO DAILY 04/09/22 [History] Ipratropium-Albuterol Nebulize [Duoneb 0.5 mg-3 mg/3 ml Soln] 3 ml INHALATION RT-QID PRN 04/09/22 [History] Nitroglycerin Sl Tabs [Nitrostat] 0.4 mg SL Q5M PRN 04/09/22 [History] carvediloL [Coreg] 6.25 mg PO BID 04/09/22 [History] lisinopriL [Prinivil] 20 mg PO DAILY 04/09/22 [History] Atorvastatin Calcium [Lipitor] 40 mg PO DAILY 30 Days #30 tablet 04/18/22 [Rx] Cefdinir [Omnicef] 300 mg PO BID cap 04/18/22 [Rx] amLODIPine [Norvasc] 5 mg PO DAILY tab 04/18/22 [Rx] cloNIDine HCL [Catapres] 0.3 mg PO TID tab 04/18/22 [Rx] metFORMIN HCL [Glucophage] 500 mg PO BID-W/MEALS tab 04/18/22 [Rx] metroNIDAZOLE [Flagyl] 500 mg PO TID tab 04/18/22 [Rx] Follow up Appointment(s)/Referral(s): Rosio Almanzar MD [Primary Care Provider] - 1-2 days Discharge/Stand Alone Forms: Anes Pain/Wismer Instructions
[2022-04-18 16:20] VITALS: BP 149/69; PULSE 62; TEMP 98.1
--- NOTE | 2022-04-20 07:45 | CDI ---
Documentation Clarification Form Date: 04/20/22 From: Betty Germain Admit Date: 04/09/2022 12:41:00 PM Patient Name: Glenis Nunn Visit Number: [id number] Discharge Date: 04/18/2022 04:48:00 PM ATTENTION: The Clinical Documentation Specialists (CDI) and [facility] Coding Staff appreciate your assistance in clarifying documentation. Please respond to the clarification below the line at the bottom and electronically sign. The CDI & [facility] Coding staff will review the response and follow-up if needed. Please note: Queries are made part of the Legal Health Record. If you have any questions, please contact the author of this message via ITS. Dr. Alexandra Patel, Conflicting documentation has been found in the medical record. As attending physician, please provide clarification. Per Dr Deluna's 04/12 PN "Cephalalgia, fever, altered mental status, probably encephalopathy due to cryptogenic infection." Per your DS "Febrile illness no clear source of infection, no abnormality seen on chest x-ray and on urine analysis, will obtain computed tomography scan of the abdomen and pelvis, patient started on IV Rocephin empirically." History/Risk Factors: acidosis, T2DM w PVD., obesity, cerebral atrophy, fecaloma, COPD, AAA, HLD, dehydration Clinical Indicators: Chief complaint of fever and mental status changes. She was evaluated in the emergency room vital examination on presentation revealed a temperature of 101 pulse 91 respiration 18 blood pressure 193/76 pulse ox 97% on room air. Treatment: lumbar puncture, IV Rocephin, IV Acyclovir sodium, Cefdinir PO BD Please clarify which diagnosis is most appropriate: [ ] Cryptogenic infection [ ] Febile illness [ ] Other (please specify) [ xxxx ] Unable to determine MTDD
== END 2022-04-18 16:48 | DRG 864 ==
LOC: EC 07:54 → 3SCARD 12:41
PROVIDERS: ADMIT Internal Medicine; ATTEND Internal Medicine
PROC: 05HC33Z Insertion of Infusion Device into Left Basilic Vein, Percutaneous Approach (ICD-10-PCS; 2022-04-11)
PROC: 009U3ZX Drainage of Spinal Canal, Percutaneous Approach, Diagnostic (ICD-10-PCS; principal; 2022-04-11 08:30)
PROC: 05HD33Z Insertion of Infusion Device into Right Cephalic Vein, Percutaneous Approach (ICD-10-PCS; 2022-04-13 11:55)
DX: R50.9 Fever, unspecified (principal); G93.41 Metabolic encephalopathy; E87.2 Acidosis; E11.51 Type 2 diabetes mellitus with diabetic peripheral angiopathy without gangrene; E66.9 Obesity, unspecified; G31.9 Degenerative disease of nervous system, unspecified; K56.41 Fecal impaction; I71.4 Abdominal aortic aneurysm, without rupture; J44.9 Chronic obstructive pulmonary disease, unspecified; I70.0 Atherosclerosis of aorta; Z66 Do not resuscitate; Z20.822 Contact with and (suspected) exposure to COVID-19; E86.0 Dehydration; K52.9 Noninfective gastroenteritis and colitis, unspecified; E78.5 Hyperlipidemia, unspecified; I10 Essential (primary) hypertension; I65.21 Occlusion and stenosis of right carotid artery; I25.10 Atherosclerotic heart disease of native coronary artery without angina pectoris; I69.392 Facial weakness following cerebral infarction; I25.2 Old myocardial infarction; I45.10 Unspecified right bundle-branch block; I49.1 Atrial premature depolarization; R77.8 Other specified abnormalities of plasma proteins; Z68.34 Body mass index [BMI] 34.0-34.9, adult; Z79.82 Long term (current) use of aspirin; Z79.899 Other long term (current) drug therapy; Z87.891 Personal history of nicotine dependence; Z90.710 Acquired absence of both cervix and uterus; Z91.81 History of falling; Z95.5 Presence of coronary angioplasty implant and graft; Z71.3 Dietary counseling and surveillance; Z88.0 Allergy status to penicillin; Z88.2 Allergy status to sulfonamides; Z88.8 Allergy status to other drugs, medicaments and biological substances
CPT/HCPCS: 36410; 36415; 62270; 70450; 71045; 74177; 76937; 80048; 80053; 80061; 80306; 81001; 82140; 82945; 83036; 83605; 83690; 83735; 84132; 84157; 84484; 85025; 85610; 85730; 86694; 86695; 86696; 86787; 87040; 87070; 87205; 87252; 87496; 87498; 87502; 87529; 87635; 87798; 88108; 89050; 93005; 93306; 93880; 95816; 96361; 96365; 96366; 96375; 99291

== ENCOUNTER 2022-05-23 11:48 | Emergency (ER) | payer MEDICARE ==
[2022-05-23] MEDS ORDERED: ONDANSETRON ODT 4 MG TAB PO STA (11:59)
[2022-05-23 12:00] VITALS: BP 147/70; PULSE 59; RESP 18; TEMP 97
--- NOTE | 2022-05-23 12:05 | ED ---
Fall HPI - General Chief Complaint: Fall Stated Complaint: fall Time Seen by Provider: 05/23/22 11:50 Source: patient, EMS, old records reviewed Mode of arrival: EMS - History of Present Illness Initial Comments: This is a well-appearing 82-year-old female, alert and oriented that presents to the emergency room from an extended care facility, after falling out of her wheelchair while trying to get into the bed hitting her head. This was an unwitnessed fall. She states that she is not sure if she passed out. She is there for physical rehab after 2 days of being unconscious with no medical diagnosis. She denies any injuries. MD Complaint: fall -: hour(s) Fall From: wheelchair Place Fall Occurred: [facility] Loss of Consciousness: unsure - Related Data Home Medications Medication Instructions Recorded Confirmed Albuterol Inhaler [Ventolin Hfa 2 puff INHALATION RT-QID PRN 04/09/22 04/09/22 Inhaler] Aspirin EC [Ecotrin Low Dose] 81 mg PO DAILY 04/09/22 04/09/22 Ipratropium-Albuterol Nebulize 3 ml INHALATION RT-QID PRN 04/09/22 04/09/22 [Duoneb 0.5 mg-3 mg/3 ml Soln] Nitroglycerin Sl Tabs [Nitrostat] 0.4 mg SL Q5M PRN 04/09/22 04/09/22 carvediloL [Coreg] 6.25 mg PO BID 04/09/22 04/09/22 lisinopriL [Prinivil] 20 mg PO DAILY 04/09/22 04/09/22 Previous Rx's Medication Instructions Recorded Atorvastatin Calcium [Lipitor] 40 mg PO DAILY 30 Days #30 tablet 04/18/22 Cefdinir [Omnicef] 300 mg PO BID cap 04/18/22 amLODIPine [Norvasc] 5 mg PO DAILY tab 04/18/22 cloNIDine HCL [Catapres] 0.3 mg PO TID tab 04/18/22 metFORMIN HCL [Glucophage] 500 mg PO BID-W/MEALS tab 04/18/22 metroNIDAZOLE [Flagyl] 500 mg PO TID tab 04/18/22 Allergies Allergy/AdvReac Type Severity Reaction Status Date / Time Penicillins Allergy Anaphylaxis Verified 04/09/22 13:16 & hives Sulfa (Sulfonamide Allergy Anaphylaxis Verified 04/09/22 13:16 Antibiotics) & hives diazepam [From Valium] AdvReac Combative Verified 04/09/22 13:16 Review of Systems ROS Statement: Those systems with pertinent positive or pertinent negative responses have been documented in the HPI. ROS Other: All systems not noted in ROS Statement are negative. 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 Past Anesthesia/Blood Transfusion Reactions: Previous Problems w/ Anesthesia Additional Past Anesthesia/Blood Transfusion Reaction / Comment(s): combative, previously restrained after sedation. Past Psychological History: No Psychological Hx Reported Smoking Status: Former smoker Past Alcohol Use History: None Reported Past Drug Use History: None Reported General Exam Limitations: no limitations General appearance: alert, in no apparent distress Head exam: Present: normocephalic, other (Bruising to the right frontal above eight eye) Eye exam: Present: normal appearance, PERRL, EOMI. Absent: scleral icterus, conjunctival injection, nystagmus, periorbital swelling ENT exam: Present: mucous membranes dry Expanded Mouth exam: Present: tongue normal, tongue elevation. Absent: drooling, trismus, muffled voice Neck exam: Present: normal inspection. Absent: tenderness, meningismus, lymphadenopathy Respiratory exam: Present: normal lung sounds bilaterally. Absent: respiratory distress, wheezes, rales, rhonchi, stridor, chest wall tenderness, accessory muscle use Cardiovascular Exam: Present: bradycardia GI/Abdominal exam: Present: soft. Absent: distended, tenderness, rigid Extremities exam: Present: normal capillary refill. Absent: pedal edema, calf tenderness Back exam: Present: normal inspection. Absent: tenderness, CVA tenderness (R), CVA tenderness (L), paraspinal tenderness, vertebral tenderness, rash noted Expanded Back exam: Absent: saddle anesthesia Back exam: Negative Straight Leg Raising: Left, Right Neurological exam: Present: alert, oriented X3 Expanded Patient oriented to: Present: person, place Speech: Present: fluid speech Cranial nerves: EOM's Intact: Normal, Gag Reflex: Normal, Tongue Deviation: Normal Motor strength exam: RUE: 5, LUE: 5, RLE: 5, LLE: 5 Eye Response: (4) open spontaneously Motor Response: (6) obeys commands Verbal Response: (5) oriented Racquel Total: 15 Psychiatric exam: Present: normal affect, normal mood Skin exam: Present: warm, dry, normal color, abrasion (Forehead). Absent: cyanosis, diaphoretic Course Vital Signs 05/23/22 11:53 Temperature 97.0 F L Pulse Rate 59 L Respiratory 18 Rate Blood Pressure 147/70 O2 Sat by Pulse 100 Oximetry Medical Decision Making - Medical Decision Making Patient fell forward out of her wheelchair at [facility] today hitting her head on the wall. There is some bruising to forehead, no broken skin. She is unsure if she lost consciousness. She does take an aspirin a day. She is currently awake and alert 4. No focal neurological deficits. She denies any pain. She states that she has chronic nausea and loss of appetite which is why she [facility] at [facility]. CT of the brain shows atrophy with chronic periventricular white matter changes stable compared to 04/10/2022. CT C-spine shows no acute osseous abnormality. There is chronic degenerative disc changes with joint hypertrophy contributing to foraminal narrowing Patient is agreeable to being [facility]. Case discussed with Dr. Calderon. Vital signs are stable. Disposition Clinical Impression: Fall, Hematoma, Head injury Disposition: HOME SELF-CARE Condition: Good Instructions (If sedation given, give patient instructions): Fall Prevention for Older Adults (ED), Head Injury (ED), Hematoma (ED) Additional Instructions: Put ice on hematoma to forehead. Tylenol as needed for pain. Return to the emergency room with any new or concerning symptoms. Is patient prescribed a controlled substance at d/c from ED?: No Referrals: Rosio Almanzar MD [Primary Care Provider] - 1-2 days Time of Disposition: 12:50
--- NOTE | 2022-05-23 12:35 | CT ---
EXAMINATION TYPE: CT brain sydnieine wo con DATE OF EXAM: 05/23/2022 COMPARISON: 04/10/2022 HISTORY: fall CT DLP: 1375.6 mGycm, Automated exposure control for dose reduction was used. CONTRAST: Patient injected with 0 mL of Isovue 300. CT of the brain is performed utilizing 3 mm thick sections through the posterior fossa and 3 mm thick sections through the remaining calvarium. Study is performed within 24 hours of arrival to the hospital. No abnormal hyperdensity is present to suggest an acute intracranial hemorrhage. No mass lesion is evident. No acute infarcts are evident. Patchy periventricular white matter hypodensity is present, likely on the basis of chronic white matter ischemic changes. Ventricles and sulci are prominent for the patient age. Paranasal sinuses and mastoid air cells within the [id number] are clear. IMPRESSIONS: 1. Atrophy with chronic appearing periventricular white matter ischemic type changes. Findings appear stable from comparison. CT cervical spine. COMPARISON: None CT of the cervical spine is performed in the axial plane at 2 mm thick sections. Reconstructed image s in the coronal, and sagittal plane are reviewed on the computer. No acute fractures are evident. There is minimal grade 1 spondylolisthesis of C3 anteriorly on C4 and C4 on C5. Anterior vertebral edy dy spurring is present C4, C5, C6. Some mild posterior endplate spurring is present C4-5 C5-6. There is loss of disc height C3-4 C4-5 C5-6 and C6-7. Vertebral body heights are preserved. Anterior thecal sac compression from endplate spurring at C4-5 is present without AP spinal canal trung nosis. Uncovertebral joint hypertrophy is present at C3-4 on the left with mild foraminal stenosis. Moderate right and mild left C4-5 foraminal stenosis is present. Bilateral moderate foraminal narrowing is pr esent C5-6 and C6-7. IMPRESSIONS: 1. No acute osseous abnormality. 2. Chronic degenerative disc changes with joint hypertrophy contributing to foraminal narrowing
[2022-05-23] MEDS ORDERED: HYDROcodone/APAP 5-325MG 1 EACH TAB PO STA (12:41)
[2022-05-23] MEDS ORDERED: ACETAMINOPHEN TAB 325 MG TAB PO STA (12:42)
== END 2022-05-23 13:30 | disposition home or self-care (01) ==
LOC: EC 11:48
DX: T14.8XXA Other injury of unspecified body region, initial encounter (principal); J44.9 Chronic obstructive pulmonary disease, unspecified; Z86.73 Personal history of transient ischemic attack (TIA), and cerebral infarction without residual deficits; E11.9 Type 2 diabetes mellitus without complications; E78.5 Hyperlipidemia, unspecified; I10 Essential (primary) hypertension; Z82.49 Family history of ischemic heart disease and other diseases of the circulatory system; Z87.891 Personal history of nicotine dependence; Z88.0 Allergy status to penicillin; Z88.2 Allergy status to sulfonamides; Z88.8 Allergy status to other drugs, medicaments and biological substances; W05.0XXA Fall from non-moving wheelchair, initial encounter
CPT/HCPCS: 70450; 72125; 99284

== ENCOUNTER 2022-08-23 15:24 | Inpatient (IN) | payer MEDICARE ==
--- NOTE | 2022-08-23 15:46 | ED ---
Seizure HPI - General Chief Complaint: Seizure Stated Complaint: seizure Time Seen by Provider: 08/23/22 15:25 Source: patient, EMS Mode of arrival: EMS Limitations: no limitations - History of Present Illness Initial Comments: This patient is an 82-year-old woman brought here by ambulance from the [facility]. I was reported that the patient had a seizure there. The patient only recalls that the staff there was changing her as they told her she had been incontinent of urine, and then an ambulance arrived and brought her here. The patient states prior to that she remembered sitting in a wheelchair she believes she was watching television. Patient denies feeling any injury. Patient denies history of seizures. She states that other than that she feels that her stomach is very full. She denies pain. No cough or dyspnea. She did have an episode of vomiting shortly after arrival here but states there is no further nausea. MD Complaint: possible seizure Onset/Timin -: hour(s) Description of Episode: loss of consciousness Witnessed: yes - by bystander Trauma: No Seizure History: none Place: home Possible Precipitating Event: none Associated Symptoms: denies other symptoms - Related Data Home Medications Medication Instructions Recorded Confirmed Albuterol Inhaler [Ventolin Hfa 2 puff INHALATION RT-QID PRN 04/09/22 04/09/22 Inhaler] Aspirin EC [Ecotrin Low Dose] 81 mg PO DAILY 04/09/22 04/09/22 Ipratropium-Albuterol Nebulize 3 ml INHALATION RT-QID PRN 04/09/22 04/09/22 [Duoneb 0.5 mg-3 mg/3 ml Soln] Nitroglycerin Sl Tabs [Nitrostat] 0.4 mg SL Q5M PRN 04/09/22 04/09/22 carvediloL [Coreg] 6.25 mg PO BID 04/09/22 04/09/22 lisinopriL [Prinivil] 20 mg PO DAILY 04/09/22 04/09/22 Previous Rx's Medication Instructions Recorded Atorvastatin Calcium [Lipitor] 40 mg PO DAILY 30 Days #30 tablet 04/18/22 Cefdinir [Omnicef] 300 mg PO BID cap 04/18/22 amLODIPine [Norvasc] 5 mg PO DAILY tab 04/18/22 cloNIDine HCL [Catapres] 0.3 mg PO TID tab 04/18/22 metFORMIN HCL [Glucophage] 500 mg PO BID-W/MEALS tab 04/18/22 metroNIDAZOLE [Flagyl] 500 mg PO TID tab 04/18/22 Ciprofloxacin HCl [Cipro] 500 mg PO Q12HR #6 tablet 08/23/22 Allergies Allergy/AdvReac Type Severity Reaction Status Date / Time Penicillins Allergy Anaphylaxis Verified 04/09/22 13:16 & hives Sulfa (Sulfonamide Allergy Anaphylaxis Verified 04/09/22 13:16 Antibiotics) & hives diazepam [From Valium] AdvReac Combative Verified 04/09/22 13:16 Review of Systems ROS Statement: Those systems with pertinent positive or pertinent negative responses have been documented in the HPI. ROS Other: All systems not noted in ROS Statement are negative. Constitutional: Denies: fever Respiratory: Denies: cough, dyspnea Cardiovascular: Denies: chest pain Gastrointestinal: Reports: vomiting. 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 Past Anesthesia/Blood Transfusion Reactions: Previous Problems w/ Anesthesia Additional Past Anesthesia/Blood Transfusion Reaction / Comment(s): combative, previously restrained after sedation. Past Psychological History: No Psychological Hx Reported Smoking Status: Former smoker Past Alcohol Use History: None Reported Past Drug Use History: None Reported General Exam Limitations: no limitations General appearance: alert, in no apparent distress Head exam: Present: atraumatic, normocephalic Eye exam: Present: normal appearance, PERRL, EOMI. Absent: scleral icterus, conjunctival injection ENT exam: Present: normal oropharynx Neck exam: Present: normal inspection, full ROM. Absent: meningismus Respiratory exam: Present: normal lung sounds bilaterally. Absent: respiratory distress, wheezes, rales, rhonchi, stridor Cardiovascular Exam: Present: regular rate, normal rhythm, normal heart sounds. Absent: systolic murmur, diastolic murmur, rubs, gallop GI/Abdominal exam: Present: soft. Absent: distended, tenderness, guarding, rebound, rigid, mass Extremities exam: Present: normal inspection, normal capillary refill. Absent: pedal edema, calf tenderness Back exam: Present: normal inspection. Absent: CVA tenderness (R), CVA tenderness (L) Neurological exam: Present: alert, oriented X3, CN II-XII intact. Absent: motor sensory deficit Skin exam: Present: warm, dry, intact, normal color. Absent: rash Course Vital Signs 08/23/22 08/23/22 15:29 18:22 Temperature 97.3 F L Pulse Rate 67 64 Respiratory 18 18 Rate Blood Pressure 197/88 137/53 O2 Sat by Pulse 98 96 Oximetry Medical Decision Making - Lab Data Result diagrams: 08/23/22 15:56 08/23/22 15:56 Lab Results 08/23/22 08/23/22 08/23/22 Range/Units 15:56 15:56 19:13 WBC 5.5 (3.8-10.6) k/uL RBC 3.77 L (3.80-5.40) m/uL Hgb 12.0 (11.4-16.0) gm/dL Hct 34.9 (34.0-46.0) % MCV 92.7 (80.0-100.0) fL MCH 31.9 (25.0-35.0) pg MCHC 34.4 (31.0-37.0) g/dL RDW 12.9 (11.5-15.5) % Plt Count 97 L (150-450) k/uL MPV 10.4 Neutrophils % 47 % Lymphocytes % 37 % Monocytes % 10 % Eosinophils % 2 % Basophils % 1 % Neutrophils # 2.6 (1.3-7.7) k/uL Lymphocytes # 2.0 (1.0-4.8) k/uL Monocytes # 0.5 (0-1.0) k/uL Eosinophils # 0.1 (0-0.7) k/uL Basophils # 0.1 (0-0.2) k/uL Manual Slide Review Performed RBC Morphology Normal Sodium 136 L (137-145) mmol/L Potassium 5.7 H (3.5-5.1) mmol/L Chloride 105 (98-107) mmol/L Carbon Dioxide 18 L (22-30) mmol/L Anion Gap 13 mmol/L BUN 39 H (7-17) mg/dL Creatinine 1.56 H (0.52-1.04) mg/dL Est GFR (CKD-EPI)AfAm 36 (>60 ml/min/1.73 sqM) Est GFR (CKD-EPI)NonAf 31 (>60 ml/min/1.73 sqM) Glucose 169 H (74-99) mg/dL Calcium 9.5 (8.4-10.2) mg/dL Magnesium 1.4 L (1.6-2.3) mg/dL Total Bilirubin 0.4 (0.2-1.3) mg/dL AST 18 (14-36) U/L ALT 15 (4-34) U/L Alkaline Phosphatase 69 (38-126) U/L Total Protein 7.9 (6.3-8.2) g/dL Albumin 4.6 (3.5-5.0) g/dL Urine Color Light Yellow Urine Appearance Clear (Clear) Urine pH 5.0 (5.0-8.0) Ur Specific [place] 1.012 (1.001-1.035) Urine Protein 1+ H (Negative) Urine Glucose (UA) 4+ H (Negative) Urine Ketones Negative (Negative) Urine Blood Negative (Negative) Urine Nitrite Negative (Negative) Urine Bilirubin Negative (Negative) Urine Urobilinogen <2.0 (<2.0) mg/dL Ur Leukocyte Esterase Moderate H (Negative) Urine RBC 3 (0-5) /hpf Urine WBC 30 H (0-5) /hpf Urine WBC Clumps Rare H (None) /hpf Ur Squamous Epith Cells 1 (0-4) /hpf Ur Transition Epith Cell <1 (0-1) /hpf Urine Bacteria Few H (None) /hpf Urine Mucus Rare H (None) /hpf - EKG Data -: EKG Interpreted by Id EKG shows normal: axis (Normal), intervals (CA interval 149 ms, QTC 409 ms. QRS duration 125 ms, prolonged consistent with right bundle-branch block), QRS c omplexes (Right bundle-branch block), ST-T waves Rate: bradycardia (Rate 54 bpm) Disposition Clinical Impression: Urinary tract infection, Seizure Disposition: HOME SELF-CARE Condition: Good Instructions (If sedation given, give patient instructions): Urinary Tract Infection in Women (ED), New-Onset Seizure in Adults (ED) Additional Instructions: You must have your potassium rechecked in 2 days to ensure that it is going back to the normal range. If there is any problem with having it rechecked return here. Prescriptions: Ciprofloxacin HCl [Cipro] 500 mg PO Q12HR #6 tablet Is patient prescribed a controlled substance at d/c from ED?: No Referrals: Rosio Almanzar MD [Primary Care Provider] - 1-2 days Kraig Sharp MD [STAFF PHYSICIAN] - 1-2 days
[2022-08-23 16:06] LABS: Basophils # (A) 0.1 k/uL (0-0.2); Basophils % (A) 1 %; Eosinophils # (A) 0.1 k/uL (0-0.7); Eosinophils % (A) 2 %; HCT 34.9 % (34.0-46.0); Lymphocytes % (A) 37 %; MCH 31.9 pg (25.0-35.0); MCHC 34.4 g/dL (31.0-37.0); MCV 92.7 fL (80.0-100.0); Mean Platelet Volume 10.4; Monocytes # (A) 0.5 k/uL (0-1.0); Monocytes % (A) 10 %; Neutrophils # (A) 2.6 k/uL (1.3-7.7); Neutrophils % (A) 47 %; RBC 3.77 m/uL (3.80-5.40); RDW 12.9 % (11.5-15.5); WBC 5.5 k/uL (3.8-10.6)
[2022-08-23 16:16] LABS: Albumin 4.6 g/dL (3.5-5.0); Calcium 9.5 mg/dL (8.4-10.2); Magnesium 1.4 mg/dL (1.6-2.3); Potassium 5.7 mmol/L (3.5-5.1); Total Bilirubin 0.4 mg/dL (0.2-1.3); Total Protein 7.9 g/dL (6.3-8.2)
--- NOTE | 2022-08-23 16:50 | CT ---
EXAMINATION TYPE: CT brain wo con DATE OF EXAM: 08/23/2022 COMPARISON: 05/23/2022 HISTORY: ams CT DLP: 1111.4 mGycm Automated exposure control for dose reduction was used. Images of the brain obtained with no contrast. There is diffuse moderate cerebral cortical atrophy. There is no mass effect or midline shift. No sig n of intracranial hemorrhage. The calvarium is intact. There is patchy moderate hypodensity in the pe riventricular white matter. The calvarium is intact. Skull base is intact. IMPRESSION: Moderate cerebral atrophy and chronic small vessel ischemia. No acute intracranial abnormality. No si gnificant change.
[2022-08-23 16:54] LABS: RBC Morphology Normal
[2022-08-23 16:55] LABS: Platelet Count 97 k/uL (150-450)
[2022-08-23] MEDS ORDERED: SODIUM CHLORIDE 0.9% 500 ML 500 ML IV STA (16:55)
[2022-08-23 19:45] LABS: Appearance,Urine Clear (Clear); Bacteria,Urine Few /hpf; Bilirubin,Urine Negative (Negative); Blood,Urine Negative (Negative); Color,Urine Light Yellow; Glucose,Urine (UA) 4+ (Negative); Ketones,Urine Negative (Negative); Leukocyte Esterase,Urine Moderate (Negative); Mucus,Urine Rare /hpf; Nitrite,Urine Negative (Negative); Protein,Urine 1+ (Negative); RBC,Urine 3 /hpf (0-5); Specific Gravity,Urine 1.012 (1.001-1.035); Squamous Epithelial Cell,Urine 1 /hpf (0-4); Transitional Epi Cells,Urine <1 /hpf (0-1); Urobilinogen,Urine <2.0 mg/dL (<2.0); WBC,Urine 30 /hpf (0-5)
[2022-08-23] MEDS ORDERED: LEVOFLOXACIN 500 MG TAB PO STA (20:07)
[2022-08-23] MEDS ORDERED: NALOXONE 0.4 MG/ML 1 ML VIAL IV PRN (20:48)
[2022-08-23] MEDS ORDERED: IPRATROPIUM-ALBUTEROL 3 ML NEB INHALATION PRN (21:16)
[2022-08-23] MEDS ORDERED: NON FORMULARY DRUG (Albuterol Inhaler 90 MCG Puff) INHALATION PRN (21:16)
[2022-08-23] MEDS: cloNIDine HCL 0.1 MG TAB PO SCH (22:39)
[2022-08-23] MEDS: SODIUM CHLORIDE 0.9% 1,000 ML IV SCH (22:39)
--- NOTE | 2022-08-24 08:59 | P.HPIM ---
History of Present Illness H&P Date: 08/24/22 Glenis Nunn, is an 82-year-old female presented to [facility] emergency room after having a witnessed seizure at [facility]. Patient is not aware that she had a seizure she stated that she remembered the staff changing her in her bed and subsequently she remembers having the EMS staff taking her to the ambulance. She denies any previous history of seizure activity. She was evaluated in the emergency room vital examination on presentation reveal ed a temperature of 97.3 pulse 67 respiration 18 blood pressure 197/88 pulse ox 98% on room air Laboratory data revealed a white blood count of 5.5 hemoglobin 12.0 platelet count 97 sodium 136 potassium 5.7 chloride 105 CO2 18 BUN 13 and creatinine 1.56, urine analysis revealed evidence of urinary tract infection Testing in the emergency room revealed computed tomography scan of the brain done in the emergency room revealed moderate cerebral atrophy and chronic small vessel ischemia no acute intracranial abnormality Patient was admitted to medical floor for further evaluation and treatment, ne urology consult was requested. Past medical history is significant for history of hypertension, history of hyperlipidemia, history of diabetes mellitus, history of abdominal aortic aneurysm with stent, history of coronary artery disease with previous history of myocardial infarction, history of strokes in the past. On review of systems at this time patient is alert and oriented 3 in no apparent distress she is complaining of nausea and had 1 episode of vomiting this morning, otherwise she denies any complaints there is no fever or chills no headache or dizziness no chest pain no cough, no abdominal pain no diarrhea no blood in the stools no burning with urination no frequency or urgency and no hematuria, she denies any weakness or numbness in any of her extremities she denies any change in her vision speech or gait. Past Medical History Past Medical History: COPD, CVA/TIA, Diabetes Mellitus, Hyperlipidemia, Hypertension, Myocardial Infarction ([place]) Additional Past Medical History / Comment(s): abdominal aortic aneurysm with stent, 2 heart attacks, 2 strokes - residual slight left eye droop per daughter Last Myocardial Infarction Date:: 2015 History of Any Multi-Drug Resistant Organisms: None Reported Past Surgical History: Appendectomy, Hysterectomy Additional Past Surgical History / Comment(s): stent to aorta at [facility], cardiac stent at [facility] for [place], R leg tendon surgery from fall, laminectomy. Past Anesthesia/Blood Transfusion Reactions: Previous Problems w/ Anesthesia Additional Past Anesthesia/Blood Transfusion Reaction / Comment(s): combative, previously restrained after sedation. Past Psychological History: No Psychological Hx Reported Smoking Status: Former smoker Past Alcohol Use History: None Reported Past Drug Use History: None Reported Medications and Allergies Home Medications Medication Instructions Recorded Confirmed Type Albuterol Inhaler [Ventolin Hfa 2 puff INHALATION RT-QID PRN 04/09/22 08/23/22 History Inhaler] Aspirin EC [Ecotrin Low Dose] 81 mg PO DAILY@0800 04/09/22 08/23/22 History Ipratropium-Albuterol Nebulize 3 ml INHALATION RT-QID PRN 04/09/22 08/23/22 History [Duoneb 0.5 mg-3 mg/3 ml Soln] Nitroglycerin Sl Tabs [Nitrostat] 0.4 mg SL Q5M PRN 04/09/22 08/23/22 History carvediloL [Coreg] 6.25 mg PO BID@0800,1600 04/09/22 08/23/22 History lisinopriL [Prinivil] 20 mg PO DAILY@0800 04/09/22 08/23/22 History Acetaminophen [Tylenol Arthritis] 650 mg PO Q6H PRN 08/23/22 08/23/22 History Cholecalciferol [Vitamin D3 (25 50 mcg PO HS 08/23/22 08/23/22 History Mcg = 1000 Iu)] Ciprofloxacin HCl [Cipro] 500 mg PO Q12HR #6 tablet 08/23/22 Rx Empagliflozin [Jardiance] 10 mg PO DAILY 08/23/22 08/23/22 History amLODIPine [Norvasc] 5 mg PO DAILY@0800 08/23/22 08/23/22 History cloNIDine HCL [Catapres] 0.3 mg PO TID@0800,1200,1800 08/23/22 08/23/22 History metFORMIN HCL [Glucophage] 1,000 mg PO BID 08/23/22 08/23/22 History Allergies Allergy/AdvReac Type Severity Reaction Status Date / Time Penicillins Allergy Anaphylaxis Verified 08/23/22 22:06 & hives Sulfa (Sulfonamide Allergy Anaphylaxis Verified 08/23/22 22:06 Antibiotics) & hives diazepam [From Valium] AdvReac Combative Verified 08/23/22 22:06 Physical Exam Vitals: Vital Signs Temp Pulse Resp BP Pulse Ox 08/23/22 22:00 68 20 188/95 98 08/23/22 18:22 64 18 137/53 96 08/23/22 15:29 97.3 F L 67 18 197/88 98 Intake and Output 08/23/22 08/24/22 08/24/22 22:59 06:59 14:59 Other: Weight 77.111 kg In general patient is alert and oriented x 3 in no distress HEENT head normocephalic and atraumatic Neck is supple no JVD no goiter no lymphadenopathy no carotid bruit Chest examination is clear to auscultation no crackles no wheezing Cardiac exam reveals regular heart sounds S1 and S2 no gallops no murmurs Abdomen is soft nontender no organomegaly with normal bowel sounds Extremity exam reveals no edema no cyanosis or clubbing Neurological examination reveals no gross focal deficits Results CBC & Chem 7: 08/23/22 15:56 08/23/22 15:56 Labs: Abnormal Lab Results - Last 24 Hours (Table) 08/23/22 08/23/22 08/23/22 Range/Units 15:56 15:56 19:13 RBC 3.77 L (3.80-5.40) m/uL Plt Count 97 L (150-450) k/uL Sodium 136 L (137-145) mmol/L Potassium 5.7 H (3.5-5.1) mmol/L Carbon Dioxide 18 L (22-30) mmol/L BUN 39 H (7-17) mg/dL Creatinine 1.56 H (0.52-1.04) mg/dL Glucose 169 H (74-99) mg/dL Magnesium 1.4 L (1.6-2.3) mg/dL Urine Protein 1+ H (Negative) Urine Glucose (UA) 4+ H (Negative) Ur Leukocyte Esterase Moderate H (Negative) Urine WBC 30 H (0-5) /hpf Urine WBC Clumps Rare H (None) /hpf Urine Bacteria Few H (None) /hpf Urine Mucus Rare H (None) /hpf Assessment and Plan Plan: [facility], I would see if there is any available records describing the episode at the [facility], neurology consultation requested Underlying history of hypertension Underlying history of hyperlipidemia Underlying history of diabetes mellitus Evidence of urinary tract infection Previous history of stroke twice in the past Underlying history of coronary artery disease with history of angioplasty and stent placement Underlying history of abdominal aortic aneurysm with stent placement at [facility] At this time patient was seen and examined Laboratory data and computed tomography scan and EKG reviewed Home medications reviewed and reordered Neurology consultation requested For urinary tract infection Will obtain urine culture, and start IV Rocephin For DVT prophylaxis subcu Lovenox
[2022-08-24] MEDS ORDERED: CEFDINIR 300 MG CAP PO SCH (09:00)
[2022-08-24 10:22] LABS: Glucose,Whole Blood 141 mg/dL (70-110)
[2022-08-24] MEDS: ENOXAPARIN 30 MG/0.3 ML SYRINGE SQ SCH (10:51)
[2022-08-24] MEDS: ASPIRIN 81 MG PO SCH (10:52)
[2022-08-24] MEDS: lisinopriL 20 MG TAB PO SCH (10:52)
[2022-08-24] MEDS: carvediloL 6.25 MG TAB PO SCH ×2 (10:52→17:48)
[2022-08-24] MEDS: cloNIDine HCL 0.1 MG TAB PO SCH ×2 (10:52→17:48)
[2022-08-24] MEDS: amLODIPine 5 MG TAB PO SCH (10:52)
[2022-08-24] MEDS: ATORVASTATIN 40 MG TAB PO SCH (10:52)
[2022-08-24] MEDS: SODIUM CHLORIDE 0.9% 1,000 ML IV SCH (11:44)
--- NOTE | 2022-08-24 11:44 | P.CNNES ---
History of Present Illness Consult date: 08/24/22 Requesting physician: Kamari Grove Reason for Consult: possible seizure History of Present Illness: This is an 82-year-old woman who was brought to the emergency department from medical [place] because of possible seizure. Some of the history is obtained from medical record since patient is a poor historian. Per the ED note is seems in that it seems the patient was being changed at her nursing facility and she had urine incontinence prior to the episode she recalls the sitting in a wheelchair and watching television patient denies any history of seizures in the past. Patient does not recall episode. She denies history of seizure. Some of the workup during this hospital visit consisted of: Initial blood pressure is 197/88 her blood pressure continues to be elevated of 190/72. Potassium is 5.7, creatinine is 1.56 with BUN is 39, initial serum glucose 169 magnesium is 1.4. AST and ALT is within normal limits Urine analysis seems possible suggestive of ureter tract infection. CT of the head is reported as moderate cerebral atrophy and chronic small vessel ischemia. No acute intracranial abnormality. No significant change. I personally reviewed the CT of the head there is no acute subacute ischemia and there is no tubercle hemorrhage. The patient does have generalized cerebral atrophy appropriate for her age. Review of Systems Review of system: The 12 point system was reviewed and apparent positive and negative per HPI. 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 Past Anesthesia/Blood Transfusion Reactions: Previous Problems w/ Anesthesia Additional Past Anesthesia/Blood Transfusion Reaction / Comment(s): combative, previously restrained after sedation. Past Psychological History: No Psychological Hx Reported Smoking Status: Former smoker Past Alcohol Use History: None Reported Past Drug Use History: None Reported Medications and Allergies Home Medications Medication Instructions Recorded Confirmed Type Albuterol Inhaler [Ventolin Hfa 2 puff INHALATION RT-QID PRN 04/09/22 08/23/22 History Inhaler] Aspirin EC [Ecotrin Low Dose] 81 mg PO DAILY@0800 04/09/22 08/23/22 History Ipratropium-Albuterol Nebulize 3 ml INHALATION RT-QID PRN 04/09/22 08/23/22 History [Duoneb 0.5 mg-3 mg/3 ml Soln] Nitroglycerin Sl Tabs [Nitrostat] 0.4 mg SL Q5M PRN 04/09/22 08/23/22 History carvediloL [Coreg] 6.25 mg PO BID@0800,1600 04/09/22 08/23/22 History lisinopriL [Prinivil] 20 mg PO DAILY@0800 04/09/22 08/23/22 History Acetaminophen [Tylenol Arthritis] 650 mg PO Q6H PRN 08/23/22 08/23/22 History Cholecalciferol [Vitamin D3 (25 50 mcg PO HS 08/23/22 08/23/22 History Mcg = 1000 Iu)] Ciprofloxacin HCl [Cipro] 500 mg PO Q12HR #6 tablet 08/23/22 Rx Empagliflozin [Jardiance] 10 mg PO DAILY 08/23/22 08/23/22 History amLODIPine [Norvasc] 5 mg PO DAILY@0800 08/23/22 08/23/22 History cloNIDine HCL [Catapres] 0.3 mg PO TID@0800,1200,1800 08/23/22 08/23/22 History metFORMIN HCL [Glucophage] 1,000 mg PO BID 08/23/22 08/23/22 History Allergies Allergy/AdvReac Type Severity Reaction Status Date / Time Penicillins Allergy Anaphylaxis Verified 08/23/22 22:06 & hives Sulfa (Sulfonamide Allergy Anaphylaxis Verified 08/23/22 22:06 Antibiotics) & hives diazepam [From Valium] AdvReac Combative Verified 08/23/22 22:06 Physical Examination - Vital Signs Vital Signs: Vital Signs Temp Pulse Pulse Resp BP BP Pulse Ox 08/24/22 08:00 97.9 F 72 18 190/72 100 08/23/22 22:00 68 20 188/95 98 08/23/22 18:22 64 18 137/53 96 08/23/22 15:29 97.3 F L 67 18 197/88 98 Intake and Output 08/23/22 08/24/22 08/24/22 22:59 06:59 14:59 Other: Voiding Method Toilet Diaper Weight 77.111 kg GENERAL: The patient is laying in bed and is not in acute distress. CHEST: The heart rate is regular rate rhythm. No murmurs to auscultation. LUNG: Clear to auscultation bilaterally no wheezing noted throughout. Not labored breathing. ABDOMEN/GI: Bowel sounds present in all 4 quadrants. No tenderness to palpation throughout. NEUROLOGICAL: Higher mental function: The patient is awake, alert, oriented to self. She correctly stated the year is 2021 but could not respond to current month. She stated she was in the hospital. Patient is following simple commands. She is slow responding. No aphasia from limited language. No neglect. Cranial nerves: The pupils are round, equal and reactive to light. Visual mercedes are full to confrontation throughout. Extraocular movement is intact no nystagmus is noted. Facial sensation is normal to touch throughout. The facial strength is normal throughout. Hearing is moderately decreased bilaterally to hand rub. Tongue is midline and moved [id number] without any difficulty. No dysarthria is noted. Shoulder shrug is normal bilaterally. Motor: The strength is 5 over 5 throughout uppers and lowers had antigravity and at least 4+ bilaterally.. Normal tone and bulk. Cerebellum: Normal finger to nose bilaterally. Sensation: Sensation is normal to touch throughout. Reflexes (right/left): 1+ throughout. Plantars are mute bilaterally. Results - Laboratory Findings CBC and BMP: 08/23/22 15:56 08/23/22 15:56 Abnormal Lab Findings: Abnormal Labs 08/23/22 08/23/22 08/23/22 15:56 15:56 19:13 RBC 3.77 L Plt Count 97 L Sodium 136 L Potassium 5.7 H Carbon Dioxide 18 L BUN 39 H Creatinine 1.56 H Glucose 169 H POC Glucose (mg/dL) Magnesium 1.4 L Urine Protein 1+ H Urine Glucose (UA) 4+ H Ur Leukocyte Esterase Moderate H Urine WBC 30 H Urine WBC Clumps Rare H Urine Bacteria Few H Urine Mucus Rare H 08/24/22 10:19 RBC Plt Count Sodium Potassium Carbon Dioxide BUN Creatinine Glucose POC Glucose (mg/dL) 141 H Magnesium Urine Protein Urine Glucose (UA) Ur Leukocyte Esterase Urine WBC Urine WBC Clumps Urine Bacteria Urine Mucus Assessment and Plan Assessment: Episode of urinary incontinence with loss of consciousness: Rule out seizure vs syncope. Likely Acute urinary tract infection Hypertensive urgency Acute kidney insufficiency Hyperkalemia and mild hypomagnesemia Diabetes mellitus History of coronary artery disease status post stents History of stroke Plan: An EEG is ordered by the ED team is pending. I will not start the patient on antiepileptic drugs unless there is epileptiform discharges or seizure on the EEG I ordered MRI of the brain Continue neuro checks Placed on seizure precautions and seizure pads We'll defer the rest of the medical management to primary team The plan is discussed with the patient's ED nurse. Thank you for the consultation. Time with Patient: Greater than 30
[2022-08-24] MEDS: ONDANSETRON 4 MG/2 ML VIAL IVP PRN (11:48)
[2022-08-24 11:55] LABS: Glucose,Whole Blood 180 mg/dL (70-110)
[2022-08-24] MEDS: metFORMIN 500 MG TAB PO SCH ×2 (12:36→17:48)
[2022-08-24 16:36] LABS: Glucose,Whole Blood 172 mg/dL (70-110)
--- NOTE | 2022-08-24 21:59 | EEG ---
ELECTROENCEPHALOGRAM REPORT CLINICAL HISTORY: This is an 82-year-old woman with episodes of loss of consciousness and urinary incontinence. The video EEG is obtained to evaluate for seizure epileptiform activity. EEG TYPE: A routine 21-channel EEG is performed with video using the 10/20 electrode placement system. RELEVANT MEDICATION: The patient is not on any antiepileptic drugs. DESCRIPTION: Wakefulness is only obtained. During awake state, the posterior-dominant rhythm consists of [id number] voltage of 9 to 9.5 hertz activity that is well modulated, well sustained. There is no physiological sleep architecture seen. There is no focal slowing. Interictal and ictal is none. ACTIVATION PROCEDURE: Photic stimulation and hyperventilation are not performed. CLINICAL INTERPRETATION: This is a normal routine EEG. There is no focal slowing, epileptiform discharges, or seizure on the EEG. Normal routine EEG does not exclude underlying epilepsy. Clinical correlation is recommended. MMKATIE / MACKENZIE: [id number] /
[2022-08-25] MEDS: cloNIDine HCL 0.1 MG TAB PO SCH ×4 (00:03→20:48)
[2022-08-25 07:40] LABS: Basophils # (A) 0.1 k/uL (0-0.2); Basophils % (A) 1 %; Eosinophils # (A) 0.1 k/uL (0-0.7); Eosinophils % (A) 1 %; HCT 34.8 % (34.0-46.0); HGB 11.9 gm/dL (11.4-16.0); Lymphocytes # (A) 2.6 k/uL (1.0-4.8); Lymphocytes % (A) 38 %; MCH 32.2 pg (25.0-35.0); MCHC 34.3 g/dL (31.0-37.0); MCV 93.9 fL (80.0-100.0); Mean Platelet Volume 10.2; Monocytes # (A) 0.8 k/uL (0-1.0); Monocytes % (A) 12 %; Neutrophils % (A) 44 %; RDW 12.8 % (11.5-15.5); WBC 6.8 k/uL (3.8-10.6)
[2022-08-25 07:48] LABS: Platelet Count 89 k/uL (150-450)
[2022-08-25 07:55] LABS: ALT 14 U/L (4-34); AST 18 U/L (14-36); African American GFR (CKD) 26 (>60 ml/min/1.73 sqM); Albumin 4.4 g/dL (3.5-5.0); Albumin/Globulin Ratio 1.4; Alkaline Phosphatase 73 U/L (38-126); Anion Gap 13 mmol/L; Blood Urea Nitrogen 40 mg/dL (7-17); Calcium 9.6 mg/dL (8.4-10.2); Carbon Dioxide 22 mmol/L (22-30); Chloride 108 mmol/L (98-107); Globulin 3.2 g/dL; Glucose 133 mg/dL (74-99); Non-African American GFR(CKD) 22 (>60 ml/min/1.73 sqM); Potassium 5.7 mmol/L (3.5-5.1); Sodium 143 mmol/L (137-145); Total Bilirubin 0.6 mg/dL (0.2-1.3); Total Protein 7.6 g/dL (6.3-8.2)
[2022-08-25] MEDS: ONDANSETRON 4 MG/2 ML VIAL IVP PRN (08:29)
[2022-08-25] MEDS ORDERED: DEXTROSE 50% SYRINGE 50 ML IVP PRN ×2 (09:00)
[2022-08-25] MEDS: ACETAMINOPHEN TAB 325 MG TAB PO PRN (09:02)
[2022-08-25] MEDS: ASPIRIN 81 MG PO SCH (09:02)
[2022-08-25] MEDS: ATORVASTATIN 40 MG TAB PO SCH (09:02)
[2022-08-25] MEDS: amLODIPine 5 MG TAB PO SCH (09:02)
[2022-08-25] MEDS: carvediloL 6.25 MG TAB PO SCH ×2 (09:03→17:46)
[2022-08-25] MEDS: ENOXAPARIN 30 MG/0.3 ML SYRINGE SQ SCH (09:03)
[2022-08-25] MEDS: lisinopriL 20 MG TAB PO SCH (09:03)
--- NOTE | 2022-08-25 10:25 | P.PN ---
Subjective Progress Note Date: 08/25/22 Glenis Nunn, is an 82-year-old female presented to [facility] emergency room after having a witnessed seizure at [facility]. Patient is not aware that she had a seizure she stated that she remembered the staff changing her in her bed and subsequently she remembers having the EMS staff taking her to the ambulance. She denies any previous history of seizure activity. She was evaluated in the emergency room vital examination on presentation revealed a temperature of 97.3 pulse 67 respiration 18 blood pressure 197/88 pulse ox 98% on room air Laboratory data revealed a white blood count of 5.5 hemoglobin 12.0 platelet count 97 sodium 136 potassium 5.7 chloride 105 CO2 18 BUN 13 and creatinine 1.56, urine analysis revealed evidence of urinary tract infection Testing in the emergency room revealed computed tomography scan of the brain done in the emergency room revealed moderate cerebral atrophy and chronic small vessel ischemia no acute intracranial abnormality Patient was admitted to medical floor for further evaluation and treatment, neurology consult was requested. Past medical history is significant for history of hypertension, history of hyperlipidemia, history of diabetes mellitus, history of abdominal aortic aneurysm with stent, history of coronary artery disease with previous history of myocardial infarction, history of strokes in the past. On review of systems at this time patient is alert and oriented 3 in no apparent distress she is complaining of nausea and had 1 episode of vomiting this morning, otherwise she denies any complaints there is no fever or chills no headache or dizziness no chest pain no cough, no abdominal pain no diarrhea no blood in the stools no burning with urination no frequency or urgency and no hem aturia, she denies any weakness or numbness in any of her extremities she denies any change in her vision speech or gait. On 08/25/2022 patient is alert and oriented times. MRI of the brain has been ordered. Patient remains on IV Rocephin. Patient noted to have elevated creatinine 2.03, bun 40 and potassium 5.7 at this time will consult nephrology services. Patient denies chest pain or shortness of breath. Patient denies nausea vomiting or diarrhea. Patient denies any urinary burning or frequency Objective - Vital Signs Vital signs: Vital Signs Temp 97.5 F L 08/25/22 07:32 Pulse 56 L 08/25/22 07:32 Resp 19 12/09/22 07:32 BP 156/63 08/25/22 07:32 Pulse Ox 100 08/25/22 08:58 FiO2 Intake & Output 08/24/22 08/25/22 08/25/22 18:59 06:59 18:59 Other: Voiding Method Toilet Toilet Diaper Diaper # Voids 4 1 - Exam In general patient is alert and oriented x 3 in no distress HEENT head normocephalic and atraumatic Neck is supple no JVD no goiter no lymphadenopathy no carotid bruit Chest examination is clear to auscultation no crackles no wheezing Cardiac exam reveals regular heart sounds S1 and S2 no gallops no murmurs Abdomen is soft nontender no organomegaly with normal bowel sounds Extremity exam reveals no edema no cyanosis or clubbing Neurological examination reveals no gross focal deficit - Labs CBC & Chem 7: 08/25/22 07:04 08/25/22 07:04 Labs: Abnormal Lab Results - Last 24 Hours (Table) 08/24/22 08/24/22 08/24/22 Range/Units 09:54 11:53 16:35 RBC (3.80-5.40) m/uL Plt Count (150-450) k/uL Potassium (3.5-5.1) mmol/L Chloride (98-107) mmol/L BUN (7-17) mg/dL Creatinine (0.52-1.04) mg/dL Glucose (74-99) mg/dL POC Glucose (mg/dL) 180 H 172 H (70-110) mg/dL Hemoglobin A1c 8.3 H (0.0-6.0) % 08/25/22 08/25/22 Range/Units 07:04 07:04 RBC 3.70 L (3.80-5.40) m/uL Plt Count 89 L (150-450) k/uL Potassium 5.7 H (3.5-5.1) mmol/L Chloride 108 H (98-107) mmol/L BUN 40 H (7-17) mg/dL Creatinine 2.03 H (0.52-1.04) mg/dL Glucose 133 H (74-99) mg/dL POC Glucose (mg/dL) (70-110) mg/dL Hemoglobin A1c (0.0-6.0) % Microbiology - Last 24 Hours (Table) 08/24/22 14:27 Urine Culture - Preliminary Urine,Voided Assessment and Plan Plan: Possible witnessed seizure at [facility], I would see if there is any available records describing the episode at the skilled nursing, neurology consultation requested Underlying history of hypertension Underlying history of hyperlipidemia Underlying history of diabetes mellitus Evidence of urinary tract infection Previous history of stroke twice in the past Underlying history of coronary artery disease with history of angioplasty and stent placement Underlying history of abdominal aortic aneurysm with stent placement at [facility] Acute kidney injury. Nephrology service is consulted At this time patient was seen and examined Laboratory data and computed tomography scan and EKG reviewed Home medications reviewed and reordered Neurology consultation requested For urinary tract infection Will obtain urine culture, and start IV Rocephin MRI of the brain ordered For DVT prophylaxis subcu Lovenox
[2022-08-25] MEDS: metFORMIN 500 MG TAB PO SCH (10:54)
--- NOTE | 2022-08-25 12:21 | P.NPCON ---
History of Present Illness - Reason for Consult acute renal failure - History of Present Illness Reason for consultation: Acute kidney injury History of present illness: Patient is a 82-year-old female seen in consultation for acute kidney injury. Patient presented from an extended care facility due to concern for seizure. Patient states she doesn't recall having a seizure but states she hasn't been f eeling well. She says she's been vomiting for the last couple of days and has not been eating much. She is unsure of her medications and whether or not she takes any nonsteroidals or not. States she has been waiting and denies any hematuria or dysuria. She denies any history of kidney disease. Patient's baseline creatinine is near 1 from April 2022. Her creatinine was elevated at 1.56 this admission and is 2.03 today. Blood pressure noted to be as low as 91/57 but has also been as high as systolic 190s this admission. Patient takes multiple antihypertensives including lisinopril. Additionally she was also taking Jardiance outpatient. Potassium is noted to be elevated at 5.7 today. Vital signs are stable. General: Awake. No acute distress. HEENT: Head exam is unremarkable. LUNGS: Breath sounds decreased. HEART: Rate and Rhythm are regular. ABDOMEN: Soft, no distention. EXTREMITITES: No edema. Past Medical History Past Medical History: COPD, CVA/TIA, Diabetes Mellitus, Hyperlipidemia, Hypertension, Myocardial Infarction ([place]) Additional Past Medical History / Comment(s): abdominal aortic aneurysm with stent, 2 heart attacks, 2 strokes - residual slight left eye droop per daughter Last Myocardial Infarction Date:: 2015 History of Any Multi-Drug Resistant Organisms: None Reported Past Surgical History: Appendectomy, Hysterectomy Additional Past Surgical History / Comment(s): stent to aorta at [facility], cardiac stent at [facility] for [place], R leg tendon surgery from fall, laminectomy. Past Anesthesia/Blood Transfusion Reactions: Previous Problems w/ Anesthesia Additional Past Anesthesia/Blood Transfusion Reaction / Comment(s): combative, previously restrained after sedation. Past Psychological History: No Psychological Hx Reported Smoking Status: Former smoker Past Alcohol Use History: None Reported Past Drug Use History: None Reported Medications and Allergies Home Medications Medication Instructions Recorded Confirmed Type Albuterol Inhaler [Ventolin Hfa 2 puff INHALATION RT-QID PRN 04/09/22 08/23/22 History Inhaler] Aspirin EC [Ecotrin Low Dose] 81 mg PO DAILY@0800 04/09/22 08/23/22 History Ipratropium-Albuterol Nebulize 3 ml INHALATION RT-QID PRN 04/09/22 08/23/22 History [Duoneb 0.5 mg-3 mg/3 ml Soln] Nitroglycerin Sl Tabs [Nitrostat] 0.4 mg SL Q5M PRN 04/09/22 08/23/22 History carvediloL [Coreg] 6.25 mg PO BID@0800,1600 04/09/22 08/23/22 History lisinopriL [Prinivil] 20 mg PO DAILY@0800 04/09/22 08/23/22 History Acetaminophen [Tylenol Arthritis] 650 mg PO Q6H PRN 08/23/22 08/23/22 History Cholecalciferol [Vitamin D3 (25 50 mcg PO HS 08/23/22 08/23/22 History Mcg = 1000 Iu)] Ciprofloxacin HCl [Cipro] 500 mg PO Q12HR #6 tablet 08/23/22 Rx Empagliflozin [Jardiance] 10 mg PO DAILY 08/23/22 08/23/22 History amLODIPine [Norvasc] 5 mg PO DAILY@0800 08/23/22 08/23/22 History cloNIDine HCL [Catapres] 0.3 mg PO TID@0800,1200,1800 08/23/22 08/23/22 History metFORMIN HCL [Glucophage] 1,000 mg PO BID 08/23/22 08/23/22 History Allergies Allergy/AdvReac Type Severity Reaction Status Date / Time Penicillins Allergy Anaphylaxis Verified 08/23/22 22:06 & hives Sulfa (Sulfonamide Allergy Anaphylaxis Verified 08/23/22 22:06 Antibiotics) & hives diazepam [From Valium] AdvReac Combative Verified 08/23/22 22:06 Physical Exam Vitals: Vital Signs Temp Pulse Resp BP Pulse Ox 08/25/22 08:58 100 08/25/22 07:32 97.5 F L 56 L 19 156/63 98 08/25/22 01:55 97.4 F L 58 L 17 144/77 97 08/24/22 20:36 59 L 16 08/24/22 19:54 97.9 F 59 L 16 91/57 97 08/24/22 13:49 97.4 F L 69 19 155/48 99 Intake and Output 08/24/22 08/25/22 08/25/22 22:59 06:59 14:59 Other: Voiding Method Toilet Diaper # Voids 4 1 Results - Lab Results Most recent lab results Calcium 9.6 mg/dL (8.4-10.2) 08/25/22 07:04 Magnesium 1.4 mg/dL (1.6-2.3) L 08/23/22 15:56 08/25/22 07:04 08/25/22 07:04 Assessment and Plan Plan: Assessment: 1. Acute kidney injury secondary to ATN secondary to hemodynamic instability and further worsened with the use of NIGEL inhibitor as well as jardiance. Baseline creatinine near 1 and is up to 2.03 today. Rule out urinary retention. 2. Hyperkalemia secondary to acute kidney injury and lisinopril. 3. Diabetes mellitus. 4. Benign hypertension. 5. Questionable seizure. 6. Coronary artery disease status post prior stenting. 7. Pyuria on antibiotics. Plan: Maintain normal saline at 75 mL an hour. Hold lisinopril for now. Continue to hold jardiance. Check bladder scan to rule out urinary retention. Check renal ultrasound. Lokelma 10 g once now. Repeat potassium level this evening. Thank you for the consultation. I will continue to follow the patient with you during her hospital stay.
[2022-08-25 12:38] LABS: Magnesium 1.5 mg/dL (1.6-2.3)
[2022-08-25] MEDS ORDERED: SODIUM ZIRCONIUM CYCLOSILICATE 10 GM PACKET PO ONE (13:00)
--- NOTE | 2022-08-25 13:58 | US ---
EXAMINATION TYPE: US kidneys/renal and bladder DATE OF EXAM: 08/25/2022 COMPARISON: CT April 09, 2022 CLINICAL HISTORY: brain. BRAIN EXAM MEASUREMENTS: Right Kidney: 10.3 x 5.5 x 5.1 cm Left Kidney: 10.9 x 5.0 x 5.2 cm Limited views due to pt immobility and overlying bowel gas Right Kidney: Limited views show no evidence of hydro, possible 6mm calculus mid Left Kidney: Limited views show no evidence of hydro, cyst lower pole= 2.0 x 1.7 x 1.4 cm Bladder: Possible thickened anterior wall Bilateral Jets seen: No Suboptimal study. Probable 6 mm central nonobstructing calculus right kidney. No hydronephrosis seen bilaterally. Bladder not greatly distended. [id number] anterior wall thickening. Correlate clin ically for possible bladder infection. Incidental 1.4 cm thin-walled cysts in the left kidney lower p ole level. IMPRESSION: No hydronephrosis seen bilaterally. Poorly distended bladder with abnormal wall thickenin g. Correlate clinically to exclude acute infection or cystitis.
--- NOTE | 2022-08-25 15:55 | P.PN ---
Subjective Progress Note Date: 08/25/22 The patient is seen at bedside and per nursing staff no further seizure-like episodes. Patient is sitting in recliner chain and doing well. Objective - Vital Signs Vital signs: Vital Signs Temp 97.9 F 08/25/22 13:53 Pulse 51 L 08/25/22 13:53 Resp 17 08/25/22 13:53 BP 99/57 08/25/22 13:53 Pulse Ox 94 L 08/25/22 13:53 FiO2 Intake & Output 08/24/22 08/25/22 08/25/22 18:59 06:59 18:59 Other: Voiding Method Toilet Toilet Toilet Diaper Diaper Diaper # Voids 4 1 1 - Exam GENERAL: The patient is laying in bed and is not in acute distress. NEUROLOGICAL: Higher mental function: The patient is awake, alert, oriented to self. She correctly stated the year is 2021 but could not respond to current month. She stated she was in the hospital. Patient is following simple commands. She is slow responding. No aphasia from limited language. No neglect. Cranial nerves: The pupils are round, equal and reactive to light. Visual mercedes are full to confrontation throughout. Extraocular movement is intact no nystagmus is noted. Facial sensation is normal to touch throughout. The facial strength is normal throughout. Hearing is moderately decreased bilaterally to hand rub. Tongue is midline and moved [id number] without any difficulty. No dysarthria is noted. Shoulder shrug is normal bilaterally. Motor: The strength is 5 over 5 throughout uppers and lowers had antigravity and at least 4+ bilaterally.. Normal tone and bulk. Cerebellum: Normal finger to nose bilaterally. Sensation: Sensation is normal to touch throughout. Reflexes (right/left): 1+ throughout. Plantars are mute bilaterally. Some of the workup during this hospital visit consisted of: TSH: 1.270 HbA1c: 7.4 Magnesium: 1.5 Cr: 2.03 and BUN 40 Urine analysis seems possible suggestive of ureter tract infection. CT of the head is reported as moderate cerebral atrophy and chronic small vessel ischemia. No acute intracranial abnormality. No significant change. I personally reviewed the CT of the head there is no acute subacute ischemia and there is no tubercle hemorrhage. The patient does have generalized cerebral atrophy appropriate for her age. - Labs CBC & Chem 7: 08/25/22 07:04 08/25/22 07:04 Labs: Abnormal Lab Results - Last 24 Hours (Table) 08/24/22 08/24/22 08/25/22 Range/Units 09:54 16:35 07:04 RBC 3.70 L (3.80-5.40) m/uL Plt Count 89 L (150-450) k/uL Potassium (3.5-5.1) mmol/L Chloride (98-107) mmol/L BUN (7-17) mg/dL Creatinine (0.52-1.04) mg/dL Glucose (74-99) mg/dL POC Glucose (mg/dL) 172 H (70-110) mg/dL Hemoglobin A1c 8.3 H (0.0-6.0) % Magnesium (1.6-2.3) mg/dL 08/25/22 08/25/22 08/25/22 Range/Units 07:04 07:04 07:04 RBC (3.80-5.40) m/uL Plt Count (150-450) k/uL Potassium 5.7 H (3.5-5.1) mmol/L Chloride 108 H (98-107) mmol/L BUN 40 H (7-17) mg/dL Creatinine 2.03 H (0.52-1.04) mg/dL Glucose 133 H (74-99) mg/dL POC Glucose (mg/dL) (70-110) mg/dL Hemoglobin A1c 7.4 H (0.0-6.0) % Magnesium 1.5 L (1.6-2.3) mg/dL Microbiology - Last 24 Hours (Table) 08/24/22 14:27 Urine Culture - Final Urine,Voided Assessment and Plan Assessment: Episode of urinary incontinence with loss of consciousness: Rule out seizure vs syncope. I feel less likely seizure but unknown exact description of event. Routine EEG is normal Likely Acute urinary tract infection Hypertensive urgency Acute kidney insufficiency Hyperkalemia and mild hypomagnesemia Diabetes mellitus History of coronary artery disease status post stents History of stroke Plan: A routine EEG: Is normal. Pending MRI of the brain Continue neuro checks Placed on seizure precautions and seizure pads Patient hyperkalemia and hypo-Keely ischemia as well as kidney insufficiency will defer to nephrology team. We'll defer the rest of the medical management to primary team The plan is discussed with the patient's nurse. IF MRI Brain is normal then no further neurological work-up. Dr. Zhao will start neurology service tomorrow A.M. then Dr. Deluna will start this Sunday A.M. Time with Patient: Less than 30
[2022-08-26] MEDS: SODIUM CHLORIDE 0.9% 1,000 ML IV SCH ×3 (06:46→20:55)
[2022-08-26] MEDS: ENOXAPARIN 30 MG/0.3 ML SYRINGE SQ SCH (08:07)
[2022-08-26] MEDS: amLODIPine 5 MG TAB PO SCH (08:08)
[2022-08-26] MEDS: ATORVASTATIN 40 MG TAB PO SCH (08:08)
[2022-08-26] MEDS: carvediloL 6.25 MG TAB PO SCH ×2 (08:08→17:13)
[2022-08-26] MEDS: cloNIDine HCL 0.1 MG TAB PO SCH ×3 (08:08→20:53)
[2022-08-26] MEDS: ASPIRIN 81 MG PO SCH (08:08)
[2022-08-26 09:29] LABS: African American GFR (CKD) 29.9 (60.0-200.0); Albumin/Globulin Ratio 1.6 (1.60-3.17); Anion Gap 12.3 mmol/L (10.00-18.00); BUN/Creat Ratio 20.61 Ratio (12.00-20.00); Blood Urea Nitrogen 37.1 mg/dL (9.0-27.0); Calcium 9.1 mg/dL (8.7-10.3); Carbon Dioxide 20.7 mmol/L (20.0-27.5); Globulin 2.5 g/dL (1.6-3.3); Magnesium 1.5 mg/dL (1.5-2.4); Non-African American GFR(CKD) 25.8 (60.0-200.0); Potassium 4.6 mmol/L (3.5-5.5); Total Bilirubin 0.3 mg/dL (0.30-1.20); Total Protein 6.5 g/dL (6.2-8.2)
--- NOTE | 2022-08-26 09:46 | P.PN ---
Subjective Progress Note Date: 08/26/22 Glenis Nunn, is an 82-year-old female presented to [facility] emergency room after having a witnessed seizure at [facility]. Patient is not aware that she had a seizure she stated that she remembered the staff changing her in her bed and subsequently she remembers having the EMS staff taking her to the ambulance. She denies any previous history of seizure activity. She was evaluated in the emergency room vital examination on presentation revealed a temperature of 97.3 pulse 67 respiration 18 blood pressure 197/88 pulse ox 98% on room air Laboratory data revealed a white blood count of 5.5 hemoglobin 12.0 platelet count 97 sodium 136 potassium 5.7 chloride 105 CO2 18 BUN 13 and creatinine 1.56, urine analysis revealed evidence of urinary tract infection Testing in the emergency room revealed computed tomography scan of the brain done in the emergency room revealed moderate cerebral atrophy and chronic small vessel ischemia no acute intracranial abnormality Patient was admitted to medical floor for further evaluation and treatment, neurology consult was requested. Past medical history is significant for history of hypertension, history of hyperlipidemia, history of diabetes mellitus, history of abdominal aortic aneurysm with stent, history of coronary artery disease with previous history of myocardial infarction, history of strokes in the past. On review of systems at this time patient is alert and oriented 3 in no apparent distress she is complaining of nausea and had 1 episode of vomiting this morning, otherwise she denies any complaints there is no fever or chills no headache or dizziness no chest pain no cough, no abdominal pain no diarrhea no blood in the stools no burning with urination no frequency or urgency and no hem aturia, she denies any weakness or numbness in any of her extremities she denies any change in her vision speech or gait. On 08/25/2022 patient is alert and oriented times x 3. MRI of the brain has been ordered. Patient remains on IV Rocephin. Patient noted to have elevated creatinine 2.03, bun 40 and potassium 5.7 at this time will consult nephrology services. Patient denies chest pain or shortness of breath. Patient denies nausea vomiting or diarrhea. Patient denies any urinary burning or frequency. On 08/26/2022 patient was seen and examined on the medical floor, she is alert and oriented 3 in no apparent distress there is no fever or chills no headache or dizziness no chest pain no shortness of breath no cough no nausea or vomiting no abdominal pain no diarrhea and no urinary symptoms. Kidney ultrasound reviewed no evidence of hydronephrosis, patient has known urinary tract infection and is maintained on IV ceftriaxone, at this time we are awaiting MRI of the brain, kidney function has improved since yesterday, BUN today 37.1 creatinine 1.8 potassium level is 4.6 will continue to follow closely. Objective - Vital Signs Vital signs: Vital Signs Temp 97.6 F 08/26/22 02:00 Pulse 74 08/26/22 02:00 Resp 17 08/26/22 02:00 BP 92/59 08/26/22 02:00 Pulse Ox 95 08/26/22 02:00 FiO2 Intake & Output 08/25/22 08/26/22 08/26/22 18:59 06:59 18:59 Intake Total 650 Output Total 800 Balance 650 -800 Intake: Intake, IV Titration 650 Amount Sodium Chloride 0.9% 1, 600 000 ml @ 75 mls/hr IV . [id number] [facility] Rx#:[id number] 1 gm In 50 Sodium Chloride 0.9% 50 ml @ 100 mls/hr IVPB Q24HR [facility] Rx#:[id number] Output: Urine 800 Other: Voiding Method Toilet Diaper # Voids 2 - Exam In general patient is alert and oriented x 3 in no distress HEENT head normocephalic and atraumatic Neck is supple no JVD no goiter no lymphadenopathy no carotid bruit Chest examination is clear to auscultation no crackles no wheezing Cardiac exam reveals regular heart sounds S1 and S2 no gallops no murmurs Abdomen is soft nontender no organomegaly with normal bowel sounds Extremity exam reveals no edema no cyanosis or clubbing Neurological examination reveals no gross focal deficit - Labs CBC & Chem 7: 08/25/22 07:04 08/26/22 06:14 Labs: Abnormal Lab Results - Last 24 Hours (Table) 08/25/22 08/25/22 08/25/22 Range/Units 07:04 07:04 07:04 RBC 3.70 L (3.80-5.40) m/uL Plt Count 89 L (150-450) k/uL Potassium 5.7 H (3.5-5.1) mmol/L Chloride 108 H (98-107) mmol/L BUN 40 H (7-17) mg/dL Creatinine 2.03 H (0.52-1.04) mg/dL Glucose 133 H (74-99) mg/dL Hemoglobin A1c 7.4 H (0.0-6.0) % Magnesium (1.6-2.3) mg/dL 08/25/22 Range/Units 07:04 RBC (3.80-5.40) m/uL Plt Count (150-450) k/uL Potassium (3.5-5.1) mmol/L Chloride (98-107) mmol/L BUN (7-17) mg/dL Creatinine (0.52-1.04) mg/dL Glucose (74-99) mg/dL Hemoglobin A1c (0.0-6.0) % Magnesium 1.5 L (1.6-2.3) mg/dL Microbiology - Last 24 Hours (Table) 08/24/22 14:27 Urine Culture - Final Urine,Voided Assessment and Plan Plan: Possible witnessed seizure [facility], I would see if there is any available records describing the episode at the [facility], neurology consultation requested Underlying history of hypertension Underlying history of hyperlipidemia Underlying history of diabetes mellitus Evidence of urinary tract infection Previous history of stroke twice in the past Underlying history of coronary artery disease with history of angioplasty and stent placement Underlying history of abdominal aortic aneurysm with stent placement at [facility] Acute kidney injury. Nephrology service is consulted At this time patient was seen and examined Laboratory data and computed tomography scan and EKG reviewed Home medications reviewed and reordered Neurology consultation requested For urinary tract infection Will obtain urine culture, and start IV Rocephin MRI of the brain ordered For DVT prophylaxis subcu Lovenox
[2022-08-26 10:03] LABS: Basophils # (A) 0.02 X 10*3/uL (0.00-0.10); Basophils % (A) 0.3 %; Eosinophils # (A) 0.06 X 10*3/uL (0.04-0.35); Eosinophils % (A) 0.8 %; HCT 31.8 % (37.2-46.3); HGB 10.5 g/dL (12.0-15.0); Immature Grans, Automated 1.1 %; Lymphocytes # (A) 2.05 X 10*3/uL (0.90-5.00); Lymphocytes % (A) 27.7 %; MCH 31.9 pg (27.0-32.0); MCV 96.7 fL (80.0-97.0); Mean Platelet Volume 12.5 fL (9.5-12.2); Monocytes # (A) 1.07 X 10*3/uL (0.20-1.00); Monocytes % (A) 14.5 %; NRBC Per 100 WBC 0 /100 WBCS (0.0-0.0); Neutrophils # (A) 4.11 X 10*3/uL (1.80-7.70); Neutrophils % (A) 55.6 %; Platelet Count 83 X 10*3/uL (140-440); RBC 3.29 X 10*6/uL (4.10-5.20); RDW 12.7 % (11.5-14.5); WBC 7.39 X 10*3/uL (4.50-10.00)
--- NOTE | 2022-08-26 11:01 | P.PN ---
Subjective Patient is seen in follow-up for acute kidney injury. Renal function a little better today. Has been voiding. Blood pressure 120/80 this morning. Oral intake is fair. Vital signs are stable. General: Awake. No acute distress. HEENT: Head exam is unremarkable. LUNGS: Breath sounds decreased. HEART: Rate and Rhythm are regular. ABDOMEN: Soft, no distention. EXTREMITITES: No edema. Objective - Vital Signs Vital signs: Vital Signs Temp 98.4 F 08/26/22 08:00 Pulse 73 08/26/22 08:00 Resp 17 08/26/22 08:00 BP 120/80 08/26/22 08:00 Pulse Ox 97 08/26/22 08:00 FiO2 Intake & Output 08/25/22 08/26/22 08/26/22 18:59 06:59 18:59 Intake Total 650 Output Total 800 Balance 650 -800 Intake: Intake, IV Titration 650 Amount Sodium Chloride 0.9% 1, 600 000 ml @ 75 mls/hr IV . [id number] YANDEL Rx#:[id number] cefTRIAXone 1 gm In 50 Sodium Chloride 0.9% 50 ml @ 100 mls/hr IVPB Q24HR YANDEL Rx#:[id number] Output: Urine 800 Other: Voiding Method Toilet Toilet Diaper Diaper # Voids 2 - Labs CBC & Chem 7: 08/26/22 06:14 08/26/22 06:14 Labs: Abnormal Lab Results - Last 24 Hours (Table) 08/25/22 08/25/22 08/26/22 Range/Units 07:04 07:04 06:14 RBC 3.29 L (4.10-5.20) X 10*6/uL Hgb 10.5 L (12.0-15.0) g/dL Hct 31.8 L (37.2-46.3) % Plt Count 83 L (140-440) X 10*3/uL MPV 12.5 H (9.5-12.2) fL Immature Gran # 0.08 H (0.00-0.04) X 10*3/uL Monocytes # 1.07 H (0.20-1.00) X 10*3/uL BUN (9.0-27.0) mg/dL Creatinine (0.6-1.5) mg/dL Est GFR (CKD-EPI)AfAm (60.0-200.0) Est GFR (CKD-EPI)NonAf (60.0-200.0) BUN/Creatinine Ratio (12.00-20.00) Ratio Glucose (70-110) mg/dL Hemoglobin A1c 7.4 H (0.0-6.0) % Magnesium 1.5 L (1.6-2.3) mg/dL AST (13-35) U/L 08/26/22 Range/Units 06:14 RBC (4.10-5.20) X 10*6/uL Hgb (12.0-15.0) g/dL Hct (37.2-46.3) % Plt Count (140-440) X 10*3/uL MPV (9.5-12.2) fL Immature Gran # (0.00-0.04) X 10*3/uL Monocytes # (0.20-1.00) X 10*3/uL BUN 37.1 H (9.0-27.0) mg/dL Creatinine 1.8 H (0.6-1.5) mg/dL Est GFR (CKD-EPI)AfAm 29.9 L (60.0-200.0) Est GFR (CKD-EPI)NonAf 25.8 L (60.0-200.0) BUN/Creatinine Ratio 20.61 H (12.00-20.00) Ratio Glucose 121 H (70-110) mg/dL Hemoglobin A1c (0.0-6.0) % Magnesium (1.6-2.3) mg/dL AST 8 L (13-35) U/L Microbiology - Last 24 Hours (Table) 08/24/22 14:27 Urine Culture - Final Urine,Voided Assessment and Plan Plan: Assessment: 1. Acute kidney injury secondary to ATN secondary to hemodynamic instability and further worsened with the use of NIGEL inhibitor as well as jardiance. Baseline creatinine near 1 and peaked at 2.03 this admission - 1.8 today. No hydronephrosis noted on kidney ultrasound. 2. Hyperkalemia secondary to acute kidney injury and lisinopril. Improved. 3. Diabetes mellitus. 4. Benign hypertension. Controlled this morning. 5. Questionable seizure. 6. Coronary artery disease status post prior stenting. 7. Pyuria on antibiotics. Plan: Maintain normal saline at 75 mL an hour. Hold lisinopril and jardiance for now. Hold amlodipine and clonidine for systolic blood pressure less than 120. Avoid nephrotoxins. Continue to monitor renal function and urine output.
[2022-08-26 21:19] LABS: Glucose,Whole Blood 200 mg/dL (70-110)
[2022-08-27 06:21] LABS: Glucose,Whole Blood 136 mg/dL (70-110)
[2022-08-27] MEDS: SODIUM CHLORIDE 0.9% 1,000 ML IV SCH ×2 (06:34→15:44)
[2022-08-27] MEDS: carvediloL 6.25 MG TAB PO SCH ×2 (06:57→15:44)
--- NOTE | 2022-08-27 07:52 | P.PN ---
Subjective Progress Note Date: 08/27/22 Glenis Nunn, is an 82-year-old female presented to [facility] emergency room after having a witnessed seizure at [facility]. Patient is not aware that she had a seizure she stated that she remembered the staff changing her in her bed and subsequently she remembers having the EMS staff taking her to the ambulance. She denies any previous history of seizure activity. She was evaluated in the emergency room vital examination on presentation revealed a temperature of 97.3 pulse 67 respiration 18 blood pressure 197/88 pulse ox 98% on room air Laboratory data revealed a white blood count of 5.5 hemoglobin 12.0 platelet count 97 sodium 136 potassium 5.7 chloride 105 CO2 18 BUN 13 and creatinine 1.56, urine analysis revealed evidence of urinary tract infection Testing in the emergency room revealed computed tomography scan of the brain done in the emergency room revealed moderate cerebral atrophy and chronic small vessel ischemia no acute intracranial abnormality Patient was admitted to medical floor for further evaluation and treatment, neurology consult was requested. Past medical history is significant for history of hypertension, history of hyperlipidemia, history of diabetes mellitus, history of abdominal aortic aneurysm with stent, history of coronary artery disease with previous history of myocardial infarction, history of strokes in the past. On review of systems at this time patient is alert and oriented 3 in no apparent distress she is complaining of nausea and had 1 episode of vomiting this morning, otherwise she denies any complaints there is no fever or chills no headache or dizziness no chest pain no cough, no abdominal pain no diarrhea no blood in the stools no burning with urination no frequency or urgency and no hem aturia, she denies any weakness or numbness in any of her extremities she denies any change in her vision speech or gait. On 08/25/2022 patient is alert and oriented times x 3. MRI of the brain has been ordered. Patient remains on IV Rocephin. Patient noted to have elevated creatinine 2.03, bun 40 and potassium 5.7 at this time will consult nephrology services. Patient denies chest pain or shortness of breath. Patient denies nausea vomiting or diarrhea. Patient denies any urinary burning or frequency. On 08/26/2022 patient was seen and examined on the medical floor, she is alert and oriented 3 in no apparent distress there is no fever or chills no headache or dizziness no chest pain no shortness of breath no cough no nausea or vomiting no abdominal pain no diarrhea and no urinary symptoms. Kidney ultrasound reviewed no evidence of hydronephrosis, patient has known urinary tract infection and is maintained on IV ceftriaxone, at this time we are awaiting MRI of the brain, kidney function has improved since yesterday, BUN today 37.1 creatinine 1.8 potassium level is 4.6 will continue to follow closely. On 08/27/2022 patient was seen and examined on the medical floor she is alert and oriented 3 in no apparent distress, there is no fever or chills no headache or dizziness no chest pain no shortness of breath no cough no nausea or vomiting no abdominal pain no diarrhea and no urinary symptoms. Vital exam today reveals a temperature of 98.3 pulse 58 respiration 16 blood pressure 139/79 pulse ox 97% on room air, labs are still pending today kidney function is improving gradually, we are awaiting further recommendation from neurology. Objective - Vital Signs Vital signs: Vital Signs Temp 98.3 F 08/27/22 01:47 Pulse 58 L 08/27/22 01:47 Resp 16 08/27/22 01:47 BP 139/79 08/27/22 01:47 Pulse Ox 97 08/27/22 01:47 FiO2 Intake & Output 08/26/22 08/27/22 08/27/22 18:59 06:59 18:59 Output Total 1050 Balance -1050 Output: Urine 1050 Other: Voiding Method Toilet Diaper # Voids 3 - Exam In general patient is alert and oriented x 3 in no distress HEENT head normocephalic and atraumatic Neck is supple no JVD no goiter no lymphadenopathy no carotid bruit Chest examination is clear to auscultation no crackles no wheezing Cardiac exam reveals regular heart sounds S1 and S2 no gallops no murmurs Abdomen is soft nontender no organomegaly with normal bowel sounds Extremity exam reveals no edema no cyanosis or clubbing Neurological examination reveals no gross focal deficit - Labs CBC & Chem 7: 08/26/22 06:14 08/26/22 06:14 Labs: Abnormal Lab Results - Last 24 Hours (Table) 08/26/22 08/26/22 08/26/22 Range/Units 06:14 06:14 21:17 RBC 3.29 L (4.10-5.20) X 10*6/uL Hgb 10.5 L (12.0-15.0) g/dL Hct 31.8 L (37.2-46.3) % Plt Count 83 L (140-440) X 10*3/uL MPV 12.5 H (9.5-12.2) fL Immature Gran # 0.08 H (0.00-0.04) X 10*3/uL Monocytes # 1.07 H (0.20-1.00) X 10*3/uL BUN 37.1 H (9.0-27.0) mg/dL Creatinine 1.8 H (0.6-1.5) mg/dL Est GFR (CKD-EPI)AfAm 29.9 L (60.0-200.0) Est GFR (CKD-EPI)NonAf 25.8 L (60.0-200.0) BUN/Creatinine Ratio 20.61 H (12.00-20.00) Ratio Glucose 121 H (70-110) mg/dL POC Glucose (mg/dL) 200 H (70-110) mg/dL AST 8 L (13-35) U/L 08/27/22 Range/Units 06:20 RBC (4.10-5.20) X 10*6/uL Hgb (12.0-15.0) g/dL Hct (37.2-46.3) % Plt Count (140-440) X 10*3/uL MPV (9.5-12.2) fL Immature Gran # (0.00-0.04) X 10*3/uL Monocytes # (0.20-1.00) X 10*3/uL BUN (9.0-27.0) mg/dL Creatinine (0.6-1.5) mg/dL Est GFR (CKD-EPI)AfAm (60.0-200.0) Est GFR (CKD-EPI)NonAf (60.0-200.0) BUN/Creatinine Ratio (12.00-20.00) Ratio Glucose (70-110) mg/dL POC Glucose (mg/dL) 136 H (70-110) mg/dL AST (13-35) U/L Assessment and Plan Plan: Possible witnessed seizure at [facility], I would see if there is any [facility], neurology consultation requested Underlying history of hypertension Underlying history of hyperlipidemia Underlying history of diabetes mellitus Evidence of urinary tract infection Previous history of stroke twice in the past Underlying history of coronary artery disease with history of angioplasty and stent placement Underlying history of abdominal aortic aneurysm with stent placement at [facility] Acute kidney injury. Nephrology service is consulted At this time patient was seen and examined Laboratory data and computed tomography scan and EKG reviewed Home medications reviewed and reordered Neurology consultation requested For urinary tract infection Will obtain urine culture, and start IV Rocephin MRI of the brain ordered For DVT prophylaxis subcu Lovenox
[2022-08-27] MEDS: ASPIRIN 81 MG PO SCH (08:58)
[2022-08-27] MEDS: ENOXAPARIN 30 MG/0.3 ML SYRINGE SQ SCH (08:58)
[2022-08-27] MEDS: cloNIDine HCL 0.1 MG TAB PO SCH ×3 (08:58→22:05)
[2022-08-27] MEDS: amLODIPine 5 MG TAB PO SCH (08:59)
[2022-08-27] MEDS: ATORVASTATIN 40 MG TAB PO SCH (08:59)
[2022-08-27] MEDS: ACETAMINOPHEN TAB 325 MG TAB PO PRN (09:00)
--- NOTE | 2022-08-27 10:52 | P.PN ---
Subjective Patient is seen in follow-up for acute kidney injury. Creatinine 1.8 as of yesterday. Has been voiding. Blood pressure stable. Oral intake is fair. No active complaints at this time. On room air. Vital signs are stable. General: Awake. No acute distress. HEENT: Head exam is unremarkable. LUNGS: Breath sounds decreased. HEART: Rate and Rhythm are regular. ABDOMEN: Soft, no distention. EXTREMITITES: No edema. Objective - Vital Signs Vital signs: Vital Signs Temp 98.4 F 08/27/22 08:00 Pulse 55 L 08/27/22 08:00 Resp 17 08/27/22 08:00 BP 142/68 08/27/22 08:00 Pulse Ox 98 08/27/22 08:00 FiO2 Intake & Output 08/26/22 08/27/22 08/27/22 18:59 06:59 18:59 Output Total 1050 Balance -1050 Output: Urine 1050 Other: Voiding Method Toilet Toilet Diaper Diaper # Voids 3 - Labs CBC & Chem 7: 08/26/22 06:14 08/26/22 06:14 Labs: Abnormal Lab Results - Last 24 Hours (Table) 08/26/22 08/27/22 Range/Units 21:17 06:20 POC Glucose (mg/dL) 200 H 136 H (70-110) mg/dL Assessment and Plan Plan: Assessment: 1. Acute kidney injury secondary to ATN secondary to hemodynamic instability and further worsened with the use of NIGEL inhibitor as well as jardiance. Baseline creatinine near 1 and peaked at 2.03 this admission - 1.8 yesterday. No hydronephrosis noted on kidney ultrasound. 2. Hyperkalemia secondary to acute kidney injury and lisinopril. Improved. 3. Diabetes mellitus. 4. Benign hypertension. Stable. 5. Questionable seizure. 6. Coronary artery disease status post prior stenting. 7. Pyuria on antibiotics. Plan: Maintain normal saline at 75 mL an hour. Hold lisinopril and jardiance for now. Hold amlodipine and clonidine for systolic blood pressure less than 120. Avoid nephrotoxins. Continue to monitor renal function and urine output. Morning labs pending.
[2022-08-27 10:59] LABS: Basophils # (A) 0.03 X 10*3/uL (0.00-0.10); Basophils % (A) 0.4 %; Eosinophils # (A) 0.08 X 10*3/uL (0.04-0.35); Eosinophils % (A) 1.1 %; HGB 10.9 g/dL (12.0-15.0); Immature Grans, Automated 0.8 %; Lymphocytes # (A) 2.06 X 10*3/uL (0.90-5.00); MCV 96.8 fL (80.0-97.0); Mean Platelet Volume 12.6 fL (9.5-12.2); Monocytes # (A) 1.09 X 10*3/uL (0.20-1.00); Monocytes % (A) 14.8 %; NRBC Per 100 WBC 0 /100 WBCS (0.0-0.0); Neutrophils # (A) 4.04 X 10*3/uL (1.80-7.70); Neutrophils % (A) 54.9 %; Platelet Count 86 X 10*3/uL (140-440); RBC 3.41 X 10*6/uL (4.10-5.20); RDW 12.7 % (11.5-14.5); WBC 7.36 X 10*3/uL (4.50-10.00)
[2022-08-27 11:06] LABS: African American GFR (CKD) 48.7 (60.0-200.0); Albumin/Globulin Ratio 1.6 (1.60-3.17); Anion Gap 12.5 mmol/L (10.00-18.00); BUN/Creat Ratio 19.17 Ratio (12.00-20.00); Carbon Dioxide 20.5 mmol/L (20.0-27.5); Globulin 2.5 g/dL (1.6-3.3); Magnesium 1.4 mg/dL (1.5-2.4); Non-African American GFR(CKD) 42.1 (60.0-200.0); Total Bilirubin 0.2 mg/dL (0.30-1.20); Total Protein 6.5 g/dL (6.2-8.2)
[2022-08-27] MEDS: MAGNESIUM SULFATE-D5W PMX 1 GM in DEXTROSE/WATER 1 100ML.BAG IVPB SCH ×2 (11:22→12:43)
[2022-08-27 11:31] LABS: Glucose,Whole Blood 199 mg/dL (70-110)
[2022-08-28] MEDS: carvediloL 6.25 MG TAB PO SCH ×2 (05:59→17:20)
[2022-08-28 08:58] LABS: African American GFR (CKD) 60.8 (60.0-200.0); BUN/Creat Ratio 19.5 Ratio (12.00-20.00); Blood Urea Nitrogen 19.5 mg/dL (9.0-27.0); Calcium 8.5 mg/dL (8.7-10.3); Magnesium 1.7 mg/dL (1.5-2.4); Non-African American GFR(CKD) 52.4 (60.0-200.0); Potassium 4.6 mmol/L (3.5-5.5)
[2022-08-28] MEDS: cloNIDine HCL 0.1 MG TAB PO SCH ×3 (10:59→20:45)
[2022-08-28] MEDS: MAGNESIUM OXIDE 400 MG TAB PO SCH (10:59)
[2022-08-28] MEDS: amLODIPine 5 MG TAB PO SCH (10:59)
[2022-08-28] MEDS: ASPIRIN 81 MG PO SCH (10:59)
[2022-08-28] MEDS: ATORVASTATIN 40 MG TAB PO SCH (10:59)
[2022-08-28] MEDS: SODIUM CHLORIDE 0.9% 1,000 ML IV SCH (11:02)
[2022-08-28] MEDS: ENOXAPARIN 40 MG/0.4 ML SYRINGE SQ SCH (11:41)
[2022-08-28 11:48] LABS: Glucose,Whole Blood 191 mg/dL (70-110)
[2022-08-28] MEDS: ENOXAPARIN 30 MG/0.3 ML SYRINGE SQ SCH (11:49)
--- NOTE | 2022-08-28 11:58 | P.PN ---
Subjective Patient is seen in follow-up for acute kidney injury. Creatinine 1.0 today. Has been voiding. Blood pressure stable. Oral intake is fair. No active complaints at this time. On room air. Vital signs are stable. General: Awake. No acute distress. HEENT: Head exam is unremarkable. LUNGS: Breath sounds decreased. HEART: Rate and Rhythm are regular. ABDOMEN: Soft, no distention. EXTREMITITES: No edema. Objective - Vital Signs Vital signs: Vital Signs Temp 98.1 F 08/28/22 07:58 Pulse 60 08/28/22 07:58 Resp 18 08/28/22 07:58 BP 155/73 08/28/22 07:58 Pulse Ox 98 08/28/22 07:58 FiO2 Intake & Output 08/27/22 08/28/22 08/28/22 18:59 06:59 18:59 Intake Total 100 Balance 100 Intake: Oral 100 Other: Voiding Method Toilet Toilet Diaper Diaper # Voids 1 2 - Labs CBC & Chem 7: 08/27/22 07:32 08/28/22 03:49 Labs: Abnormal Lab Results - Last 24 Hours (Table) 08/28/22 08/28/22 Range/Units 03:49 11:47 Est GFR (CKD-EPI)NonAf 52.4 L (60.0-200.0) Glucose 133 H (70-110) mg/dL POC Glucose (mg/dL) 191 H (70-110) mg/dL Calcium 8.5 L (8.7-10.3) mg/dL Assessment and Plan Plan: Assessment: 1. Acute kidney injury secondary to ATN secondary to hemodynamic instability and further worsened with the use of NIGEL inhibitor as well as jardiance. Baseline creatinine near 1 and peaked at 2.03 this admission - 1.0 today. No hydronephrosis noted on kidney ultrasound. 2. Hyperkalemia secondary to acute kidney injury and lisinopril. Improved. 3. Diabetes mellitus. 4. Benign hypertension. Stable. 5. Questionable seizure. 6. Coronary artery disease status post prior stenting. 7. Pyuria on antibiotics. Plan: Hep-Lock IV fluids. Okay to resume lisinopril if blood pressure staying persistently above 130/80. Hold amlodipine and clonidine for systolic blood pressure less than 120. Avoid nephrotoxins. Please call with any questions or concerns.
[2022-08-28] MEDS: ACETAMINOPHEN TAB 325 MG TAB PO PRN ×2 (12:00→18:34)
--- NOTE | 2022-08-28 14:26 | P.PN ---
Subjective Progress Note Date: 08/28/22 Glenis Nunn, is an 82-year-old female presented to [facility] emergency room after having a witnessed seizure at [facility]. Patient is not aware that she had a seizure she stated that she remembered the staff changing her in her bed and subsequently she remembers having the EMS staff taking her to the ambulance. She denies any previous history of seizure activity. She was evaluated in the emergency room vital examination on presentation revealed a temperature of 97.3 pulse 67 respiration 18 blood pressure 197/88 pulse ox 98% on room air Laboratory data revealed a white blood count of 5.5 hemoglobin 12.0 platelet count 97 sodium 136 potassium 5.7 chloride 105 CO2 18 BUN 13 and creatinine 1.56, urine analysis revealed evidence of urinary tract infection Testing in the emergency room revealed computed tomography scan of the brain done in the emergency room revealed moderate cerebral atrophy and chronic small vessel ischemia no acute intracranial abnormality Patient was admitted to medical floor for further evaluation and treatment, neurology consult was requested. Past medical history is significant for history of hypertension, history of hyperlipidemia, history of diabetes mellitus, history of abdominal aortic aneurysm with stent, history of coronary artery disease with previous history of myocardial infarction, history of strokes in the past. On review of systems at this time patient is alert and oriented 3 in no apparent distress she is complaining of nausea and had 1 episode of vomiting this morning, otherwise she denies any complaints there is no fever or chills no headache or dizziness no chest pain no cough, no abdominal pain no diarrhea no blood in the stools no burning with urination no frequency or urgency and no hem aturia, she denies any weakness or numbness in any of her extremities she denies any change in her vision speech or gait. On 08/25/2022 patient is alert and oriented times x 3. MRI of the brain has been ordered. Patient remains on IV Rocephin. Patient noted to have elevated creatinine 2.03, bun 40 and potassium 5.7 at this time will consult nephrology services. Patient denies chest pain or shortness of breath. Patient denies nausea vomiting or diarrhea. Patient denies any urinary burning or frequency. On 08/26/2022 patient was seen and examined on the medical floor, she is alert and oriented 3 in no apparent distress there is no fever or chills no headache or dizziness no chest pain no shortness of breath no cough no nausea or vomiting no abdominal pain no diarrhea and no urinary symptoms. Kidney ultrasound reviewed no evidence of hydronephrosis, patient has known urinary tract infection and is maintained on IV ceftriaxone, at this time we are awaiting MRI of the brain, kidney function has improved since yesterday, BUN today 37.1 creatinine 1.8 potassium level is 4.6 will continue to follow closely. On 08/27/2022 patient was seen and examined on the medical floor she is alert and oriented 3 in no apparent distress, there is no fever or chills no headache or dizziness no chest pain no shortness of breath no cough no nausea or vomiting no abdominal pain no diarrhea and no urinary symptoms. Vital exam today reveals a temperature of 98.3 pulse 58 respiration 16 blood pressure 139/79 pulse ox 97% on room air, labs are still pending today kidney function is improving gradually, we are awaiting further recommendation from neurology. On 08/28/2022 patient was seen and examined on the medical floor she is alert and oriented in no distress, there is no fever or chills no headache or dizziness no chest pain no shortness of breath no cough no nausea or vomiting no abdominal pain no diarrhea and no urinary symptoms. Vital exam today reveals a temperature of 98.3 pulse 58 respiration 16 blood pressure 139/79 pulse ox 97% on room air, kidney function is back to normal, patient is scheduled for brain MRI today at 4:15 we are awaiting further recommendation from neurology after brain MRI. Possible discharge tomorrow. Objective - Vital Signs Vital signs: Vital Signs Temp 98.0 F 08/28/22 14:08 Pulse 52 L 08/28/22 14:08 Resp 17 08/28/22 14:08 BP 97/61 08/28/22 14:08 Pulse Ox 100 08/28/22 14:08 FiO2 Intake & Output 08/27/22 08/28/22 08/28/22 18:59 06:59 18:59 Intake Total 100 Balance 100 Intake: Oral 100 Other: Voiding Method Toilet Toilet Diaper Diaper # Voids 1 2 - Exam In general patient is alert and oriented x 3 in no distress HEENT head normocephalic and atraumatic Neck is supple no JVD no goiter no lymphadenopathy no carotid bruit Chest examination is clear to auscultation no crackles no wheezing Cardiac exam reveals regular heart sounds S1 and S2 no gallops no murmurs Abdomen is soft nontender no organomegaly with normal bowel sounds Extremity exam reveals no edema no cyanosis or clubbing Neurological examination reveals no gross focal deficit - Labs CBC & Chem 7: 08/27/22 07:32 08/28/22 03:49 Labs: Abnormal Lab Results - Last 24 Hours (Table) 08/28/22 08/28/22 Range/Units 03:49 11:47 Est GFR (CKD-EPI)NonAf 52.4 L (60.0-200.0) Glucose 133 H (70-110) mg/dL POC Glucose (mg/dL) 191 H (70-110) mg/dL Calcium 8.5 L (8.7-10.3) mg/dL Assessment and Plan Plan: Possible witnessed seizure at [facility], I would see if there is any available records [facility], neurology consultation requested Underlying history of hypertension Underlying history of hyperlipidemia Underlying history of diabetes mellitus Evidence of urinary tract infection Previous history of stroke twice in the past Underlying history of coronary artery disease with history of angioplasty and stent placement Underlying history of abdominal aortic aneurysm with stent placement at [facility] Acute kidney injury. Nephrology service is consulted At this time patient was seen and examined Laboratory data and computed tomography scan and EKG reviewed Home medications reviewed and reordered Neurology consultation requested For urinary tract infection Will obtain urine culture, and start IV Rocephin MRI of the brain ordered For DVT prophylaxis subcu Lovenox
[2022-08-29] MEDS: carvediloL 6.25 MG TAB PO SCH ×2 (06:23→17:22)
[2022-08-29] MEDS: MAGNESIUM OXIDE 400 MG TAB PO SCH (08:58)
[2022-08-29] MEDS: amLODIPine 5 MG TAB PO SCH (08:58)
[2022-08-29] MEDS: ATORVASTATIN 40 MG TAB PO SCH (08:58)
[2022-08-29] MEDS: ASPIRIN 81 MG PO SCH (08:58)
[2022-08-29] MEDS: ENOXAPARIN 40 MG/0.4 ML SYRINGE SQ SCH (08:58)
[2022-08-29] MEDS: cloNIDine HCL 0.1 MG TAB PO SCH ×3 (08:58→21:17)
--- NOTE | 2022-08-29 10:01 | CDI ---
Documentation Clarification Form Date: 08/29/2022 09:46:30 AM From: Jasmina Overton CCS, CCDS Admit Date: 08/23/2022 08:48:00 PM Patient Name: Glenis Nunn Visit Number: [id number] Discharge Date: ATTENTION: The Clinical Documentation Specialists (CDI) and [facility] Coding Staff appreciate your assistance in clarifying documentation. Please respond to the clarification below the line at the bottom and electronically sign. The CDI & [facility] Coding staff will review the response and follow-up if needed. Please note: Queries are made part of the Legal Health Record. If you have any questions, please contact the author of this message via ITS. Dr. Alexandra Patel: The patients principal diagnosis the diagnosis that was chiefly responsible for the admission - has not been clearly identified and clarification is requested. The patient presented from a [facility] with a possible witnessed seizure, also evidence of a UTI and BRAIN. 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 Clinical Indicators: Presented to the ED on 08/23 via EMS from a snf after having a seizure, LOC, incontinent of urine, episode of vomiting shortly after arrival to ED, nausea. Admit with UTI & Seizure 08/23 VS: T 97.3, P 67, R 18, BP 197/88, PO 98 RA, BMI: 32.1 08/23 LAB: RBC 3.77, Plt Ct 97; Na 136, K 5.7, CO2 18, BUN 39, Creatinine 1.56, glucose 169, Magnesium 1.4 UA: Clear, 1+ Protein, 4+ glucose, Moderate Esterase, WBC 30. 08/23 RAD: CT Brain: Moderate Cerebral Atrophy & Chronic Small Vessel Ischemic. No acute intracranial abnormality. 08/24 EEG: Normal routine EEG. No focal slowing, epileptiform discharges or seizure on EEG. Consults: 08/24 Neurology: Episode of urinary incontinence with LOC: rule out seizure vs syncope. Likely acute UTI. Hypertensive Urgency, Acute kidney Insufficiency. 08/25 Nephrology: BRAIN secondary to ATN secondary to hemodynamic instability and further worsened with the use of NIGEL inhibitor as well as Jardiance. Rule out urinary retention. Treatment 08/23: IV Na Chl 500 mls @ 1000 mls/hr q30M, po Levaquin 500 mg x1, INH Duoneb 3 ml QID/prn, INH Albuterol 2 puffs QID/prn. 08/24: IV Zofran 4 mg q6H/prn, IV Dextrose 25 - 50 ml per protocol/prn, IV Rocephin 50 mls @ 100 mls/hr q24H. In your professional opinion, can you please clarify which diagnosis, after study, was the reason chiefly responsible for the admission? [ xxx ] Seizure, please specify type and/or cause if known: unknown cause [ ] Seizure ruled out [ ] Urinary Tract Infection [ ] Acute Kidney Failure [ ] Hypertensive Urgency [ ] Other, please specify: [ ] Unable to determine (Template Last Revised: November 2020) MTDD
[2022-08-29 11:55] VITALS: BMI 32.1
--- NOTE | 2022-08-29 11:57 | P.PN ---
Subjective Patient is seen for follow-up for acute kidney injury. Renal function is improved since admission with creatinine down to 1.0 yesterday from 2.0 at peak. No complaints today. Objective - Vital Signs Vital signs: Vital Signs Temp 98.3 F 08/29/22 08:00 Pulse 50 L 08/29/22 08:00 Resp 16 08/29/22 08:00 BP 118/69 08/29/22 08:00 Pulse Ox 100 08/29/22 08:00 FiO2 Intake & Output 08/28/22 08/29/22 08/29/22 18:59 06:59 18:59 Intake Total 800 Output Total 500 Balance 300 Intake: Oral 800 Output: Urine 500 Other: Voiding Method Toilet Incontinent Diaper External Catheter # Voids 1 2 - Exam Awake, comfortable, no acute distress Examination of the heart S1 and S2 Examination of the lungs bilateral breath sounds are heard Abdomen is soft nontender Examination of the lower extremities shows no significant edema - Labs CBC & Chem 7: 08/27/22 07:32 08/28/22 03:49 Assessment and Plan Assessment: 1. Acute kidney injury secondary to ATN secondary to hemodynamic instability a nd further worsened with the use of NIGEL inhibitor as well as jardiance. Baseline creatinine near 1 and peaked at 2.03 this admission - 1.0 yesterday. No hydronephrosis noted on kidney ultrasound. 2. Hyperkalemia secondary to acute kidney injury and lisinopril. Improved. 3. Diabetes mellitus. 4. Benign hypertension. Stable. 5. Questionable seizure. 6. Coronary artery disease status post prior stenting. 7. Pyuria on antibiotics. Urine culture showed no growth Plan: Agree with discontinuation of antibiotics Continue to monitor renal function periodically.
--- NOTE | 2022-08-29 12:14 | P.PN ---
Subjective Progress Note Date: 08/28/22 Patient was seen for a follow-up. Patient is laying comfortably in the bed. Patient is awaiting MRI of the brain. Offers no complaints. Objective - Vital Signs Vital signs: Vital Signs Temp 98.3 F 08/29/22 08:00 Pulse 50 L 08/29/22 08:00 Resp 16 08/29/22 08:00 BP 118/69 08/29/22 08:00 Pulse Ox 100 08/29/22 08:00 FiO2 Intake & Output 08/28/22 08/29/22 08/29/22 18:59 06:59 18:59 Intake Total 800 Output Total 500 Balance 300 Weight 77.111 kg Intake: Oral 800 Output: Urine 500 Other: Voiding Method Toilet Incontinent Diaper External Catheter # Voids 1 2 - Exam Patient is alert and awake. No distress. Speech and language functions are grossly normal. Detailed testing deferred. Face is symmetric. Hearing is moderately decreased. Visual mercedes are full. Muscle strength appears normal. - Labs CBC & Chem 7: 08/27/22 07:32 08/28/22 03:49 Assessment and Plan Assessment: Episode of urinary incontinence with loss of consciousness: Rule out seizure vs syncope. I feel less likely seizure but unknown exact description of event. Routine EEG is normal Likely Acute urinary tract infection Hypertensive urgency Acute kidney insufficiency Hyperkalemia and mild hypomagnesemia Diabetes mellitus History of coronary artery disease status post stents History of stroke Plan: A routine EEG: Is normal. Pending MRI of the brain. Not done today. Continue neuro checks Placed on seizure precautions and seizure pads Patient hyperkalemia and hypo-magnesemia as well as kidney insufficiency will defer to nephrology team. We'll defer the rest of the medical management to primary team IF MRI Brain is normal then no further neurological work-up. Discussed with primary physician.
--- NOTE | 2022-08-29 17:02 | P.PN ---
Subjective Progress Note Date: 08/29/22 Glenis Nunn, is an 82-year-old female presented to [facility] emergency room after having a witnessed seizure at [facility]. Patient is not aware that she had a seizure she stated that she remembered the staff changing her in her bed and subsequently she remembers having the EMS staff taking her to the ambulance. She denies any previous history of seizure activity. She was evaluated in the emergency room vital examination on presentation revealed a temperature of 97.3 pulse 67 respiration 18 blood pressure 197/88 pulse ox 98% on room air Laboratory data revealed a white blood count of 5.5 hemoglobin 12.0 platelet count 97 sodium 136 potassium 5.7 chloride 105 CO2 18 BUN 13 and creatinine 1.56, urine analysis revealed evidence of urinary tract infection Testing in the emergency room revealed computed tomography scan of the brain done in the emergency room revealed moderate cerebral atrophy and chronic small vessel ischemia no acute intracranial abnormality Patient was admitted to medical floor for further evaluation and treatment, neurology consult was requested. Past medical history is significant for history of hypertension, history of hyperlipidemia, history of diabetes mellitus, history of abdominal aortic aneurysm with stent, history of coronary artery disease with previous history of myocardial infarction, history of strokes in the past. On review of systems at this time patient is alert and oriented 3 in no apparent distress she is complaining of nausea and had 1 episode of vomiting this morning, otherwise she denies any complaints there is no fever or chills no headache or dizziness no chest pain no cough, no abdominal pain no diarrhea no blood in the stools no burning with urination no frequency or urgency and no hem aturia, she denies any weakness or numbness in any of her extremities she denies any change in her vision speech or gait. On 08/25/2022 patient is alert and oriented times x 3. MRI of the brain has been ordered. Patient remains on IV Rocephin. Patient noted to have elevated creatinine 2.03, bun 40 and potassium 5.7 at this time will consult nephrology services. Patient denies chest pain or shortness of breath. Patient denies nausea vomiting or diarrhea. Patient denies any urinary burning or frequency. On 08/26/2022 patient was seen and examined on the medical floor, she is alert and oriented 3 in no apparent distress there is no fever or chills no headache or dizziness no chest pain no shortness of breath no cough no nausea or vomiting no abdominal pain no diarrhea and no urinary symptoms. Kidney ultrasound reviewed no evidence of hydronephrosis, patient has known urinary tract infection and is maintained on IV ceftriaxone, at this time we are awaiting MRI of the brain, kidney function has improved since yesterday, BUN today 37.1 creatinine 1.8 potassium level is 4.6 will continue to follow closely. On 08/27/2022 patient was seen and examined on the medical floor she is alert and oriented 3 in no apparent distress, there is no fever or chills no headache or dizziness no chest pain no shortness of breath no cough no nausea or vomiting no abdominal pain no diarrhea and no urinary symptoms. Vital exam today reveals a temperature of 98.3 pulse 58 respiration 16 blood pressure 139/79 pulse ox 97% on room air, labs are still pending today kidney function is improving gradually, we are awaiting further recommendation from neurology. On 08/28/2022 patient was seen and examined on the medical floor she is alert and oriented in no distress, there is no fever or chills no headache or dizziness no chest pain no shortness of breath no cough no nausea or vomiting no abdominal pain no diarrhea and no urinary symptoms. Vital exam today reveals a temperature of 98.3 pulse 58 respiration 16 blood pressure 139/79 pulse ox 97% on room air, kidney function is back to normal, patient is scheduled for brain MRI today at 4:15 we are awaiting further recommendation from neurology after brain MRI. Possible discharge tomorrow. On 08/29/2022 patient was seen and examined on the medical floor she is alert and oriented in no distress there is no fever or chills no headache or dizziness no chest pain no shortness of breath no cough no nausea or vomiting no abdominal pain no diarrhea and no urinary symptoms. MRI was canceled yesterday we are awaiting for information from [facility] regarding her stent once information is available we can reschedule MRI otherwise continue with current medical management Objective - Vital Signs Vital signs: Vital Signs Temp 98.2 F 08/29/22 02:00 Pulse 50 L 08/29/22 02:00 Resp 16 08/29/22 02:00 BP 132/70 08/29/22 02:00 Pulse Ox 97 08/29/22 02:00 FiO2 Intake & Output 08/28/22 08/29/22 08/29/22 18:59 06:59 18:59 Intake Total 800 Output Total 500 Balance 300 Intake: Oral 800 Output: Urine 500 Other: Voiding Method Toilet Incontinent Diaper External Catheter # Voids 1 2 - Exam In general patient is alert and oriented x 3 in no distress HEENT head normocephalic and atraumatic Neck is supple no JVD no goiter no lymphadenopathy no carotid bruit Chest examination is clear to auscultation no crackles no wheezing Cardiac exam reveals regular heart sounds S1 and S2 no gallops no murmurs Abdomen is soft nontender no organomegaly with normal bowel sounds Extremity exam reveals no edema no cyanosis or clubbing Neurological examination reveals no gross focal deficit - Labs CBC & Chem 7: 08/27/22 07:32 08/28/22 03:49 Labs: Abnormal Lab Results - Last 24 Hours (Table) 08/28/22 08/28/22 Range/Units 03:49 11:47 Est GFR (CKD-EPI)NonAf 52.4 L (60.0-200.0) Glucose 133 H (70-110) mg/dL POC Glucose (mg/dL) 191 H (70-110) mg/dL Calcium 8.5 L (8.7-10.3) mg/dL Assessment and Plan Plan: Possible witnessed seizure at [facility], I would see if there is any available records describing the episode at the [facility], neurology consultation requested Underlying history of hypertension Underlying history of hyperlipidemia Underlying history of diabetes mellitus Evidence of urinary tract infection Previous history of stroke twice in the past Underlying history of coronary artery disease with history of angioplasty and stent placement Underlying history of abdominal aortic aneurysm with stent placement at [facility] Acute kidney injury. Nephrology service is consulted At this time patient was seen and examined Laboratory data and computed tomography scan and EKG reviewed Home medications reviewed and reordered Neurology consultation requested For urinary tract infection Will obtain urine culture, and start IV Rocephin MRI of the brain ordered For DVT prophylaxis subcu Lovenox
[2022-08-29 21:46] LABS: Glucose,Whole Blood 171 mg/dL (70-110)
[2022-08-29] MEDS: INSULIN ASPART (NovoLOG) 100 UNIT/ML VIAL SQ SCH (22:22)
[2022-08-30 05:39] LABS: Glucose,Whole Blood 138 mg/dL (70-110)
[2022-08-30] MEDS: INSULIN ASPART (NovoLOG) 100 UNIT/ML VIAL SQ SCH ×2 (06:01→13:45)
[2022-08-30 07:26] VITALS: RESP 16; TEMP 98
[2022-08-30] MEDS ORDERED: INSULIN ASPART (NovoLOG) 100 UNIT/ML VIAL SQ SCH (07:30)
[2022-08-30] MEDS: amLODIPine 5 MG TAB PO SCH (08:42)
[2022-08-30] MEDS: cloNIDine HCL 0.1 MG TAB PO SCH (08:42)
[2022-08-30] MEDS: ATORVASTATIN 40 MG TAB PO SCH (08:43)
[2022-08-30] MEDS: ACETAMINOPHEN TAB 325 MG TAB PO PRN (08:43)
[2022-08-30] MEDS: ASPIRIN 81 MG PO SCH (08:43)
[2022-08-30] MEDS: carvediloL 6.25 MG TAB PO SCH (08:43)
[2022-08-30] MEDS: ENOXAPARIN 40 MG/0.4 ML SYRINGE SQ SCH (08:43)
[2022-08-30] MEDS: MAGNESIUM OXIDE 400 MG TAB PO SCH (08:44)
--- NOTE | 2022-08-30 10:36 | P.PN ---
Subjective Progress Note Date: 08/29/22 Patient was initially seen by Dr. Kraig Sharp. Please refer to his note for details. Patient is an 82-year-old female with episode of loss of consciousness with urinary incontinence. No previous history of seizure. EEG was normal. MRI is pending. Patient is laying comfortably in the bed. Offers no complaints. Denies headache, no dizziness. Patient states that she never had a seizure. MRI cannot be done because of the stent issue. Objective - Vital Signs Vital signs: Vital Signs Temp 98.0 F 08/29/22 14:00 Pulse 52 L 08/29/22 14:00 Resp 16 08/29/22 14:00 BP 118/59 08/29/22 14:00 Pulse Ox 98 08/29/22 14:00 FiO2 Intake & Output 08/29/22 08/29/22 08/30/22 06:59 18:59 06:59 Weight 77.111 kg Other: Voiding Method Incontinent External Catheter # Voids 2 3 - Exam Patient is alert and awake. No distress. Speech and language functions are grossly normal. Detailed testing deferred. Face is symmetric. Hearing is moderately decreased. Visual mercedes are full. Muscle strength appears normal. - Labs CBC & Chem 7: 08/27/22 07:32 08/28/22 03:49 Assessment and Plan Assessment: Episode of urinary incontinence with loss of consciousness: Rule out seizure vs syncope. Dr. Sharp felt less likely seizure but unknown exact description of event. Routine EEG is normal Likely Acute urinary tract infection Hypertensive urgency Acute kidney insufficiency Hyperkalemia and mild hypomagnesemia Diabetes mellitus History of coronary artery disease status post stents History of stroke Plan: A routine EEG: Is normal. Pending MRI of the brain. Not done today. If MRI safety regarding stents cannot be confirmed, then repeat CT head in the morning. If normal, then would clear. Discussed with patient's nurse. Continue neuro checks Placed on seizure precautions and seizure pads Patient hyperkalemia and hypo-magnesemia as well as kidney insufficiency will defer to nephrology team. We'll defer the rest of the medical management to primary team IF MRI Brain is normal then no further neurological work-up. Discussed with primary physician.
--- NOTE | 2022-08-30 13:00 | CT ---
EXAMINATION TYPE: CT brain wo con DATE OF EXAM: 08/30/2022 COMPARISON: 08/23/2022 HISTORY: Altered mental status. CT DLP: 1129.4 mGycm Automated exposure control for dose reduction was used. FINDINGS: There is no evidence of acute intracranial hemorrhage, acute ischemic changes, mass, mass-effect, or extra-axial fluid collection. There is no effacement of cerebral sulci or basal subarachnoid cisterns . There is mild moderate generalized degenerative change. confluent white matter hypodensities in both cerebral hemispheres. Suggestion of some cortical enceph alomalacia posterior left occipital lobe. Benign basal ganglionic calcifications. Atherosclerotic jesus cifications within the carotid siphons. Partially empty sella. There is no midline shift. Wu-white matter distinction is preserved. Orbits are symmetric. Calvarium intact. Craniocervical junction is maintained. Partially empty sella turcica. Punctate areas of low attenuation involving the bilateral basal ganglia most typical of remote infar ct. IMPRESSION: DEGENERATIVE AND NONSPECIFIC WHITE MATTER CHANGE MOST REMOTE ISCHEMIA.
--- NOTE | 2022-08-30 14:53 | P.DS ---
Providers Date of admission: 08/23/22 20:48 Expected date of discharge: 08/30/22 Attending physician: Alexandra Patel Consults: 08/23/22 21:12 Consult Physician Routine Consulting Provider: Kraig Sharp Consult Reason/Comments: Possible seizure Do you want consulting provider notified?: Yes 08/25/22 10:12 Consult Physician Routine Consulting Provider: Dotty Chapman Consult Reason/Comments: Acute kidney injury Do you want consulting provider notified?: Yes Primary care physician: Rosio Alamnzar Hospital Course: Discharge Diagnosis Possible witnessed seizure at [facility], I would see if there is any available records describing the episode at the [facility], neurology consultation requested Underlying history of hypertension Underlying history of hyperlipidemia Underlying history of diabetes mellitus Evidence of urinary tract infection Previous history of stroke twice in the past Underlying history of coronary artery disease with history of angioplasty and stent placement Underlying history of abdominal aortic aneurysm with stent placement at [facility] Acute kidney injury. Nephrology service is consulted Hospital course Glenis Nunn, is an 82-year-old female presented to [facility] emergency room after having a witnessed seizure at [facility]. Patient is not aware that she had a seizure she stated that she remembered the staff changing her in her bed and subsequently she remembers having the EMS staff taking her to the ambulance. She denies any previous history of seizure activity. She was evaluated in the emergency room vital examination on presentation revealed a temperature of 97.3 pulse 67 respiration 18 blood pressure 197/88 pulse ox 98% on room air Laboratory data revealed a white blood count of 5.5 hemoglobin 12.0 platelet count 97 sodium 136 potassium 5.7 chloride 105 CO2 18 BUN 13 and creatinine 1.56, urine analysis revealed evidence of urinary tract infection Testing in the emergency room revealed computed tomography scan of the brain done in the emergency room revealed moderate cerebral atrophy and chronic small vessel ischemia no acute intracranial abnormality Patient was admitted to medical floor for further evaluation and treatment, neurology consult was requested. Past medical history is significant for history of hypertension, history of hyperlipidemia, history of diabetes mellitus, history of abdominal aortic aneurysm with stent, history of coronary artery disease with previous history of myocardial infarction, history of strokes in the past. On review of systems at this time patient is alert and oriented 3 in no apparent distress she is complaining of nausea and had 1 episode of vomiting this morning, otherwise she denies any complaints there is no fever or chills no headache or dizziness no chest pain no cough, no abdominal pain no diarrhea no blood in the stools no burning with urination no frequency or urgency and no hematuria, she denies any weakness or numbness in any of her extremities she denies any change in her vision speech or gait. On 08/25/2022 patient is alert and oriented times x 3. MRI of the brain has been ordered. Patient remains on IV Rocephin. Patient noted to have elevated creatinine 2.03, bun 40 and potassium 5.7 at this time will consult nephrology services. Patient denies chest pain or shortness of breath. Patient denies nausea vomiting or diarrhea. Patient denies any urinary burning or frequency. On 08/26/2022 patient was seen and examined on the medical floor, she is alert and oriented 3 in no apparent distress there is no fever or chills no headache or dizziness no chest pain no shortness of breath no cough no nausea or vomiting no abdominal pain no diarrhea and no urinary symptoms. Kidney ultrasound reviewed no evidence of hydronephrosis, patient has known urinary tract infection and is maintained on IV ceftriaxone, at this time we are awaiting MRI of the brain, kidney function has improved since yesterday, BUN today 37.1 creatinine 1.8 potassium level is 4.6 will continue to follow closely. On 08/27/2022 patient was seen and examined on the medical floor she is alert and oriented 3 in no apparent distress, there is no fever or chills no headache or dizziness no chest pain no shortness of breath no cough no nausea or vomiting no abdominal pain no diarrhea and no urinary symptoms. Vital exam today reveals a temperature of 98.3 pulse 58 respiration 16 blood pressure 139/79 pulse ox 97% on room air, labs are still pending today kidney function is improving gradually, we are awaiting further recommendation from neurology. On 08/28/2022 patient was seen and examined on the medical floor she is alert and oriented in no distress, there is no fever or chills no headache or dizziness no chest pain no shortness of breath no cough no nausea or vomiting no abdominal pain no diarrhea and no urinary symptoms. Vital exam today reveals a temperature of 98.3 pulse 58 respiration 16 blood pressure 139/79 pulse ox 97% on room air, kidney function is back to normal, patient is scheduled for brain MRI today at 4:15 we are awaiting further recommendation from neurology after brain MRI. Possible discharge tomorrow. On 08/29/2022 patient was seen and examined on the medical floor she is alert and oriented in no distress there is no fever or chills no headache or dizziness no chest pain no shortness of breath no cough no nausea or vomiting no abdominal pain no diarrhea and no urinary symptoms. MRI was canceled yesterday we are awaiting for information from [facility] regarding her stent once information is available we can reschedule MRI otherwise continue with current medical management On 08/30/2022 patient is alert and oriented 3. Per neurology services MRI canceled in CT of head ordered. Per neurology services no need for antiseizure medication due to first occurrence of the shoulder and no evidence on workup including CT scans. Per nephrology and okay for d/c of antibiotic. Patient denies chest pain or shortness breath. Patient denies nausea vomiting or diarrhea. Patient denies any urinary burning or frequency Patient Condition at Discharge: Stable Plan - Discharge Summary New Discharge Prescriptions: New Atorvastatin [Lipitor] 40 mg PO DAILY tab INSULIN ASPART (NovoLOG) [NovoLOG (formulary)] 0 unit SQ ACHS each Continue Ipratropium-Albuterol Nebulize [Duoneb 0.5 mg-3 mg/3 ml Soln] 3 ml INHALATION RT-QID PRN PRN Reason: Shortness Of Breath amLODIPine [Norvasc] 5 mg PO DAILY@0800 Cholecalciferol [Vitamin D3 (25 Mcg = 1000 Iu)] 50 mcg PO HS Nitroglycerin Sl Tabs [Nitrostat] 0.4 mg SL Q5M PRN PRN Reason: Chest Pain Aspirin EC [Ecotrin Low Dose] 81 mg PO DAILY@0800 carvediloL [Coreg] 6.25 mg PO BID@0800,1600 Albuterol Inhaler [Ventolin Hfa Inhaler] 2 puff INHALATION RT-QID PRN PRN Reason: Shortness Of Breath Acetaminophen [Tylenol Arthritis] 650 mg PO Q6H PRN PRN Reason: Pain Or Fever > 100.5 cloNIDine HCL [Catapres] 0.3 mg PO TID@0800,1200,1800 Discontinued Empagliflozin [Jardiance] 10 mg PO DAILY metFORMIN HCL [Glucophage] 1,000 mg PO BID lisinopriL [Prinivil] 20 mg PO DAILY@0800 Discharge Medication List Albuterol Inhaler [Ventolin Hfa Inhaler] 2 puff INHALATION RT-QID PRN 04/09/22 [History] Aspirin EC [Ecotrin Low Dose] 81 mg PO DAILY@0800 04/09/22 [History] Ipratropium-Albuterol Nebulize [Duoneb 0.5 mg-3 mg/3 ml Soln] 3 ml INHALATION RT-QID PRN 04/09/22 [History] Nitroglycerin Sl Tabs [Nitrostat] 0.4 mg SL Q5M PRN 04/09/22 [History] carvediloL [Coreg] 6.25 mg PO BID@0800,1600 04/09/22 [History] Acetaminophen [Tylenol Arthritis] 650 mg PO Q6H PRN 08/23/22 [History] Cholecalciferol [Vitamin D3 (25 Mcg = 1000 Iu)] 50 mcg PO HS 08/23/22 [History] amLODIPine [Norvasc] 5 mg PO DAILY@0800 08/23/22 [History] cloNIDine HCL [Catapres] 0.3 mg PO TID@0800,1200,1800 08/23/22 [History] Atorvastatin [Lipitor] 40 mg PO DAILY tab 08/30/22 [Rx] INSULIN ASPART (NovoLOG) [NovoLOG (formulary)] 0 unit SQ ACHS each 08/30/22 [Rx] Follow up Appointment(s)/Referral(s): Rosio Almanzar MD [Primary Care Provider] - 1-2 days Kraig Sharp MD [STAFF PHYSICIAN] - 1-2 days Patient Instructions/Handouts: Urinary Tract Infection in Women (ED), New-Onset Seizure in Adults (ED) Activity/Diet/Wound Care/Special Instructions: You must have your potassium rechecked in 2 days to ensure that it is going back to the normal range. If there is any problem with having it rechecked return here. Discharge Disposition: TRANSFER TO SNF/ECF
[2022-08-30 15:43] VITALS: BP 134/62; PULSE 51
== END 2022-08-30 16:35 | DRG 100 ==
LOC: EC 15:24 → 4SSUR 20:48
PROVIDERS: ADMIT Internal Medicine; ATTEND Internal Medicine
PROC: 05HY33Z Insertion of Infusion Device into Upper Vein, Percutaneous Approach (ICD-10-PCS; principal; 2022-08-25 08:25)
DX: R56.9 Unspecified convulsions (principal); N17.0 Acute kidney failure with tubular necrosis; N39.0 Urinary tract infection, site not specified; E11.9 Type 2 diabetes mellitus without complications; E78.5 Hyperlipidemia, unspecified; E83.42 Hypomagnesemia; E87.5 Hyperkalemia; I10 Essential (primary) hypertension; I16.0 Hypertensive urgency; I25.10 Atherosclerotic heart disease of native coronary artery without angina pectoris; I25.2 Old myocardial infarction; J44.9 Chronic obstructive pulmonary disease, unspecified; R32 Unspecified urinary incontinence; I45.10 Unspecified right bundle-branch block; I69.392 Facial weakness following cerebral infarction; Z71.3 Dietary counseling and surveillance; Z28.311 Partially vaccinated for COVID-19; Z88.0 Allergy status to penicillin; Z88.2 Allergy status to sulfonamides; Z88.8 Allergy status to other drugs, medicaments and biological substances; Z95.828 Presence of other vascular implants and grafts; Z79.82 Long term (current) use of aspirin; Z79.84 Long term (current) use of oral hypoglycemic drugs; Z79.899 Other long term (current) drug therapy; Z86.79 Personal history of other diseases of the circulatory system; Z87.891 Personal history of nicotine dependence; Z95.5 Presence of coronary angioplasty implant and graft
CPT/HCPCS: 36410; 36415; 70450; 76770; 76937; 80048; 80053; 81001; 82550; 83036; 83735; 84132; 84443; 85025; 87086; 93005; 94760; 95816; 96361; 96365; 96372; 96375; 99285

== ENCOUNTER 2023-05-01 11:01 | Emergency (ER) | payer MEDICARE ==
[2023-05-01] MEDS ORDERED: SODIUM CHLORIDE 0.9% 1,000 ML IV STA (11:26)
--- NOTE | 2023-05-01 11:33 | ED ---
Syncope HPI - General Chief Complaint: Abdominal Pain Stated Complaint: syncope Time Seen by Provider: 05/01/23 11:08 Source: patient, EMS, RN notes reviewed Mode of arrival: EMS Limitations: no limitations - History of Present Illness Initial Comments: This is an 83-year-old female who presents to the emergency department for a syncopal episode. [place], when she subsequently lost consciousness, fell face forward, and hit her head on the edge of the shower. She did regain consciousness fairly quickly. There was no postictal period. There was also no tonic-clonic activity. This has happened to the patient in the past. Patient currently complaining of epigastric pain. Her daughter states that she was given 2 doses of laxatives a couple of days ago, despite having a bowel movement, and is worried about dehydration and problems with her potassium levels. Denies any fevers, chills, sore throat, cough, dyspnea, chest pain, palpitations, nausea, vomiting, diarrhea, back pain, or headaches. MD Complaint: loss of consciousness - Related Data Home Medications Medication Instructions Recorded Confirmed Albuterol Inhaler [Ventolin Hfa 2 puff INHALATION RT-QID PRN 04/09/22 05/01/23 Inhaler] Aspirin EC [Ecotrin Low Dose] 81 mg PO DAILY@0804/09/22 05/01/23 Ipratropium-Albuterol Nebulize 3 ml INHALATION RT-Q6H PRN 04/09/22 05/01/23 [Duoneb 0.5 mg-3 mg/3 ml Soln] Nitroglycerin Sl Tabs [Nitrostat] 0.4 mg SL Q5M PRN 04/09/22 05/01/23 carvediloL [Coreg] 6.25 mg PO BID@0800,1600 04/09/22 05/01/23 Acetaminophen [Tylenol Arthritis] 650 mg PO Q6H PRN 08/23/22 05/01/23 Cholecalciferol [Vitamin D3 (25 50 mcg PO DAILY@0800 08/23/22 05/01/23 Mcg = 1000 Iu)] Ascorbic Acid [Vitamin C] 1,000 mg PO DAILY@0805/01/23 05/01/23 Atorvastatin [Lipitor] 40 mg PO HS@199905/01/23 05/01/23 DULoxetine HCL [Cymbalta] 20 mg PO DAILY@0800 05/01/23 05/01/23 INSULIN ASPART (NovoLOG) [NovoLOG 12 unit SQ TID-W/MEALS@07,12,17 05/01/23 05/01/23 (formulary)] Insulin Glargine [Lantus Vial] 18 unit SQ HS@199905/01/23 05/01/23 Petrolatum, White [Aquaphor] 1 applic TOPICAL Q12H PRN 05/01/23 05/01/23 Sennosides/Docusate Sodium [Senna 1 cap PO BID@0800,1600 05/01/23 05/01/23 Plus 8.6-50 mg Softgel] amLODIPine [Norvasc] 2.5 mg PO DAILY@0800 05/01/23 05/01/23 cloNIDine HCL 0.2 mg PO TID@0700,1300,199905/01/23 05/01/23 metFORMIN HCL [Glucophage] 500 mg PO DAILY@0800 05/01/23 05/01/23 ondansetron HCL [Zofran] 8 mg PO Q6H PRN 05/01/23 05/01/23 polyethylene glycoL 3350 [Miralax] 17 gm PO DAILY@0800 05/01/23 05/01/23 Previous Rx's Medication Instructions Recorded Levofloxacin [Levaquin] 750 mg PO DAILY 5 Days #5 tab 05/01/23 Allergies Allergy/AdvReac Type Severity Reaction Status Date / Time Penicillins Allergy Anaphylaxis Verified 05/01/23 14:46 & hives Sulfa (Sulfonamide Allergy Anaphylaxis Verified 05/01/23 14:46 Antibiotics) & hives diazepam [From Valium] AdvReac Combative Verified 05/01/23 14:46 Review of Systems ROS Statement: Those systems with pertinent positive or pertinent negative responses have been documented in the HPI. ROS Other: All systems not noted in ROS Statement are negative. Past Medical History Past Medical History: COPD, CVA/TIA, Diabetes Mellitus, Hyperlipidemia, Hypertension, Myocardial Infarction ([place]) Additional Past Medical History / Comment(s): abdominal aortic aneurysm with stent, 2 heart attacks, 2 strokes - residual slight left eye droop per daughter Last Myocardial Infarction Date:: 2015 History of Any Multi-Drug Resistant Organisms: None Reported Past Surgical History: Appendectomy, Hysterectomy Additional Past Surgical History / Comment(s): stent to aorta at [facility], cardiac stent at [facility] for [place], R leg tendon surgery from fall, laminectomy. Past Anesthesia/Blood Transfusion Reactions: Previous Problems w/ Anesthesia Additional Past Anesthesia/Blood Transfusion Reaction / Comment(s): combative, previously restrained after sedation. Past Psychological History: No Psychological Hx Reported Smoking Status: Former smoker Past Alcohol Use History: None Reported Past Drug Use History: None Reported General Exam Limitations: no limitations General appearance: alert, in no apparent distress Head exam: Present: atraumatic, normocephalic, normal inspection Eye exam: Present: normal appearance, PERRL, EOMI. Absent: scleral icterus, con junctival injection, periorbital swelling Respiratory exam: Present: normal lung sounds bilaterally. Absent: respiratory distress, wheezes, rales, rhonchi, stridor Cardiovascular Exam: Present: regular rate, normal rhythm, normal heart sounds. Absent: systolic murmur, diastolic murmur, rubs, gallop, clicks GI/Abdominal exam: Present: soft, normal bowel sounds. Absent: distended, tenderness, guarding, rebound, rigid Neurological exam: Present: alert, oriented X3, CN II-XII intact Psychiatric exam: Present: normal affect, normal mood Skin exam: Present: warm, dry, intact, normal color. Absent: rash Course Vital Signs 05/01/23 05/01/23 05/01/23 11:09 12:00 13:00 Temperature 97.3 F L Pulse Rate 64 70 74 Respiratory 18 18 20 Rate Blood Pressure 120/72 121/50 143/57 O2 Sat by Pulse 96 97 98 Oximetry 05/01/23 05/01/23 05/01/23 14:00 15:00 16:00 Temperature 98.1 F Pulse Rate 81 76 74 Respiratory 20 18 20 Rate Blood Pressure 140/57 142/62 179/75 O2 Sat by Pulse 98 97 97 Oximetry Medical Decision Making - Medical Decision Making This is an 83-year-old female who presents to the emergency department for a syncopal episode. Was pt. sent in by a medical professional or institution? @ -No Did you speak to anyone other than the patient for history? @ -No Did you review nursing and triage notes? @ -Yes, and I agree, it is accurate with regards to the patient's symptoms. Were old charts reviewed? @ -No Differential Diagnosis? @ -Differential Syncope: Valvular disease, hypertrophic cardiomyopathy, pulmonary embolism, tamponade, tachycardia, bradycardia, [place], hypovolemia, hemorrhage, dissection, anemia, intracranial hemorrhage, seizure, hypoglycemia, carbon monoxide poisoning, this is not meant to be an all-inclusive list. EKG interpreted by me (3pts min.)? @ -EKG interpreted by me demonstrating the following: Sinus rhythm. Ventricular rate 60 beats per minute, HI interval 154 ms, QRS duration 119 ms, QTC 432 ms. X-rays interpreted by me (1pt min.)? @ -Chest x-ray obtained. My interpretation identifies a left upper lobe mass. CT interpreted by me (1pt min.)? @ -Computed tomography scan of the brain and c-spine obtained. My interpretation identifies no evidence of an acute intracranial hemorrhage, skull fracture, or cervical spine fracture. U/S interpreted by me (1pt. min.)? @ -Not obtained What testing was considered but not performed? (CT, X-rays, U/S, labs)? Why? @ -None What meds were considered but not given? Why? @ -None Did you discuss the management of the patient with other professionals? @ -No Did you reconcile home meds? @ -No Was smoking cessation discussed for >3mins.? @ -No Was critical care preformed (if so, how long)? @ -No Were there social determinants of health that impacted care today? How? (Homelessness, low income, unemployed, alcoholism, drug addiction, transportation, low edu. Level, literacy, decrease access to med. care, [facility], rehab)? @ -No Was there de-escalation of care discussed even if they declined? (Discuss DNR or withdrawal of care, Hospice)? @ -No What co-morbidities impacted this encounter? (DM, HTN, Smoking, COPD, CAD, Cancer, CVA, Hep., AIDS, mental health diagnosis, sleep apnea, morbid obesity)? @ -DM, HLD, HTN Was patient admitted / discharged? @ -Discharged. Lab work obtained with findings suggestive of dehydration. Kidney function is slightly decreased when compared with prior, however we do not have a comparison since August 2022 and her kidney function has been much worse in the past. 1L bolus of IV fluids was administered. Chest x-ray reveals a left upper lobe mass suspicious for malignancy. Computed tomography scan of the brain and C-spine reveal no acute process. Urinalysis does have a small amount of leukoesterase and white blood cells. Given that the patient does have a history of UTIs that can become severe fairly quickly, we'll start the patient on a course of antibiotics. She was given a dose of ceftriaxone in the emergency department. Given her possible history of anaphylaxis to penicillin, we'll start the patient on Levaquin for outpatient management of the UTI. While she has tolerated ceftriaxone in the past, I do not have record of her being on other cephalosporins, and I do not want to take the risk of causing a severe reaction. Advised to follow-up on the lung mass findings with her primary care provider. Patient did overall feel remarkably improved while in the emergency department and requested discharge home. Given that the syncopal episodes have happened in the past, and she is already well cared for at [facility], she did not feel the need to stay for further evaluation. Patient discharged back to [facility] via EMS in stable condition. Undiagnosed new problem with uncertain prognosis? @ -None Drug Therapy requiring intensive monitoring for toxicity (Heparin, Nitro, Insulin, Cardizem)? @ -None Were any procedures done? @ -None Diagnosis/symptom? @ -UTI, syncope, BRAIN Acute, or Chronic, or Acute on Chronic? @ -Acute Uncomplicated (without systemic symptoms) or Complicated (systemic symptoms)? @ -Uncomplicated Side effects of treatment? @ -None Exacerbation, Progression, or Severe Exacerbation] @ -Not applicable Poses a threat to life or bodily function? @ -No Return precautions reviewed in depth, the patient is instructed to return to the emergency department with any new, worsening, or concerning symptoms. Patient verbalized understanding. This case was discussed in detail with the attending ED physician, Dr. Lowe. Presentation, findings, and treatment plan discussed in detail as well. - Lab Data Result diagrams: 05/01/23 11:42 05/01/23 11:42 Lab Results 05/01/23 05/01/23 05/01/23 Range/Units 11:42 11:42 11:42 WBC 9.0 (3.8-10.6) k/uL RBC 3.68 L (3.80-5.40) m/uL Hgb 11.7 (11.4-16.0) gm/dL Hct 34.1 (34.0-46.0) % MCV 92.7 (80.0-100.0) fL MCH 31.9 (25.0-35.0) pg MCHC 34.3 (31.0-37.0) g/dL RDW 14.6 (11.5-15.5) % Plt Count 144 L (150-450) k/uL MPV 9.5 Neutrophils % 67 % Lymphocytes % 17 % Monocytes % 12 % Eosinophils % 1 % Basophils % 1 % Neutrophils # 6.0 (1.3-7.7) k/uL Lymphocytes # 1.6 (1.0-4.8) k/uL Monocytes # 1.1 H (0-1.0) k/uL Eosinophils # 0.1 (0-0.7) k/uL Basophils # 0.0 (0-0.2) k/uL PT 10.9 (9.0-12.0) sec INR 1.0 (<1.2) APTT 20.5 L (22.0-30.0) sec Sodium (137-145) mmol/L Potassium (3.5-5.1) mmol/L Chloride (98-107) mmol/L Carbon Dioxide (22-30) mmol/L Anion Gap mmol/L BUN (7-17) mg/dL Creatinine (0.52-1.04) mg/dL Est GFR (CKD-EPI)AfAm (>60 ml/min/1.73 sqM) Est GFR (CKD-EPI)NonAf (>60 ml/min/1.73 sqM) Glucose (74-99) mg/dL Calcium (8.4-10.2) mg/dL Total Bilirubin (0.2-1.3) mg/dL AST (14-36) U/L ALT (4-34) U/L Alkaline Phosphatase (38-126) U/L Troponin I (0.000-0.034) ng/mL Total Protein (6.3-8.2) g/dL Albumin (3.5-5.0) g/dL Urine Color Yellow Urine Appearance Clear (Clear) Urine pH 6.0 (5.0-8.0) Ur Specific [place] 1.015 (1.001-1.035) Urine Protein 2+ H (Negative) Urine Glucose (UA) Negative (Negative) Urine Ketones Negative (Negative) Urine Blood Negative (Negative) Urine Nitrite Negative (Negative) Urine Bilirubin Negative (Negative) Urine Urobilinogen <2.0 (<2.0) mg/dL Ur Leukocyte Esterase Small H (Negative) Urine RBC 1 (0-5) /hpf Urine WBC 12 H (0-5) /hpf Ur Squamous Epith Cells 1 (0-4) /hpf Urine Bacteria Rare H (None) /hpf Granular Casts 3 (0) /lpf Urine Mucus Rare H (None) /hpf 05/01/23 05/01/23 Range/Units 11:42 11:42 WBC (3.8-10.6) k/uL RBC (3.80-5.40) m/uL Hgb (11.4-16.0) gm/dL Hct (34.0-46.0) % MCV (80.0-100.0) fL MCH (25.0-35.0) pg MCHC (31.0-37.0) g/dL RDW (11.5-15.5) % Plt Count (150-450) k/uL MPV Neutrophils % % Lymphocytes % % Monocytes % % Eosinophils % % Basophils % % Neutrophils # (1.3-7.7) k/uL Lymphocytes # (1.0-4.8) k/uL Monocytes # (0-1.0) k/uL Eosinophils # (0-0.7) k/uL Basophils # (0-0.2) k/uL PT (9.0-12.0) sec INR (<1.2) APTT (22.0-30.0) sec Sodium 137 (137-145) mmol/L Potassium 5.2 H (3.5-5.1) mmol/L Chloride 103 (98-107) mmol/L Carbon Dioxide 22 (22-30) mmol/L Anion Gap 12 mmol/L BUN 22 H (7-17) mg/dL Creatinine 1.33 H (0.52-1.04) mg/dL Est GFR (CKD-EPI)AfAm 43 (>60 ml/min/1.73 sqM) Est GFR (CKD-EPI)NonAf 37 (>60 ml/min/1.73 sqM) Glucose 183 H (74-99) mg/dL Calcium 9.2 (8.4-10.2) mg/dL Total Bilirubin 0.6 (0.2-1.3) mg/dL AST 26 (14-36) U/L ALT 18 (4-34) U/L Alkaline Phosphatase 87 (38-126) U/L Troponin I 0.022 (0.000-0.034) ng/mL Total Protein 7.6 (6.3-8.2) g/dL Albumin 4.1 (3.5-5.0) g/dL Urine Color Urine Appearance (Clear) Urine pH (5.0-8.0) Ur Specific [place] (1.001-1.035) Urine Protein (Negative) Urine Glucose (UA) (Negative) Urine Ketones (Negative) Urine Blood (Negative) Urine Nitrite (Negative) Urine Bilirubin (Negative) Urine Urobilinogen (<2.0) mg/dL Ur Leukocyte Esterase (Negative) Urine RBC (0-5) /hpf Urine WBC (0-5) /hpf Ur Squamous Epith Cells (0-4) /hpf Urine Bacteria (None) /hpf Granular Casts (0) /lpf Urine Mucus (None) /hpf - Radiology Data Radiology results: report reviewed, image reviewed Disposition Clinical Impression: UTI (urinary tract infection), Syncope, BRAIN (acute kidney injury) Disposition: HOME SELF-CARE Instructions (If sedation given, give patient instructions): Urinary Tract Infection in Women (ED) Additional Instructions: Return to the emergency department with any new, worsening, or concerning symptoms. Take the antibiotic as prescribed for 5 days, with your first dose beginning tomorrow, as you received a dose of antibiotics in the emergency department today. Follow up with your primary care provider regarding the mass that was found in your lung. Follow up with your primary care provider in 1-2 days. Prescriptions: Levofloxacin [Levaquin] 750 mg PO DAILY 5 Days #5 tab Is patient prescribed a controlled substance at d/c from ED?: No Referrals: None,Stated [REFERRING] - 1-2 days
[2023-05-01 12:07] LABS: Basophils % (A) 1 %; Eosinophils # (A) 0.1 k/uL (0-0.7); Eosinophils % (A) 1 %; HCT 34.1 % (34.0-46.0); HGB 11.7 gm/dL (11.4-16.0); Lymphocytes # (A) 1.6 k/uL (1.0-4.8); Lymphocytes % (A) 17 %; MCH 31.9 pg (25.0-35.0); MCHC 34.3 g/dL (31.0-37.0); MCV 92.7 fL (80.0-100.0); Mean Platelet Volume 9.5; Monocytes # (A) 1.1 k/uL (0-1.0); Monocytes % (A) 12 %; Neutrophils % (A) 67 %; Platelet Count 144 k/uL (150-450); RBC 3.68 m/uL (3.80-5.40); RDW 14.6 % (11.5-15.5)
--- NOTE | 2023-05-01 12:21 | XR ---
EXAMINATION TYPE: XR chest 2V DATE OF EXAM: 05/01/2023 COMPARISON: 04/09/2022 TECHNIQUE: PA and lateral views submitted. HISTORY: Syncope FINDINGS: The lungs are clear and there is no pneumothorax, pleural effusion, or focal pneumonia. Heart size normal and no overt failure. Osseous structures demonstrate hypertrophic and degenerative changes of the spine. Biapical pleural thickening. There is a large mass in the left upper lobe measuring 3.5 cm atherosclerotic changes aorta. Bilatera l shoulder arthropathy. Emphysematous changes noted. Surgical clips in the abdomen. Vascular calcific ations in the axilla. IMPRESSION: 1. Large 3.5 cm left upper lobe mass suspicious for malignancy.
[2023-05-01 12:23] LABS: Prothrombin Time 10.9 sec (9.0-12.0)
[2023-05-01 12:26] LABS: Partial Thromboplastin Time 20.5 sec (22.0-30.0)
[2023-05-01 12:29] LABS: ALT 18 U/L (4-34); African American GFR (CKD) 43 (>60 ml/min/1.73 sqM); Albumin 4.1 g/dL (3.5-5.0); Anion Gap 12 mmol/L; Blood Urea Nitrogen 22 mg/dL (7-17); Calcium 9.2 mg/dL (8.4-10.2); Carbon Dioxide 22 mmol/L (22-30); Chloride 103 mmol/L (98-107); Glucose 183 mg/dL (74-99); Non-African American GFR(CKD) 37 (>60 ml/min/1.73 sqM); Sodium 137 mmol/L (137-145); Total Bilirubin 0.6 mg/dL (0.2-1.3); Total Protein 7.6 g/dL (6.3-8.2)
[2023-05-01 12:33] LABS: AST 26 U/L (14-36); Alkaline Phosphatase 87 U/L (38-126); Potassium 5.2 mmol/L (3.5-5.1)
--- NOTE | 2023-05-01 12:34 | CT ---
EXAMINATION TYPE: CT brain cspine wo con CT DLP: 1519.3 mGycm, Automated exposure control for dose reduction was used. DATE OF EXAM: 05/01/2023 12:16 PM COMPARISON: 03/27/2021 CT. 08/30/2022. CLINICAL INDICATION:Female, 83 years old with history of Syncope, head injury; Syncope with head inju ry. TECHNIQUE: Brain: Multiple axial CT images of the brain were obtained without IV contrast. Cspine: Axial CT images from the skull base to the inferior aspect of T2 we obtained without intraven ous contrast. Coronal and sagittal reformatted images were also reviewed. FINDINGS: Brain: Extra-axial spaces: No abnormal extra-axial fluid collections. Ventricular system: Dilatation in proportion to cerebral atrophy. Cerebral parenchyma: Cerebral atrophy. No acute intraparenchymal hemorrhage or mass effect. The dietrich -white junction is well differentiated. Scattered hypoattenuating areas are seen within the white mat ter. Cerebellum: Unremarkable. Mass effect: No evidence of midline shift. Intracranial vasculature: Atherosclerotic calcifications of the intracranial vessels. Soft tissues: Normal. Calvarium/osseous structures: No depressed skull fracture. Paranasal sinuses and mastoid air cells: Clear. Visualized orbits: Bilateral aphakia Cervical spine: Fracture: None. Osseous structures: Multilevel degenerative disc disease changes with endplate spurring and disc oste ophyte complex's. Vertebral alignment: Reversal of the normal alignment. Spinal canal/Neural Foramina: Disc osteophyte complexes at C3 C4-C7. With at least mild spinal canal stenosis. No evidence for significant neural foraminal stenosis. Neck soft tissues: Prevertebral soft tissues are within normal limits. Other: The airway is patent. Atherosclerosis of the carotid bifurcations. Left upper lung masslike ar ea measuring at least 35 x 27 x 19 mm. Thyroid nodules are seen bilaterally. IMPRESSION: 1. No acute intracranial process. 2. Nonspecific white matter changes, likely secondary to chronic small vessel ischemic disease. 3. No evidence of cervical spine fracture. 4. Moderate to severe multilevel degenerative disc disease. 5. Masslike area in the left upper lung partially visualized. There was an abnormality in this regio n on 03/27/2021 CT. Further evaluation with nonemergent CT chest with IV contrast is recommended.
[2023-05-01 15:23] LABS: Appearance,Urine Clear (Clear); Bacteria,Urine Rare /hpf; Bilirubin,Urine Negative (Negative); Blood,Urine Negative (Negative); Color,Urine Yellow; Glucose,Urine (UA) Negative (Negative); Granular Casts,Urine 3 /lpf (0); Ketones,Urine Negative (Negative); Leukocyte Esterase,Urine Small (Negative); Mucus,Urine Rare /hpf; Nitrite,Urine Negative (Negative); Protein,Urine 2+ (Negative); RBC,Urine 1 /hpf (0-5); Specific Gravity,Urine 1.015 (1.001-1.035); Squamous Epithelial Cell,Urine 1 /hpf (0-4); Urobilinogen,Urine <2.0 mg/dL (<2.0); WBC,Urine 12 /hpf (0-5)
[2023-05-01] MEDS ORDERED: cefTRIAXone IN SWFI 1,000 MG/10 ML SYRINGE IVP STA (15:47)
[2023-05-01 16:34] VITALS: BP 179/75; PULSE 74; RESP 20; TEMP 98.1
[2023-05-01] MEDS ORDERED: diphenhydrAMINE 50 MG/ML 1 ML VIAL IVP STA (16:55)
[2023-05-01] MEDS ORDERED: ONDANSETRON 4 MG/2 ML VIAL IVP STA (16:56)
== END 2023-05-01 19:04 | disposition home or self-care (01) ==
LOC: EC 11:01
DX: N17.9 Acute kidney failure, unspecified (principal); N39.0 Urinary tract infection, site not specified; R55 Syncope and collapse; R91.8 Other nonspecific abnormal finding of lung field; E11.9 Type 2 diabetes mellitus without complications; I10 Essential (primary) hypertension; J44.9 Chronic obstructive pulmonary disease, unspecified; E78.5 Hyperlipidemia, unspecified; I25.2 Old myocardial infarction; Z95.5 Presence of coronary angioplasty implant and graft; Z79.84 Long term (current) use of oral hypoglycemic drugs; Z79.4 Long term (current) use of insulin; Z79.82 Long term (current) use of aspirin; Z79.899 Other long term (current) drug therapy; Z88.0 Allergy status to penicillin; Z88.2 Allergy status to sulfonamides; Z88.8 Allergy status to other drugs, medicaments and biological substances; Z87.891 Personal history of nicotine dependence; Z86.73 Personal history of transient ischemic attack (TIA), and cerebral infarction without residual deficits; Z90.49 Acquired absence of other specified parts of digestive tract
CPT/HCPCS: 99285; 96374; 96375 ×2; 96361; 36415; 93005; 80053; 84484; 85025; 85610; 85730; 81001; 71046; 72125; 70450; J1200; J2405; J0696; 96372; 99284

== ENCOUNTER → 2023-07-12 | Outpatient (CLI) | payer MEDICARE ==
--- NOTE | 2023-07-16 16:04 | PE ---
EXAMINATION TYPE: PET CT fusion skull to thigh DATE OF EXAM: 07/12/2023 COMPARISON: Chest x-ray 05/01/2023 Prior PET/CT: None HISTORY: Left upper lobe mass TECHNIQUE: Following the intravenous administration of 10.54 mCi of F-18 FDG, whole body images are performed from the skull base to the midthigh. Images are reviewed on the computer in the coronal, a xial, and sagittal planes. Reconstructed rotating images are created on independent workstation and reviewed on the computer. A localization and attenuation correction CT is performed in conjunction with the PET scan. DLP: 701.03 mGycm SCAN: Initial Blood glucose: 155 mg/dL Average Mediastinum SUV: 2.73 Average Liver SUV: 3.6 FINDINGS: NECK: No abnormal THORAX: There is intense activity within the left upper lobe mass with an SUV of 12 .51. Small focus of radiotracer accumulation may be within the right hilar region, image 73, SUV 3.92. Sma ll paraesophageal lymph node may be present posterior to the stephani, image 73, SUV 4.17. ABDOMEN: No abnormal uptake Liver is somewhat heterogenous which could make small metastasis difficul t to identify. PELVIS: Perirectal uptake is present. This has intense uptake measuring 8.02, example image 212. Dire ct visualization is recommended. OSSEOUS STRUCTURES: No abnormal uptake LOCALIZATION CT: Suspicious changes not apparent. COMPARISON: None IMPRESSION: 1. Intense uptake within the left lung mass. Findings are compatible with neoplasm. Primary or metast atic disease should be considered. 2. There is some intense uptake within the perirectal region. Direct visualization recommended. Inter nal rectal neoplasm should be considered within the differential. 3. Couple of punctate more intermediate areas of uptake within the mediastinum. No definite correspon ding lymphadenopathy. Early metastasis however should be considered potentially within the differenti al.
== END | disposition home or self-care (01) ==
LOC: RADPETMAIN 13:36
PROVIDERS: ATTEND Internal Medicine
DX: R91.8 Other nonspecific abnormal finding of lung field (principal); K62.89 Other specified diseases of anus and rectum
CPT/HCPCS: 78815; A9552

== ENCOUNTER 2023-08-30 19:15 | Observation (INO) | payer MEDICARE ==
[2023-08-30] MEDS ORDERED: NITROGLYCERIN OINT 1 INCH/GM PACKET TOPICAL STA (19:27)
--- NOTE | 2023-08-30 19:37 | ED ---
General Adult HPI - General Source: patient, RN notes reviewed, old records reviewed <Filemon Eng - Last Filed: 08/30/23 20:50> <Morelia Brewerah Juan Diego - Last Filed: 08/31/23 06:23> - General Stated complaint: Chest Pain Time Seen by Provider: 08/30/23 19:15 - History of Present Illness Initial comments: This is an 83-year-old female who [facility] According to the daughter who gives all the history patient has a history of lung cancer to the left long. They diagnosed a couple months ago and she is scheduled for radiation. According to the staff at the [facility] patient has been complaining of chest pain for 4 days and today right after breakfast the pa nidhi began to have chest pain in the left side. Patient was given nitroglycerin shortly thereafter she passed out was put back to bed. EMS was called when EMS arrived patient was no longer unresponsive she is alert and oriented 4. Patient states nitroglycerin did take her pain away she no longer has any pain. Patient denies any associated symptoms with the pain today. Patient currently has no complaints. Patient denies any recent fever chills or cough. (Filemon Eng) - Related Data Home Medications Medication Instructions Recorded Confirmed Albuterol Inhaler [Ventolin Hfa 2 puff INHALATION RT-QID PRN 04/09/22 08/30/23 Inhaler] Aspirin EC [Ecotrin Low Dose] 81 mg PO DAILY@0800 04/09/22 08/30/23 Ipratropium-Albuterol Nebulize 3 ml INHALATION RT-Q6H PRN 04/09/22 08/30/23 [Duoneb 0.5 mg-3 mg/3 ml Soln] Nitroglycerin Sl Tabs [Nitrostat] 0.4 mg SL Q5M PRN 04/09/22 08/30/23 carvediloL [Coreg] 6.25 mg PO BID@0800,1600 04/09/22 08/30/23 Acetaminophen [Tylenol Arthritis] 650 mg PO Q6H PRN 08/23/22 08/30/23 Cholecalciferol [Vitamin D3 (25 50 mcg PO DAILY@0800 08/23/22 08/30/23 Mcg = 1000 Iu)] Atorvastatin [Lipitor] 40 mg PO HS@199905/01/23 08/30/23 DULoxetine HCL [Cymbalta] 20 mg PO DAILY@0805/01/23 08/30/23 INSULIN ASPART (NovoLOG) [NovoLOG 6 unit SQ TID-W/MEALS@08,,05/01/2308/17 (formulary)] Insulin Glargine [Lantus Vial] 8 unit SQ DAILY@0700 05/01/23 08/30/23 Petrolatum, White [Aquaphor] 1 applic TOPICAL Q12H PRN 05/01/23 08/30/23 Sennosides/Docusate Sodium [Senna 1 cap PO BID@0800,1600 05/01/23 08/30/23 Plus 8.6-50 mg Softgel] amLODIPine [Norvasc] 2.5 mg PO DAILY@0800 05/01/23 08/30/23 cloNIDine HCL 0.2 mg PO TID 05/01/23 08/30/23 metFORMIN HCL [Glucophage] 500 mg PO W/SUPPER 05/01/23 08/30/23 ondansetron HCL [Zofran] 8 mg PO Q6H PRN 05/01/23 08/30/23 Allergies Allergy/AdvReac Type Severity Reaction Status Date / Time Penicillins Allergy Anaphylaxis Verified 08/30/23 20:17 & hives Sulfa (Sulfonamide Allergy Anaphylaxis Verified 08/30/23 20:17 Antibiotics) & hives diazepam [From Valium] AdvReac Combative Verified 08/30/23 20:17 Review of Systems ROS Other: All systems not noted in ROS Statement are negative. <Filemon Eng - Last Filed: 08/30/23 20:50> ROS Other: All systems not noted in ROS Statement are negative. <Negra Brewer - Last Filed: 08/31/23 06:23> ROS Statement: Those systems with pertinent positive or pertinent negative responses have been documented in the HPI. Past Medical History Past Medical History: COPD, CVA/TIA, Diabetes Mellitus, Hyperlipidemia, Hypertension, Myocardial Infarction (MA) Additional Past Medical History / Comment(s): abdominal aortic aneurysm with s tent, 2 heart attacks, 2 strokes - residual slight left eye droop per daughter Last Myocardial Infarction Date:: 2016 History of Any Multi-Drug Resistant Organisms: None Reported Past Surgical History: Appendectomy, Hysterectomy Additional Past Surgical History / Comment(s): stent to aorta at [facility], cardiac stent at [facility] for MA, R leg tendon surgery from fall, laminectomy. Past Anesthesia/Blood Transfusion Reactions: Previous Problems w/ Anesthesia Additional Past Anesthesia/Blood Transfusion Reaction / Comment(s): combative, previously restrained after sedation. Past Psychological History: No Psychological Hx Reported Smoking Status: Former smoker Past Alcohol Use History: None Reported Past Drug Use History: None Reported <Filemon Eng - Last Filed: 08/30/23 20:50> General Exam <Filemon Eng - Last Filed: 08/30/23 20:50> - General Exam Comments Initial Comments: GENERAL: Patient is well-developed and well-nourished. Patient is nontoxic and well- hydrated and is in no acute distress. ENT: Neck is soft and supple. No significant lymphadenopathy is noted. Oropharynx is clear. Moist mucous membranes. Neck has full range of motion without eliciting any pain. EYES: The sclera were anicteric and conjunctiva were pink and moist. Extraocular movements were intact and pupils were equal round and reactive to light. Eyelids were unremarkable. PULMONARY: Unlabored respirations. Good breath sounds bilaterally. No audible rales rhonchi or wheezing was noted. CARDIOVASCULAR: There is a regular rate and rhythm without any murmurs gallops or rubs. ABDOMEN: Soft and nontender with normal bowel sounds. SKIN: Skin is clear with no lesions or rashes and otherwise unremarkable. NEUROLOGIC: Patient is alert and oriented x3. Cranial nerves II through XII are grossly intact. Motor and sensory are also intact. Normal speech, volume and content. Symmetrical smile. MUSCULOSKELETAL: Normal extremities with adequate strength and full range of motion. No lower extremity swelling or edema. No calf tenderness. LYMPHATICS: No significant lymphadenopathy is noted PSYCHIATRIC: Normal psychiatric evaluation. (Filemon Eng) Course Vital Signs 08/30/23 08/30/23 08/30/23 19:30 19:48 19:53 Temperature 98.6 F 98.6 F Pulse Rate 57 L 57 L 57 L Respiratory 12 18 18 Rate Blood Pressure 173/60 173/60 O2 Sat by Pulse 100 99 99 Oximetry 08/30/23 08/30/23 08/31/23 20:00 21:00 00:00 Temperature Pulse Rate 60 60 67 Respiratory 18 18 18 Rate Blood Pressure 173/60 172/62 157/66 O2 Sat by Pulse 98 99 97 Oximetry 08/31/23 08/31/23 02:00 04:00 Temperature Pulse Rate 60 60 Respiratory 18 18 Rate Blood Pressure 117/46 144/93 O2 Sat by Pulse 98 98 Oximetry Medical Decision Making <Filemon Eng - Last Filed: 08/30/23 20:50> - Lab Data Result diagrams: 08/31/23 04:33 08/31/23 04:33 <Negra Brewer - Last Filed: 08/31/23 06:23> - Medical Decision Making EKG is interpreted by myself. EKG shows a sinus bradycardia 56 bpm MD interval 269 QRSs 123 QT interval 420 QTC is 422 per patient's EKG shows no ST segment elevation or depression. Was pt. sent in by a medical professional or institution (, PA, SHIP CE[facility]ER, urgent care, hospital, or [facility]...) When possible be specific @ -Patient was sent in from the [facility] Did you speak to anyone other than the patient for history (EMS, parent, family, police, friend...)? What history was obtained from this source @ -Spoke with the patient as well as daughter further history EMS also gave us the history from the [facility] perspective Did you review nursing and triage notes (agree or disagree)? Why? @ -I reviewed and agree with nursing and triage notes Were old charts reviewed (outside hosp., previous admission, EMS record, old EKG, old radiological studies, urgent care reports/EKG's, [facility] records)? Report findings @ -I reviewed the charts that came with the patient from the patient as well as prior lab work and charts in the emergency department. Differential Diagnosis (chest pain, altered mental status, abdominal pain women, abdominal pain men, vaginal bleeding, weakness, fever, dyspnea, syncope, headache, dizziness, GI bleed, back pain, seizure, CVA, palpatations, mental health, musculoskeletal)? @ -Differential Chest Pain: Stable Angina, Unstable Angina, STEMI, NSTEMI Aortic Dissection, Pneumothorax, Musculoskeletal, Esophageal Spasm GERD, Cholecystitis, Pancreatitis, Zoster, this is not meant to be an all-inclusive list. EKG interpreted by me (3pts min.). @ -As above X-rays interpreted by me (1pt min.). @ -None done CT interpreted by me (1pt min.). @ -None done U/S interpreted by me (1pt. min.). @ -None done What testing was considered but not performed or refused? (CT, X-rays, U/S, labs)? Why? @ -None What meds were considered but not given or refused? Why? @ -None Did you discuss the management of the patient with other professionals (professionals i.e. , PA, SHIP CEILER, lab, RT, psych nurse, marriage and family social worker, compliance professional, teacher, infantry weapons officer, caseworker)? Give summary @ -No Was smoking cessation discussed for >3mins.? @ -No Was critical care preformed (if so, how long)? @ -No Were there social determinants of health that impacted care today? How? ( Homelessness, low income, unemployed, alcoholism, drug addiction, transportation, low edu. Level, literacy, decrease access to med. care, half-way, rehab)? @ -No Was there de-escalation of care discussed even if they declined (Discuss DNR or withdrawal of care, Hospice)? DNR status @ -No What co-morbidities impacted this encounter? (DM, HTN, Smoking, COPD, CAD, Cancer, CVA, ARF, Chemo, Hep., AIDS, mental health diagnosis, sleep apnea, morbid obesity)? @ -None Was patient admitted / discharged? Hospital course, mention meds given and route, prescriptions, significant lab abnormalities, going to OR and other pertinent info. @ -Dr. Brewer will take over the care of this patient at 9 PM (Filemon Eng) Was patient admitted / discharged? Hospital course, mention meds given and route, prescriptions, significant lab abnormalities, going to OR and other pertinent info. @ -Patient signed out to me pending laboratory studies and imaging. Troponin is negative. Chest x-ray demonstrates left upper lung mass. Results are discussed the patient. Did recommend admission in order to trend her troponins and keep her on a lead applier. Patient was agreeable to this. Spoke with Roxi from [facility] for admission Undiagnosed new problem with uncertain prognosis? @ -Yes Drug Therapy requiring intensive monitoring for toxicity (Heparin, Nitro, Insulin, Cardizem)? @ -No Were any procedures done? @ -No Diagnosis/symptom? @ -Acute chest pain, acute syncope Acute, or Chronic, or Acute on Chronic? @ -Acute Uncomplicated (without systemic symptoms) or Complicated (systemic symptoms)? @ -Complicated Side effects of treatment? @ -No Exacerbation, Progression, or Severe Exacerbation? @ -No Poses a threat to life or bodily function? How? (Chest pain, USA, MA, pneumonia, PE, COPD, DKA, ARF, appy, cholecystitis, CVA, Diverticulitis, Homicidal, Suicidal, threat to staff... and all critical care pts) @ -yes, patient's symptoms represent possible cardiac event (Negra Brewer) - Lab Data Lab Results 08/30/23 08/30/23 08/30/23 Range/Units 19:59 19:59 19:59 WBC 9.4 (3.8-10.6) k/uL RBC 3.45 L (3.80-5.40) m/uL Hgb 10.9 L (11.4-16.0) gm/dL Hct 32.2 L (34.0-46.0) % MCV 93.4 (80.0-100.0) fL MCH 31.5 (25.0-35.0) pg MCHC 33.8 (31.0-37.0) g/dL RDW 14.0 (11.5-15.5) % Plt Count 152 (150-450) k/uL MPV 9.9 Neutrophils % 66 % Lymphocytes % 20 % Monocytes % 10 % Eosinophils % 1 % Basophils % 0 % Neutrophils # 6.2 (1.3-7.7) k/uL Lymphocytes # 1.9 (1.0-4.8) k/uL Monocytes # 0.9 (0-1.0) k/uL Eosinophils # 0.1 (0-0.7) k/uL Basophils # 0.0 (0-0.2) k/uL PT 10.8 (10.0-12.5) sec INR 1.0 (<1.2) APTT 20.6 L (22.0-30.0) sec Sodium 138 (137-145) mmol/L Potassium 5.1 (3.5-5.1) mmol/L Chloride 100 (98-107) mmol/L Carbon Dioxide 25 (22-30) mmol/L Anion Gap 13 mmol/L BUN 24 H (7-17) mg/dL Creatinine 1.00 (0.52-1.04) mg/dL Est GFR (CKD-EPI)AfAm 61 (>60 ml/min/1.73 sqM) Est GFR (CKD-EPI)NonAf 53 (>60 ml/min/1.73 sqM) Glucose 168 H (74-99) mg/dL Calcium 9.6 (8.4-10.2) mg/dL Magnesium 1.8 (1.6-2.3) mg/dL Total Bilirubin 0.5 (0.2-1.3) mg/dL AST 18 (14-36) U/L ALT 15 (4-34) U/L Alkaline Phosphatase 94 (38-126) U/L Troponin I (0.000-0.034) ng/mL Total Protein 7.6 (6.3-8.2) g/dL Albumin 4.1 (3.5-5.0) g/dL 08/30/23 Range/Units 19:59 WBC (3.8-10.6) k/uL RBC (3.80-5.40) m/uL Hgb (11.4-16.0) gm/dL Hct (34.0-46.0) % MCV (80.0-100.0) fL MCH (25.0-35.0) pg MCHC (31.0-37.0) g/dL RDW (11.5-15.5) % Plt Count (150-450) k/uL MPV Neutrophils % % Lymphocytes % % Monocytes % % Eosinophils % % Basophils % % Neutrophils # (1.3-7.7) k/uL Lymphocytes # (1.0-4.8) k/uL Monocytes # (0-1.0) k/uL Eosinophils # (0-0.7) k/uL Basophils # (0-0.2) k/uL PT (10.0-12.5) sec INR (<1.2) APTT (22.0-30.0) sec Sodium (137-145) mmol/L Potassium (3.5-5.1) mmol/L Chloride (98-107) mmol/L Carbon Dioxide (22-30) mmol/L Anion Gap mmol/L BUN (7-17) mg/dL Creatinine (0.52-1.04) mg/dL Est GFR (CKD-EPI)AfAm (>60 ml/min/1.73 sqM) Est GFR (CKD-EPI)NonAf (>60 ml/min/1.73 sqM) Glucose (74-99) mg/dL Calcium (8.4-10.2) mg/dL Magnesium (1.6-2.3) mg/dL Total Bilirubin (0.2-1.3) mg/dL AST (14-36) U/L ALT (4-34) U/L Alkaline Phosphatase (38-126) U/L Troponin I <0.012 (0.000-0.034) ng/mL Total Protein (6.3-8.2) g/dL Albumin (3.5-5.0) g/dL Disposition <Filemon Eng - Last Filed: 08/30/23 20:50> Is patient prescribed a controlled substance at d/c from ED?: No Time of Disposition: 22:20 Decision to Admit Reason: Admit from EC Decision Date: 08/30/23 Decision Time: 22:20 <Negra Brewer - Last Filed: 08/31/23 06:23> Clinical Impression: Chest pain, Syncope Disposition: ADMITTED IP TO THIS [facility] Condition: Stable
[2023-08-30 21:24] LABS: ALT 15 U/L (4-34); AST 18 U/L (14-36); African American GFR (CKD) 61 (>60 ml/min/1.73 sqM); Albumin 4.1 g/dL (3.5-5.0); Alkaline Phosphatase 94 U/L (38-126); Anion Gap 13 mmol/L; Basophils % (A) 0 %; Blood Urea Nitrogen 24 mg/dL (7-17); Calcium 9.6 mg/dL (8.4-10.2); Carbon Dioxide 25 mmol/L (22-30); Chloride 100 mmol/L (98-107); Eosinophils # (A) 0.1 k/uL (0-0.7); Eosinophils % (A) 1 %; Glucose 168 mg/dL (74-99); HCT 32.2 % (34.0-46.0); HGB 10.9 gm/dL (11.4-16.0); Lymphocytes # (A) 1.9 k/uL (1.0-4.8); Lymphocytes % (A) 20 %; MCH 31.5 pg (25.0-35.0); MCHC 33.8 g/dL (31.0-37.0); MCV 93.4 fL (80.0-100.0); Magnesium 1.8 mg/dL (1.6-2.3); Mean Platelet Volume 9.9; Monocytes # (A) 0.9 k/uL (0-1.0); Monocytes % (A) 10 %; Neutrophils # (A) 6.2 k/uL (1.3-7.7); Neutrophils % (A) 66 %; Non-African American GFR(CKD) 53 (>60 ml/min/1.73 sqM); Platelet Count 152 k/uL (150-450); Potassium 5.1 mmol/L (3.5-5.1); RBC 3.45 m/uL (3.80-5.40); Sodium 138 mmol/L (137-145); Total Bilirubin 0.5 mg/dL (0.2-1.3); Total Protein 7.6 g/dL (6.3-8.2); WBC 9.4 k/uL (3.8-10.6)
[2023-08-30 21:30] LABS: Prothrombin Time 10.8 sec (10.0-12.5)
[2023-08-30 21:35] LABS: Partial Thromboplastin Time 20.6 sec (22.0-30.0)
[2023-08-30] MEDS ORDERED: NALOXONE 0.4 MG/ML 1 ML VIAL IV PRN (22:20)
[2023-08-30] MEDS ORDERED: NON FORMULARY DRUG (Albuterol Inhaler 90 MCG Puff) INHALATION PRN (22:28)
[2023-08-30] MEDS ORDERED: ONDANSETRON 4 MG TAB PO PRN (22:28)
[2023-08-30] MEDS ORDERED: ACETAMINOPHEN TAB 325 MG TAB PO PRN (22:28)
[2023-08-30] MEDS ORDERED: IPRATROPIUM-ALBUTEROL 3 ML NEB INHALATION PRN (22:28)
[2023-08-30] MEDS: cloNIDine HCL 0.2 MG TAB PO SCH (23:35)
--- NOTE | 2023-08-31 00:30 | XR ---
EXAMINATION TYPE: XR chest 2V DATE OF EXAM: 08/30/2023 8:29 PM CLINICAL INDICATION:Female, 83 years old with history of Chest Pain; [facility] COMPARISON: Chest x-ray 05/01/2023 TECHNIQUE: XR chest 2V. Frontal PA and lateral views of the chest. FINDINGS: Lines/Tubes: EKG leads overlie the chest. No indwelling lines are seen. Heart/mediastinum: Cardiomediastinal silhouette is well defined. Heart size upper normal. Aorta is mostly calcified and mildly tortuous. Pulmonary vascularity: Mild central vascular congestion. Lungs/Pleura: Redemonstration of a left upper lobe lung mass which is difficult to measure precisely but is now about 4.7 cm transverse, 5.2 cm AP, 4.9 cm craniocaudal (versus 3.6 x 3.8 x 3.4 cm previou sly) . Small left pleural effusion stable to mildly increased. No acute right lung infiltrate or effu maria dolores. No visible pneumothorax. Musculoskeletal: Mild degenerative changes of the spine. Moderately severe degenerative changes of th e right shoulder. Left shoulder only partially seen. Other findings: None. IMPRESSION: 1. Borderline mild cardiomegaly with mild pulmonary vascular congestion. 2. Left upper lobe lung mass now measures up to 5.2 cm, significantly larger since 05/01/2023. 3. Small left pleural effusion, stable to slightly increased.
[2023-08-31 05:31] LABS: African American GFR (CKD) 52 (>60 ml/min/1.73 sqM); Anion Gap 12 mmol/L; Blood Urea Nitrogen 25 mg/dL (7-17); Calcium 9.2 mg/dL (8.4-10.2); Carbon Dioxide 27 mmol/L (22-30); Chloride 101 mmol/L (98-107); Glucose 134 mg/dL (74-99); Non-African American GFR(CKD) 45 (>60 ml/min/1.73 sqM); Potassium 4.6 mmol/L (3.5-5.1); Sodium 140 mmol/L (137-145)
[2023-08-31] MEDS ORDERED: NITROGLYCERIN OINT 1 INCH/GM PACKET TOPICAL STA (05:31)
[2023-08-31 05:53] LABS: Basophils % (A) 0 %; Eosinophils # (A) 0.1 k/uL (0-0.7); Eosinophils % (A) 1 %; Lymphocytes # (A) 2.1 k/uL (1.0-4.8); Lymphocytes % (A) 26 %; MCH 31.4 pg (25.0-35.0); MCHC 33.7 g/dL (31.0-37.0); MCV 93.4 fL (80.0-100.0); Mean Platelet Volume 9.8; Monocytes # (A) 0.9 k/uL (0-1.0); Monocytes % (A) 11 %; Neutrophils # (A) 4.9 k/uL (1.3-7.7); Neutrophils % (A) 60 %; Platelet Count 151 k/uL (150-450); RDW 14.3 % (11.5-15.5); WBC 8.3 k/uL (3.8-10.6)
[2023-08-31 05:59] LABS: HGB 9.4 gm/dL (11.4-16.0)
[2023-08-31] MEDS ORDERED: INSULIN DETEMIR (LEVEMIR) 100 UNIT/ML SYR SQ SCH (07:00)
[2023-08-31] MEDS ORDERED: INSULIN ASPART (NovoLOG) 100 UNIT/ML VIAL SQ SCH (07:30)
[2023-08-31] MEDS ORDERED: carvediloL 6.25 MG TAB PO SCH (09:00)
[2023-08-31] MEDS: ASPIRIN 81 MG PO SCH (10:23)
[2023-08-31] MEDS: cloNIDine HCL 0.2 MG TAB PO SCH (10:23)
[2023-08-31] MEDS: SENNOSIDES-DOCUSATE SODIUM 1 EACH TAB PO SCH ×2 (10:23→21:07)
[2023-08-31] MEDS: DULoxetine HCL 20 MG CAPSULE.DR PO SCH (10:24)
[2023-08-31] MEDS: CHOLECALCIFEROL 25 MCG (1000 IU) TABLET PO SCH (10:24)
[2023-08-31] MEDS: amLODIPine 2.5 MG TAB PO SCH (10:24)
--- NOTE | 2023-08-31 10:36 | P.CRDCN ---
History of Present Illness Consult date: 08/31/23 Consult reason: sycope, chest pain History of present illness: History of present illness: This is an 83 year old female with past medical history of coronary artery disease status post angioplasty to the RCA in 2011, hypertension, hyperlipidemi a, abdominal aortic aneurysm status post endovascular stent/repair [facility], peripheral vascular disease, diabetes, COPD, CVA with residual left eye droop, remote history of heavy tobacco use and dependence. Patient was previously seen by Dr. Calderón in 2015. [facility] We've been asked to evaluate the patient for chest pain and syncope. Patient is unable to provide any reliable history. Patient states that she is here for a "heart problem." She currently denies chest pain. She states she does not have any palpitations. She occasionally feels dizzy. She states she is eating okay and is not feeling hungry. Patient states that she wants to rest. According to the ER, patient is known to have left lung cancer and scheduled for radiation. Patient probably was complaining of chest pain for the past 4 days right after breakfast. Patient was given nitroglycerin shortly thereafter she passed out and she was put back into bed. Upon arrival by EMS, patient was awake and alert. She had no further chest pain after that. EKG sinus bradycardia, right bundle branch block. Chest x-ray: Borderline mild cardiomegaly with mild pulmonary vascular congestion. Left upper lobe lung mass now measures 5.2 cm slightly larger since 05/01/2023. Small left pleural effusion stable to slightly increased. WBC 8.3, hemoglobin 9.4, platelet count 151. Sodium 140, potassium 4.6, BUN 25 creatinine 1.14. Blood sugar 134. Troponins negative 3. Home cardiac medications: Amlodipine 2.5 mg daily, aspirin 81 mg daily, atorvastatin 40 mg at bedtime, Coreg 6.25 mg twice daily, clonidine 0.2 mg 3 times daily, nitroglycerin as needed. PET scan performed 07/12/2023 revealed intense uptake within the left lung mass compatible with neoplasm. Primary or metastatic disease should be considered. Intense uptake in the P rectal region recommended direct visualization. Internal rectal neoplasm should be considered. Possible early metastasis in the mediastinum. Echocardiogram performed 04/10/2022 revealed suboptimal study. EF 55-60% [id number] concentric left hypertrophy, mildly increased left atrial size, mild mitral insufficiency. No pericardial effusion. Review Of Systems: At the time of my exam: CONSTITUTIONAL: Denies fever or chills. CARDIOVASCULAR: Denies chest pain, Denies shortness of breath, no orthopnea, PND or palpitations. RESPIRATORY: Denies cough. GASTROINTESTINAL: Denies abdominal pain, diarrhea, constipation, nausea or vomiting. MUSCULOSKELETAL: Denies myalgias. NEUROLOGIC: Denies numbness, tingling or weakness. ENDOCRINE: Denies fatigue, weight change, polydipsia or polyurina. GENITOURINARY: Denies burning, hematuria or urgency with micturation. HEMATOLOGIC: Denies history of anemia or bleeding. Physical examination: Gen: This is a 83-year-old female resting in bed and appears to be in no acute distress. VS: reviewed blood pressure 174/61, heart rate in the 60s, pulse ox 97% on room air, afebrile. HEENT: Head is atraumatic, normocephalic. Pupils equal, round. Sclerae is anicteric. NECK: Supple. No JVD. LUNGS: Clear to auscultation. No wheezes or rhonchi. No intercostal retractions. HEART: Regular rate and rhythm. Systolic murmur. ABDOMEN: Soft No tenderness. EXTREMITIES: No pedal edema. No calf tenderness. NEUROLOGICAL: Patient is awake, alert. Assessment: Syncopal episode following nitroglycerin administration Chest pain onset after eating, resolved with nitroglycerin, acute coronary syndrome ruled out Left-sided lung mass scheduled for radiation therapy Anemia Coronary artery disease with previous stenting of the RCA in 2011 Hypertension Hyperlipidemia Abdominal aortic aneurysm status post endovascular stent/repair [facility] Peripheral vascular disease Diabetes COPD Vascular dementia Plan: Continue patient's home cardiac medications Obtain 2-D echocardiogram and Doppler study to assess cardiac structure and function Further recommendations to follow based upon clinical course Thank you kindly for this consultation. Nurse practitioner note has been reviewed, I agree with documented findings and plan of care. Patient was seen and examined. Past Medical History Past Medical History: COPD, CVA/TIA, Diabetes Mellitus, Hyperlipidemia, Hypertension, Myocardial Infarction (MD) Additional Past Medical History / Comment(s): abdominal aortic aneurysm with stent, 2 heart attacks, 2 strokes - residual slight left eye droop per daughter Last Myocardial Infarction Date:: 2015 History of Any Multi-Drug Resistant Organisms: None Reported Past Surgical History: Appendectomy, Hysterectomy Additional Past Surgical History / Comment(s): stent to aorta at [facility], cardiac stent at [facility] for MD, R leg tendon surgery from fall, laminectomy. Past Anesthesia/Blood Transfusion Reactions: Previous Problems w/ Anesthesia Additional Past Anesthesia/Blood Transfusion Reaction / Comment(s): combative, previously restrained after sedation. Past Psychological History: No Psychological Hx Reported Smoking Status: Former smoker Past Alcohol Use History: None Reported Past Drug Use History: None Reported Medications and Allergies Home Medications Medication Instructions Recorded Confirmed Type Albuterol Inhaler [Ventolin Hfa 2 puff INHALATION RT-QID PRN 04/09/22 08/30/23 History Inhaler] Aspirin EC [Ecotrin Low Dose] 81 mg PO DAILY@0800 04/09/22 08/30/23 History Ipratropium-Albuterol Nebulize 3 ml INHALATION RT-Q6H PRN 04/09/22 08/30/23 History [Duoneb 0.5 mg-3 mg/3 ml Soln] Nitroglycerin Sl Tabs [Nitrostat] 0.4 mg SL Q5M PRN 04/09/22 08/30/23 History carvediloL [Coreg] 6.25 mg PO BID@0800,1600 04/09/22 08/30/23 History Acetaminophen [Tylenol Arthritis] 650 mg PO Q6H PRN 08/23/22 08/30/23 History Cholecalciferol [Vitamin D3 (25 50 mcg PO DAILY@0800 08/23/22 08/30/23 History Mcg = 1000 Iu)] Atorvastatin [Lipitor] 40 mg PO HS@199905/01/23 08/30/23 History DULoxetine HCL [Cymbalta] 20 mg PO DAILY@0805/01/23 08/30/23 History INSULIN ASPART (NovoLOG) [NovoLOG 6 unit SQ TID-W/MEALS@,,05/01/23 08/30/23 History (formulary)] Insulin Glargine [Lantus Vial] 8 unit SQ DAILY@0700 05/01/23 08/30/23 History Petrolatum, White [Aquaphor] 1 applic TOPICAL Q12H PRN 05/01/23 08/30/23 History Sennosides/Docusate Sodium [Senna 1 cap PO BID@0800,1600 05/01/23 08/30/23 History Plus 8.6-50 mg Softgel] amLODIPine [Norvasc] 2.5 mg PO DAILY@0800 05/01/23 08/30/23 History cloNIDine HCL 0.2 mg PO TID 05/01/23 08/30/23 History metFORMIN HCL [Glucophage] 500 mg PO W/SUPPER 05/01/23 08/30/23 History ondansetron HCL [Zofran] 8 mg PO Q6H PRN 05/01/23 08/30/23 History Allergies Allergy/AdvReac Type Severity Reaction Status Date / Time Penicillins Allergy Anaphylaxis Verified 08/30/23 20:17 & hives Sulfa (Sulfonamide Allergy Anaphylaxis Verified 08/30/23 20:17 Antibiotics) & hives diazepam [From Valium] AdvReac Combative Verified 08/30/23 20:17 Physical Exam Vitals: Vital Signs Temp Pulse Resp BP Pulse Ox 08/31/23 06:34 60 18 145/55 96 08/31/23 04:00 60 18 144/93 98 08/31/23 02:00 60 18 117/46 98 08/31/23 00:00 67 18 157/66 97 08/30/23 21:00 60 18 172/62 99 08/30/23 20:00 60 18 173/60 98 08/30/23 19:53 98.6 F 57 L 18 173/60 99 08/30/23 19:48 98.6 F 57 L 18 173/60 99 08/30/23 19:30 57 L 12 100 Intake and Output 08/30/23 08/31/23 08/31/23 22:59 06:59 14:59 Other: Weight 81.647 kg Results 08/31/23 04:33 08/31/23 04:33 Cardiac Enzymes 08/30/23 08/30/23 08/31/23 Range/Units 19:59 19:59 00:29 AST 18 (14-36) U/L Troponin I <0.012 <0.012 (0.000-0.034) ng/mL 08/31/23 Range/Units 04:33 AST (14-36) U/L Troponin I <0.012 (0.000-0.034) ng/mL Coagulation 08/30/23 Range/Units 19:59 PT 10.8 (10.0-12.5) sec APTT 20.6 L (22.0-30.0) sec CBC 08/30/23 08/31/23 Range/Units 19:59 04:33 WBC 9.4 8.3 (3.8-10.6) k/uL RBC 3.45 L 3.00 L (3.80-5.40) m/uL Hgb 10.9 L 9.4 L D (11.4-16.0) gm/dL Hct 32.2 L 28.0 L (34.0-46.0) % Plt Count 152 151 (150-450) k/uL Comprehensive Metabolic Panel 08/30/23 08/31/23 Range/Units 19:59 04:33 Sodium 138 140 (137-145) mmol/L Potassium 5.1 4.6 (3.5-5.1) mmol/L Chloride 100 101 (98-107) mmol/L Carbon Dioxide 25 27 (22-30) mmol/L BUN 24 H 25 H (7-17) mg/dL Creatinine 1.00 1.14 H (0.52-1.04) mg/dL Glucose 168 H 134 H (74-99) mg/dL Calcium 9.6 9.2 (8.4-10.2) mg/dL AST 18 (14-36) U/L ALT 15 (4-34) U/L Alkaline Phosphatase 94 (38-126) U/L Total Protein 7.6 (6.3-8.2) g/dL Albumin 4.1 (3.5-5.0) g/dL Current Medications Generic Name Dose Route Start Last Admin Trade Name Freq PRN Reason Stop Dose Admin Acetaminophen 650 mg 08/30/23 22:28 Acetaminophen Tab 325 Mg Tab PO Q6H PRN Pain or Fever > 100.5 Albuterol/Ipratropium 3 ml 08/30/23 22:28 Ipratropium-Albuterol 3 Ml Neb INHALATION RT-Q6H PRN Shortness Of Breath Amlodipine Besylate 2.5 mg 08/31/23 09:00 Amlodipine 2.5 Mg Tab PO DAILY [facility] Aspirin 81 mg 08/31/23 09:00 Aspirin 81 Mg PO DAILY [facility] Atorvastatin Calcium 40 mg 08/31/23 21:00 Atorvastatin 40 Mg Tab PO HS [facility] Carvedilol 6.25 mg 08/31/23 09:00 Carvedilol 6.25 Mg Tab PO BID [facility] Cholecalciferol 50 mcg 08/31/23 09:00 Cholecalciferol 25 Mcg (1000 Iu) Tablet PO DAILY [facility] Clonidine 0.2 mg 08/30/23 22:30 08/30/23 23:35 Clonidine Hcl 0.2 Mg Tab PO 0.2 mg TID [facility] Administration Duloxetine HCl 20 mg 08/31/23 09:00 Duloxetine Hcl 20 Mg Capsule.Dr PO DAILY [facility] Insulin Aspart 6 unit 08/31/23 07:30 Insulin Aspart (Novolog) 100 Unit/Ml Vial SQ TID-W/MEALS [facility] Insulin Detemir 8 unit 08/31/23 07:00 Insulin Detemir (Levemir) 100 Unit/Ml Syr SQ DAILY@0700 [facility] Metformin HCl 500 mg 08/31/23 17:30 Metformin 500 Mg Tab PO W/SUPPER [facility] Naloxone HCl 0.2 mg 08/30/23 22:20 Naloxone 0.4 Mg/Ml 1 Ml Vial IV Q2M PRN Opioid Reversal Ondansetron HCl 8 mg 08/30/23 22:28 Ondansetron 4 Mg Tab PO Q6H PRN Nausea Senna/Docusate Sodium 1 each 08/31/23 09:00 Sennosides-Docusate Sodium 1 Each Tab PO BID [facility] Intake and Output 08/30/23 08/31/23 08/31/23 22:59 06:59 14:59 Other: Weight 81.647 kg 08/31/23 04:33 08/31/23 04:33
--- NOTE | 2023-08-31 10:55 | P.HPIM ---
History of Present Illness Patient is 83-year-old female with known history of lung cancer with mass left upper lobe 5.2 cm slightly larger compared to imaging that was done in month of April this year, scheduled to undergo radiation therapy for the mass was sent in here with complaints of chest pain although patient is not a reliable historian alert oriented 1 to her baseline is not clear patient is a [facility] resident. Patient had history of coronary artery disease with stents to RCA in the past. EKG showed normal sinus rhythm without any acute ST-T wave changes troponins are negative Echo cardiac rhythm is being obtained by cardiology. As per the nursing staff here patient has altered mental status although there's no clear baseline, CT of the head without contrast is being obtained looking for any intracranial bleed or masses and oncology is being consulted. When questioned about chest pain patient believes she may have chest pain, rest of the details are not clear and patient is unable to provide any further history REVIEW OF SYSTEMS: Unable to obtain due to her clinical condition PHYSICAL EXAMINATION: GENERAL: The patient is alert and oriented x1-2, not in any acute distress. Well developed, well nourished. HEENT: Pupils are round and equally reacting to light. EOMI. No scleral icterus. No conjunctival pallor. Normocephalic, atraumatic. No pharyngeal erythema. No thyromegaly. CARDIOVASCULAR: S1 and S2 present. No murmurs, rubs, or gallops. PULMONARY: Chest is clear to auscultation, no wheezing or crackles. ABDOMEN: Soft, nontender, nondistended, normoactive bowel sounds. No palpable organomegaly. MUSCULOSKELETAL: No joint swelling or deformity. EXTREMITIES: No cyanosis, clubbing, or pedal edema. NEUROLOGICAL: Gross neurological examination did not reveal any focal deficits. Patient is confused SKIN: No rashes. Assessment and plan -Chest pain rule out acute versus echocardiogram will be obtained patient is not a reliable historian patient doesn't appear to have any cardiac chest pain at this time. [place] of consciousness secondary to nitroglycerin -Left lung mass: Unknown what the target of treatment for the patient is whether it's palliative radiation only or any further plans of chemotherapy using biologic agents,, unknown whether patient has metastatic disease CT of the head will be obtained, oncology will be consulted -Confusion: Unknown whether patient is at her baseline or patient has increasing confusion. We will contact [facility] to get more details. -Be of chronic disease -Abdominal right kidney was him with the endovascular stent in the past Peripheral vascular disease -Type 2 diabetes mellitus patient's long-acting insulin will be increased patient will be switched to 2 sliding scale insulin continue with metformin -COPD without any acute exacerbation -Vascular dementia DVT prophylaxis: Subcutaneous heparin Past Medical History Past Medical History: COPD, CVA/TIA, Diabetes Mellitus, Hyperlipidemia, Hypertension, Myocardial Infarction (NM) Additional Past Medical History / Comment(s): abdominal aortic aneurysm with stent, 2 heart attacks, 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 Past Anesthesia/Blood Transfusion Reactions: Previous Problems w/ Anesthesia Additional Past Anesthesia/Blood Transfusion Reaction / Comment(s): combative, previously restrained after sedation. Past Psychological History: No Psychological Hx Reported Smoking Status: Former smoker Past Alcohol Use History: None Reported Past Drug Use History: None Reported Medications and Allergies Home Medications Medication Instructions Recorded Confirmed Type Albuterol Inhaler [Ventolin Hfa 2 puff INHALATION RT-QID PRN 04/09/22 08/30/23 History Inhaler] Aspirin EC [Ecotrin Low Dose] 81 mg PO DAILY@0800 04/09/22 08/30/23 History Ipratropium-Albuterol Nebulize 3 ml INHALATION RT-Q6H PRN 04/09/22 08/30/23 History [Duoneb 0.5 mg-3 mg/3 ml Soln] Nitroglycerin Sl Tabs [Nitrostat] 0.4 mg SL Q5M PRN 04/09/22 08/30/23 History carvediloL [Coreg] 6.25 mg PO BID@0800,1600 04/09/22 08/30/23 History Acetaminophen [Tylenol Arthritis] 650 mg PO Q6H PRN 08/23/22 08/30/23 History Cholecalciferol [Vitamin D3 (25 50 mcg PO DAILY@0800 08/23/22 08/30/23 History Mcg = 1000 Iu)] Atorvastatin [Lipitor] 40 mg PO HS@199905/01/23 08/30/23 History DULoxetine HCL [Cymbalta] 20 mg PO DAILY@0800 05/01/23 08/30/23 History INSULIN ASPART (NovoLOG) [NovoLOG 6 unit SQ TID-W/MEALS@08,12,18 05/01/23 08/30/23 History (formulary)] Insulin Glargine [Lantus Vial] 8 unit SQ DAILY@0700 05/01/23 08/30/23 History Petrolatum, White [Aquaphor] 1 applic TOPICAL Q12H PRN 05/01/23 08/30/23 History Sennosides/Docusate Sodium [Senna 1 cap PO BID@0800,1600 05/01/23 08/30/23 History Plus 8.6-50 mg Softgel] amLODIPine [Norvasc] 2.5 mg PO DAILY@0800 05/01/23 08/30/23 History cloNIDine HCL 0.2 mg PO TID 05/01/23 08/30/23 History metFORMIN HCL [Glucophage] 500 mg PO W/SUPPER 05/01/23 08/30/23 History ondansetron HCL [Zofran] 8 mg PO Q6H PRN 05/01/23 08/30/23 History Allergies Allergy/AdvReac Type Severity Reaction Status Date / Time Penicillins Allergy Anaphylaxis Verified 08/30/23 20:17 & hives Sulfa (Sulfonamide Allergy Anaphylaxis Verified 08/30/23 20:17 Antibiotics) & hives diazepam [From Valium] AdvReac Combative Verified 08/30/23 20:17 Physical Exam Vitals: Vital Signs Temp Pulse Pulse Resp BP BP Pulse Ox 08/31/23 08:59 97.5 F L 60 16 174/61 97 08/31/23 06:34 60 18 145/55 96 08/31/23 04:00 60 18 144/93 98 08/31/23 02:00 60 18 117/46 98 08/31/23 00:00 67 18 157/66 97 08/30/23 21:00 60 18 172/62 99 08/30/23 20:00 60 18 173/60 98 08/30/23 19:53 98.6 F 57 L 18 173/60 99 08/30/23 19:48 98.6 F 57 L 18 173/60 99 08/30/23 19:30 57 L 12 100 Intake and Output 08/30/23 08/31/23 08/31/23 22:59 06:59 14:59 Other: Weight 81.647 kg Results CBC & Chem 7: 08/31/23 04:33 08/31/23 04:33 Labs: Abnormal Lab Results - Last 24 Hours (Table) 08/30/23 08/30/23 08/30/23 Range/Units 19:59 19:59 19:59 RBC 3.45 L (3.80-5.40) m/uL Hgb 10.9 L (11.4-16.0) gm/dL Hct 32.2 L (34.0-46.0) % APTT 20.6 L (22.0-30.0) sec BUN 24 H (7-17) mg/dL Creatinine (0.52-1.04) mg/dL Glucose 168 H (74-99) mg/dL 08/31/23 08/31/23 Range/Units 04:33 04:33 RBC 3.00 L (3.80-5.40) m/uL Hgb 9.4 L D (11.4-16.0) gm/dL Hct 28.0 L (34.0-46.0) % APTT (22.0-30.0) sec BUN 25 H (7-17) mg/dL Creatinine 1.14 H (0.52-1.04) mg/dL Glucose 134 H (74-99) mg/dL
--- NOTE | 2023-08-31 11:36 | CA ---
Transthoracic Echo Report Name: Glenis Nunn Age: 83 Gender: F : 1940 Exam Date: 08/31/2023 08:48 Exam Location: [place] [facility] Ht (in): 61 Wt (lb): 180 Ordering Physician: Randee Li Attending/Referring Phys: [id number], Jen Retail Coordinator Kaya Fowler RDCS Procedure CPT: Indications: LVF Cardiac Hx: Technical Quality: Technically difficult study Contrast 1: Total Dose (mL): Contrast 2: Total Dose (mL): MEASUREMENTS (Male / Female) Normal Values 2D ECHO LV Diastolic Diameter PLAX 4.2 cm 4.2 - 5.9 / 3.9 - 5.3 cm LV Systolic Diameter PLAX 2.8 cm IVS Diastolic Thickness 1.3 cm 0.6 - 1.0 / 0.6 - 0.9 cm LVPW Diastolic Thickness 1.1 cm 0.6 - 1.0 / 0.6 - 0.9 cm LV Relative Wall Thickness 0.6 RV Internal Dim ED PLAX 3.0 cm LVOT Diameter 2.1 cm LA Systolic Diameter LX 3.0 cm 3.0 - 4.0 / 2.7 - 3.8 cm LV Diastolic Volume MOD BP 49.5 cm??? 67 - 155 / 56 - 104 cm??? LV Systolic Volume MOD BP 18.9 cm??? 22 - 58 / 19 - 49 cm??? LV Ejection Fraction MOD BP 61.8 % >= 55 % LV Cardiac Index MOD BP 848.0 cm???/min???m??? LV Diastolic Volume MOD 4C 82.2 cm??? LV Systolic Volume MOD 4C 25.0 cm??? LV Ejection Fraction MOD 4C 69.6 % LV Cardiac Index MOD 4C 1584.7 cm???/min???m??? LV Diastolic Length 4C 7.2 cm LV Systolic Length 4C 6.2 cm LV Diastolic Volume MOD 2C 30.3 cm??? LV Systolic Volume MOD 2C 13.5 cm??? LV Ejection Fraction MOD 2C 55.4 % LV Cardiac Index MOD 2C 464.7 cm???/min???m??? LV Diastolic Length 2C 7.0 cm LV Systolic Length 2C 5.7 cm LA Volume 39.2 cm??? 18 - 58 / 22 - 52 cm??? LA Volume Index 20.5 cm???/m??? 16 - 28 cm???/m??? M-MODE Aortic Root Diameter MM 3.2 cm MV E Point Septal Separation 1.5 cm AV Cusp Separation MM 1.5 cm DOPPLER AV Peak Velocity 279.0 cm/s AV Peak Gradient 31.1 mmHg AV Mean Velocity 176.8 cm/s AV Mean Gradient 15.4 mmHg AV Velocity Time Integral 69.0 cm LVOT Peak Velocity 130.0 cm/s LVOT Peak Gradient 6.8 mmHg AV Area Cont Eq pk 1.6 cm??? MV Area PHT 1.5 cm??? Mitral E Point Velocity 84.2 cm/s Mitral A Point Velocity 127.8 cm/s Mitral E to A Ratio 0.7 MV Deceleration Time 510.8 ms MV E' Velocity 3.6 cm/s Mitral E to MV E' Ratio 23.5 FINDINGS Left Ventricle Left ventricular ejection fraction is estimated at 55-60 %. Left ventricular cavity size normal. Mildly increased septal wall thickness. Mildly increased posterior wall thickness. Right Ventricle Normal right ventricular size. Unable to estimate the right ventricular systolic pressure. Right Atrium Normal right atrial size. Left Atrium Normal left atrial size. Mitral Valve Moderate thickening/calcification of the posterior mitral valve leaflet. Moderate mitral annular calcification. No mitral regurgitation. Aortic Valve Aortic valve sclerosis. Mild aortic stenosis with a peak gradient of 31 mmHg and a mean gradient of 15 mmHg. Tricuspid Valve Structurally normal tricuspid valve. No tricuspid regurgitation. Pulmonic Valve Pulmonic valve not well visualized. No pulmonic regurgitation. Pericardium No pericardial effusion. Aorta Normal size aortic root and proximal ascending aorta. CONCLUSIONS Technically difficult study. Left ventricular ejection fraction is estimated at 55-60 %. Mild concentric LVH next and no disease and wall motion abnormality Moderate mitral annular calcification. Mild aortic stenosis. Mean gradient of 15 mmHg. Previewed by: Dr Nawaf Plunkett (Electronically Signed) Final Date: 31 August 2023 11:34
[2023-08-31 12:15] LABS: Glucose,Whole Blood 164 mg/dL (70-110)
--- NOTE | 2023-08-31 12:29 | CT ---
EXAMINATION TYPE: CT brain wo con DATE OF EXAM: 08/31/2023 COMPARISON: 05/01/2023 HISTORY: ams CT DLP: 1183 mGycm Automated exposure control for dose reduction was used. FINDINGS: Moderate generalized degenerative change. There is hypoattenuation of white matter. No midline shift or mass effect. No new sulcal effacement. Intracranial atherosclerotic changes. Orbits are symmetric. Partially empty sella turcica calvarium intact poorly for previous right-sided mastoidectomy. Tiny p unctate basal ganglia calcifications. Punctate hypodensity within the right thalamus compatible with tiny remote lacunar infarct. IMPRESSION: DEGENERATIVE AND REMOTE ISCHEMIC CHANGE WITH NO EVIDENCE OF ACUTE INTRACRANIAL HEMORRHAGE OR MASS EFF ECT.
[2023-08-31] MEDS: INSULIN ASPART (NovoLOG) 100 UNIT/ML VIAL SQ SCH ×3 (12:31→21:07)
[2023-08-31 17:30] LABS: Glucose,Whole Blood 210 mg/dL (70-110)
[2023-08-31] MEDS ORDERED: metFORMIN 500 MG TAB PO SCH (17:30)
[2023-08-31] MEDS: HEPARIN SODIUM,PORCINE 5,000 UNIT/ML 1 ML VIAL SQ SCH ×2 (17:47→21:08)
[2023-08-31] MEDS: carvediloL 12.5 MG TAB PO SCH (17:47)
--- NOTE | 2023-08-31 18:11 | P.CONS ---
History of Present Illness - Reason for Consult Consult date: 08/31/23 lung cancer Requesting physician: Randall Lorenzo - Chief Complaint chest pain - History of Present Illness Patient is an 83-year-old female with history of recently diagnosed lung mass. During her emergency room visit in April/2023 chest x-ray revealed large 3.5 cm left upper lobe mass that was suspicious for malignancy. HPI somewhat limited due to patient's confusion. Was able to speak to Dr. Cunningham as he has followed up with patient. Patient did not undergo biopsy due to health condition. Patient was simulated and had plans to start XRT to lung mass. PET CT obtained on 07/12/23 revealed intense uptake within the left lung mass compatible with neoplasm. Couple punctate more intermediate areas of uptake within the mediastinum. No definite corresponding lymphadenopathy. Patient presented to the emergency room with complaints of left-sided chest pain. Patient states pain is intermittent but she does not remember how long pain has been ongoing for. She states she is unable to describe pain. Denies shortness of breath and dizziness. Serial troponins negative. Echocardiogram revealed ejection fraction estimated at 55-60%. Mild concentric LVH, no disease and wall motion abnormality noted. Chest x-ray revealed mild cardiomegaly with mild pulmonary vascular congestion. Left upper lung lobe mass has increased is size now measuring 5.2 cm. With small left pleural effusion. CT brain negative for acute intracranial hemorrhage or mass effect. At todays visit pt denies chest pain at this time. CBC revealed, WBC 8.3, hemoglobin 9.4, platelets 151,000 Review of Systems 10 point ROS is negative except as stated in the HPI Past Medical History Past Medical History: COPD, CVA/TIA, Diabetes Mellitus, Hyperlipidemia, Hypertension, Myocardial Infarction (MA) Additional Past Medical History / Comment(s): abdominal aortic aneurysm with stent, 2 heart attacks, 2 strokes - residual slight left eye droop per daughter Last Myocardial Infarction Date:: 2015 History of Any Multi-Drug Resistant Organisms: None Reported Past Surgical History: Appendectomy, Hysterectomy Additional Past Surgical History / Comment(s): stent to aorta at [facility], cardiac stent at [facility] for MA, R leg tendon surgery from fall, laminectomy. lung cancer Past Anesthesia/Blood Transfusion Reactions: Previous Problems w/ Anesthesia Additional Past Anesthesia/Blood Transfusion Reaction / Comm: combative, previously restrained after sedation. Smoking Status: Unknown if ever smoked Medications and Allergies Home Medications Medication Instructions Recorded Confirmed Type Albuterol Inhaler [Ventolin Hfa 2 puff INHALATION RT-QID PRN 04/09/22 08/30/23 History Inhaler] Aspirin EC [Ecotrin Low Dose] 81 mg PO DAILY@0800 04/09/22 08/30/23 History Ipratropium-Albuterol Nebulize 3 ml INHALATION RT-Q6H PRN 04/09/22 08/30/23 History [Duoneb 0.5 mg-3 mg/3 ml Soln] Nitroglycerin Sl Tabs [Nitrostat] 0.4 mg SL Q5M PRN 04/09/22 08/30/23 History carvediloL [Coreg] 6.25 mg PO BID@0800,1600 04/09/22 08/30/23 History Acetaminophen [Tylenol Arthritis] 650 mg PO Q6H PRN 08/23/22 08/30/23 History Cholecalciferol [Vitamin D3 (25 50 mcg PO DAILY@79908/23/22 08/30/23 History Mcg = 1000 Iu)] Atorvastatin [Lipitor] 40 mg PO HS@199905/01/23 08/30/23 History DULoxetine HCL [Cymbalta] 20 mg PO DAILY@79905/01/23 08/30/23 History INSULIN ASPART (NovoLOG) [NovoLOG 6 unit SQ TID-W/MEALS@,,05/01/23 08/30/23 History (formulary)] Insulin Glargine [Lantus Vial] 8 unit SQ DAILY@0705/01/23 08/30/23 History Petrolatum, White [Aquaphor] 1 applic TOPICAL Q12H PRN 05/01/23 08/30/23 History Sennosides/Docusate Sodium [Senna 1 cap PO BID@0800,1600 05/01/23 08/30/23 History Plus 8.6-50 mg Softgel] amLODIPine [Norvasc] 2.5 mg PO DAILY@0800 05/01/23 08/30/23 History cloNIDine HCL 0.2 mg PO TID 05/01/23 08/30/23 History metFORMIN HCL [Glucophage] 500 mg PO W/SUPPER 05/01/23 08/30/23 History ondansetron HCL [Zofran] 8 mg PO Q6H PRN 05/01/23 08/30/23 History Allergies Allergy/AdvReac Type Severity Reaction Status Date / Time milk Allergy Unknown Verified 08/31/23 11:56 Milk Containing Products Allergy Unknown Verified 08/31/23 11:56 (Dairy) Penicillins Allergy Anaphylaxis Verified 08/30/23 20:17 & hives Sulfa (Sulfonamide Allergy Anaphylaxis Verified 08/30/23 20:17 Antibiotics) & hives diazepam [From Valium] AdvReac Combative Verified 08/30/23 20:17 Physical Exam Vitals: Vital Signs Temp Pulse Pulse Resp BP BP Pulse Ox 08/31/23 08:59 97.5 F L 60 16 174/61 97 08/31/23 06:34 60 18 145/55 96 08/31/23 04:00 60 18 144/93 98 08/31/23 02:00 60 18 117/46 98 08/31/23 00:00 67 18 157/66 97 08/30/23 21:00 60 18 172/62 99 08/30/23 20:00 60 18 173/60 98 08/30/23 19:53 98.6 F 57 L 18 173/60 99 08/30/23 19:48 98.6 F 57 L 18 173/60 99 08/30/23 19:30 57 L 12 100 Intake and Output 08/30/23 08/31/23 08/31/23 22:59 06:59 14:59 Other: Voiding Method Diaper Incontinent External Catheter Weight 81.647 kg 81.647 kg - Constitutional General appearance: no acute distress, obese - EENT Eyes: EOMI ENT: hearing grossly normal - Respiratory Respiratory: bilateral: diminished - Cardiovascular Rhythm: regular Heart sounds: normal: S1, S2 - Gastrointestinal General gastrointestinal: soft, no tenderness - Integumentary Integumentary: no cyanotic - Musculoskeletal Musculoskeletal: generalized weakness - Psychiatric A&O 1 Results CBC & Chem 7: 08/31/23 04:33 08/31/23 04:33 Labs: Abnormal Lab Results - Last 24 Hours (Table) 08/30/23 08/30/23 08/30/23 Range/Units 19:59 19:59 19:59 RBC 3.45 L (3.80-5.40) m/uL Hgb 10.9 L (11.4-16.0) gm/dL Hct 32.2 L (34.0-46.0) % APTT 20.6 L (22.0-30.0) sec BUN 24 H (7-17) mg/dL Creatinine (0.52-1.04) mg/dL Glucose 168 H (74-99) mg/dL POC Glucose (mg/dL) (70-110) mg/dL 08/31/23 08/31/23 08/31/23 Range/Units 04:33 04:33 12:14 RBC 3.00 L (3.80-5.40) m/uL Hgb 9.4 L D (11.4-16.0) gm/dL Hct 28.0 L (34.0-46.0) % APTT (22.0-30.0) sec BUN 25 H (7-17) mg/dL Creatinine 1.14 H (0.52-1.04) mg/dL Glucose 134 H (74-99) mg/dL POC Glucose (mg/dL) 164 H (70-110) mg/dL Comments: PET/CT reviewed Chest x-ray: report reviewed CT Scan - head: report reviewed Assessment and Plan (1) Lung mass Current Visit: Yes Status: Acute Priority: High Code(s): R91.8 - OTHER NONSPECIFIC ABNORMAL FINDING OF LUNG FIELD SNOMED Code(s): 792086090 (2) Chest pain Current Visit: Yes Status: Acute Priority: High Code(s): R07.9 - CHEST PAIN, UNSPECIFIED SNOMED Code(s): 59170351 Plan: Lung mass: -Chest x-ray 04/2023 revealed large 3.5 cm left upper lobe mass that was suspicious for malignancy. Spoke with Dr. Cunningham as he has followed up with patient. Patient did not undergo biopsy due to overall health and poor PS. Patient was simulated and had plans to start XRT to lung mass. PET CT obtained on 07/12/23 revealed intense uptake within the left lung mass compatible with neoplasm. Couple punctate more intermediate areas of uptake within the med iastinum. No definite corresponding lymphadenopathy. -Chest x-ray upon admission revealed mild cardiomegaly with mild pulmonary vascular congestion. Left upper lung lobe mass has increased is size, now measuring 5.2 cm, with small left pleural effusion. CT brain negative for acute intracranial hemorrhage or mass effect. -Dr. Cunningham will plan for f/u upon discharge to begin XRT to lung mass Chest pain: -Patient presented to the emergency room with complaints of left-sided chest pain. -Serial troponins negative. Echocardiogram revealed ejection fraction estimated at 55-60%. Mild concentric LVH, no disease and wall motion abnormality noted. -Cardiology following -Pain could likely be r/t increasing lung mass. Will f/u with rad onc upon discharge to begin XRT attests: I have seen and examined pt, performed H&P, developed impression and plan of care. Discussed with dictator. Agree with documentation, dictated as a scribe.
[2023-08-31 20:47] LABS: Glucose,Whole Blood 193 mg/dL (70-110)
[2023-08-31] MEDS ORDERED: ATORVASTATIN 40 MG TAB PO SCH (21:00)
[2023-09-01 05:54] LABS: Glucose,Whole Blood 138 mg/dL (70-110)
[2023-09-01] MEDS: INSULIN ASPART (NovoLOG) 100 UNIT/ML VIAL SQ SCH ×2 (06:02→13:03)
[2023-09-01] MEDS: carvediloL 12.5 MG TAB PO SCH (06:11)
[2023-09-01] MEDS ORDERED: INSULIN DETEMIR (LEVEMIR) 100 UNIT/ML SYR SQ SCH (07:00)
[2023-09-01] MEDS: ASPIRIN 81 MG PO SCH (08:27)
[2023-09-01] MEDS: HEPARIN SODIUM,PORCINE 5,000 UNIT/ML 1 ML VIAL SQ SCH (08:27)
[2023-09-01] MEDS: CHOLECALCIFEROL 25 MCG (1000 IU) TABLET PO SCH (08:27)
[2023-09-01] MEDS: amLODIPine 2.5 MG TAB PO SCH (08:27)
[2023-09-01] MEDS: SENNOSIDES-DOCUSATE SODIUM 1 EACH TAB PO SCH (08:27)
[2023-09-01] MEDS: DULoxetine HCL 20 MG CAPSULE.DR PO SCH (08:27)
[2023-09-01 09:48] LABS: BUN/Creat Ratio 21.58 Ratio (12.00-20.00); Blood Urea Nitrogen 25.9 mg/dL (9.0-27.0); Calcium 9.6 mg/dL (8.7-10.3); Carbon Dioxide 23.7 mmol/L (21.6-31.8); Chloride 102 mmol/L (96-109); Glucose 127 mg/dL (70-110); Potassium 4.6 mmol/L (3.5-5.5); Sodium 140 mmol/L (135-145)
[2023-09-01] MEDS ORDERED: amLODIPine 2.5 MG TAB PO STA (09:55)
[2023-09-01] MEDS ORDERED: ISOSORBIDE MONONITRATE ER 30 MG TAB.ER.24H PO SCH (10:00)
--- NOTE | 2023-09-01 12:19 | P.PN ---
Subjective Progress Note Date: 09/01/23 History of present illness: This is an 83 year old female with past medical history of coronary artery dise ase status post angioplasty to the RCA in 2011, hypertension, hyperlipidemia, abdominal aortic aneurysm status post endovascular stent/repair [facility], peripheral vascular disease, diabetes, COPD, CVA with residual left eye droop, remote history of heavy tobacco use and dependence. Patient was previously seen by Dr. Calderón in 2015. She is currently residing at [facility]. We've been asked to evaluate the patient for chest pain and syncope. Patient is unable to provide any reliable history. Patient states that she is here for a "heart problem." She currently denies chest pain. She states she does not have any palpitations. She occasionally feels dizzy. She states she is eating okay and is not feeling hungry. Patient states that she wants to rest. According to the ER, patient is known to have left lung cancer and scheduled for radiation. Patient probably was complaining of chest pain for the past 4 days right after breakfast. Patient was given nitroglycerin shortly thereafter she passed out and she was put back into bed. Upon arrival by EMS, patient was awake and alert. She had no further chest pain after that. Diagnostics: EKG sinus bradycardia, right bundle branch block. Chest x-ray: Borderline mild cardiomegaly with mild pulmonary vascular conges tion. Left upper lobe lung mass now measures 5.2 cm slightly larger since 05/01/2023. Small left pleural effusion stable to slightly increased. WBC 8.3, hemoglobin 9.4, platelet count 151. Sodium 140, potassium 4.6, BUN 25 creatinine 1.14. Blood sugar 134. Troponins negative 3. Home cardiac medications: Amlodipine 2.5 mg daily, aspirin 81 mg daily, atorvastatin 40 mg at bedtime, Coreg 6.25 mg twice daily, clonidine 0.2 mg 3 times daily, nitroglycerin as needed. PET scan performed 07/12/2023 revealed intense uptake within the left lung mass compatible with neoplasm. Primary or metastatic disease should be considered. Intense uptake in the P rectal region recommended direct visualization. Internal rectal neoplasm should be considered. Possible early metastasis in the mediastinum. Echocardiogram performed 04/10/2022 revealed suboptimal study. EF 55-60% [id number] concentric left hypertrophy, mildly increased left atrial size, mild mitral insufficiency. No pericardial effusion. 09/01/23 Echocardiogram 12/15/23 with EF 5560%, mild aortic stenosis. Patient is a poor historian. She does report that she had been having episodes of left-sided chest pain that radiates to her back but did improve with nitro. She has not been having any chest pain or pressure today. Her blood pressure remains elevated. Physical examination: Gen: This is a 83-year-old female resting in bed and appears to be in no acute distress. VS: reviewed HEENT: Head is atraumatic, normocephalic. Pupils equal, round. Sclerae is anicteric. NECK: Supple. No JVD. LUNGS: Clear to auscultation. No wheezes or rhonchi. No intercostal retractions. HEART: Regular rate and rhythm. Systolic murmur. ABDOMEN: Soft No tenderness. EXTREMITIES: No pedal edema. No calf tenderness. NEUROLOGICAL: Patient is awake, alert. Assessment: Syncopal episode following nitroglycerin administration Chest pain onset after eating, resolved with nitroglycerin, acute coronary syndrome ruled out Left-sided lung mass scheduled for radiation therapy Anemia Coronary artery disease with previous stenting of the RCA in 2011 Hypertension Hyperlipidemia Abdominal aortic aneurysm status post endovascular stent/repair [facility] Peripheral vascular disease Diabetes COPD Vascular dementia Mild aortic stenosis Plan: Recommend trial of Imdur and monitor response. Blood pressure remains elevated, we will increase Norvasc to 5 mg by mouth daily. If she remains chest pain free and is ambulatory okay for discharge later today from a cardiology standpoint. Nurse practitioner note has been reviewed, I agree with documented findings and plan of care. Patient was seen and examined. Objective - Vital Signs Vital signs: Vital Signs Temp 98.0 F 09/01/23 07:20 Pulse 62 09/01/23 08:00 Resp 15 09/01/23 08:00 BP 161/68 09/01/23 07:20 Pulse Ox 97 09/01/23 08:21 FiO2 Intake & Output 08/31/23 09/01/23 09/01/23 18:59 06:59 18:59 Intake Total 118 118 Output Total 825 500 Balance 118 -825 -382 Weight 81.647 kg Intake: Oral 118 118 Output: Urine 825 500 Other: Voiding Method Diaper External Catheter External Catheter Incontinent External Catheter # Voids 1 1 - Labs CBC & Chem 7: 08/31/23 04:33 09/01/23 03:46 Labs: Abnormal Lab Results - Last 24 Hours (Table) 08/31/23 08/31/23 08/31/23 Range/Units 12:14 17:27 20:45 Anion Gap (4.00-12.00) mmol/L Est GFR (CKD-EPI) (>=60) BUN/Creatinine Ratio (12.00-20.00) Ratio Glucose (70-110) mg/dL POC Glucose (mg/dL) 164 H 210 H 193 H (70-110) mg/dL 09/01/23 09/01/23 Range/Units 03:46 05:53 Anion Gap 14.30 H (4.00-12.00) mmol/L Est GFR (CKD-EPI) 45 L (>=60) BUN/Creatinine Ratio 21.58 H (12.00-20.00) Ratio Glucose 127 H (70-110) mg/dL POC Glucose (mg/dL) 138 H (70-110) mg/dL
[2023-09-01 12:23] LABS: Glucose,Whole Blood 199 mg/dL (70-110)
--- NOTE | 2023-09-01 12:59 | P.DS ---
Providers Date of admission: 08/30/23 22:20 Expected date of discharge: 09/01/23 Attending physician: William Fabian Consults: 08/30/23 22:20 Consult Physician Urgent Consulting Provider: [facility] Consult Reason/Comments: acute chest pain, syncope Do you want consulting provider notified?: Yes 08/31/23 11:01 Consult Physician Routine Consulting Provider: Erma Fisher Consult Reason/Comments: lung ca Do you want consulting provider notified?: Yes Primary care physician: [facility] Course: Discharge diagnoses; Syncopal episode following nitroglycerin administration Chest pain onset after eating, resolved with nitroglycerin, acute coronary syndrome ruled out Left-sided lung mass scheduled for radiation therapy Anemia Coronary artery disease with previous stenting of the RCA in 2011 Hypertension Hyperlipidemia Abdominal aortic aneurysm status post endovascular stent/repair [facility] Peripheral vascular disease Diabetes COPD Vascular dementia Hospital course; This is an 83 year old female with past medical history of coronary artery disease status post angioplasty to the RCA in 2011, hypertension, hyperlipidemia, abdominal aortic aneurysm status post endovascular stent/repair [facility], peripheral vascular disease, diabetes, COPD, CVA with residual left eye droop, remote history of heavy tobacco use and dependence. Patient was previously seen by Dr. Calderón in 2015. [facility] Patient was admitted for chest pain and syncope. Patient is unable to provide any reliable history. Patient states that she is here for a "heart problem." 09/01. Patient seen and examined. 2-D echo done showed LVEF of 55-60%. Mild concentric LVH, no wall motion abnormality. Cardiology evaluated the patient, started him deal and increased the dose of Norvasc. Hematology oncology recommended outpatient follow-up with radiation oncology. Patient being discharged in stable condition PHYSICAL EXAMINATION: GENERAL: The patient is alert , not in any acute distress. Well developed, well nourished. HEENT: Pupils are round and equally reacting to light. EOMI. No scleral icterus. No conjunctival pallor. Normocephalic, atraumatic. No pharyngeal erythema. No thyromegaly. CARDIOVASCULAR: S1 and S2 present. No murmurs, rubs, or gallops. PULMONARY: Chest is clear to auscultation, no wheezing or crackles. ABDOMEN: Soft, nontender, nondistended, normoactive bowel sounds. No palpable organomegaly. MUSCULOSKELETAL: No joint swelling or deformity. EXTREMITIES: No cyanosis, clubbing, or pedal edema. NEUROLOGICAL: Gross neurological examination did not reveal any focal deficits. SKIN: No rashes. Dictation was produced using [employer] dictation software. please excuse any g rammatical, word or spelling errors. Patient Condition at Discharge: Stable Plan - Discharge Summary Discharge Rx Participant: Yes New Discharge Prescriptions: New carvediloL [Coreg*] 12.5 mg PO BID-W/MEALS 30 Days #60 tab Isosorbide Mononitrate ER [Imdur] 30 mg PO DAILY 30 Days #30 tab amLODIPine [Norvasc] 5 mg PO DAILY 30 Days #30 tab Continue Ipratropium-Albuterol Nebulize [Duoneb 0.5 mg-3 mg/3 ml Soln] 3 ml INHALATION RT-Q6H PRN PRN Reason: Shortness Of Breath Cholecalciferol [Vitamin D3 (25 Mcg = 1000 Iu)] 50 mcg PO DAILY@0800 ondansetron HCL [Zofran] 8 mg PO Q6H PRN PRN Reason: Nausea INSULIN ASPART (NovoLOG) [NovoLOG (formulary)] 6 unit SQ TID-W/MEALS@08,12,18 cloNIDine HCL 0.2 mg PO TID Atorvastatin [Lipitor] 40 mg PO HS@2000 DULoxetine HCL [Cymbalta] 20 mg PO DAILY@0800 Nitroglycerin Sl Tabs [Nitrostat] 0.4 mg SL Q5M PRN PRN Reason: Chest Pain Aspirin EC [Ecotrin Low Dose] 81 mg PO DAILY@0800 Albuterol Inhaler [Ventolin Hfa Inhaler] 2 puff INHALATION RT-QID PRN PRN Reason: Shortness Of Breath Acetaminophen [Tylenol Arthritis] 650 mg PO Q6H PRN PRN Reason: Pain Or Fever > 100.5 Petrolatum, White [Aquaphor] 1 applic TOPICAL Q12H PRN PRN Reason: dry legs/feet Sennosides/Docusate Sodium [Senna Plus 8.6-50 mg Softgel] 1 cap PO BID@0800,1600 metFORMIN HCL [Glucophage] 500 mg PO W/SUPPER Insulin Glargine [Lantus Vial] 8 unit SQ DAILY@0700 Discontinued amLODIPine [Norvasc] 2.5 mg PO DAILY@0800 carvediloL [Coreg] 6.25 mg PO BID@0800,1600 Discharge Medication List Albuterol Inhaler [Ventolin Hfa Inhaler] 2 puff INHALATION RT-QID PRN 04/09/22 [History] Aspirin EC [Ecotrin Low Dose] 81 mg PO DAILY@0804/09/22 [History] Ipratropium-Albuterol Nebulize [Duoneb 0.5 mg-3 mg/3 ml Soln] 3 ml INHALATION RT-Q6H PRN 04/09/22 [History] Nitroglycerin Sl Tabs [Nitrostat] 0.4 mg SL Q5M PRN 04/09/22 [History] Acetaminophen [Tylenol Arthritis] 650 mg PO Q6H PRN 08/23/22 [History] Cholecalciferol [Vitamin D3 (25 Mcg = 1000 Iu)] 50 mcg PO DAILY@0808/23/22 [History] Atorvastatin [Lipitor] 40 mg PO HS@199905/01/23 [History] DULoxetine HCL [Cymbalta] 20 mg PO DAILY@0805/01/23 [History] INSULIN ASPART (NovoLOG) [NovoLOG (formulary)] 6 unit SQ TID-W/MEALS@08,,18 05/01/23 [History] Insulin Glargine [Lantus Vial] 8 unit SQ DAILY@0705/01/23 [History] Petrolatum, White [Aquaphor] 1 applic TOPICAL Q12H PRN 05/01/23 [History] Sennosides/Docusate Sodium [Senna Plus 8.6-50 mg Softgel] 1 cap PO BID@0800,1600 05/01/23 [History] cloNIDine HCL 0.2 mg PO TID 05/01/23 [History] metFORMIN HCL [Glucophage] 500 mg PO W/SUPPER 05/01/23 [History] ondansetron HCL [Zofran] 8 mg PO Q6H PRN 05/01/23 [History] Isosorbide Mononitrate ER [Imdur] 30 mg PO DAILY 30 Days #30 tab 09/01/23 [Rx] amLODIPine [Norvasc] 5 mg PO DAILY 30 Days #30 tab 09/01/23 [Rx] carvediloL [Coreg*] 12.5 mg PO BID-W/MEALS 30 Days #60 tab 09/01/23 [Rx] Follow up Appointment(s)/Referral(s): Marcello Sanchez DO [Primary Care Provider] - 1-2 days Moy Fam DO [STAFF PHYSICIAN] - 1 Week Zane Connor [STAFF PHYSICIAN] - 1 Week Discharge Disposition: TRANSFER TO SNF/ECF
[2023-09-01 15:21] VITALS: BP 153/68; PULSE 95; RESP 16; TEMP 98.2
[2023-09-02] MEDS ORDERED: amLODIPine 5 MG TAB PO SCH (09:00)
== END 2023-09-01 15:45 ==
LOC: EEVIPCON 19:15 → EC 19:15 → 6NMEDSUR 22:20
PROVIDERS: ADMIT Hospitalist; ATTEND Hospitalist
DX: R07.9 Chest pain, unspecified (principal); R91.8 Other nonspecific abnormal finding of lung field; E11.51 Type 2 diabetes mellitus with diabetic peripheral angiopathy without gangrene; E78.5 Hyperlipidemia, unspecified; I10 Essential (primary) hypertension; J44.9 Chronic obstructive pulmonary disease, unspecified; I25.10 Atherosclerotic heart disease of native coronary artery without angina pectoris; D64.9 Anemia, unspecified; I71.40 Abdominal aortic aneurysm, without rupture, unspecified; F01.50 Vascular dementia, unspecified severity, without behavioral disturbance, psychotic disturbance, mood disturbance, and anxiety; I35.0 Nonrheumatic aortic (valve) stenosis; I25.2 Old myocardial infarction; I69.398 Other sequelae of cerebral infarction; Z85.118 Personal history of other malignant neoplasm of bronchus and lung; Z87.891 Personal history of nicotine dependence; Z95.5 Presence of coronary angioplasty implant and graft; Z79.4 Long term (current) use of insulin; Z79.82 Long term (current) use of aspirin; Z79.84 Long term (current) use of oral hypoglycemic drugs; Z79.899 Other long term (current) drug therapy; Z88.0 Allergy status to penicillin; Z88.2 Allergy status to sulfonamides
CPT/HCPCS: 96372 ×2; 99285; 36415; 94760; 93005; 93306; 80053; 80048 ×2; 83735; 84484 ×2; 85025 ×2; 85610; 85730; 71046; 70450; G0378 ×3; J1644 ×2

== ENCOUNTER 2023-09-27 04:43 | Inpatient (IN) | payer MEDICARE, OTHER ==
[2023-09-27] MEDS ORDERED: NITROGLYCERIN OINT 1 INCH/GM PACKET TOPICAL STA (04:55)
[2023-09-27] MEDS ORDERED: NITROGLYCERIN SL TABS 0.4 MG TAB SUBLINGUAL STA (04:55)
[2023-09-27] MEDS ORDERED: MORPHINE SULFATE 4 MG/ML SYRINGE IV STA (04:55)
[2023-09-27 05:00] LABS: Basophils % (A) 0 %; Eosinophils # (A) 0.1 k/uL (0-0.7); Eosinophils % (A) 1 %; HCT 33.2 % (34.0-46.0); HGB 11.2 gm/dL (11.4-16.0); Lymphocytes % (A) 8 %; MCH 31.3 pg (25.0-35.0); MCHC 33.9 g/dL (31.0-37.0); MCV 92.4 fL (80.0-100.0); Mean Platelet Volume 9.3; Monocytes # (A) 1.2 k/uL (0-1.0); Monocytes % (A) 10 %; Neutrophils # (A) 9.7 k/uL (1.3-7.7); Neutrophils % (A) 78 %; Platelet Count 172 k/uL (150-450); RBC 3.59 m/uL (3.80-5.40); RDW 14.4 % (11.5-15.5); WBC 12.4 k/uL (3.8-10.6)
--- NOTE | 2023-09-27 05:03 | ED ---
SOB HPI - General Chief Complaint: Shortness of Breath Stated Complaint: RAYMUNDO Time Seen by Provider: 09/27/23 04:48 Source: patient, EMS Mode of arrival: EMS Limitations: altered mental status - History of Present Illness Initial Comments: This patient is an 83-year-old woman with underlying dementia who has history of left upper lung mass presumed to be malignancy, as well as COPD. Mass is not being treated due to underlying health. Patient noted to develop dyspnea and anxiety at her long-term care facility and EMS was phoned to bring patient for further evaluation. MD Complaint: shortness of breath -: hour(s) Consistency: constant Improves With: oxygen, upright position Worsens With: nothing Known History Of: other (Mask) Treatments Prior to Arrival: oxygen - Related Data Home Oxygen Therapy: No Home Medications Medication Instructions Recorded Confirmed Albuterol Inhaler [Ventolin Hfa 2 puff INHALATION RT-Q6H PRN 04/09/22 09/27/23 Inhaler] Aspirin EC [Ecotrin Low Dose] 81 mg PO DAILY@0804/09/22 09/27/23 Ipratropium-Albuterol Nebulize 3 ml INHALATION RT-Q6H PRN 04/09/22 09/27/23 [Duoneb 0.5 mg-3 mg/3 ml Soln] Nitroglycerin Sl Tabs [Nitrostat] 0.4 mg SL Q5M PRN 04/09/22 09/27/23 Acetaminophen [Tylenol Arthritis] 650 mg PO Q6H PRN 08/23/22 09/27/23 Cholecalciferol [Vitamin D3 (25 50 mcg PO DAILY@0800 08/23/22 09/27/23 Mcg = 1000 Iu)] Atorvastatin [Lipitor] 40 mg PO HS@199905/01/23 09/27/23 DULoxetine HCL [Cymbalta] 20 mg PO DAILY@0800 05/01/23 09/27/23 Petrolatum, White [Aquaphor] 1 applic TOPICAL Q12H PRN 05/01/23 09/27/23 Sennosides/Docusate Sodium [Senna 1 cap PO BID@0800,1600 05/01/23 09/27/23 Plus 8.6-50 mg Softgel] cloNIDine HCL 0.2 mg PO TID 05/01/23 09/27/23 ondansetron HCL [Zofran] 8 mg PO Q6H PRN 05/01/23 09/27/23 Insulin Glargine,Hum.rec.anlog 4 units SQ DAILY 09/27/23 09/27/23 [Lantus Solostar Pen] Previous Rx's Medication Instructions Recorded Isosorbide Mononitrate ER [Imdur] 30 mg PO DAILY 30 Days #30 tab 09/01/23 amLODIPine [Norvasc] 5 mg PO DAILY 30 Days #30 tab 09/01/23 HYDROcodone/APAP 5-325MG [[place] 1 tab PO DAILY 3 Days #3 tab 10/04/23 5-325] Megestrol [Megace] 80 mg PO QID 30 Days #120 tab 10/04/23 carvediloL [Coreg] 6.25 mg PO BID-W/MEALS tab 10/04/23 predniSONE [Deltasone] 40 mg PO DAILY 3 Days #6 tab 10/04/23 traMADol HCL 50 mg PO Q6H PRN 3 Days #12 tab 10/04/23 Allergies Allergy/AdvReac Type Severity Reaction Status Date / Time milk Allergy Unknown Verified 09/27/23 08:36 Milk Containing Products Allergy Unknown Verified 09/27/23 08:36 (Dairy) Penicillins Allergy Anaphylaxis Verified 09/27/23 08:36 & hives Sulfa (Sulfonamide Allergy Anaphylaxis Verified 09/27/23 08:36 Antibiotics) & hives diazepam [From Valium] AdvReac Combative Verified 09/27/23 08:36 Review of Systems ROS Statement: Those systems with pertinent positive or pertinent negative responses have been documented in the HPI. ROS Other: All systems not noted in ROS Statement are negative. Limitations: ROS unobtainable due to patients medical condition Past Medical History Past Medical History: COPD, CVA/TIA, Diabetes Mellitus, Hyperlipidemia, Hypertension, Myocardial Infarction ([place]) Additional Past Medical History / Comment(s): abdominal aortic aneurysm with stent, 2 heart attacks, 2 strokes - residual slight left eye droop per daughter Last Myocardial Infarction Date:: 2015 History of Any Multi-Drug Resistant Organisms: None Reported Past Surgical History: Appendectomy, Hysterectomy Additional Past Surgical History / Comment(s): stent to aorta at [facility], cardiac stent at [facility] for [place], R leg tendon surgery from fall, laminectomy. lung cancer Past Anesthesia/Blood Transfusion Reactions: Previous Problems w/ Anesthesia Additional Past Anesthesia/Blood Transfusion Reaction / Comment(s): combative, previously restrained after sedation. Past Psychological History: No Psychological Hx Reported Smoking Status: Unknown if ever smoked Past Alcohol Use History: Unable to Obtain General Exam Limitations: no limitations General appearance: alert, in distress Head exam: Present: atraumatic, normocephalic Eye exam: Present: normal appearance. Absent: scleral icterus, conjunctival injection Neck exam: Present: normal inspection Respiratory exam: Present: respiratory distress, wheezes. Absent: rales, rhonchi, stridor Cardiovascular Exam: Present: regular rate, normal rhythm, normal heart sounds. Absent: systolic murmur, diastolic murmur, rubs, gallop GI/Abdominal exam: Present: soft. Absent: distended, tenderness, guarding, rebound, rigid, mass Extremities exam: Present: normal inspection, normal capillary refill. Absent: pedal edema, calf tenderness Back exam: Present: normal inspection. Absent: CVA tenderness (R), CVA tenderness (L) Neurological exam: Present: alert. Absent: oriented X3, motor sensory deficit Skin exam: Present: warm, dry, intact, normal color. Absent: rash Course Vital Signs 09/27/23 09/27/23 09/27/23 04:44 04:49 05:29 Temperature 97.9 F Pulse Rate 77 84 Respiratory 18 26 H 14 Rate Blood Pressure 189/77 102/74 O2 Sat by Pulse 98 95 Oximetry 09/27/23 09/27/23 09/27/23 05:32 06:00 07:30 Temperature Pulse Rate 71 68 Respiratory 13 22 Rate Blood Pressure 143/47 O2 Sat by Pulse 95 94 L 83 L Oximetry 09/27/23 09/27/23 09/27/23 08:05 08:24 11:40 Temperature Pulse Rate 83 80 60 Respiratory Rate Blood Pressure O2 Sat by Pulse 96 Oximetry 09/27/23 09/27/23 09/27/23 11:49 15:23 15:48 Temperature Pulse Rate 62 70 76 Respiratory Rate Blood Pressure O2 Sat by Pulse Oximetry 09/27/23 17:48 Temperature 97.5 F L Pulse Rate 75 Respiratory 16 Rate Blood Pressure 145/62 O2 Sat by Pulse 90 L Oximetry Medical Decision Making - Medical Decision Making The patient had chest x-ray which I interpreted to show left upper lung density consistent with previous mass. No pneumothorax/acute infiltrate Was pt. sent in by a medical professional or institution (EVANGELIST Saldana, SHIPFITTER APPRENTICE, urgent care, hospital, or intermediate...) When possible be specific @ -[No] Did you speak to anyone other than the patient for history (EMS, parent, family, police, friend...)? What history was obtained from this source @ -[No] Did you review nursing and triage notes (agree or disagree)? Why? @ -[I reviewed and agree with nursing and triage notes] Were old charts reviewed (outside hosp., previous admission, EMS record, old EKG, old radiological studies, urgent care reports/EKG's, intermediate records)? Report findings @ -[No old charts were reviewed] Differential Diagnosis (chest pain, altered mental status, abdominal pain women, abdominal pain men, vaginal bleeding, weakness, fever, dyspnea, syncope, headache, dizziness, GI bleed, back pain, seizure, CVA, palpatations, mental health, musculoskeletal)? @ -[Differential Dyspnea: Coronary syndrome, arrhythmia, tamponade, asthma, COPD, pulmonary embolism, pneumonia, pneumothorax, pulmonary effusion, anaphylaxis, diabetic ketoacidosis, flailed chest, pulmonary contusion, diaphragmatic rupture, anemia, neuromuscular, this is not meant to be an all-inclusive list. EKG interpreted by me (3pts min.). @ -[As above] X-rays interpreted by me (1pt min.). @ -[I interpreted as above CT interpreted by me (1pt min.). @ -[None done] U/S interpreted by me (1pt. min.). @ -[None done] What testing was considered but not performed or refused? (CT, X-rays, U/S, labs)? Why? @ -[None] What meds were considered but not given or refused? Why? @ -[None] Did you discuss the management of the patient with other professionals (professionals i.e. EVANGELIST Saldana, SHIPFITTER APPRENTICE, lab, RT, psych nurse, social research assistant, fox farmer, teacher, youth liaison officer, embedded case manager)? Give summary @ -[Is discussed with admitting physician and treatment recommendations incorporated Was smoking cessation discussed for >3mins.? @ -[No] Was critical care preformed (if so, how long)? @ -[No] Were there social determinants of health that impacted care today? How? (Homelessness, low income, unemployed, alcoholism, drug addiction, transportation, low edu. Level, literacy, decrease access to med. care, [facility], rehab)? @ -[No] Was there de-escalation of care discussed even if they declined (Discuss DNR or withdrawal of care, Hospice)? DNR status @ -[No] What co-morbidities impacted this encounter? (DM, HTN, Smoking, COPD, CAD, Cancer, CVA, ARF, Chemo, Hep., AIDS, mental health diagnosis, sleep apnea, morbid obesity)? @ -[COPD and lung cancer Was patient admitted / discharged? Hospital course, mention meds given and route, prescriptions, significant lab abnormalities, going to OR and other pertinent info. @ -[The patient is a 83-year-old woman with underlying lung disease including cancers COPD. The patient does appear to have COPD exacerbation will be admitted for symptom management. Undiagnosed new problem with uncertain prognosis? @ -[No] Drug Therapy requiring intensive monitoring for toxicity (Heparin, Nitro, Insulin, Cardizem)? @ -[No] Were any procedures done? @ -[No] Diagnosis/symptom? @ -[Acute exacerbation of COPD Lung cancer Acute, or Chronic, or Acute on Chronic? @ -[Acute on chronic Uncomplicated (without systemic symptoms) or Complicated (systemic symptoms)? @ -[Applicator by dyspnea Side effects of treatment? @ -[No] Exacerbation, Progression, or Severe Exacerbation? @ -[Exacerbation Poses a threat to life or bodily function? How? (Chest pain, [place], ID, pneumonia, PE, COPD, DKA, ARF, appy, cholecystitis, CVA, Diverticulitis, Homicidal, Suicidal, threat to staff... and all critical care pts) @ -[Yes - Lab Data Result diagrams: 10/03/23 06:27 10/03/23 06:27 Lab Results 09/27/23 09/27/23 09/27/23 Range/Units 04:48 04:48 04:48 WBC 12.4 H (3.8-10.6) k/uL RBC 3.59 L (3.80-5.40) m/uL Hgb 11.2 L (11.4-16.0) gm/dL Hct 33.2 L (34.0-46.0) % MCV 92.4 (80.0-100.0) fL MCH 31.3 (25.0-35.0) pg MCHC 33.9 (31.0-37.0) g/dL RDW 14.4 (11.5-15.5) % Plt Count 172 (150-450) k/uL MPV 9.3 Neutrophils % 78 % Lymphocytes % 8 % Monocytes % 10 % Eosinophils % 1 % Basophils % 0 % Neutrophils # 9.7 H (1.3-7.7) k/uL Lymphocytes # 1.0 (1.0-4.8) k/uL Monocytes # 1.2 H (0-1.0) k/uL Eosinophils # 0.1 (0-0.7) k/uL Basophils # 0.0 (0-0.2) k/uL PT 12.0 (10.0-12.5) sec INR 1.1 (<1.2) APTT 24.6 (22.0-30.0) sec Sodium 141 (137-145) mmol/L Potassium 4.4 (3.5-5.1) mmol/L Chloride 103 (98-107) mmol/L Carbon Dioxide 23 (22-30) mmol/L Anion Gap 15 mmol/L BUN 30 H (7-17) mg/dL Creatinine 1.04 (0.52-1.04) mg/dL Est GFR (CKD-EPI)AfAm 58 (>60 ml/min/1.73 sqM) Est GFR (CKD-EPI)NonAf 50 (>60 ml/min/1.73 sqM) Glucose 160 H (74-99) mg/dL POC Glucose (mg/dL) (70-110) mg/dL POC Glu Cash Processing Specialist ID Plasma Lactic Acid Bishop (0.7-2.0) mmol/L Calcium 9.0 (8.4-10.2) mg/dL Total Bilirubin 0.9 (0.2-1.3) mg/dL AST 19 (14-36) U/L ALT 13 (4-34) U/L Alkaline Phosphatase 120 (38-126) U/L Troponin I (0.000-0.034) ng/mL NT-Pro-B Natriuret Pep 2460 pg/mL Total Protein 7.7 (6.3-8.2) g/dL Albumin 3.7 (3.5-5.0) g/dL Procalcitonin (0.02-0.09) ng/mL 09/27/23 09/27/23 09/27/23 Range/Units 04:48 04:48 04:48 WBC (3.8-10.6) k/uL RBC (3.80-5.40) m/uL Hgb (11.4-16.0) gm/dL Hct (34.0-46.0) % MCV (80.0-100.0) fL MCH (25.0-35.0) pg MCHC (31.0-37.0) g/dL RDW (11.5-15.5) % Plt Count (150-450) k/uL MPV Neutrophils % % Lymphocytes % % Monocytes % % Eosinophils % % Basophils % % Neutrophils # (1.3-7.7) k/uL Lymphocytes # (1.0-4.8) k/uL Monocytes # (0-1.0) k/uL Eosinophils # (0-0.7) k/uL Basophils # (0-0.2) k/uL PT (10.0-12.5) sec INR (<1.2) APTT (22.0-30.0) sec Sodium (137-145) mmol/L Potassium (3.5-5.1) mmol/L Chloride (98-107) mmol/L Carbon Dioxide (22-30) mmol/L Anion Gap mmol/L BUN (7-17) mg/dL Creatinine (0.52-1.04) mg/dL Est GFR (CKD-EPI)AfAm (>60 ml/min/1.73 sqM) Est GFR (CKD-EPI)NonAf (>60 ml/min/1.73 sqM) Glucose (74-99) mg/dL POC Glucose (mg/dL) (70-110) mg/dL POC Glu Cash Processing Specialist ID Plasma Lactic Acid Bishop 1.1 (0.7-2.0) mmol/L Calcium (8.4-10.2) mg/dL Total Bilirubin (0.2-1.3) mg/dL AST (14-36) U/L ALT (4-34) U/L Alkaline Phosphatase (38-126) U/L Troponin I <0.012 (0.000-0.034) ng/mL NT-Pro-B Natriuret Pep pg/mL Total Protein (6.3-8.2) g/dL Albumin (3.5-5.0) g/dL Procalcitonin 0.10 H (0.02-0.09) ng/mL 09/27/23 Range/Units 13:36 WBC (3.8-10.6) k/uL RBC (3.80-5.40) m/uL Hgb (11.4-16.0) gm/dL Hct (34.0-46.0) % MCV (80.0-100.0) fL MCH (25.0-35.0) pg MCHC (31.0-37.0) g/dL RDW (11.5-15.5) % Plt Count (150-450) k/uL MPV Neutrophils % % Lymphocytes % % Monocytes % % Eosinophils % % Basophils % % Neutrophils # (1.3-7.7) k/uL Lymphocytes # (1.0-4.8) k/uL Monocytes # (0-1.0) k/uL Eosinophils # (0-0.7) k/uL Basophils # (0-0.2) k/uL PT (10.0-12.5) sec INR (<1.2) APTT (22.0-30.0) sec Sodium (137-145) mmol/L Potassium (3.5-5.1) mmol/L Chloride (98-107) mmol/L Carbon Dioxide (22-30) mmol/L Anion Gap mmol/L BUN (7-17) mg/dL Creatinine (0.52-1.04) mg/dL Est GFR (CKD-EPI)AfAm (>60 ml/min/1.73 sqM) Est GFR (CKD-EPI)NonAf (>60 ml/min/1.73 sqM) Glucose (74-99) mg/dL POC Glucose (mg/dL) 206 H (70-110) mg/dL POC Glu Cash Processing Specialist ID [place] Plasma Lactic Acid Bishop (0.7-2.0) mmol/L Calcium (8.4-10.2) mg/dL Total Bilirubin (0.2-1.3) mg/dL AST (14-36) U/L ALT (4-34) U/L Alkaline Phosphatase (38-126) U/L Troponin I (0.000-0.034) ng/mL NT-Pro-B Natriuret Pep pg/mL Total Protein (6.3-8.2) g/dL Albumin (3.5-5.0) g/dL Procalcitonin (0.02-0.09) ng/mL - EKG Data -: EKG Interpreted by Nd EKG shows normal: sinus rhythm, axis (Normal), intervals (QRS duration 124 ms, prolonged consistent with bundle branch block. [place] 142 ms, QTC 416 ms, both normal.), QRS complexes (Right bundle-branch block), ST-T waves Rate: normal (Rate 92 bpm) Disposition Clinical Impression: Dyspnea, Lung mass, COPD (chronic obstructive pulmonary disease) Disposition: ADMITTED IP TO THIS HOSP Condition: Fair
[2023-09-27 05:07] LABS: ALT 13 U/L (4-34); AST 19 U/L (14-36); African American GFR (CKD) 58 (>60 ml/min/1.73 sqM); Albumin 3.7 g/dL (3.5-5.0); Alkaline Phosphatase 120 U/L (38-126); Anion Gap 15 mmol/L; Blood Urea Nitrogen 30 mg/dL (7-17); Carbon Dioxide 23 mmol/L (22-30); Chloride 103 mmol/L (98-107); Glucose 160 mg/dL (74-99); Non-African American GFR(CKD) 50 (>60 ml/min/1.73 sqM); Potassium 4.4 mmol/L (3.5-5.1); Sodium 141 mmol/L (137-145); Total Bilirubin 0.9 mg/dL (0.2-1.3); Total Protein 7.7 g/dL (6.3-8.2)
[2023-09-27 05:16] LABS: NT-Pro-B-Type Natriuretic Pept 2460 pg/mL
[2023-09-27 05:19] LABS: INR 1.1 (<1.2); Partial Thromboplastin Time 24.6 sec (22.0-30.0)
--- NOTE | 2023-09-27 07:01 | XR ---
EXAMINATION TYPE: XR chest 1V portable DATE OF EXAM: 09/27/2023 COMPARISON: 08/30/2023 INDICATION: Dyspnea TECHNIQUE: Single frontal view of the chest is obtained. FINDINGS: The heart size is normal. The pulmonary vasculature is normal. There is a peripheral mass which on this exam appears to measure 6.4 x 3.6 cm. No additional mass is evident. No suspicious infiltrates evident. IMPRESSION: 1. Persistent peripheral left upper lateral lung mass.
[2023-09-27] MEDS ORDERED: IPRATROPIUM-ALBUTEROL 3 ML NEB INHALATION PRN (07:50)
[2023-09-27] MEDS ORDERED: NALOXONE 0.4 MG/ML 1 ML VIAL IVP PRN (07:50)
[2023-09-27] MEDS ORDERED: ONDANSETRON 4 MG TAB PO PRN (07:52)
[2023-09-27] MEDS: IPRATROPIUM-ALBUTEROL 3 ML NEB INHALATION SCH ×4 (08:05→20:50)
[2023-09-27] MEDS ORDERED: predniSONE 20 MG TAB PO SCH (09:00)
[2023-09-27] MEDS: SENNOSIDES-DOCUSATE SODIUM 1 EACH TAB PO SCH ×2 (09:13→16:01)
[2023-09-27] MEDS: CHOLECALCIFEROL 25 MCG (1000 IU) TABLET PO SCH (09:13)
[2023-09-27] MEDS: amLODIPine 5 MG TAB PO SCH (09:15)
[2023-09-27] MEDS: cloNIDine HCL 0.2 MG TAB PO SCH ×3 (09:16→23:40)
[2023-09-27] MEDS: ISOSORBIDE MONONITRATE ER 30 MG TAB.ER.24H PO SCH (09:16)
[2023-09-27] MEDS: AZITHROMYCIN 500 MG TAB PO SCH (09:17)
[2023-09-27] MEDS ORDERED: traMADol 50 MG TAB PO PRN (10:43)
[2023-09-27] MEDS ORDERED: NITROGLYCERIN SL TABS 0.4 MG TAB SUBLINGUAL PRN (10:43)
[2023-09-27] MEDS: HYDROcodone/APAP 5-325MG 1 EACH TAB PO SCH ×2 (11:08→11:16)
[2023-09-27] MEDS: ASPIRIN 81 MG PO SCH (11:16)
[2023-09-27] MEDS: HEPARIN SODIUM,PORCINE 5,000 UNIT/ML 1 ML VIAL SQ SCH ×2 (11:16→21:20)
[2023-09-27] MEDS: DULoxetine HCL 20 MG CAPSULE.DR PO SCH (11:16)
[2023-09-27] MEDS ORDERED: CALCIUM CARBONATE 500 MG CHEWABLE PO PRN (12:00)
[2023-09-27] MEDS ORDERED: LACTULOSE 20 GM/30 ML CUP PO PRN (12:00)
[2023-09-27] MEDS ORDERED: MELATONIN 3 MG TABLET PO PRN (12:00)
[2023-09-27] MEDS ORDERED: ONDANSETRON 4 MG/2 ML VIAL IVP PRN (12:00)
[2023-09-27] MEDS: DEXTROSE 5%-0.45% NACL 1,000 ML IV SCH (13:24)
[2023-09-27] MEDS: methylPREDNISolone SOD SUCCI 125 MG/2 ML VIAL IV SCH ×3 (13:24→23:16)
[2023-09-27 13:38] LABS: Glucose,Whole Blood 206 mg/dL (70-110)
[2023-09-27] MEDS: BUDESONIDE 1 MG/2 ML NEBU INHALATION SCH ×2 (13:38→20:50)
[2023-09-27] MEDS: INSULIN DETEMIR (LEVEMIR) 100 UNIT/ML SYR SQ SCH (13:41)
[2023-09-27] MEDS: LORazepam 2 MG/ML INJ IV PRN ×2 (15:56→23:42)
--- NOTE | 2023-09-27 15:56 | P.CNPUL ---
History of Present Illness Consult date: 09/27/23 Requesting physician: William Blackmon Reason for consult: dyspnea, hypoxemia, abnormal CXR/CT Chief complaint: Shortness of breath, cough congestion History of present illness: This is a 83-year-old female patient with a history of dementia, diabetes mellitus, hyperlipidemia, hypertension, chronic obstructive pulmonary disease and dementia. She resides in [facility]. She also has a history of lung cancer that was diagnosed back in April 2023. PET scan confirmed increased uptake in the left lung mass compatible with neoplasm. She did undergo 5 radiation treatments to the lung. She was deemed not a candidate for biopsy. She presented here to the emergency room today from the [facility] after being found to have RSV and hypoxemia. She was not eating or drinking. Chest x-ray revealed the upper lobe mass measuring 6.4 x 3.6. No other infiltrates or opacities noted. White count 12.4. Hemoglobin 11.2. Platelets 172. Sodium 141. Potassium 4.1. Bicarb 23. BUN 30. Creatinine 1.04. Glucose 160. AST 19. ALT 13. Troponin negative 1. ProBNP 2460. She is seen today in consultation in the emergency department. She is currently resting comfortably in bed. She is mainly nonverbal. Her daughter is at the bedside who provides the information. Currently on 5 L high flow nasal cannula to maintain O2 saturations in the 90s. She's afebrile. Hemodynamically stable. She's been initiated and DuoNeb inhalations, Pulmicort inhalations, Solu-Medrol. D5 and half-normal saline at 83 ML's per hour. Antibiotics in the form of azithromycin. Heparin for DVT prophylaxis. Review of Systems ROS unobtainable: due to mental status Past Medical History Past Medical History: COPD, CVA/TIA, Diabetes Mellitus, Hyperlipidemia, Hypertension, Myocardial Infarction ([place]) Additional Past Medical History / Comment(s): abdominal aortic aneurysm with stent, 2 heart attacks, 2 strokes - residual slight left eye droop per daughter Last Myocardial Infarction Date:: 2015 History of Any Multi-Drug Resistant Organisms: None Reported Past Surgical History: Appendectomy, Hysterectomy Additional Past Surgical History / Comment(s): stent to aorta at [facility], cardiac stent at [facility] for [place], R leg tendon surgery from fall, laminectomy. lung cancer Past Anesthesia/Blood Transfusion Reactions: Previous Problems w/ Anesthesia Additional Past Anesthesia/Blood Transfusion Reaction / Comment(s): combative, previously restrained after sedation. Past Psychological History: No Psychological Hx Reported Smoking Status: Unknown if ever smoked Past Alcohol Use History: Unable to Obtain Medications and Allergies Home Medications Medication Instructions Recorded Confirmed Type Albuterol Inhaler [Ventolin Hfa 2 puff INHALATION RT-Q6H PRN 04/09/22 09/27/23 History Inhaler] Aspirin EC [Ecotrin Low Dose] 81 mg PO DAILY@79904/09/22 09/27/23 History Ipratropium-Albuterol Nebulize 3 ml INHALATION RT-Q6H PRN 04/09/22 09/27/23 History [Duoneb 0.5 mg-3 mg/3 ml Soln] Nitroglycerin Sl Tabs [Nitrostat] 0.4 mg SL Q5M PRN 04/09/22 09/27/23 History Acetaminophen [Tylenol Arthritis] 650 mg PO Q6H PRN 08/23/22 09/27/23 History Cholecalciferol [Vitamin D3 (25 50 mcg PO DAILY@0808/23/22 09/27/23 History Mcg = 1000 Iu)] Atorvastatin [Lipitor] 40 mg PO HS@199905/01/23 09/27/23 History DULoxetine HCL [Cymbalta] 20 mg PO DAILY@79905/01/23 09/27/23 History Petrolatum, White [Aquaphor] 1 applic TOPICAL Q12H PRN 05/01/23 09/27/23 History Sennosides/Docusate Sodium [Senna 1 cap PO BID@0800,1600 05/01/23 09/27/23 History Plus 8.6-50 mg Softgel] cloNIDine HCL 0.2 mg PO TID 05/01/23 09/27/23 History ondansetron HCL [Zofran] 8 mg PO Q6H PRN 05/01/23 09/27/23 History Isosorbide Mononitrate ER [Imdur] 30 mg PO DAILY 30 Days #30 tab 09/01/23 09/27/23 Rx amLODIPine [Norvasc] 5 mg PO DAILY 30 Days #30 tab 09/01/23 09/27/23 Rx carvediloL [Coreg*] 12.5 mg PO BID-W/MEALS 30 Days #60 09/01/23 09/27/23 Rx tab Azithromycin [Zithromax] 500 mg PO DAILY 09/27/23 09/27/23 History HYDROcodone/APAP 5-325MG [Zoe 1 tab PO DAILY 09/27/23 09/27/23 History 5-325] Insulin Glargine,Hum.rec.anlog 4 units SQ DAILY 09/27/23 09/27/23 History [Lantus Solostar Pen] traMADol HCL 50 mg PO Q6H PRN 09/27/23 09/27/23 History Allergies Allergy/AdvReac Type Severity Reaction Status Date / Time milk Allergy Unknown Verified 09/27/23 08:36 Milk Containing Products Allergy Unknown Verified 09/27/23 08:36 (Dairy) Penicillins Allergy Anaphylaxis Verified 09/27/23 08:36 & hives Sulfa (Sulfonamide Allergy Anaphylaxis Verified 09/27/23 08:36 Antibiotics) & hives diazepam [From Valium] AdvReac Combative Verified 09/27/23 08:36 Physical Exam Vitals: Vital Signs Temp Pulse Resp BP Pulse Ox 09/27/23 11:49 62 09/27/23 11:40 60 09/27/23 08:24 80 09/27/23 08:05 83 96 09/27/23 07:30 68 22 83 L 09/27/23 06:00 71 13 143/47 94 L 09/27/23 05:32 95 09/27/23 05:29 84 14 102/74 95 09/27/23 04:49 26 H 09/27/23 04:44 97.9 F 77 18 189/77 98 Intake and Output 09/27/23 09/27/23 09/27/23 06:59 14:59 22:59 Other: Weight 81.647 kg GENERAL EXAM: Arousable, 83-year-old female, on 5 L nasal cannula, in no apparent distress. HEAD: Normocephalic. EYES: Normal reaction of pupils, equal size. NOSE: Clear with pink turbinates. THROAT: No erythema or exudates. NECK: No masses, no JVD. CHEST: No chest wall deformity. LUNGS: Equal air entry with bilateral scattered rhonchi more so on the left. CVS: S1 and S2 normal with no audible murmur, regular rhythm. ABDOMEN: No hepatosplenomegaly, normal bowel sounds, no guarding or rigidity. SPINE: No scoliosis or deformity SKIN: No rashes CENTRAL NERVOUS SYSTEM: No focal deficits, tone is normal in all 4 extremities. EXTREMITIES: There is no peripheral edema. No clubbing, no cyanosis. Periphera l pulses are intact. Results - Laboratory Findings CBC and BMP: 09/27/23 04:48 09/27/23 04:48 PT/INR, D-dimer PT 12.0 sec (10.0-12.5) 09/27/23 04:48 INR 1.1 (<1.2) 09/27/23 04:48 Abnormal lab findings: Abnormal Labs 09/27/23 09/27/23 09/27/23 04:48 04:48 13:36 WBC 12.4 H RBC 3.59 L Hgb 11.2 L Hct 33.2 L Neutrophils # 9.7 H Monocytes # 1.2 H BUN 30 H Glucose 160 H POC Glucose (mg/dL) 206 H - Diagnostic Findings Chest x-ray: image reviewed Assessment and Plan Assessment: Acute hypoxemic respiratory failure secondary to RSV, positive 09/25/2023 Known history of left upper lobe mass with positive PET scan, no biopsy, status post SP RT 5 History of dementia History of diabetes mellitus Hyperlipidemia Hypertension CVA/TIA Abdominal aortic aneurysm status post stent Coronary disease with previous stent placement snf resident Plan: The patient was seen and evaluated Chest x-ray, labs and medications reviewed Continue bronchodilators, steroids Continue antibiotics for now Check a procalcitonin Titrate the FiO2 as tolerated DO NOT RESUSCITATE/DO NOT INTUBATE CODE STATUS We will continue to follow and make further recommendations based on her clinical status I have personally seen and examined the patient, performed the documentation and the assessment and plan as written. Number of minutes spent on the visit: 20.
--- NOTE | 2023-09-27 16:56 | P.HPIM ---
History of Present Illness H&P Date: 09/27/23 Chief Complaint: Short of breath This is a pleasant 83-year-old patient, follows with Dr. [facility]. History is obtained primarily by the daughter over the phone. And the ER. Chronic stable medical conditions include diabetes, hypertension, hyperlipidemia, CAD with prior to heart attacks, some residual left eye droop from prior stroke. 2016. At a baseline patient does use a wheelchair. And can walk a few steps to the bathroom with support. Ex-smoker. Patient has underlying vascular dementia. By the EMS report patient was found altered mental status pulse ox down to the 80s and patient kept taking her oxygen mask off. Patient was RSV positive. Was wheezing. They placed place a 15 L nonrebreather mask. Patient also has a left upper lobe mass. Because oral condition this has not been further investigated. In the ER patient can only answer occasional questions. Review of systems cannot be obtained by the patient. Social history: Patient started smoking about 15 years ago and smoked for about 50 years approximately as per the daughter. Currently at [facility]. Does use a wheelchair. Little bit of walker. Physical examination: VITAL SIGNS: 97.9, 77, 26, 102/74, 95% on 6 L on presentation GENERAL: BMI 28.2, laying in bed to a bit restless. EYES: Pupils equal. Conjunctiva normal. HEENT: External appearance of nose and ears normal, oral cavity grossly normal. NECK: JVD not raised; masses not palpable. HEART: First and second heart sounds are normal; no edema. LUNGS: Respiratory rate increased, diminished breath sounds occasional crackles, wheezing. ABDOMEN: Soft, nontender, liver spleen not palpable, no masses palpable. PSYCH: Answer occasional question. She thinks she is a senior living. Cannot tell the year. Cannot tell disease andl. MUSCULOSKELETAL:No Clubbing/cyanosis;muscles-grossly intact. OA NEUROLOGICAL: Cranial nerves grossly intact; no facial asymmetry, power and sensation grossly intact. LYMPHATICS: No lymph nodes palpable in the axilla and neck INVESTIGATIONS, reviewed in the clinical context: White count 12.4 hemoglobin 11.2 platelets 172 sodium 141 potassium 4.4 creatinine 1.04 Troponin I less than 0.012 proBNP 2460 EKG tracing personally reviewed by me-normal sinus rhythm. Right ventricular block. Chest x-ray film personally reviewed by me-hyperinflation. Left upper lobe shadow Assessment and plan: -Acute COPD exacerbation and a prior smoker precipitated by RSV infection DuoNeb. IV Solu-Medrol. Nebulized Pulmicort. -Acute severe hypoxic respiratory failure. Patient requesting initially requiring 15 L high flow oxygen. This morning on 6 L oxygen -Acute RSV infection Symptomatic treatment -Acute delirium with hypoxic encephalopathy from above -Severe cognitive impairment from underlying dementia -CAD with prior [place] Aspirin. Lipitor. Coreg. -Essential hypertension Amlodipine 5 mg daily. Clonidine 0.2 mg 3 times a day. Coreg 12.5 mg twice a day. -Anxiety depression Cymbalta -DO NOT RESUSCITATE. Discussed with Daughter -Legal guardian, Gemini. Patient's daughter Given the complexity and severity of patient's condition expect the patient to be in the hospital at least for 2 overnights Past Medical History Past Medical History: COPD, CVA/TIA, Diabetes Mellitus, Hyperlipidemia, Hypertension, Myocardial Infarction ([place]) Additional Past Medical History / Comment(s): abdominal aortic aneurysm with stent, 2 heart attacks, 2 strokes - residual slight left eye droop per daughter Last Myocardial Infarction Date:: 2015 History of Any Multi-Drug Resistant Organisms: None Reported Past Surgical History: Appendectomy, Hysterectomy Additional Past Surgical History / Comment(s): stent to aorta at [facility], cardiac stent at [facility] for [facility], R leg tendon surgery from fall, laminectomy. lung cancer Past Anesthesia/Blood Transfusion Reactions: Previous Problems w/ Anesthesia Additional Past Anesthesia/Blood Transfusion Reaction / Comment(s): combative, previously restrained after sedation. Past Psychological History: No Psychological Hx Reported Smoking Status: Unknown if ever smoked Past Alcohol Use History: Unable to Obtain Medications and Allergies Home Medications Medication Instructions Recorded Confirmed Type Albuterol Inhaler [Ventolin Hfa 2 puff INHALATION RT-Q6H PRN 04/09/22 09/27/23 History Inhaler] Aspirin EC [Ecotrin Low Dose] 81 mg PO DAILY@0800 04/09/22 09/27/23 History Ipratropium-Albuterol Nebulize 3 ml INHALATION RT-Q6H PRN 04/09/22 09/27/23 History [Duoneb 0.5 mg-3 mg/3 ml Soln] Nitroglycerin Sl Tabs [Nitrostat] 0.4 mg SL Q5M PRN 04/09/22 09/27/23 History Acetaminophen [Tylenol Arthritis] 650 mg PO Q6H PRN 08/23/22 09/27/23 History Cholecalciferol [Vitamin D3 (25 50 mcg PO DAILY@0800 08/23/22 09/27/23 History Mcg = 1000 Iu)] Atorvastatin [Lipitor] 40 mg PO HS@199905/01/23 09/27/23 History DULoxetine HCL [Cymbalta] 20 mg PO DAILY@0800 05/01/23 09/27/23 History Petrolatum, White [Aquaphor] 1 applic TOPICAL Q12H PRN 05/01/23 09/27/23 History Sennosides/Docusate Sodium [Senna 1 cap PO BID@0800,1600 05/01/23 09/27/23 History Plus 8.6-50 mg Softgel] cloNIDine HCL 0.2 mg PO TID 05/01/23 09/27/23 History ondansetron HCL [Zofran] 8 mg PO Q6H PRN 05/01/23 09/27/23 History Isosorbide Mononitrate ER [Imdur] 30 mg PO DAILY 30 Days #30 tab 09/01/23 09/27/23 Rx amLODIPine [Norvasc] 5 mg PO DAILY 30 Days #30 tab 09/01/23 09/27/23 Rx carvediloL [Coreg*] 12.5 mg PO BID-W/MEALS 30 Days #60 09/01/23 09/27/23 Rx tab Azithromycin [Zithromax] 500 mg PO DAILY 09/27/23 09/27/23 History HYDROcodone/APAP 5-325MG [[place] 1 tab PO DAILY 09/27/23 09/27/23 History 5-325] Insulin Glargine,Hum.rec.anlog 4 units SQ DAILY 09/27/23 09/27/23 History [Lantus Solostar Pen] traMADol HCL 50 mg PO Q6H PRN 09/27/23 09/27/23 History Allergies Allergy/AdvReac Type Severity Reaction Status Date / Time milk Allergy Unknown Verified 09/27/23 08:36 Milk Containing Products Allergy Unknown Verified 09/27/23 08:36 (Dairy) Penicillins Allergy Anaphylaxis Verified 09/27/23 08:36 & hives Sulfa (Sulfonamide Allergy Anaphylaxis Verified 09/27/23 08:36 Antibiotics) & hives diazepam [From Valium] AdvReac Combative Verified 09/27/23 08:36 Physical Exam Vitals: Vital Signs Temp Pulse Resp BP Pulse Ox 09/27/23 08:24 80 09/27/23 08:05 83 96 09/27/23 07:30 68 22 83 L 09/27/23 06:00 71 13 143/47 94 L 09/27/23 05:32 95 09/27/23 05:29 84 14 102/74 95 09/27/23 04:49 26 H 09/27/23 04:44 97.9 F 77 18 189/77 98 Intake and Output 09/26/23 09/27/23 09/27/23 22:59 06:59 14:59 Other: Weight 81.647 kg Results CBC & Chem 7: 09/27/23 04:48 09/27/23 04:48 Labs: Abnormal Lab Results - Last 24 Hours (Table) 09/27/23 09/27/23 Range/Units 04:48 04:48 WBC 12.4 H (3.8-10.6) k/uL RBC 3.59 L (3.80-5.40) m/uL Hgb 11.2 L (11.4-16.0) gm/dL Hct 33.2 L (34.0-46.0) % Neutrophils # 9.7 H (1.3-7.7) k/uL Monocytes # 1.2 H (0-1.0) k/uL BUN 30 H (7-17) mg/dL Glucose 160 H (74-99) mg/dL
[2023-09-27 17:37] LABS: Glucose,Whole Blood 265 mg/dL (70-110)
[2023-09-27 20:39] LABS: Glucose,Whole Blood 250 mg/dL (70-110)
[2023-09-27] MEDS: carvediloL 12.5 MG TAB PO SCH (22:58)
[2023-09-27] MEDS: metFORMIN 500 MG TAB PO SCH (22:58)
[2023-09-27] MEDS: ATORVASTATIN 40 MG TAB PO SCH (23:40)
[2023-09-28] MEDS: DEXTROSE 5%-0.45% NACL 1,000 ML IV SCH ×2 (01:25→16:43)
[2023-09-28 06:13] LABS: Glucose,Whole Blood 249 mg/dL (70-110)
[2023-09-28] MEDS: INSULIN DETEMIR (LEVEMIR) 100 UNIT/ML SYR SQ SCH (06:21)
[2023-09-28] MEDS ORDERED: INSULIN DETEMIR (LEVEMIR) 100 UNIT/ML SYR SQ SCH ×2 (07:00→10:36)
[2023-09-28] MEDS: BUDESONIDE 1 MG/2 ML NEBU INHALATION SCH ×2 (08:51→21:29)
[2023-09-28] MEDS: IPRATROPIUM-ALBUTEROL 3 ML NEB INHALATION SCH ×4 (08:51→21:30)
[2023-09-28] MEDS: cloNIDine HCL 0.2 MG TAB PO SCH ×3 (08:56→21:06)
[2023-09-28] MEDS: amLODIPine 5 MG TAB PO SCH (08:56)
[2023-09-28] MEDS: CHOLECALCIFEROL 25 MCG (1000 IU) TABLET PO SCH (09:07)
[2023-09-28] MEDS: HEPARIN SODIUM,PORCINE 5,000 UNIT/ML 1 ML VIAL SQ SCH ×2 (09:07→21:06)
[2023-09-28] MEDS: methylPREDNISolone SOD SUCCI 125 MG/2 ML VIAL IV SCH ×4 (09:07→23:26)
[2023-09-28] MEDS: ISOSORBIDE MONONITRATE ER 30 MG TAB.ER.24H PO SCH (09:08)
[2023-09-28] MEDS: SENNOSIDES-DOCUSATE SODIUM 1 EACH TAB PO SCH ×2 (09:08→16:22)
[2023-09-28] MEDS: ASPIRIN 81 MG PO SCH (09:08)
[2023-09-28] MEDS: carvediloL 12.5 MG TAB PO SCH ×2 (09:08→16:22)
[2023-09-28] MEDS: DULoxetine HCL 20 MG CAPSULE.DR PO SCH (09:09)
[2023-09-28] MEDS: HYDROcodone/APAP 5-325MG 1 EACH TAB PO SCH (09:18)
[2023-09-28] MEDS: AZITHROMYCIN 500 MG TAB PO SCH (11:04)
[2023-09-28 11:37] LABS: Glucose,Whole Blood 224 mg/dL (70-110)
[2023-09-28 12:17] VITALS: BMI 35.2
--- NOTE | 2023-09-28 13:00 | P.PN ---
Progress Note - Text Progress Note Date: 09/28/23 Chief Complaint: Short of breath This is a pleasant 83-year-old patient, follows with Dr. Sanchez at the [facility]. [facility]. History is obtained primarily by the daughter over the phone. And the ER. Chronic stable medical conditions include diabetes, hypertension, hyperlipidemia, CAD with prior to heart attacks, some residual left eye droop from prior stroke. 2016. At a baseline patient does use a wheelchair. And can walk a few steps to the bathroom with support. Ex-smoker. Patient has underlying vascular dementia. By the EMS report patient was found altered mental status pulse ox down to the 80s and patient kept taking her oxygen mask off. Patient was RSV positive. Was wheezing. They placed place a 15 L nonrebreather mask. Patient also has a left upper lobe mass. Because oral condition this has not been further investigated. In the ER patient can only answer occasional questions. 09/28/2023: In bed. Decrease appetite. Short of breath. Occasional cough. On nasal cannula. Active Medications Acetaminophen (Acetaminophen Tab 325 Mg Tab) 650 mg PO Q4HR PRN PRN Reason: Mild Pain or Fever > 100.5 Hydrocodone Bitart/Acetaminophen (Hydrocodone/Apap 5-325mg 1 Each Tab) 1 each PO DAILY [facility] Last Admin: 09/28/23 09:18 Dose: Not Given Albuterol/Ipratropium (Ipratropium-Albuterol 3 Ml Neb) 3 ml INHALATION RT-QID [facility] Last Admin: 09/28/23 12:35 Dose: 3 ml Albuterol/Ipratropium (Ipratropium-Albuterol 3 Ml Neb) 3 ml INHALATION RT-Q2H PRN PRN Reason: Shortness Of Breath Or Wheezing Amlodipine Besylate (Amlodipine 5 Mg Tab) 5 mg PO DAILY [facility] Last Admin: 09/28/23 08:56 Dose: Not Given Aspirin (Aspirin 81 Mg) 81 mg PO DAILY@0800 [facility] Last Admin: 09/28/23 09:08 Dose: 81 mg Atorvastatin Calcium (Atorvastatin 40 Mg Tab) 40 mg PO HS@2000 [facility] Last Admin: 09/27/23 23:40 Dose: Not Given Azithromycin (Azithromycin 500 Mg Tab) 500 mg PO DAILY [facility]; Protocol Stop: 09/29/23 09:01 Last Admin: 09/28/23 11:04 Dose: 500 mg Budesonide (Budesonide 1 Mg/2 Ml Nebu) 1 mg INHALATION RT-BID [facility] Last Admin: 09/28/23 08:51 Dose: 1 mg Calcium Carbonate/Glycine (Calcium Carbonate 500 Mg Chewable) 1,000 mg PO Q4HR PRN PRN Reason: Dyspepsia Carvedilol (Carvedilol 12.5 Mg Tab) 12.5 mg PO BID-W/MEALS [facility] Last Admin: 09/28/23 09:08 Dose: 12.5 mg Cholecalciferol (Cholecalciferol 25 Mcg (1000 Iu) Tablet) 50 mcg PO DAILY@0800 [facility] Last Admin: 09/28/23 09:07 Dose: 50 mcg Clonidine (Clonidine Hcl 0.2 Mg Tab) 0.2 mg PO TID [facility] Last Admin: 09/28/23 08:56 Dose: Not Given Duloxetine HCl (Duloxetine Hcl 20 Mg Capsule.Dr) 20 mg PO DAILY@0800 [facility] Last Admin: 09/28/23 09:09 Dose: 20 mg Formoterol Fumarate (Formoterol Fumarate 20 Mcg/2 Ml Nebu) 20 mcg INHALATION RT-BID [facility] Heparin Sodium (Porcine) (Heparin Sodium,Porcine 5,000 Unit/Ml 1 Ml Vial) 5,000 unit SQ Q12HR [facility] Last Admin: 09/28/23 09:07 Dose: 5,000 unit Dextrose/Sodium Chloride (Dextrose 5%-1/2ns Iv Soln) 1,000 mls @ 83 mls/hr IV .Q12H3M [facility] Last Admin: 09/28/23 01:25 Dose: Not Given Insulin Detemir (Insulin Detemir (Levemir) 100 Unit/Ml Syr) 10 unit SQ DAILY@0700 [facility] Isosorbide Mononitrate (Isosorbide Mononitrate Er 30 Mg Tab.Er.24h) 30 mg PO DAILY [facility] Last Admin: 09/28/23 09:08 Dose: 30 mg Lactulose (Lactulose 20 Gm/30 Ml Cup) 20 gm PO DAILY PRN PRN Reason: Constipation Lorazepam (Lorazepam 2 Mg/Ml Inj) 0.5 mg IV Q6HR PRN PRN Reason: Anxiety Last Admin: 09/27/23 23:42 Dose: 0.5 mg Melatonin (Melatonin 3 Mg Tablet) 3 mg PO HS PRN PRN Reason: Insomnia Metformin HCl (Metformin 500 Mg Tab) 500 mg PO W/SUPPER [facility] Last Admin: 09/27/23 22:58 Dose: Not Given Methylprednisolone Sodium Succinate (Methylprednisolone Sod Succi 125 Mg/2 Ml Vial) 60 mg IV Q8HR [facility] Last Admin: 09/28/23 09:19 Dose: Not Given Naloxone HCl (Naloxone 0.4 Mg/Ml 1 Ml Vial) 0.2 mg IVP Q2M PRN PRN Reason: Opioid Reversal Nitroglycerin (Nitroglycerin Sl Tabs 0.4 Mg Tab) 0.4 mg SUBLINGUAL Q5M PRN PRN Reason: Chest Pain Ondansetron HCl (Ondansetron 4 Mg Tab) 8 mg PO Q6H PRN PRN Reason: Nausea Ondansetron HCl (Ondansetron 4 Mg/2 Ml Vial) 4 mg IVP Q8HR PRN PRN Reason: Nausea And Vomiting Senna/Docusate Sodium (Sennosides-Docusate Sodium 1 Each Tab) 1 each PO BID@0800,1600 [facility] Last Admin: 09/28/23 09:08 Dose: 1 each Tramadol HCl (Tramadol 50 Mg Tab) 50 mg PO Q6H PRN PRN Reason: Pain Social history: Patient started smoking about 15 years ago and smoked for about 50 years kassidy roximately as per the daughter. Currently at [facility]. Does use a wheelchair. Little bit of walker. Physical examination: VITAL SIGNS: 97.7, 84, 17, 97/76, 90% room air GENERAL: In bed, a bit uncomfortable EYES: Pupils equal. Conjunctiva normal. HEENT: External appearance of nose and ears normal, oral cavity grossly normal. NECK: JVD not raised; masses not palpable. HEART: First and second heart sounds are normal; no edema. LUNGS: Respiratory rate increased, diminished breath sounds occasional crackles, wheezing. ABDOMEN: Soft, nontender, liver spleen not palpable, no masses palpable. PSYCH: Answer occasional question. She thinks she is a shelter. Cannot tell the year. Cannot tell disease andl. MUSCULOSKELETAL:No Clubbing/cyanosis;muscles-grossly intact. OA INVESTIGATIONS, reviewed in the clinical context: White count 12.4 hemoglobin 11.2 platelets 172 sodium 141 potassium 4.4 creatinine 1.04 Troponin I less than 0.012 proBNP 2460 EKG tracing personally reviewed by me-normal sinus rhythm. Right ventricular block. Chest x-ray film personally reviewed by me-hyperinflation. Left upper lobe shadow Assessment and plan: -Acute COPD exacerbation and a prior smoker precipitated by RSV infection: Slow to respond DuoNeb. IV Solu-Medrol. Nebulized Pulmicort. -Acute severe hypoxic respiratory failure.: Slow to respond initially requiring 15 L high flow oxygen. This morning on 3 L oxygen -Acute RSV infection Symptomatic treatment -Acute delirium with hypoxic encephalopathy from above: Slow to respond -Severe cognitive impairment from underlying dementia -CAD with prior [place] Aspirin. Lipitor. Coreg. -Essential hypertension Amlodipine 5 mg daily. Clonidine 0.2 mg 3 times a day. Coreg 12.5 mg twice a day. -Anxiety depression Cymbalta -DO NOT RESUSCITATE. Discussed with Daughter -Legal guardian, Gemini. Patient's daughter Decreased appetite. Patient is taking her medications. Continue current treatment plan. Past Medical History Past Medical History: COPD, CVA/TIA, Diabetes Mellitus, Hyperlipidemia, Hypertension, Myocardial Infarction ([place]) Additional Past Medical History / Comment(s): abdominal aortic aneurysm with stent, 2 heart attacks, 2 strokes - residual slight left eye droop per daughter Last Myocardial Infarction Date:: 2015 History of Any Multi-Drug Resistant Organisms: None Reported Past Surgical History: Appendectomy, Hysterectomy Additional Past Surgical History / Comment(s): stent to aorta at [facility], cardiac stent at [facility] for [place], R leg tendon surgery from fall, laminectomy. lung cancer Past Anesthesia/Blood Transfusion Reactions: Previous Problems w/ Anesthesia Additional Past Anesthesia/Blood Transfusion Reaction / Comment(s): combative, previously restrained after sedation. Past Psychological History: No Psychological Hx Reported Smoking Status: Unknown if ever smoked Past Alcohol Use History: Unable to Obtain
--- NOTE | 2023-09-28 13:49 | P.PN ---
Subjective Progress Note Date: 09/28/23 This is a 83-year-old female patient with a history of dementia, diabetes mellitus, hyperlipidemia, hypertension, chronic obstructive pulmonary disease and dementia. She resides in [facility]. She also has a history of lung cancer that was diagnosed back in April 2023. PET scan confirmed increased uptake in the left lung mass compatible with neoplasm. She did undergo 5 radiation treatments to the lung. She was deemed not a candidate for biopsy. She presented here to the emergency room today from the [facility] after being found to have RSV and hypoxemia. She was not eating or drinking. Chest x-ray revealed the upper lobe mass measuring 6.4 x 3.6. No other infiltrates or opacities noted. White count 12.4. Hemoglobin 11.2. Platelets 172. Sodium 141. Potassium 4.1. Bicarb 23. BUN 30. Creatinine 1.04. Glucose 160. AST 19. ALT 13. Troponin negative 1. ProBNP 2460. She is seen today in consultation in the emergency department. She is currently resting comfortably in bed. She is mainly nonverbal. Her daughter is at the bedside who provides the information. Currently on 5 L high flow nasal cannula to maintain O2 saturations in the 90s. She's afebrile. Hemodynamically stable. She's been initiated and DuoNeb inhalations, Pulmicort inhalations, Solu-Medrol. D5 and half-normal saline at 83 ML's per hour. Antibiotics in the form of azithromycin. Heparin for DVT prophylaxis. The patient is seen today 09/28/2023 in follow-up on the regular medical floor. She is currently resting in bed. She is confused. She is maintaining O2 saturations in the 90s on 3 L/m per nasal cannula. Glucose 224. She remains on DuoNeb inhalations, Pulmicort and Perforomist inhalations, Solu-Medrol and antibiotics in the form of azithromycin. Procalcitonin 0.10. Objective - Vital Signs Vital signs: Vital Signs Temp 97.7 F 09/28/23 00:45 Pulse 92 09/28/23 12:46 Resp 17 09/28/23 07:17 BP 97/76 09/28/23 07:17 Pulse Ox 90 L 09/28/23 07:17 FiO2 Intake & Output 09/27/23 09/28/23 09/28/23 18:59 06:59 18:59 Intake Total 996 Balance 996 Weight 81.647 kg 81.647 kg Intake: Intake, IV Titration 996 Amount Dextrose 5%-0.45% NaCl 1, 996 000 ml @ 83 mls/hr IV . Q12H3M [facility] Rx#:[id number] Other: Voiding Method Diaper - Exam GENERAL EXAM: Awake, confused, 83-year-old female, on 3 L nasal cannula, in no apparent distress. HEAD: Normocephalic. EYES: Normal reaction of pupils, equal size. NOSE: Clear with pink turbinates. THROAT: No erythema or exudates. NECK: No masses, no JVD. CHEST: No chest wall deformity. LUNGS: Equal air entry with bilateral scattered rhonchi more so on the left. CVS: S1 and S2 normal with no audible murmur, regular rhythm. ABDOMEN: No hepatosplenomegaly, normal bowel sounds, no guarding or rigidity. SPINE: No scoliosis or deformity SKIN: No rashes CENTRAL NERVOUS SYSTEM: No focal deficits, tone is normal in all 4 extremities. EXTREMITIES: There is no peripheral edema. No clubbing, no cyanosis. Peripheral pulses are intact. - Labs CBC & Chem 7: 09/27/23 04:48 09/27/23 04:48 Labs: Abnormal Lab Results - Last 24 Hours (Table) 09/27/23 09/27/23 09/27/23 Range/Units 04:48 17:35 20:38 POC Glucose (mg/dL) 265 H 250 H (70-110) mg/dL Procalcitonin 0.10 H (0.02-0.09) ng/mL 09/28/23 09/28/23 Range/Units 06:12 11:36 POC Glucose (mg/dL) 249 H 224 H (70-110) mg/dL Procalcitonin (0.02-0.09) ng/mL Assessment and Plan Assessment: Acute hypoxemic respiratory failure secondary to RSV, positive 09/25/2023 Known history of left upper lobe mass with positive PET scan, no biopsy, status post SBRT 5 History of dementia History of diabetes mellitus Hyperlipidemia Hypertension CVA/TIA Abdominal aortic aneurysm status post stent Coronary disease with previous stent placement longterm resident Plan: The patient was seen and evaluated Medications reviewed Continue bronchodilators, steroids Titrate the FiO2 as tolerated Prognosis is poor DO NOT RESUSCITATE/DO NOT INTUBATE CODE STATUS We will continue to follow I have personally seen and examined the patient, performed the documentation and the assessment and plan as written. Number of minutes spent on the visit: 10.
[2023-09-28] MEDS: metFORMIN 500 MG TAB PO SCH (16:22)
[2023-09-28 16:36] LABS: Glucose,Whole Blood 300 mg/dL (70-110)
[2023-09-28] MEDS: INSULIN ASPART (NovoLOG) 100 UNIT/ML VIAL SQ SCH ×2 (17:30→21:10)
[2023-09-28 21:06] LABS: Glucose,Whole Blood 165 mg/dL (70-110)
[2023-09-28] MEDS: ATORVASTATIN 40 MG TAB PO SCH (21:06)
[2023-09-28] MEDS: SODIUM CHLORIDE 0.45% 1,000 ML IV SCH (21:10)
[2023-09-28] MEDS: FORMOTEROL FUMARATE 20 MCG/2 ML NEBU INHALATION SCH (21:29)
[2023-09-29 05:06] LABS: Glucose,Whole Blood 223 mg/dL (70-110)
[2023-09-29] MEDS: INSULIN DETEMIR (LEVEMIR) 100 UNIT/ML SYR SQ SCH (06:42)
[2023-09-29] MEDS: SODIUM CHLORIDE 0.45% 1,000 ML IV SCH ×3 (06:42→23:06)
[2023-09-29] MEDS: carvediloL 12.5 MG TAB PO SCH ×2 (06:42→16:54)
[2023-09-29] MEDS: INSULIN ASPART (NovoLOG) 100 UNIT/ML VIAL SQ SCH ×4 (06:42→23:05)
[2023-09-29] MEDS: IPRATROPIUM-ALBUTEROL 3 ML NEB INHALATION SCH ×4 (08:33→21:02)
[2023-09-29] MEDS: FORMOTEROL FUMARATE 20 MCG/2 ML NEBU INHALATION SCH ×2 (08:33→21:01)
[2023-09-29] MEDS: BUDESONIDE 1 MG/2 ML NEBU INHALATION SCH ×2 (08:33→21:01)
[2023-09-29] MEDS: HEPARIN SODIUM,PORCINE 5,000 UNIT/ML 1 ML VIAL SQ SCH ×2 (08:50→20:18)
[2023-09-29] MEDS: methylPREDNISolone SOD SUCCI 125 MG/2 ML VIAL IV SCH ×3 (08:50→23:05)
[2023-09-29] MEDS: AZITHROMYCIN 500 MG TAB PO SCH (08:51)
[2023-09-29] MEDS: CHOLECALCIFEROL 25 MCG (1000 IU) TABLET PO SCH (08:51)
[2023-09-29] MEDS: DULoxetine HCL 20 MG CAPSULE.DR PO SCH (08:51)
[2023-09-29] MEDS: HYDROcodone/APAP 5-325MG 1 EACH TAB PO SCH (08:51)
[2023-09-29] MEDS: ASPIRIN 81 MG PO SCH (08:51)
[2023-09-29] MEDS: cloNIDine HCL 0.2 MG TAB PO SCH ×3 (08:51→23:04)
[2023-09-29] MEDS: SENNOSIDES-DOCUSATE SODIUM 1 EACH TAB PO SCH ×2 (08:51→16:54)
[2023-09-29] MEDS: ISOSORBIDE MONONITRATE ER 30 MG TAB.ER.24H PO SCH (08:52)
[2023-09-29] MEDS: amLODIPine 5 MG TAB PO SCH (08:52)
[2023-09-29] MEDS ORDERED: MELATONIN 3 MG TABLET PO PRN (11:14)
[2023-09-29 11:50] LABS: Glucose,Whole Blood 224 mg/dL (70-110)
--- NOTE | 2023-09-29 12:07 | P.PN ---
Subjective Progress Note Date: 09/29/23 This is a 83-year-old female patient with a history of dementia, diabetes mellitus, hyperlipidemia, hypertension, chronic obstructive pulmonary disease and dementia. She resides in [facility]. She also has a history of lung cancer that was diagnosed back in April 2023. PET scan confirmed increased uptake in the left lung mass compatible with neoplasm. She did undergo 5 radiation treatments to the lung. She was deemed not a candidate for biopsy. She presented here to the emergency room today from the [facility] after being found to have RSV and hypoxemia. She was not eating or drinking. Chest x-ray revealed the upper lobe mass measuring 6.4 x 3.6. No other infiltrates or opacities noted. White count 12.4. Hemoglobin 11.2. Platelets 172. Sodium 141. Potassium 4.1. Bicarb 23. BUN 30. Creatinine 1.04. Glucose 160. AST 19. ALT 13. Troponin negative 1. ProBNP 2460. She is seen today in consultation in the emergency department. She is currently resting comfortably in bed. She is mainly nonverbal. Her daughter is at the bedside who provides the information. Currently on 5 L high flow nasal cannula to maintain O2 saturations in the 90s. She's afebrile. Hemodynamically stable. She's been initiated and DuoNeb inhalations, Pulmicort inhalations, Solu-Medrol. D5 and half-normal saline at 83 ML's per hour. Antibiotics in the form of azithromycin. Heparin for DVT prophylaxis. The patient is seen today 09/28/2023 in follow-up on the regular medical floor. She is currently resting in bed. She is confused. She is maintaining O2 saturations in the 90s on 3 L/m per nasal cannula. Glucose 224. She remains on DuoNeb inhalations, Pulmicort and Perforomist inhalations, Solu-Medrol and antibiotics in the form of azithromycin. Procalcitonin 0.10. The patient is seen today 09/29/2023 in follow-up on the regular medical floor. She is currently resting comfortably in bed. More awake and alert today. She is maintaining O2 saturations in the 90s on 3 L. She has D5.9 normal saline at 75 ML's per hour. Blood sugar 224. She is continued on DuoNeb inhalations, Pulmicort and Perforomist inhalations, Solu-Medrol. Heparin for DVT prophylaxis. Empiric antibiotics in the form of azithromycin. Objective - Vital Signs Vital signs: Vital Signs Temp 97.7 F 09/29/23 07:30 Pulse 88 09/29/23 11:58 Resp 17 09/29/23 07:30 BP 143/67 09/29/23 07:30 Pulse Ox 94 L 09/29/23 07:30 FiO2 Intake & Output 09/28/23 09/29/23 09/29/23 18:59 06:59 18:59 Output Total 1 Balance -1 Weight 81.647 kg Output: Stool 1 Other: Voiding Method Diaper Diaper Incontinent # Voids 2 - Exam GENERAL EXAM: Awake, more alert today, still confused, 83-year-old female, on 3 L nasal cannula, in no apparent distress. HEAD: Normocephalic. EYES: Normal reaction of pupils, equal size. NOSE: Clear with pink turbinates. THROAT: No erythema or exudates. NECK: No masses, no JVD. CHEST: No chest wall deformity. LUNGS: Equal air entry with bilateral scattered rhonchi more so on the left. CVS: S1 and S2 normal with no audible murmur, regular rhythm. ABDOMEN: No hepatosplenomegaly, normal bowel sounds, no guarding or rigidity. SPINE: No scoliosis or deformity SKIN: No rashes CENTRAL NERVOUS SYSTEM: No focal deficits, tone is normal in all 4 extremities. EXTREMITIES: There is no peripheral edema. No clubbing, no cyanosis. Peripheral pulses are intact. - Labs CBC & Chem 7: 09/27/23 04:48 09/27/23 04:48 Labs: Abnormal Lab Results - Last 24 Hours (Table) 09/28/23 09/28/23 09/29/23 Range/Units 16:35 21:04 05:05 POC Glucose (mg/dL) 300 H 165 H 223 H (70-110) mg/dL 09/29/23 Range/Units 11:49 POC Glucose (mg/dL) 224 H (70-110) mg/dL Assessment and Plan Assessment: Acute hypoxemic respiratory failure secondary to RSV, positive 09/25/2023 Known history of left upper lobe mass with positive PET scan, no biopsy, status post SBRT 5 History of dementia History of diabetes mellitus Hyperlipidemia Hypertension CVA/TIA Abdominal aortic aneurysm status post stent Coronary disease with previous stent placement intermediate resident Plan: The patient was seen and evaluated Medications reviewed Current the current treatment plan Titrate the FiO2 as tolerated We will continue to follow I have personally seen and examined the patient, performed the documentation and the assessment and plan as written. Number of minutes spent on the visit: 10.
--- NOTE | 2023-09-29 15:05 | P.PN ---
Subjective Progress Note Date: 09/29/23 * 83-year-old patient, follows with Dr. Sanchez at the [facility]. [facility]. * History is obtained primarily by the daughter over the phone. And the ER.Chronic stable medical conditions include diabetes, hypertension, hyperlipidemia, CAD with prior to heart attacks, some residual left eye droop from prior stroke. 2016. At a baseline patient does use a wheelchair. And can walk a few steps to the bathroom with support. Ex-smoker. Patient has underlying vascular dementia.By the EMS report patient was found altered mental status pulse ox down to the 80s and patient kept taking her oxygen mask off. Patient was RSV positive. Was wheezing. They placed place a 15 L nonrebreather mask. Patient also has a left upper lobe mass. Because oral condition this has not been further investigated.In the ER patient can only answer occasional questions. * 09/28/2023: In bed. Decrease appetite. Short of breath. Occasional cough. On nasal cannula. * 09/29/2023: Patient seen and evaluated bedside, patient is sleeping easily arousable, patient remained delirious and confused, been treated for RSV continue with oxygen supplementation. Continue with frequent orientation. Continue patient on breathing treatment symptomatic treatment. RSV receiving IV steroids as well. Pulmonary medicine team following PHYSICAL EXAMINATION: GENERAL: The patient is alert and oriented x 0, ill appearance, nasal cannula in place HEENT: Pupils are round and equally reacting to light. EOMI. CARDIOVASCULAR: S1 and S2 present. No murmurs, rubs, or gallops. PULMONARY: Decreased breath sounds bilaterally, nasal cannula in place ABDOMEN: Soft, nontender, nondistended, normoactive bowel sounds. No palpable organomegaly. MUSCULOSKELETAL: No joint swelling or deformity. EXTREMITIES: No cyanosis, clubbing, or pedal edema. NEUROLOGICAL: Appears disoriented sleeping easily arousable confused SKIN: No rashes. Objective - Vital Signs Vital signs: Vital Signs Temp 97.7 F 09/29/23 07:30 Pulse 88 09/29/23 11:58 Resp 17 09/29/23 07:30 BP 143/67 09/29/23 07:30 Pulse Ox 94 L 09/29/23 07:30 FiO2 Intake & Output 09/28/23 09/29/23 09/29/23 18:59 06:59 18:59 Output Total 1 1 Balance -1 -1 Weight 81.647 kg Output: Stool 1 1 Other: Voiding Method Diaper Diaper Diaper Incontinent Incontinent # Voids 2 - Labs CBC & Chem 7: 09/27/23 04:48 09/27/23 04:48 Labs: Abnormal Lab Results - Last 24 Hours (Table) 09/28/23 09/28/23 09/29/23 Range/Units 16:35 21:04 05:05 POC Glucose (mg/dL) 300 H 165 H 223 H (70-110) mg/dL 09/29/23 Range/Units 11:49 POC Glucose (mg/dL) 224 H (70-110) mg/dL Assessment and Plan Assessment: Assessment and plan * Acute hypoxic respiratory failure secondary to RSV * History of dementia with impaired cognition with acute delirium secondary to hypoxia * Diabetes mellitus type 2 * Hypertension * History of CVA/TIA * History of coronary artery disease with PCI * 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
[2023-09-29 16:43] LABS: Glucose,Whole Blood 246 mg/dL (70-110)
[2023-09-29] MEDS: metFORMIN 500 MG TAB PO SCH (16:54)
[2023-09-29] MEDS: ATORVASTATIN 40 MG TAB PO SCH (20:18)
[2023-09-29 22:56] LABS: Glucose,Whole Blood 175 mg/dL (70-110)
[2023-09-30 05:13] LABS: Glucose,Whole Blood 215 mg/dL (70-110)
[2023-09-30 06:01] LABS: Chloride 105 mmol/L (98-107)
[2023-09-30 06:04] LABS: Anion Gap 12 mmol/L; Blood Urea Nitrogen 31 mg/dL (7-17); Carbon Dioxide 18 mmol/L (22-30); Sodium 135 mmol/L (137-145)
[2023-09-30 06:06] LABS: African American GFR (CKD) 74 (>60 ml/min/1.73 sqM); C Reactive Protein 6.7 mg/dL (<1.0); Calcium 8.6 mg/dL (8.4-10.2); Glucose 187 mg/dL (74-99); Non-African American GFR(CKD) 64 (>60 ml/min/1.73 sqM); Potassium 4.3 mmol/L (3.5-5.1)
[2023-09-30] MEDS: INSULIN ASPART (NovoLOG) 100 UNIT/ML VIAL SQ SCH ×4 (06:09→21:17)
[2023-09-30] MEDS: INSULIN DETEMIR (LEVEMIR) 100 UNIT/ML SYR SQ SCH (06:09)
[2023-09-30] MEDS: methylPREDNISolone SOD SUCCI 125 MG/2 ML VIAL IV SCH ×3 (08:40→23:40)
[2023-09-30] MEDS: carvediloL 12.5 MG TAB PO SCH ×2 (08:41→17:39)
[2023-09-30] MEDS: ISOSORBIDE MONONITRATE ER 30 MG TAB.ER.24H PO SCH (08:41)
[2023-09-30] MEDS: DULoxetine HCL 20 MG CAPSULE.DR PO SCH (08:41)
[2023-09-30] MEDS: SENNOSIDES-DOCUSATE SODIUM 1 EACH TAB PO SCH ×2 (08:41→17:39)
[2023-09-30] MEDS: amLODIPine 5 MG TAB PO SCH (08:41)
[2023-09-30] MEDS: CHOLECALCIFEROL 25 MCG (1000 IU) TABLET PO SCH (08:41)
[2023-09-30] MEDS: HYDROcodone/APAP 5-325MG 1 EACH TAB PO SCH (08:41)
[2023-09-30] MEDS: ASPIRIN 81 MG PO SCH (08:41)
[2023-09-30] MEDS: HEPARIN SODIUM,PORCINE 5,000 UNIT/ML 1 ML VIAL SQ SCH ×2 (08:41→21:16)
[2023-09-30] MEDS: cloNIDine HCL 0.2 MG TAB PO SCH ×3 (08:41→21:16)
[2023-09-30] MEDS: IPRATROPIUM-ALBUTEROL 3 ML NEB INHALATION SCH ×4 (08:59→18:11)
[2023-09-30] MEDS: BUDESONIDE 1 MG/2 ML NEBU INHALATION SCH ×2 (08:59→18:11)
[2023-09-30] MEDS: FORMOTEROL FUMARATE 20 MCG/2 ML NEBU INHALATION SCH ×2 (08:59→18:11)
[2023-09-30 09:14] LABS: HCT 27.5 % (34.0-46.0); MCH 31.8 pg (25.0-35.0); MCHC 34.5 g/dL (31.0-37.0); MCV 92.2 fL (80.0-100.0); Mean Platelet Volume 9.1; Platelet Count 167 k/uL (150-450); RBC 2.98 m/uL (3.80-5.40); WBC 7.9 k/uL (3.8-10.6)
[2023-09-30 09:49] LABS: HGB 9.5 gm/dL (11.4-16.0)
[2023-09-30 11:48] LABS: Glucose,Whole Blood 212 mg/dL (70-110)
--- NOTE | 2023-09-30 14:16 | P.PN ---
Subjective Progress Note Date: 09/30/23 This is a 83-year-old female patient with a history of dementia, diabetes mellitus, hyperlipidemia, hypertension, chronic obstructive pulmonary disease and dementia. She resides in [facility]. She also has a history of lung cancer that was diagnosed back in April 2023. PET scan confirmed increased uptake in the left lung mass compatible with neoplasm. She did undergo 5 radiation treatments to the lung. She was deemed not a candidate for biopsy. She presented here to the emergency room today from the [facility] after being found to have RSV and hypoxemia. She was not eating or drinking. Chest x-ray revealed the upper lobe mass measuring 6.4 x 3.6. No other infiltrates or opacities noted. White count 12.4. Hemoglobin 11.2. Platelets 172. Sodium 141. Potassium 4.1. Bicarb 23. BUN 30. Creatinine 1.04. Glucose 160. AST 19. ALT 13. Troponin negative 1. ProBNP 2460. She is seen today in consultation in the emergency department. She is currently resting comfortably in bed. She is mainly nonverbal. Her daughter is at the bedside who provides the information. Currently on 5 L high flow nasal cannula to maintain O2 saturations in the 90s. She's afebrile. Hemodynamically stable. She's been initiated and DuoNeb inhalations, Pulmicort inhalations, Solu-Medrol. D5 and half-normal saline at 83 ML's per hour. Antibiotics in the form of azithromycin. Heparin for DVT prophylaxis. The patient is seen today 09/28/2023 in follow-up on the regular medical floor. She is currently resting in bed. She is confused. She is maintaining O2 saturations in the 90s on 3 L/m per nasal cannula. Glucose 224. She remains on DuoNeb inhalations, Pulmicort and Perforomist inhalations, Solu-Medrol and antibiotics in the form of azithromycin. Procalcitonin 0.10. The patient is seen today 09/29/2023 in follow-up on the regular medical floor. She is currently resting comfortably in bed. More awake and alert today. She is maintaining O2 saturations in the 90s on 3 L. She has D5.9 normal saline at 75 ML's per hour. Blood sugar 224. She is continued on DuoNeb inhalations, Pulmicort and Perforomist inhalations, Solu-Medrol. Heparin for DVT prophylaxis. Empiric antibiotics in the form of azithromycin. The patient is seen today 09/30/2023 in follow-up on the regular medical floor. She is currently awake and alert in no acute distress. Resting comfortably in bed. Maintaining O2 saturations in the 90s on 3 L/m per nasal cannula. She remains on 0.45% normal saline at 75 ML's per hour. She is continued on DuoNeb inhalations, Pulmicort and Perforomist inhalations, IV Solu-Medrol. Heparin for DVT prophylaxis. 7.9. Hemoglobin 9.5. Platelets 167. Sodium 135. Potassium 4.3. Bicarb 18. BUN 31. Creatinine 0.84. Glucose 187. C-Reactive Protein 6.7. Objective - Vital Signs Vital signs: Vital Signs Temp 97.4 F L 09/30/23 07:15 Pulse 61 09/30/23 07:33 Resp 18 09/30/23 07:33 BP 151/94 09/30/23 07:15 Pulse Ox 92 L 09/30/23 07:15 FiO2 Intake & Output 09/29/23 09/30/23 09/30/23 18:59 06:59 18:59 Output Total 1 1 Balance -1 -1 Output: Stool 1 1 Other: Voiding Method Diaper Diaper Diaper Incontinent # Voids 4 2 - Exam GENERAL EXAM: Awake, alert, confused, 83-year-old female, on 3 L nasal cannula, in no apparent distress. HEAD: Normocephalic. EYES: Normal reaction of pupils, equal size. NOSE: Clear with pink turbinates. THROAT: No erythema or exudates. NECK: No masses, no JVD. CHEST: No chest wall deformity. LUNGS: Equal air entry with bilateral scattered rhonchi more so on the left. CVS: S1 and S2 normal with no audible murmur, regular rhythm. ABDOMEN: No hepatosplenomegaly, normal bowel sounds, no guarding or rigidity. SPINE: No scoliosis or deformity SKIN: No rashes CENTRAL NERVOUS SYSTEM: No focal deficits, tone is normal in all 4 extremities. EXTREMITIES: There is no peripheral edema. No clubbing, no cyanosis. Peripheral pulses are intact. - Labs CBC & Chem 7: 09/30/23 08:24 09/30/23 05:04 Labs: Abnormal Lab Results - Last 24 Hours (Table) 09/29/23 09/29/23 09/30/23 Range/Units 16:38 22:53 05:04 RBC (3.80-5.40) m/uL Hgb (11.4-16.0) gm/dL Hct (34.0-46.0) % Sodium 135 L (137-145) mmol/L Carbon Dioxide 18 L (22-30) mmol/L BUN 31 H (7-17) mg/dL Glucose 187 H (74-99) mg/dL POC Glucose (mg/dL) 246 H 175 H (70-110) mg/dL C-Reactive Protein 6.7 H (<1.0) mg/dL 09/30/23 09/30/23 09/30/23 Range/Units 05:12 08:24 11:47 RBC 2.98 L (3.80-5.40) m/uL Hgb 9.5 L D (11.4-16.0) gm/dL Hct 27.5 L (34.0-46.0) % Sodium (137-145) mmol/L Carbon Dioxide (22-30) mmol/L BUN (7-17) mg/dL Glucose (74-99) mg/dL POC Glucose (mg/dL) 215 H 212 H (70-110) mg/dL C-Reactive Protein (<1.0) mg/dL Assessment and Plan Assessment: Acute hypoxemic respiratory failure secondary to RSV, positive 09/25/2023 Known history of left upper lobe mass with positive PET scan, no biopsy, status post SBRT 5 History of dementia History of diabetes mellitus Hyperlipidemia Hypertension CVA/TIA Abdominal aortic aneurysm status post stent Coronary disease with previous stent placement senior care resident Plan: The patient was seen and evaluated Medications and labs reviewed Current the current treatment plan Titrate the FiO2 as tolerated Plan is to return to [facility] at discharge I have personally seen and examined the patient, performed the documentation and the assessment and plan as written. Number of minutes spent on the visit: 10.
--- NOTE | 2023-09-30 14:18 | P.PN ---
Subjective Progress Note Date: 09/30/23 * 83-year-old patient, follows with Dr. Sanchez at the [facility]. [facility] [place]. * History is obtained primarily by the daughter over the phone. And the ER.Chronic stable medical conditions include diabetes, hypertension, hyperlipidemia, CAD with prior to heart attacks, some residual left eye droop from prior stroke. 2016. At a baseline patient does use a wheelchair. And can walk a few steps to the bathroom with support. Ex-smoker. Patient has underlying vascular dementia.By the EMS report patient was found altered mental status pulse ox down to the 80s and patient kept taking her oxygen mask off. Patient was RSV positive. Was wheezing. They placed place a 15 L nonrebreather mask. Patient also has a left upper lobe mass. Because oral condition this has not been further investigated.In the ER patient can only answer occasional questions. * 09/28/2023: In bed. Decrease appetite. Short of breath. Occasional cough. On nasal cannula. * 09/29/2023: Patient seen and evaluated bedside, patient is sleeping easily arousable, patient remained delirious and confused, been treated for RSV continue with oxygen supplementation. Continue with frequent orientation. Continue patient on breathing treatment symptomatic treatment. RSV receiving IV steroids as well. Pulmonary medicine team following * 09/30/2023: Patient seen and evaluated bedside during my evaluation patient is alert and oriented to situation however confused. CRP around 617. Pulmonary medicine following continue with breathing treatments portion requirements remained stable. IV fluids discontinued as well PHYSICAL EXAMINATION: GENERAL: The patient is alert and oriented x 1 , ill appearance, nasal cannula in place HEENT: Pupils are round and equally reacting to light. EOMI. CARDIOVASCULAR: S1 and S2 present. No murmurs, rubs, or gallops. PULMONARY: Decreased breath sounds bilaterally, nasal cannula in place ABDOMEN: Soft, nontender, nondistended, normoactive bowel sounds. No palpable organomegaly. MUSCULOSKELETAL: No joint swelling or deformity. EXTREMITIES: No cyanosis, clubbing, or pedal edema. NEUROLOGICAL: Appears disoriented sleeping easily arousable confused SKIN: No rashes. Objective - Vital Signs Vital signs: Vital Signs Temp 97.4 F L 09/30/23 07:15 Pulse 61 09/30/23 07:33 Resp 18 09/30/23 07:33 BP 151/94 09/30/23 07:15 Pulse Ox 92 L 09/30/23 07:15 FiO2 Intake & Output 09/29/23 09/30/23 09/30/23 18:59 06:59 18:59 Output Total 1 1 Balance -1 -1 Output: Stool 1 1 Other: Voiding Method Diaper Diaper Diaper Incontinent # Voids 4 2 - Labs CBC & Chem 7: 09/30/23 08:24 09/30/23 05:04 Labs: Abnormal Lab Results - Last 24 Hours (Table) 09/29/23 09/29/23 09/30/23 Range/Units 16:38 22:53 05:04 RBC (3.80-5.40) m/uL Hgb (11.4-16.0) gm/dL Hct (34.0-46.0) % Sodium 135 L (137-145) mmol/L Carbon Dioxide 18 L (22-30) mmol/L BUN 31 H (7-17) mg/dL Glucose 187 H (74-99) mg/dL POC Glucose (mg/dL) 246 H 175 H (70-110) mg/dL C-Reactive Protein 6.7 H (<1.0) mg/dL 09/30/23 09/30/23 09/30/23 Range/Units 05:12 08:24 11:47 RBC 2.98 L (3.80-5.40) m/uL Hgb 9.5 L D (11.4-16.0) gm/dL Hct 27.5 L (34.0-46.0) % Sodium (137-145) mmol/L Carbon Dioxide (22-30) mmol/L BUN (7-17) mg/dL Glucose (74-99) mg/dL POC Glucose (mg/dL) 215 H 212 H (70-110) mg/dL C-Reactive Protein (<1.0) mg/dL Assessment and Plan Assessment: Assessment and plan * Acute hypoxic respiratory failure secondary to RSV * History of dementia with impaired cognition with acute delirium secondary to hypoxia * Diabetes mellitus type 2 * Hypertension * History of CVA/TIA * History of coronary artery disease with PCI * 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
[2023-09-30 16:46] LABS: Glucose,Whole Blood 192 mg/dL (70-110)
[2023-09-30] MEDS: metFORMIN 500 MG TAB PO SCH (17:39)
[2023-09-30 20:05] LABS: Glucose,Whole Blood 166 mg/dL (70-110)
[2023-09-30] MEDS: ATORVASTATIN 40 MG TAB PO SCH (21:16)
[2023-10-01 05:52] LABS: Glucose,Whole Blood 191 mg/dL (70-110)
[2023-10-01] MEDS: INSULIN DETEMIR (LEVEMIR) 100 UNIT/ML SYR SQ SCH (06:32)
[2023-10-01] MEDS: INSULIN ASPART (NovoLOG) 100 UNIT/ML VIAL SQ SCH ×4 (06:32→21:10)
[2023-10-01] MEDS: FORMOTEROL FUMARATE 20 MCG/2 ML NEBU INHALATION SCH ×2 (08:12→21:17)
[2023-10-01] MEDS: IPRATROPIUM-ALBUTEROL 3 ML NEB INHALATION SCH ×4 (08:12→21:17)
[2023-10-01] MEDS: BUDESONIDE 1 MG/2 ML NEBU INHALATION SCH ×2 (08:12→21:17)
[2023-10-01 08:54] LABS: Blood Urea Nitrogen 24.8 mg/dL (9.0-27.0); Calcium 8.9 mg/dL (8.7-10.3); Carbon Dioxide 22.3 mmol/L (21.6-31.8); Chloride 103 mmol/L (96-109); Glucose 164 mg/dL (70-110); Potassium 4.2 mmol/L (3.5-5.5); Sodium 138 mmol/L (135-145)
[2023-10-01] MEDS: carvediloL 12.5 MG TAB PO SCH ×2 (09:03→17:29)
[2023-10-01] MEDS: ISOSORBIDE MONONITRATE ER 30 MG TAB.ER.24H PO SCH (09:03)
[2023-10-01] MEDS: amLODIPine 5 MG TAB PO SCH (09:03)
[2023-10-01] MEDS: DULoxetine HCL 20 MG CAPSULE.DR PO SCH (09:03)
[2023-10-01] MEDS: cloNIDine HCL 0.2 MG TAB PO SCH ×3 (09:03→21:11)
[2023-10-01] MEDS: HYDROcodone/APAP 5-325MG 1 EACH TAB PO SCH (09:03)
[2023-10-01] MEDS: SENNOSIDES-DOCUSATE SODIUM 1 EACH TAB PO SCH ×2 (09:04→17:29)
[2023-10-01] MEDS: ASPIRIN 81 MG PO SCH (09:04)
[2023-10-01] MEDS: CHOLECALCIFEROL 25 MCG (1000 IU) TABLET PO SCH (09:04)
[2023-10-01] MEDS: methylPREDNISolone SOD SUCCI 125 MG/2 ML VIAL IV SCH ×3 (09:04→23:24)
[2023-10-01] MEDS: HEPARIN SODIUM,PORCINE 5,000 UNIT/ML 1 ML VIAL SQ SCH ×2 (09:05→21:11)
[2023-10-01 09:21] LABS: HGB 8.9 g/dL (12.0-15.0); MCV 90.9 FL (80.0-97.0); Mean Platelet Volume 11.9 FL (9.5-12.2); NRBC Per 100 WBC 0.03 X 10*3/uL (0.00-0.01); Platelet Count 159 X 10*3/uL (140-440); RBC 2.97 X 10*6/uL (4.10-5.20); RDW 13.6 % (11.5-14.5); WBC 8.16 X 10*3/uL (4.50-10.00)
[2023-10-01 10:58] LABS: Glucose,Whole Blood 194 mg/dL (70-110)
--- NOTE | 2023-10-01 12:00 | P.PN ---
Subjective Progress Note Date: 10/01/23 On 10/01/2023 and seen the patient for a follow-up. The patient is being treated for acute hypoxic respiratory failure secondary to RSV infection. Patient was positive on 09/25/2023. Patient is known to have previous history of a left upper lobe mass. The patient has received SBR by radiation oncology. The patient has dementia diabetes hypertension hyperlipidemia previous history of CVA. The patient also has an abdominal aortic aneurysm and has undergone endovascular stent grafting, coronary artery disease and previous stent placement. The patient currently resides in a shelter. Clinically stable. Hemodynamically stable. Receiving bronchodilators and IV Solu-Medrol. Patient is currently on 60 mg of IV Solu-Medrol every 6 hours. Patient is currently on DuoNeb updrafts. Rest of the home medications were resumed. The chest x-ray at the time of admission showed a persistent peripheral left upper lobe mass and this was radiated as mentioned as the patient was not found to be a good candidate candidate. No significant leukocytosis. Renal function stable. Blood sugars are slightly elevated due to the effect of systemic steroids. Otherwise, the patient is currently on room air oxygen with a pulse ox of 92% Objective - Vital Signs Vital signs: Vital Signs Temp 97.9 F 10/01/23 08:40 Pulse 52 L 10/01/23 11:45 Resp 19 10/01/23 08:40 BP 173/61 10/01/23 08:40 Pulse Ox 90 L 10/01/23 08:40 FiO2 Intake & Output 09/30/23 10/01/23 10/01/23 18:59 06:59 18:59 Output Total 1 1 Balance -1 -1 Output: Stool 1 1 Other: Voiding Method Diaper Diaper Diaper # Voids 5 2 - Exam GENERAL EXAM: Awake, alert, confused, 83-year-old female, on 3 L nasal cannula, in no apparent distress. HEAD: Normocephalic. EYES: Normal reaction of pupils, equal size. NOSE: Clear with pink turbinates. THROAT: No erythema or exudates. NECK: No masses, no JVD. CHEST: No chest wall deformity. LUNGS: Equal air entry with bilateral scattered rhonchi more so on the left. CVS: S1 and S2 normal with no audible murmur, regular rhythm. ABDOMEN: No hepatosplenomegaly, normal bowel sounds, no guarding or rigidity. SPINE: No scoliosis or deformity SKIN: No rashes CENTRAL NERVOUS SYSTEM: No focal deficits, tone is normal in all 4 extremities. EXTREMITIES: There is no peripheral edema. No clubbing, no cyanosis. Peripheral pulses are intact. - Labs CBC & Chem 7: 10/01/23 04:29 10/01/23 04:29 Labs: Abnormal Lab Results - Last 24 Hours (Table) 09/30/23 09/30/23 10/01/23 Range/Units 16:44 20:03 04:29 RBC 2.97 L (4.10-5.20) X 10*6/uL Hgb 8.9 L (12.0-15.0) g/dL Hct 27.0 L (37.2-46.3) % NRBC/100 WBC Diff 0.03 H (0.00-0.01) X 10*3/uL Anion Gap (4.00-12.00) mmol/L BUN/Creatinine Ratio (12.00-20.00) Ratio Glucose (70-110) mg/dL POC Glucose (mg/dL) 192 H 166 H (70-110) mg/dL C-Reactive Protein (0.00-0.80) mg/dL 10/01/23 10/01/23 10/01/23 Range/Units 04:29 05:49 10:57 RBC (4.10-5.20) X 10*6/uL Hgb (12.0-15.0) g/dL Hct (37.2-46.3) % NRBC/100 WBC Diff (0.00-0.01) X 10*3/uL Anion Gap 12.70 H (4.00-12.00) mmol/L BUN/Creatinine Ratio 31.00 H (12.00-20.00) Ratio Glucose 164 H (70-110) mg/dL POC Glucose (mg/dL) 191 H 194 H (70-110) mg/dL C-Reactive Protein 3.50 H (0.00-0.80) mg/dL Assessment and Plan Plan: Assessment Acute hypoxic respiratory failure secondary RSV infection, patient was on 3 L wean down to room air oxygen. The patient tested positive on 09/25/2023 Left upper lobe mass, treated by SBRT as the patient was not found to be as the patient was not found to be a good surgical candidate Dementia Diabetes mellitus type 2 with a component of steroid-induced hyperglycemia Hyperlipidemia Hypertension Previous history of CVA, Abdominal arctic aneurysm post endovascular stent grafting Coronary disease with stenting alf resident Plan Continue with DuoNeb continue Pulmicort Continue IV Solu-Medrol monitor blood sugar and avoid any steroid-induced hyperglycemia Nephrology is being gradually weaned off Monitor blood sugar Blood
--- NOTE | 2023-10-01 13:09 | P.PN ---
Subjective Progress Note Date: 10/01/23 * 83-year-old patient, follows with Dr. Sanchez at the [facility]. [facility] [place]. * History is obtained primarily by the daughter over the phone. And the ER.Chronic stable medical conditions include diabetes, hypertension, hyperlipidemia, CAD with prior to heart attacks, some residual left eye droop from prior stroke. 2016. At a baseline patient does use a wheelchair. And can walk a few steps to the bathroom with support. Ex-smoker. Patient has underlying vascular dementia.By the EMS report patient was found altered mental status pulse ox down to the 80s and patient kept taking her oxygen mask off. Patient was RSV positive. Was wheezing. They placed place a 15 L nonrebreather mask. Patient also has a left upper lobe mass. Because oral condition this has not been further investigated.In the ER patient can only answer occasional questions. * 09/28/2023: In bed. Decrease appetite. Short of breath. Occasional cough. On nasal cannula. * 09/29/2023: Patient seen and evaluated bedside, patient is sleeping easily arousable, patient remained delirious and confused, been treated for RSV continue with oxygen supplementation. Continue with frequent orientation. Continue patient on breathing treatment symptomatic treatment. RSV receiving IV steroids as well. Pulmonary medicine team following * 09/30/2023: Patient seen and evaluated bedside during my evaluation patient is alert and oriented to situation however confused. CRP around 617. Pulmonary medicine following continue with breathing treatments portion requirements remained stable. IV fluids discontinued as well * 10/01/2023: Patient seen and evaluated bedside, patient is alert and does follow commands, patient told me her daughter's name is Gemini. Breathing has improved patient continued to remain on oxygen supplementation. Continue patient on current management including DuoNeb, will wean off steroids PHYSICAL EXAMINATION: GENERAL: The patient is alert and oriented x 1 , ill appearance, nasal cannula in place HEENT: Pupils are round and equally reacting to light. EOMI. CARDIOVASCULAR: S1 and S2 present. No murmurs, rubs, or gallops. PULMONARY: Decreased breath sounds bilaterally, nasal cannula in place ABDOMEN: Soft, nontender, nondistended, normoactive bowel sounds. No palpable organomegaly. MUSCULOSKELETAL: No joint swelling or deformity. EXTREMITIES: No cyanosis, clubbing, or pedal edema. NEUROLOGICAL: Appears disoriented sleeping easily arousable confused SKIN: No rashes. Objective - Vital Signs Vital signs: Vital Signs Temp 97.9 F 10/01/23 08:40 Pulse 52 L 10/01/23 11:45 Resp 19 10/01/23 08:40 BP 173/61 10/01/23 08:40 Pulse Ox 90 L 10/01/23 08:40 FiO2 Intake & Output 09/30/23 10/01/23 10/01/23 18:59 06:59 18:59 Output Total 1 1 Balance -1 -1 Output: Stool 1 1 Other: Voiding Method Diaper Diaper Diaper # Voids 5 2 - Labs CBC & Chem 7: 10/01/23 04:29 10/01/23 04:29 Labs: Abnormal Lab Results - Last 24 Hours (Table) 09/30/23 09/30/23 10/01/23 Range/Units 16:44 20:03 04:29 RBC 2.97 L (4.10-5.20) X 10*6/uL Hgb 8.9 L (12.0-15.0) g/dL Hct 27.0 L (37.2-46.3) % NRBC/100 WBC Diff 0.03 H (0.00-0.01) X 10*3/uL Anion Gap (4.00-12.00) mmol/L BUN/Creatinine Ratio (12.00-20.00) Ratio Glucose (70-110) mg/dL POC Glucose (mg/dL) 192 H 166 H (70-110) mg/dL C-Reactive Protein (0.00-0.80) mg/dL 10/01/23 10/01/23 10/01/23 Range/Units 04:29 05:49 10:57 RBC (4.10-5.20) X 10*6/uL Hgb (12.0-15.0) g/dL Hct (37.2-46.3) % NRBC/100 WBC Diff (0.00-0.01) X 10*3/uL Anion Gap 12.70 H (4.00-12.00) mmol/L BUN/Creatinine Ratio 31.00 H (12.00-20.00) Ratio Glucose 164 H (70-110) mg/dL POC Glucose (mg/dL) 191 H 194 H (70-110) mg/dL C-Reactive Protein 3.50 H (0.00-0.80) mg/dL Assessment and Plan Assessment: Assessment and plan * Acute hypoxic respiratory failure secondary to RSV * History of dementia with impaired cognition with acute delirium secondary to hypoxia * Diabetes mellitus type 2 * Hypertension * History of CVA/TIA * History of coronary artery disease with PCI * 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
[2023-10-01] MEDS: metFORMIN 500 MG TAB PO SCH (17:29)
[2023-10-01 17:39] LABS: Glucose,Whole Blood 298 mg/dL (70-110)
[2023-10-01 20:54] LABS: Glucose,Whole Blood 247 mg/dL (70-110)
[2023-10-01] MEDS: ATORVASTATIN 40 MG TAB PO SCH (21:11)
[2023-10-02] MEDS: LORazepam 2 MG/ML INJ IV PRN (04:31)
[2023-10-02 05:42] LABS: Glucose,Whole Blood 196 mg/dL (70-110)
[2023-10-02] MEDS: INSULIN ASPART (NovoLOG) 100 UNIT/ML VIAL SQ SCH ×4 (05:56→22:22)
[2023-10-02] MEDS: carvediloL 12.5 MG TAB PO SCH ×2 (05:56→17:30)
[2023-10-02] MEDS: INSULIN DETEMIR (LEVEMIR) 100 UNIT/ML SYR SQ SCH (05:56)
[2023-10-02] MEDS: FORMOTEROL FUMARATE 20 MCG/2 ML NEBU INHALATION SCH ×2 (08:20→21:03)
[2023-10-02] MEDS: BUDESONIDE 1 MG/2 ML NEBU INHALATION SCH ×2 (08:20→21:03)
[2023-10-02] MEDS: IPRATROPIUM-ALBUTEROL 3 ML NEB INHALATION SCH ×4 (08:20→21:03)
[2023-10-02] MEDS: CHOLECALCIFEROL 25 MCG (1000 IU) TABLET PO SCH (09:02)
[2023-10-02] MEDS: amLODIPine 5 MG TAB PO SCH (09:03)
[2023-10-02] MEDS: HYDROcodone/APAP 5-325MG 1 EACH TAB PO SCH (09:03)
[2023-10-02] MEDS: cloNIDine HCL 0.2 MG TAB PO SCH ×3 (09:04→22:23)
[2023-10-02] MEDS: ISOSORBIDE MONONITRATE ER 30 MG TAB.ER.24H PO SCH (09:04)
[2023-10-02] MEDS: methylPREDNISolone SOD SUCCI 125 MG/2 ML VIAL IV SCH (09:04)
[2023-10-02] MEDS: ASPIRIN 81 MG PO SCH (09:04)
[2023-10-02] MEDS: SENNOSIDES-DOCUSATE SODIUM 1 EACH TAB PO SCH ×2 (09:04→17:30)
[2023-10-02] MEDS: HEPARIN SODIUM,PORCINE 5,000 UNIT/ML 1 ML VIAL SQ SCH ×2 (09:04→22:22)
[2023-10-02] MEDS: DULoxetine HCL 20 MG CAPSULE.DR PO SCH (09:05)
[2023-10-02] MEDS ORDERED: methylPREDNISolone SOD SUCCI 40 MG/ML 1 ML VIAL IV SCH (09:45)
[2023-10-02 10:40] LABS: Glucose,Whole Blood 190 mg/dL (70-110)
[2023-10-02 10:43] LABS: HCT 28.6 % (37.2-46.3); HGB 9.3 g/dL (12.0-15.0); MCHC 32.5 g/dL (32.0-37.0); MCV 92.3 FL (80.0-97.0); Mean Platelet Volume 12.2 FL (9.5-12.2); NRBC Per 100 WBC 0.04 X 10*3/uL (0.00-0.01); Platelet Count 147 X 10*3/uL (140-440); RDW 13.8 % (11.5-14.5); WBC 8.06 X 10*3/uL (4.50-10.00)
[2023-10-02] MEDS: predniSONE 20 MG TAB PO SCH (10:45)
[2023-10-02 11:18] LABS: BUN/Creat Ratio 26.18 Ratio (12.00-20.00); Blood Urea Nitrogen 28.8 mg/dL (9.0-27.0); Calcium 8.9 mg/dL (8.7-10.3); Chloride 103 mmol/L (96-109); Glucose 185 mg/dL (70-110); Potassium 4.2 mmol/L (3.5-5.5); Sodium 139 mmol/L (135-145)
[2023-10-02] MEDS ORDERED: LORazepam 0.5 MG TAB PO PRN (12:47)
--- NOTE | 2023-10-02 12:50 | P.PN ---
Subjective Progress Note Date: 10/02/23 * 83-year-old patient, follows with Dr. Sanchez at the [facility]. [facility] [place]. * History is obtained primarily by the daughter over the phone. And the ER.Chronic stable medical conditions include diabetes, hypertension, hyperlipidemia, CAD with prior to heart attacks, some residual left eye droop from prior stroke. 2016. At a baseline patient does use a wheelchair. And can walk a few steps to the bathroom with support. Ex-smoker. Patient has underlying vascular dementia.By the EMS report patient was found altered mental status pulse ox down to the 80s and patient kept taking her oxygen mask off. Patient was RSV positive. Was wheezing. They placed place a 15 L nonrebreather mask. Patient also has a left upper lobe mass. Because oral condition this has not been further investigated.In the ER patient can only answer occasional questions. * 09/28/2023: In bed. Decrease appetite. Short of breath. Occasional cough. On nasal cannula. * 09/29/2023: Patient seen and evaluated bedside, patient is sleeping easily arousable, patient remained delirious and confused, been treated for RSV continue with oxygen supplementation. Continue with frequent orientation. Continue patient on breathing treatment symptomatic treatment. RSV receiving IV steroids as well. Pulmonary medicine team following * 09/30/2023: Patient seen and evaluated bedside during my evaluation patient is alert and oriented to situation however confused. CRP around 617. Pulmonary medicine following continue with breathing treatments portion requirements remained stable. IV fluids discontinued as well * 10/01/2023: Patient seen and evaluated bedside, patient is alert and does follow commands, patient told me her daughter's name is Gemini. Breathing has improved patient continued to remain on oxygen supplementation. Continue patient on current management including DuoNeb, will wean off steroids * 10/02/2023: Patient seen and evaluated bedside, patient is alert and following commands however overnight patient had episode of agitation was given IV Ativan. Ativan discontinued as well as oral Ativan to oversedation. Continue to remain on 3 L of oxygen appreciate input from pulmonary medicine PHYSICAL EXAMINATION: GENERAL: The patient is alert and oriented x 1 , ill appearance, nasal cannula in place HEENT: Pupils are round and equally reacting to light. EOMI. CARDIOVASCULAR: S1 and S2 present. No murmurs, rubs, or gallops. PULMONARY: Decreased breath sounds bilaterally, nasal cannula in place ABDOMEN: Soft, nontender, nondistended, normoactive bowel sounds. No palpable organomegaly. MUSCULOSKELETAL: No joint swelling or deformity. EXTREMITIES: No cyanosis, clubbing, or pedal edema. NEUROLOGICAL: Appears disoriented sleeping easily arousable confused SKIN: No rashes. Objective - Vital Signs Vital signs: Vital Signs Temp 97.6 F 10/02/23 07:57 Pulse 64 10/02/23 12:23 Resp 19 10/02/23 07:57 BP 154/60 10/02/23 07:57 Pulse Ox 94 L 10/02/23 07:57 FiO2 Intake & Output 10/01/23 10/02/23 10/02/23 18:59 06:59 18:59 Intake Total 500 Output Total 1 Balance 499 Intake: Oral 500 Output: Stool 1 Other: Voiding Method Diaper Diaper Diaper # Voids 3 1 1 # Bowel Movements 1 - Labs CBC & Chem 7: 10/02/23 06:21 10/02/23 06:21 Labs: Abnormal Lab Results - Last 24 Hours (Table) 10/01/23 10/01/23 10/02/23 Range/Units 17:38 20:51 05:40 RBC (4.10-5.20) X 10*6/uL Hgb (12.0-15.0) g/dL Hct (37.2-46.3) % NRBC/100 WBC Diff (0.00-0.01) X 10*3/uL Anion Gap (4.00-12.00) mmol/L BUN (9.0-27.0) mg/dL Est GFR (CKD-EPI) (>=60) BUN/Creatinine Ratio (12.00-20.00) Ratio Glucose (70-110) mg/dL POC Glucose (mg/dL) 298 H 247 H 196 H (70-110) mg/dL 10/02/23 10/02/23 10/02/23 Range/Units 06:21 06:21 10:39 RBC 3.10 L (4.10-5.20) X 10*6/uL Hgb 9.3 L (12.0-15.0) g/dL Hct 28.6 L (37.2-46.3) % NRBC/100 WBC Diff 0.04 H (0.00-0.01) X 10*3/uL Anion Gap 14.00 H (4.00-12.00) mmol/L BUN 28.8 H (9.0-27.0) mg/dL Est GFR (CKD-EPI) 50 L (>=60) BUN/Creatinine Ratio 26.18 H (12.00-20.00) Ratio Glucose 185 H (70-110) mg/dL POC Glucose (mg/dL) 190 H (70-110) mg/dL Assessment and Plan Assessment: Assessment and plan * Acute hypoxic respiratory failure secondary to RSV * History of dementia with impaired cognition with acute delirium secondary to hypoxia * Diabetes mellitus type 2 * Hypertension * History of CVA/TIA * History of coronary artery disease with PCI * 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
--- NOTE | 2023-10-02 13:28 | P.PN ---
Subjective Progress Note Date: 10/02/23 On 10/01/2023 and seen the patient for a follow-up. The patient is being treated for acute hypoxic respiratory failure secondary to RSV infection. Patient was positive on 09/25/2023. Patient is known to have previous history of a left upper lobe mass. The patient has received SBR by radiation oncology. The patient has dementia diabetes hypertension hyperlipidemia previous history of CVA. The patient also has an abdominal aortic aneurysm and has undergone endovascular stent grafting, coronary artery disease and previous stent placement. The patient currently resides in a [facility]. Clinically stable. Hemodynamically stable. Receiving bronchodilators and IV Solu-Medrol. Patient is currently on 60 mg of IV Solu-Medrol every 6 hours. Patient is currently on DuoNeb updrafts. Rest of the home medications were resumed. The chest x-ray at the time of admission showed a persistent peripheral left upper lobe mass and this was radiated as mentioned as the patient was not found to be a good candidate candidate. No significant leukocytosis. Renal function stable. Blood sugars are slightly elevated due to the effect of systemic steroids. Otherwise, the patient is currently on room air oxygen with a pulse ox of 92% On today's evaluation was 2023, the patient is resting comfortably in bed. No specific complaints she states that she is already feeling better. She is currently on prednisone burst taper starting with 40 mg patient remains on DuoNeb updrafts. No other changes in her medication. White cell count of 8, hemoglobin is at 9.3, BUN is at 28 with a creatinine of 1.1. The patient remains on oxygen and she is currently on 3 L O2 nasal cannula. Objective - Vital Signs Vital signs: Vital Signs Temp 97.6 F 10/02/23 07:57 Pulse 60 10/02/23 08:47 Resp 19 10/02/23 07:57 BP 154/60 10/02/23 07:57 Pulse Ox 94 L 10/02/23 07:57 FiO2 Intake & Output 10/01/23 10/02/23 10/02/23 18:59 06:59 18:59 Intake Total 500 Output Total 1 Balance 499 Intake: Oral 500 Output: Stool 1 Other: Voiding Method Diaper Diaper Diaper # Voids 3 1 # Bowel Movements 1 - Exam GENERAL EXAM: Awake, alert, confused, 83-year-old female, on 3 L nasal cannula, in no apparent distress. HEAD: Normocephalic. EYES: Normal reaction of pupils, equal size. NOSE: Clear with pink turbinates. THROAT: No erythema or exudates. NECK: No masses, no JVD. CHEST: No chest wall deformity. LUNGS: Equal air entry with bilateral scattered rhonchi more so on the left. CVS: S1 and S2 normal with no audible murmur, regular rhythm. ABDOMEN: No hepatosplenomegaly, normal bowel sounds, no guarding or rigidity. SPINE: No scoliosis or deformity SKIN: No rashes CENTRAL NERVOUS SYSTEM: No focal deficits, tone is normal in all 4 extremities. EXTREMITIES: There is no peripheral edema. No clubbing, no cyanosis. Periph eral pulses are intact. - Labs CBC & Chem 7: 10/02/23 06:21 10/02/23 06:21 Labs: Abnormal Lab Results - Last 24 Hours (Table) 10/01/23 10/01/23 10/02/23 Range/Units 17:38 20:51 05:40 RBC (4.10-5.20) X 10*6/uL Hgb (12.0-15.0) g/dL Hct (37.2-46.3) % NRBC/100 WBC Diff (0.00-0.01) X 10*3/uL Anion Gap (4.00-12.00) mmol/L BUN (9.0-27.0) mg/dL Est GFR (CKD-EPI) (>=60) BUN/Creatinine Ratio (12.00-20.00) Ratio Glucose (70-110) mg/dL POC Glucose (mg/dL) 298 H 247 H 196 H (70-110) mg/dL 10/02/23 10/02/23 10/02/23 Range/Units 06:21 06:21 10:39 RBC 3.10 L (4.10-5.20) X 10*6/uL Hgb 9.3 L (12.0-15.0) g/dL Hct 28.6 L (37.2-46.3) % NRBC/100 WBC Diff 0.04 H (0.00-0.01) X 10*3/uL Anion Gap 14.00 H (4.00-12.00) mmol/L BUN 28.8 H (9.0-27.0) mg/dL Est GFR (CKD-EPI) 50 L (>=60) BUN/Creatinine Ratio 26.18 H (12.00-20.00) Ratio Glucose 185 H (70-110) mg/dL POC Glucose (mg/dL) 190 H (70-110) mg/dL Assessment and Plan Plan: Assessment Acute hypoxic respiratory failure secondary RSV infection, patient was on 3 L wean down to room air oxygen. The patient tested positive on 09/25/2023, clinically improving Left upper lobe mass, treated by SBRT as the patient was not found to be as the patient was not found to be a good surgical candidate Dementia Diabetes mellitus type 2 with a component of steroid-induced hyperglycemia Hyperlipidemia Hypertension Previous history of CVA, Abdominal arctic aneurysm post endovascular stent grafting Coronary disease with stenting longterm resident Plan Continue with Bi pineda Puldeidra Completed a course of prednisone burst taper starting with 40 mg to be tapered by 10 mg every 4 days Monitor blood sugar Blood Wean down FiO2 currently on 3 L Labs are stable Increase mobility We'll follow
[2023-10-02 17:00] LABS: Glucose,Whole Blood 182 mg/dL (70-110)
[2023-10-02] MEDS: metFORMIN 500 MG TAB PO SCH (17:30)
[2023-10-02 21:03] LABS: Glucose,Whole Blood 205 mg/dL (70-110)
[2023-10-02] MEDS: ATORVASTATIN 40 MG TAB PO SCH (22:23)
[2023-10-03 05:27] LABS: Glucose,Whole Blood 129 mg/dL (70-110)
[2023-10-03] MEDS: INSULIN ASPART (NovoLOG) 100 UNIT/ML VIAL SQ SCH ×4 (06:07→21:59)
[2023-10-03] MEDS: carvediloL 12.5 MG TAB PO SCH ×2 (06:14→18:25)
[2023-10-03] MEDS: INSULIN DETEMIR (LEVEMIR) 100 UNIT/ML SYR SQ SCH (06:14)
[2023-10-03] MEDS: ACETAMINOPHEN TAB 325 MG TAB PO PRN (06:17)
[2023-10-03] MEDS: FORMOTEROL FUMARATE 20 MCG/2 ML NEBU INHALATION SCH ×2 (08:23→21:24)
[2023-10-03] MEDS: IPRATROPIUM-ALBUTEROL 3 ML NEB INHALATION SCH ×4 (08:23→21:24)
[2023-10-03] MEDS: BUDESONIDE 1 MG/2 ML NEBU INHALATION SCH ×2 (08:23→21:24)
[2023-10-03 08:46] LABS: HCT 32.9 % (37.2-46.3); HGB 10.7 g/dL (12.0-15.0); MCH 30.1 pg (27.0-32.0); MCHC 32.5 g/dL (32.0-37.0); MCV 92.7 FL (80.0-97.0); Mean Platelet Volume 11.9 FL (9.5-12.2); NRBC Per 100 WBC 0.02 X 10*3/uL (0.00-0.01); Platelet Count 150 X 10*3/uL (140-440); RBC 3.55 X 10*6/uL (4.10-5.20); RDW 14.1 % (11.5-14.5); WBC 13.34 X 10*3/uL (4.50-10.00)
[2023-10-03 09:05] LABS: BUN/Creat Ratio 29.91 Ratio (12.00-20.00); Blood Urea Nitrogen 32.9 mg/dL (9.0-27.0); Calcium 9.1 mg/dL (8.7-10.3); Carbon Dioxide 21.8 mmol/L (21.6-31.8); Chloride 104 mmol/L (96-109); Glucose 115 mg/dL (70-110); Potassium 4.3 mmol/L (3.5-5.5); Sodium 139 mmol/L (135-145)
[2023-10-03] MEDS: HYDROcodone/APAP 5-325MG 1 EACH TAB PO SCH (09:19)
[2023-10-03] MEDS: HEPARIN SODIUM,PORCINE 5,000 UNIT/ML 1 ML VIAL SQ SCH ×2 (09:19→21:58)
[2023-10-03] MEDS: cloNIDine HCL 0.2 MG TAB PO SCH ×2 (09:19→18:07)
[2023-10-03] MEDS: ASPIRIN 81 MG PO SCH (09:20)
[2023-10-03] MEDS: amLODIPine 5 MG TAB PO SCH (09:20)
[2023-10-03] MEDS: SENNOSIDES-DOCUSATE SODIUM 1 EACH TAB PO SCH ×2 (09:20→17:38)
[2023-10-03] MEDS: ISOSORBIDE MONONITRATE ER 30 MG TAB.ER.24H PO SCH (09:20)
[2023-10-03] MEDS: CHOLECALCIFEROL 25 MCG (1000 IU) TABLET PO SCH (09:20)
[2023-10-03] MEDS: predniSONE 20 MG TAB PO SCH (09:20)
[2023-10-03] MEDS: DULoxetine HCL 20 MG CAPSULE.DR PO SCH (09:21)
[2023-10-03 11:36] LABS: Glucose,Whole Blood 155 mg/dL (70-110)
--- NOTE | 2023-10-03 12:18 | P.PN ---
Subjective Progress Note Date: 10/03/23 * 83-year-old patient, follows with Dr. Sanchez at the [facility]. [facility]. * History is obtained primarily by the daughter over the phone. And the ER.Chronic stable medical conditions include diabetes, hypertension, hyperlipidemia, CAD with prior to heart attacks, some residual left eye droop from prior stroke. 2016. At a baseline patient does use a wheelchair. And can walk a few steps to the bathroom with support. Ex-smoker. Patient has underlying vascular dementia.By the EMS report patient was found altered mental status pulse ox down to the 80s and patient kept taking her oxygen mask off. Patient was RSV positive. Was wheezing. They placed place a 15 L nonrebreather mask. Patient also has a left upper lobe mass. Because oral condition this has not been further investigated.In the ER patient can only answer occasional questions. * 09/28/2023: In bed. Decrease appetite. Short of breath. Occasional cough. On nasal cannula. * 09/29/2023: Patient seen and evaluated bedside, patient is sleeping easily arousable, patient remained delirious and confused, been treated for RSV continue with oxygen supplementation. Continue with frequent orientation. Continue patient on breathing treatment symptomatic treatment. RSV receiving IV steroids as well. Pulmonary medicine team following * 09/30/2023: Patient seen and evaluated bedside during my evaluation patient is alert and oriented to situation however confused. CRP around 617. Pulmonary medicine following continue with breathing treatments portion requirements remained stable. IV fluids discontinued as well * 10/01/2023: Patient seen and evaluated bedside, patient is alert and does follow commands, patient told me her daughter's name is Gemini. Breathing has improved patient continued to remain on oxygen supplementation. Continue patient on current management including DuoNeb, will wean off steroids * 10/02/2023: Patient seen and evaluated bedside, patient is alert and following commands however overnight patient had episode of agitation was given IV Ativan. Ativan discontinued as well as oral Ativan to oversedation. Continue to remain on 3 L of oxygen appreciate input from pulmonary medicine * 10/03/2023: Patient seen and evaluated bedside, patient sleeping however easily arousable. Patient has minimal intake with dietitian and started on Megace. Continue with frequent orientation. CRP trending down PHYSICAL EXAMINATION: GENERAL: The patient is alert and oriented x 1 , ill appearance, nasal cannula in place HEENT: Pupils are round and equally reacting to light. EOMI. CARDIOVASCULAR: S1 and S2 present. No murmurs, rubs, or gallops. PULMONARY: Decreased breath sounds bilaterally, nasal cannula in place ABDOMEN: Soft, nontender, nondistended, normoactive bowel sounds. No palpable organomegaly. MUSCULOSKELETAL: No joint swelling or deformity. EXTREMITIES: No cyanosis, clubbing, or pedal edema. NEUROLOGICAL: Appears disoriented sleeping easily arousable confused SKIN: No rashes. Objective - Vital Signs Vital signs: Vital Signs Temp 98.0 F 10/03/23 07:43 Pulse 60 10/03/23 08:50 Resp 19 10/03/23 07:43 BP 175/72 10/03/23 07:43 Pulse Ox 95 10/03/23 07:43 FiO2 Intake & Output 10/02/23 10/03/23 10/03/23 18:59 06:59 18:59 Weight 81.647 kg Other: Voiding Method Diaper Diaper Diaper # Voids 1 4 - Labs CBC & Chem 7: 10/03/23 06:27 10/03/23 06:27 Labs: Abnormal Lab Results - Last 24 Hours (Table) 10/02/23 10/02/23 10/03/23 Range/Units 16:59 21:00 05:25 WBC (4.50-10.00) X 10*3/uL RBC (4.10-5.20) X 10*6/uL Hgb (12.0-15.0) g/dL Hct (37.2-46.3) % NRBC/100 WBC Diff (0.00-0.01) X 10*3/uL Anion Gap (4.00-12.00) mmol/L BUN (9.0-27.0) mg/dL Est GFR (CKD-EPI) (>=60) BUN/Creatinine Ratio (12.00-20.00) Ratio Glucose (70-110) mg/dL POC Glucose (mg/dL) 182 H 205 H 129 H (70-110) mg/dL C-Reactive Protein (0.00-0.80) mg/dL 10/03/23 10/03/23 10/03/23 Range/Units 06:27 06:27 11:35 WBC 13.34 H (4.50-10.00) X 10*3/uL RBC 3.55 L (4.10-5.20) X 10*6/uL Hgb 10.7 L (12.0-15.0) g/dL Hct 32.9 L (37.2-46.3) % NRBC/100 WBC Diff 0.02 H (0.00-0.01) X 10*3/uL Anion Gap 13.20 H (4.00-12.00) mmol/L BUN 32.9 H (9.0-27.0) mg/dL Est GFR (CKD-EPI) 50 L (>=60) BUN/Creatinine Ratio 29.91 H (12.00-20.00) Ratio Glucose 115 H (70-110) mg/dL POC Glucose (mg/dL) 155 H (70-110) mg/dL C-Reactive Protein 1.50 H (0.00-0.80) mg/dL Assessment and Plan 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 * In regards to acute hypoxia from RSV continue breathing treatment, continue prednisone, weaning from IV Solu-Medrol ,plan to wean, patient on inhalers including DuoNeb and Symbicort * In regards to diabetes mellitus continue patient on correctional insulin Levemir and metformin * In regards to hypertension continue home regimen including Imdur, Coreg * In regards to acute delirium continue with frequent orientation * In regards to protein calorie malnutrition encourage oral intake patient started on Megace to stimulate * Plan to return to [facility] upon discharge Time with Patient: Greater than 30
[2023-10-03] MEDS: MEGESTROL 40 MG TAB PO SCH ×3 (14:05→21:58)
--- NOTE | 2023-10-03 14:47 | P.PN ---
Subjective Progress Note Date: 10/03/23 On 10/01/2023 and seen the patient for a follow-up. The patient is being treated for acute hypoxic respiratory failure secondary to RSV infection. Patient was positive on 09/25/2023. Patient is known to have previous history of a left upper lobe mass. The patient has received SBR by radiation oncology. The patient has dementia diabetes hypertension hyperlipidemia previous history of CVA. The patient also has an abdominal aortic aneurysm and has undergone endovascular stent grafting, coronary artery disease and previous stent placement. The patient currently resides in a halfway. Clinically stable. Hemodynamically stable. Receiving bronchodilators and IV Solu-Medrol. Patient is currently on 60 mg of IV Solu-Medrol every 6 hours. Patient is currently on DuoNeb updrafts. Rest of the home medications were resumed. The chest x-ray at the time of admission showed a persistent peripheral left upper lobe mass and this was radiated as mentioned as the patient was not found to be a good candidate candidate. No significant leukocytosis. Renal function stable. Blood sugars are slightly elevated due to the effect of systemic steroids. Otherwise, the patient is currently on room air oxygen with a pulse ox of 92% On today's evaluation was 2023, the patient is resting comfortably in bed. No specific complaints she states that she is already feeling better. She is currently on prednisone burst taper starting with 40 mg patient remains on DuoNeb updrafts. No other changes in her medication. White cell count of 8, hemoglobin is at 9.3, BUN is at 28 with a creatinine of 1.1. The patient remains on oxygen and she is currently on 3 L O2 nasal cannula. On 10/03/2023, the patient is resting comfortably in bed and she has no specific complaints. She remains stable and there has been no other significant events over the past 24 hours. The patient is currently on a prednisone burst taper that was started yesterday and IV Solu-Medrol has been discontinued. Limited cough. No significant sputum production. No nausea or vomiting. No emesis. Outpatient medications have been resumed. The patient is on DuoNeb of chest 4 times a day and the patient is also on accommodation Perforomist and Pulmicort neb blotchiness twice a day. The patient is currently on 2 L of oxygen by nasal cannula with a pulse ox of 99%. Oral intake is quite diminished and the patient was started on Megace. The plan is to send this patient to medical [place] [facility] [place] at the time of discharge. Objective - Vital Signs Vital signs: Vital Signs Temp 98.0 F 10/03/23 07:43 Pulse 60 10/03/23 08:50 Resp 19 10/03/23 07:43 BP 175/72 10/03/23 07:43 Pulse Ox 95 10/03/23 07:43 FiO2 Intake & Output 10/02/23 10/03/23 10/03/23 18:59 06:59 18:59 Other: Voiding Method Diaper Diaper Diaper # Voids 1 4 - Exam GENERAL EXAM: Awake, alert, confused, 83-year-old female, on 3 L nasal cannula, in no apparent distress. HEAD: Normocephalic. EYES: Normal reaction of pupils, equal size. NOSE: Clear with pink turbinates. THROAT: No erythema or exudates. NECK: No masses, no JVD. CHEST: No chest wall deformity. LUNGS: Equal air entry with bilateral scattered rhonchi more so on the left. CVS: S1 and S2 normal with no audible murmur, regular rhythm. ABDOMEN: No hepatosplenomegaly, normal bowel sounds, no guarding or rigidity. SPINE: No scoliosis or deformity SKIN: No rashes CENTRAL NERVOUS SYSTEM: No focal deficits, tone is normal in all 4 extremities. EXTREMITIES: There is no peripheral edema. No clubbing, no cyanosis. Peripheral pulses are intact. - Labs CBC & Chem 7: 10/03/23 06:27 10/03/23 06:27 Labs: Abnormal Lab Results - Last 24 Hours (Table) 10/02/23 10/02/23 10/02/23 Range/Units 06:21 16:59 21:00 WBC (4.50-10.00) X 10*3/uL RBC (4.10-5.20) X 10*6/uL Hgb (12.0-15.0) g/dL Hct (37.2-46.3) % NRBC/100 WBC Diff (0.00-0.01) X 10*3/uL Anion Gap 14.00 H (4.00-12.00) mmol/L BUN 28.8 H (9.0-27.0) mg/dL Est GFR (CKD-EPI) 50 L (>=60) BUN/Creatinine Ratio 26.18 H (12.00-20.00) Ratio Glucose 185 H (70-110) mg/dL POC Glucose (mg/dL) 182 H 205 H (70-110) mg/dL C-Reactive Protein (0.00-0.80) mg/dL 10/03/23 10/03/23 10/03/23 Range/Units 05:25 06:27 06:27 WBC 13.34 H (4.50-10.00) X 10*3/uL RBC 3.55 L (4.10-5.20) X 10*6/uL Hgb 10.7 L (12.0-15.0) g/dL Hct 32.9 L (37.2-46.3) % NRBC/100 WBC Diff 0.02 H (0.00-0.01) X 10*3/uL Anion Gap 13.20 H (4.00-12.00) mmol/L BUN 32.9 H (9.0-27.0) mg/dL Est GFR (CKD-EPI) 50 L (>=60) BUN/Creatinine Ratio 29.91 H (12.00-20.00) Ratio Glucose 115 H (70-110) mg/dL POC Glucose (mg/dL) 129 H (70-110) mg/dL C-Reactive Protein 1.50 H (0.00-0.80) mg/dL Assessment and Plan Plan: Assessment Acute hypoxic respiratory failure secondary RSV infection, patient was on 2 L wean down to room air oxygen. The patient tested positive on 09/25/2023, clinically improving Left upper lobe mass, treated by SBRT as the patient was not found to be as the patient was not found to be a good surgical candidate Dementia Diabetes mellitus type 2 with a component of steroid-induced hyperglycemia Hyperlipidemia Hypertension Previous history of CVA, Abdominal arctic aneurysm post endovascular stent grafting Coronary disease with stenting care home resident Plan Wean FiO2 as tolerated to maintain saturation above 90% Continue with DuoNeb continue Pulmicort Completed a course of prednisone burst taper starting with 40 mg to be tapered by 10 mg every 4 days Monitor blood sugar Blood Wean down FiO2 currently on 2 L Labs are stable Increase mobility We'll follow Continue Megace and encourage increase oral intake No active signs of delirium at this point in time Continue Levemir insulin and metformin for blood sugar control The plan is to send the patient to medical [place] [facility] [place] at time of discharge.
[2023-10-03 16:50] LABS: Glucose,Whole Blood 248 mg/dL (70-110)
[2023-10-03] MEDS: metFORMIN 500 MG TAB PO SCH (17:39)
[2023-10-03] MEDS: SODIUM CHLORIDE 0.9% 1,000 ML IV SCH (18:18)
[2023-10-03] MEDS: carvediloL 6.25 MG TAB PO SCH (18:22)
[2023-10-03 20:46] LABS: Glucose,Whole Blood 187 mg/dL (70-110)
[2023-10-03] MEDS: cloNIDine HCL 0.1 MG TAB PO SCH (21:58)
[2023-10-03] MEDS: ATORVASTATIN 40 MG TAB PO SCH (21:58)
[2023-10-04 05:23] LABS: Glucose,Whole Blood 106 mg/dL (70-110)
[2023-10-04] MEDS: INSULIN ASPART (NovoLOG) 100 UNIT/ML VIAL SQ SCH ×3 (06:35→17:24)
[2023-10-04] MEDS: INSULIN DETEMIR (LEVEMIR) 100 UNIT/ML SYR SQ SCH (06:49)
[2023-10-04] MEDS: carvediloL 6.25 MG TAB PO SCH ×2 (06:49→17:34)
[2023-10-04] MEDS: ASPIRIN 81 MG PO SCH (08:15)
[2023-10-04] MEDS: HYDROcodone/APAP 5-325MG 1 EACH TAB PO SCH (08:15)
[2023-10-04] MEDS: HEPARIN SODIUM,PORCINE 5,000 UNIT/ML 1 ML VIAL SQ SCH (08:15)
[2023-10-04] MEDS: predniSONE 20 MG TAB PO SCH (08:16)
[2023-10-04] MEDS: cloNIDine HCL 0.1 MG TAB PO SCH (08:16)
[2023-10-04] MEDS: DULoxetine HCL 20 MG CAPSULE.DR PO SCH (08:16)
[2023-10-04] MEDS: amLODIPine 5 MG TAB PO SCH (08:16)
[2023-10-04] MEDS: SENNOSIDES-DOCUSATE SODIUM 1 EACH TAB PO SCH ×2 (08:16→17:34)
[2023-10-04] MEDS: CHOLECALCIFEROL 25 MCG (1000 IU) TABLET PO SCH (08:16)
[2023-10-04] MEDS: ISOSORBIDE MONONITRATE ER 30 MG TAB.ER.24H PO SCH (08:16)
[2023-10-04] MEDS: SODIUM CHLORIDE 0.9% 1,000 ML IV SCH (08:17)
[2023-10-04] MEDS: MEGESTROL 40 MG TAB PO SCH ×3 (08:17→17:34)
[2023-10-04] MEDS: IPRATROPIUM-ALBUTEROL 3 ML NEB INHALATION SCH ×3 (08:47→15:47)
[2023-10-04] MEDS: BUDESONIDE 1 MG/2 ML NEBU INHALATION SCH (08:47)
[2023-10-04] MEDS: FORMOTEROL FUMARATE 20 MCG/2 ML NEBU INHALATION SCH (08:49)
[2023-10-04 11:41] LABS: Glucose,Whole Blood 101 mg/dL (70-110)
--- NOTE | 2023-10-04 12:36 | P.DS ---
Providers Date of admission: 09/27/23 16:36 Expected date of discharge: 10/04/23 Attending physician: William Blackmon Consults: 09/27/23 12:01 Consult Physician Routine Consulting Provider: Jake Diallo Consult Reason/Comments: hypoxia Do you want consulting provider notified?: Yes Primary care [facility] [place] [facility] Course: * 83-year-old patient, follows with Dr. Sanchez at the [facility]. [facility]. * History is obtained primarily by the daughter over the phone. And the ER.Chronic stable medical conditions include diabetes, hypertension, hyperlipidemia, CAD with prior to heart attacks, some residual left eye droop from prior stroke. 2016. At a baseline patient does use a wheelchair. And can walk a few steps to the bathroom with support. Ex-smoker. Patient has underlying vascular dementia.By the EMS report patient was found altered mental status pulse ox down to the 80s and patient kept taking her oxygen mask off. Patient was RSV positive. Was wheezing. They placed place a 15 L nonrebreather mask. Patient also has a left upper lobe mass. Because oral condition this has not been further investigated.In the ER patient can only answer occasional questions. * 09/28/2023: In bed. Decrease appetite. Short of breath. Occasional cough. On nasal cannula. * 09/29/2023: Patient seen and evaluated bedside, patient is sleeping easily arousable, patient remained delirious and confused, been treated for RSV continue with oxygen supplementation. Continue with frequent orientation. Continue patient on breathing treatment symptomatic treatment. RSV receiving IV steroids as well. Pulmonary medicine team following * 09/30/2023: Patient seen and evaluated bedside during my evaluation patient is alert and oriented to situation however confused. CRP around 617. Pulmonary medicine following continue with breathing treatments portion requirements remained stable. IV fluids discontinued as well * 10/01/2023: Patient seen and evaluated bedside, patient is alert and does follow commands, patient told me her daughter's name is Gemini. Breathing has improved patient continued to remain on oxygen supplementation. Continue patient on current management including DuoNeb, will wean off steroids * 10/02/2023: Patient seen and evaluated bedside, patient is alert and following commands however overnight patient had episode of agitation was given IV Ativan. Ativan discontinued as well as oral Ativan to oversedation. Continue to remain on 3 L of oxygen appreciate input from pulmonary medicine * 10/03/2023: Patient seen and evaluated bedside, patient sleeping however easily arousable. Patient has minimal intake with dietitian and started on Megace. Continue with frequent orientation. CRP trending down * 10/04/2023: Patient seen and evaluated bedside patient is alert on 3 L of oxygen, patient presented baseline, seen by pulmonary medicine patient to be discharged, PHYSICAL EXAMINATION: GENERAL: The patient is alert and oriented x 1 , ill appearance, nasal cannula in place HEENT: Pupils are round and equally reacting to light. EOMI. CARDIOVASCULAR: S1 and S2 present. No murmurs, rubs, or gallops. PULMONARY: Decreased breath sounds bilaterally, nasal cannula in place ABDOMEN: Soft, nontender, nondistended, normoactive bowel sounds. No palpable organomegaly. MUSCULOSKELETAL: No joint swelling or deformity. EXTREMITIES: No cyanosis, clubbing, or pedal edema. NEUROLOGICAL: Appears disoriented sleeping easily arousable confused SKIN: No rashes. 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 * In regards to acute hypoxia from RSV continue breathing treatment, continue prednisone x 3 more days , weaning from IV Solu-Medrol ,plan to wean, , continue bronchodilator * In regards to diabetes mellitus continue home regimen including Lantus, metformin * In regards to hypertension continue home regimen including Imdur, Coreg, dose decreased * In regards to acute delirium continue with frequent orientation * In regards to protein calorie malnutrition encourage oral intake patient started on Megace to stimulate * Plan to return to [facility] upon discharge Patient Condition at Discharge: Fair Plan - Discharge Summary New Discharge Prescriptions: New carvediloL [Coreg] 6.25 mg PO BID-W/MEALS tab Megestrol [Megace] 80 mg PO QID 30 Days #120 tab Continue Ipratropium-Albuterol Nebulize [Duoneb 0.5 mg-3 mg/3 ml Soln] 3 ml INHALATION RT-Q6H PRN PRN Reason: Shortness Of Breath Cholecalciferol [Vitamin D3 (25 Mcg = 1000 Iu)] 50 mcg PO DAILY@0800 ondansetron HCL [Zofran] 8 mg PO Q6H PRN PRN Reason: Nausea cloNIDine HCL 0.2 mg PO TID Atorvastatin [Lipitor] 40 mg PO HS@2000 DULoxetine HCL [Cymbalta] 20 mg PO DAILY@0800 Isosorbide Mononitrate ER [Imdur] 30 mg PO DAILY 30 Days #30 tab Insulin Glargine,Hum.rec.anlog [Lantus Solostar Pen] 4 units SQ DAILY HYDROcodone/APAP 5-325MG [Saluda 5-325] 1 tab PO DAILY 3 Days #3 tab Nitroglycerin Sl Tabs [Nitrostat] 0.4 mg SL Q5M PRN PRN Reason: Chest Pain Aspirin EC [Ecotrin Low Dose] 81 mg PO DAILY@0800 Albuterol Inhaler [Ventolin Hfa Inhaler] 2 puff INHALATION RT-Q6H PRN PRN Reason: Shortness Of Breath Acetaminophen [Tylenol Arthritis] 650 mg PO Q6H PRN PRN Reason: Pain Or Fever > 100.5 Petrolatum, White [Aquaphor] 1 applic TOPICAL Q12H PRN PRN Reason: dry legs/feet Sennosides/Docusate Sodium [Senna Plus 8.6-50 mg Softgel] 1 cap PO BID@0800,1 600 amLODIPine [Norvasc] 5 mg PO DAILY 30 Days #30 tab traMADol HCL 50 mg PO Q6H PRN 3 Days #12 tab PRN Reason: Pain Discontinued carvediloL [Coreg*] 12.5 mg PO BID-W/MEALS 30 Days #60 tab Azithromycin [Zithromax] 500 mg PO DAILY Discharge Medication List Albuterol Inhaler [Ventolin Hfa Inhaler] 2 puff INHALATION RT-Q6H PRN 04/09/22 [History] Aspirin EC [Ecotrin Low Dose] 81 mg PO DAILY@0800 04/09/22 [History] Ipratropium-Albuterol Nebulize [Duoneb 0.5 mg-3 mg/3 ml Soln] 3 ml INHALATION RT-Q6H PRN 04/09/22 [History] Nitroglycerin Sl Tabs [Nitrostat] 0.4 mg SL Q5M PRN 04/09/22 [History] Acetaminophen [Tylenol Arthritis] 650 mg PO Q6H PRN 08/23/22 [History] Cholecalciferol [Vitamin D3 (25 Mcg = 1000 Iu)] 50 mcg PO DAILY@0800 08/23/22 [History] Atorvastatin [Lipitor] 40 mg PO HS@2000 05/01/23 [History] DULoxetine HCL [Cymbalta] 20 mg PO DAILY@0800 05/01/23 [History] Petrolatum, White [Aquaphor] 1 applic TOPICAL Q12H PRN 05/01/23 [History] Sennosides/Docusate Sodium [Senna Plus 8.6-50 mg Softgel] 1 cap PO BID@0800,1600 05/01/23 [History] cloNIDine HCL 0.2 mg PO TID 05/01/23 [History] ondansetron HCL [Zofran] 8 mg PO Q6H PRN 05/01/23 [History] Isosorbide Mononitrate ER [Imdur] 30 mg PO DAILY 30 Days #30 tab 09/01/23 [Rx] amLODIPine [Norvasc] 5 mg PO DAILY 30 Days #30 tab 09/01/23 [Rx] Insulin Glargine,Hum.rec.anlog [Lantus Solostar Pen] 4 units SQ DAILY 09/27/23 [History] HYDROcodone/APAP 5-325MG [Saluda 5-325] 1 tab PO DAILY 3 Days #3 tab 10/04/23 [Rx] Megestrol [Megace] 80 mg PO QID 30 Days #120 tab 10/04/23 [Rx] carvediloL [Coreg] 6.25 mg PO BID-W/MEALS tab 10/04/23 [Rx] traMADol HCL 50 mg PO Q6H PRN 3 Days #12 tab 10/04/23 [Rx] Follow up Appointment(s)/Referral(s): Marcello Sanchez DO [Primary Care Provider] - 1-2 days Otis Rosales, [NON-STAFF] - As Needed Discharge Disposition: TRANSFER TO SNF/ECF
[2023-10-04 15:26] VITALS: BP 150/70; RESP 18; TEMP 98
--- NOTE | 2023-10-04 16:05 | P.PN ---
Subjective Progress Note Date: 10/04/23 On 10/01/2023 and seen the patient for a follow-up. The patient is being treated for acute hypoxic respiratory failure secondary to RSV infection. Patient was positive on 09/25/2023. Patient is known to have previous history of a left upper lobe mass. The patient has received SBR by radiation oncology. The patient has dementia diabetes hypertension hyperlipidemia previous history of CVA. The patient also has an abdominal aortic aneurysm and has undergone endovascular stent grafting, coronary artery disease and previous stent placement. The patient currently resides in a fpc. Clinically stable. Hemodynamically stable. Receiving bronchodilators and IV Solu-Medrol. Patient is currently on 60 mg of IV Solu-Medrol every 6 hours. Patient is currently on DuoNeb updrafts. Rest of the home medications were resumed. The chest x-ray at the time of admission showed a persistent peripheral left upper lobe mass and this was radiated as mentioned as the patient was not found to be a good candidate candidate. No significant leukocytosis. Renal function stable. Blood sugars are slightly elevated due to the effect of systemic steroids. Otherwise, the patient is currently on room air oxygen with a pulse ox of 92% On today's evaluation was 2023, the patient is resting comfortably in bed. No specific complaints she states that she is already feeling better. She is currently on prednisone burst taper starting with 40 mg patient remains on DuoNeb updrafts. No other changes in her medication. White cell count of 8, hemoglobin is at 9.3, BUN is at 28 with a creatinine of 1.1. The patient remains on oxygen and she is currently on 3 L O2 nasal cannula. On 10/03/2023, the patient is resting comfortably in bed and she has no specific complaints. She remains stable and there has been no other significant events over the past 24 hours. The patient is currently on a prednisone burst taper that was started yesterday and IV Solu-Medrol has been discontinued. Limited cough. No significant sputum production. No nausea or vomiting. No emesis. Outpatient medications have been resumed. The patient is on DuoNeb of chest 4 times a day and the patient is also on accommodation Perforomist and Pulmicort neb blotchiness twice a day. The patient is currently on 2 L of oxygen by nasal cannula with a pulse ox of 99%. Oral intake is quite diminished and the patient was started on Megace. The plan is to send this patient to [facility] [place] at the time of discharge. On 10/05/2023, the patient is comfortable. No new complaints. She is on 3 L of O2 nasal cannula with a pulse ox of 94%. She is completing a prednisone burst taper. No fever. No chills. No other new complaints otherwise for now. As mentioned, the patient and acute hypoxic respiratory event secondary to RSV infection. She has underlying dementia with impaired cognitive functions. Oral intake remains poor. The patient is going to [facility] in [place]. Objective - Vital Signs Vital signs: Vital Signs Temp 97.8 F 10/04/23 07:29 Pulse 58 L 10/04/23 11:54 Resp 17 10/04/23 08:00 BP 156/52 10/04/23 07:29 Pulse Ox 97 10/04/23 11:54 FiO2 Intake & Output 10/03/23 10/04/23 10/04/23 18:59 06:59 18:59 Intake Total 450 Output Total 250 Balance 200 Weight 81.647 kg Intake: Oral 450 Output: Urine 250 Other: Voiding Method Diaper External Catheter External Catheter # Voids 1 2 - Exam GENERAL EXAM: Awake, alert, confused, 83-year-old female, on 3 L nasal cannula, in no apparent distress. HEAD: Normocephalic. EYES: Normal reaction of pupils, equal size. NOSE: Clear with pink turbinates. THROAT: No erythema or exudates. NECK: No masses, no JVD. CHEST: No chest wall deformity. LUNGS: Equal air entry with bilateral scattered rhonchi more so on the left. CVS: S1 and S2 normal with no audible murmur, regular rhythm. ABDOMEN: No hepatosplenomegaly, normal bowel sounds, no guarding or rigidity. SPINE: No scoliosis or deformity SKIN: No rashes CENTRAL NERVOUS SYSTEM: No focal deficits, tone is normal in all 4 extremities. EXTREMITIES: There is no peripheral edema. No clubbing, no cyanosis. Peripheral pulses are intact. - Labs CBC & Chem 7: 10/03/23 06:27 10/03/23 06:27 Labs: Abnormal Lab Results - Last 24 Hours (Table) 10/03/23 10/03/23 Range/Units 16:48 20:42 POC Glucose (mg/dL) 248 H 187 H (70-110) mg/dL Assessment and Plan Plan: Assessment Acute hypoxic respiratory failure secondary RSV infection, patient was on 3 L wean down to room air oxygen. The patient tested positive on 09/25/2023, clinically improving and overall respiratory status is stable for now without any signs of any respiratory distress or respiratory insufficiency. Left upper lobe mass, treated by SBRT as the patient was not found to be as the patient was not found to be a good surgical candidate Dementia Diabetes mellitus type 2 with a component of steroid-induced hyperglycemia Hyperlipidemia Hypertension Previous history of CVA, Abdominal arctic aneurysm post endovascular stent grafting Coronary disease with stenting snf resident Plan Patient is quite debilitated. The patient may have an underlying dementia with cognitive impairment. Oral intake remains poor. Continue Megace. The patient will likely get discharged ultimately [facility] [place]. Wean FiO2 as tolerated to maintain saturation above 90%, currently on 3 L Continue with DuoNeb continue Pulmicort Completed a course of prednisone burst taper starting with 40 mg to be tapered by 10 mg every 4 days Monitor blood sugar Blood Wean down FiO2 currently on 3 L Labs are stable Increase mobility
[2023-10-04 16:13] VITALS: PULSE 62
[2023-10-04] MEDS: ACETAMINOPHEN TAB 325 MG TAB PO PRN (16:25)
[2023-10-04 17:16] LABS: Glucose,Whole Blood 148 mg/dL (70-110)
[2023-10-04] MEDS: metFORMIN 500 MG TAB PO SCH (17:34)
== END 2023-10-04 17:53 | DRG 189 ==
LOC: EC 04:43 → 4SSUR 07:51 → OBSVTOIN 16:36 → 4SSUR 18:00
PROVIDERS: ADMIT Hospitalist; ATTEND Hospitalist
DX: J96.01 Acute respiratory failure with hypoxia (principal); E43 Unspecified severe protein-calorie malnutrition; J44.1 Chronic obstructive pulmonary disease with (acute) exacerbation; G93.1 Anoxic brain damage, not elsewhere classified; C34.12 Malignant neoplasm of upper lobe, left bronchus or lung; J06.9 Acute upper respiratory infection, unspecified; B97.4 Respiratory syncytial virus as the cause of diseases classified elsewhere; E11.65 Type 2 diabetes mellitus with hyperglycemia; F01.50 Vascular dementia, unspecified severity, without behavioral disturbance, psychotic disturbance, mood disturbance, and anxiety; E78.5 Hyperlipidemia, unspecified; I25.10 Atherosclerotic heart disease of native coronary artery without angina pectoris; T38.0X5A Adverse effect of glucocorticoids and synthetic analogues, initial encounter; F32.A Depression, unspecified; Z66 Do not resuscitate; I10 Essential (primary) hypertension; R53.81 Other malaise; I25.2 Old myocardial infarction; Z95.828 Presence of other vascular implants and grafts; I69.392 Facial weakness following cerebral infarction; Z79.4 Long term (current) use of insulin; Z79.82 Long term (current) use of aspirin; Z79.84 Long term (current) use of oral hypoglycemic drugs; Z79.899 Other long term (current) drug therapy; Z87.891 Personal history of nicotine dependence; Z90.710 Acquired absence of both cervix and uterus; Z95.5 Presence of coronary angioplasty implant and graft
CPT/HCPCS: 36415; 71045; 80048; 80053; 83605; 83880; 84145; 84484; 85025; 85027; 85610; 85730; 86140; 93005; 94640; 94760; 96361; 96374; 96375; 96376; 99285